=== PATIENT | male | born 1965 | race Caucasian/White ===

== ENCOUNTER 2024-01-02 07:38 | Outpatient (OUT) | payer OTHER, SELFPAY ==
--- NOTE | 2024-01-02 07:39 | VEIN_ITS ---
[address] [address] Patient Name: SHERRY BURKETT MRN: [id number] date: 1965 Sex: M Assigned Patient Location: Current Patient Location: Accession/Order Number: [id number] Exam Date: 01/02/2024 07:46 Report Date: 01/02/2024 09:02 At the request of: DINA LOZANO Procedure: VC Endovenous Ablation 1VeinLT EXAMINATION: VC Endovenous Ablation 1Vein [. Saphenous vein Great saphenous vein HISTORY: I83.813 Bilateral painful varicose veins COMPARISON: No relevant comparison available. TECHNIQUE: The risks and benefits of the procedure had been previously discussed, and were rediscussed at length. Informed written consent was obtained. Berkley Hart and Nixon Townsend assisted. Time out procedure was performed. The left lower extremity was prepared and draped in the usual sterile fashion to allow knee flexion in the sterile field. Duplex ultrasound probe was draped in a sterile cover, sterile transmission gel was used. Venous mapping was performed with the areas of dilation and large tributaries marked. The total length was 71 cm from the entry 5 cm above the medial malleolus to 3 cm below the saphenofemoral junction. The diameter of the greater saphenous vein ranged from 4-8 mm. A 30 gauge needle and 1% buffered lidocaine was used to anesthetize the entry site. A 4 mm incision was made with a scalpel and the saphenous vein was entered percutaneously under direct ultrasound guidance with a micropuncture set, a single stick was successful in gaining access. A micro-guide wire was inserted and the needle removed. A micro-set including a dilator was inserted over the microwire and the needle and dilator were removed. A 0.018 guide wire was inserted through the micro-set and threaded through the saphenous vein to the saphenofemoral junction. The dilator was removed and an introducer sheath was inserted over the wire until the end of the sheath entered the saphenofemoral junction. The dilator and wire were removed and the 600 micron fiber was introduced and placed and positioned so that it extended beyond the sheath and was 3 cm peripheral to the saphenofemoral femoral junction. Final position of the fiber was determined by ultrasound guidance and duplex imaging. Tumescent anesthetic was delivered by ultrasound guidance. 375 cc of fluid was delivered along the entire course of the saphenous vein. The solution consisted of 1000 cc of normal saline with 40 mL of 1% lidocaine and 20 mL of sodium bicarbonate. A final positioning check was made. The energy source was turned on by means of the foot pedal and the fiber and sheath were withdrawn. The total number of Joules delivered was 3648. The laser was active for 456 seconds under continuous pulse, average laser use of 8 J. Laser start time 8:42 AM 01/02/2024 . Laser stop time 8:47 AM 01/02/2024 . A duplex ultrasound revealed compressibility and flow at the saphenofemoral junction immediately after the procedure. Hemostasis at the access site was achieved. The skin incision of the saphenous vein was closed with a 4 x 4. A compression stocking was applied. Postop instructions were given. A follow up appointment was recommended and scheduled. The patient tolerated the procedure well and was discharged in good condition . VEIN/VC Endovenous Ablation 1VeinLT IMPRESSION: Technically successful endovenous laser ablation of the left great saphenous vein Electronically authenticated by: DINA LOZANO Date: 01/02/2024 09:02
[2024-01-02] MEDS: LIDOCAINE HCL 1% 100 MG/10 ML MDV INJ (08:18)
[2024-01-02] MEDS: 0.9 % SODIUM CHLORIDE 500 ML, LIDOCAINE HCL 20 ML, SODIUM BICARBONATE 10 MEQ INJ (08:19)
== END 2024-01-02 07:39 | disposition home or self-care (01) ==
LOC: VC 07:38
PROVIDERS: PCP Radiology Diagnostic Radiology; Visit Provider Radiology Diagnostic Radiology
DX: I83.813 Varicose veins of bilateral lower extremities with pain (principal)
CPT/HCPCS: 36478

== ENCOUNTER 2024-01-09 10:35 | Outpatient (OUT) | payer OTHER, SELFPAY ==
--- NOTE | 2024-01-09 10:38 | VEIN_ITS ---
Patient Name: SHERRY BURKETT MR#: [id number] : 1965 Exam Date: 01/09/2024 Ordering Doctor: DR DINA LOZANO M.D. RADIOLOGY REPORT PROCEDURE: [facility] - OFFICE VISIT FOLLOW UP COMPARISON: None. PROGRESS NOTES: The patient reports improvement in leg symptoms. There has been interval reduction in varicosities. The patient has followed our recommendations to walk 20-30 minutes once or twice per day since the procedure. Physical exam demonstrates decrease in varicosities of the leg. Persistent varicosities are identified along the legs bilaterally. Review of the ultrasound performed the same day demonstrates occlusive thrombus extending throughout the treated vein(s), see separate report, consistent with a successful ablation. No thrombus extending into or beyond the saphenofemoral junction. The patient expressed a desire to proceed with treatment of remaining incompetent varicosities. The patient was informed that treatment was a process and would require several procedures/sessions. VEIN/ Facility EST TD IMPRESSION: 1. Successful ablation of the left great saphenous vein(s). 2. Persistent bilateral varicose veins and lower extremity symptoms. 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 Patient will contact us in a few weeks when ready for next treatment. Nurse notes, history and physical were reviewed and confirmed, see attached forms. The nurse was present throughout the physical exam and consultation Dictated by: Abdulkadir Neri M.D. on 01/09/2024 at 14:49 Approved by: Abdulkadir Neri M.D. on 01/09/2024 at 14:51
--- NOTE | 2024-01-09 10:38 | VEIN_ITS ---
Patient Name: SHERRY BURKETT MR#: [id number] : 1965 Exam Date: 01/09/2024 Ordering Doctor: DR DINA LOZANO M.D. RADIOLOGY REPORT PROCEDURE: VC EXT VENOUS LT LIMITED COMPARISON: None. INDICATIONS: Phlebitis of superficial veins of lt lower extremity I80.02 TECHNIQUE: Lower extremity glover scale and Duplex Doppler evaluation of the deep venous system from the inguinal ligament through the calf veins. FINDINGS: REGION: Left lower extremity. THROMBI: Negative for DVT. Heat induced thrombus in left GSV 1.6 cm from SFJ and extends to anterior medial foot. COMPRESSIBILITY: Non-compressible segments corresponding to thrombus FLOW: Areas of no flow corresponding to thrombus OTHER: Patent perforators remain in medial lower leg. CONCLUSION: 1. Successful post ablation occlusion of left great saphenous vein. Dictated by: Abdulkadir Neri M.D. on 01/09/2024 at 14:48 Approved by: Abdulkadir Neri M.D. on 01/09/2024 at 14:49
--- OUTSIDE RECORDS SUMMARY | 2024-01-09 10:41 | XMS_ITS | CCD ---
Author Name Unknown Address [address] [place] [address] Organization [facility] Care Team Providers Care Registered Radiographer Name Role Phone Winifred Bernal Unavailable Unavailable Pancho Scott Unavailable Unavailable Pancho Scott Unavailable Unavailable Unavailable Unavailable Unavailable Pancho Scott DO Primary Care Provider [phone] Dina Chandra Unavailable Unavailable Unavailable DO Pancho Scott Primary Care Provider Sourav, [facility] Tiffany Bauer Emergency Provider JOSE BARFIELD Attending Unavailable TOMMY BARFIELDEEM Admitting Unavailable DR DINA LOZANO V Consulting Unavailable LICO JOSE Consulting Unavailable Pancho Scott DO Primary Care Provider [phone] PANCHO SCOTT Primary Care Unavailable PROVIDER, UNKNOWN Referring Unavailable MD WINIFRED BERNAL Referring Unav ailable Tyler, Dr. Pancho Stewart Primary Care Unavailable Raghu MsGerry Mccurdy Attending Unavailable MD WINIFRED BERNAL Referring Unav ailable Tyler, Dr. Pancho Stewart Primary Care Unavailable Kimmie, MrGerry Archer Attending MD WINIFRED Muhammad Referring Unav ailable Tyler, Dr. Pancho Stewart Primary Care Unavailable MD WINIFRED BERNAL Attending MD WINIFRED Payne Referring Unav ailable Tyler, Dr. Pancho Stewart Primary Care Unavailable MD WINIFRED BERNAL Attending MD WINIFRED Payne Referring Unav ailable Dr. Pancho Scott Primary Care Unavailable MD WINIFRED BERNAL Attending Unav ailable MD WINIFRED BERNAL Referring Unav ailable MD WINIFRED BERNAL Attending Unav ailable Dr. Pancho Scott Primary Care Unavailable Scott DO, [facility] Primary Care Provider [phone] SUHA WELCH Referring Unavailable PANCHO SCOTT Primary Care Unavailable O'SUHA KEVIN Attending Unavailable Prisca'SUHA KEVIN Referring Unavailable PANCHO SCOTT Primary Care Unavailable Prisca'HERBERTH, SUHA Chin Attending Unavailable SUHA WELCH Referring Unavailable PANCHO SCOTT Primary Care Unavailable Prisca'SUHA KEVIN Attending Unavailable YURI, SUHA Chin Attending Unavailable PANCHO SCOTT [facility] Care Unavailable SUHA WELCH Referring Unavailable SCOTT, [facility] Unavailable WOODY KNOX Attending Unavailable PORSHA PAIGE Attending Unavailab le TYLER [facility] Unavailable SCOTT [facility] Unavailable GISELE SMITH Attending Unavailabl lizette SCOTT [facility] Unavailable GISELE SMITH Attending Unavailabl lizette SCOTT [facility] Unavailable WOODY KNOX Attending Unavailable SCOTT, [facility] Unavailable WOODY KNOX Referring Unavailable DO Tyler [facility] Care Provider [phone] MD Dina Chandra Attending Provider [phone] Pancho Scott [facility] Unavailable Dina Chandra Attending Unavailable Dina Chandra Admitting Unavailable ANNELISE Peterson Admitting Unavailable Pancho Scott [facility] Care Unavailable ANNELISE Peterson Attending Unavailable ANNELISE Peterson Admitting Unavailable Pancho Scott Primary Care Unavailable ANNELISE Peterson Attending Unavailable Pancho Scott Primary Care Unavailable ANNELISE Peterson Admitting Unavailable ANNELISE Peterson Attending Unavailable Pancho Scott Primary Care Unavailable BETTY PARKER Attending Unavailable BETTY PARKER Admitting Unavailable Estrella Mena Referring Unavailable Staci Owen PA-C Attending Unavailable Staci Owen PA-C Admitting Unavailable Scott, Pancho W Primary Care Unavailable BETTY PARKER Attending Unavailable BETTY PARKER Admitting Unavailable Scott Pancho W Primary Care Unavailable GersonensteinEstrella Attending Unavailable Eisenstein, Estrella Admitting Unavailable Scott, Pancho W Primary Care Unavailable Lexie PA-C, Staci E Admitting Unavailable Scott Pancho W Primary Care Unavailable Lexie PA-C, Staci E Attending Unavailable Dolce, Jose R Attending Unavailable Dolce, Jose R Admitting Unavailable Scott Pancho W Primary Care Unavailable Lexie PA-C, Staci E Attending Unavailable Lexie PA-C, Staci E Admitting Unavailable Scott, Pancho W Primary Care Unavailable Scott, Pancho W Primary Care Unavailable BETTY PARKER Attending Unavailable BETTY PARKER Admitting Unavailable Jayy Clemente Attending Unavailable Soctt, Pancho W Primary Care Unavailable Jayy Clemente Admitting Unavailable ANNELISE Peterson Attending Unavailable ANNELISE Peterson Admitting Unavailable ScottPancho W Primary Care Unavailable Lexie PA-C, Staci E Attending Unavailable Lexie PA-C, Staci E Admitting Unavailable ScottPancho Primary Care Unavailable Scott, Pancho W Primary Care Unavailable ANNELISE Peterson Attending Unavailable ANNELISE Peterson Admitting Unavailable Dolce, Jose R Admitting Unavailable Scott, Pancho W Primary Care Unavailable Dolce, Jose R Attending Unavailable Juan Sotomayor Admitting Unavailable SotomayorJuan cuellar Attending Unavailable ScottPancho W Primary Care Unavailable Dolce, Jose R Attending Unavailable Dolce, Jose R Admitting Unavailable Scott, Pancho W Primary Care Unavailable Eisenstein, Estrella Attending Unavailable Eisenstein, Estrella Admitting Unavailable Scott, Pancho W Primary Care Unavailable SotomayorJuan cuellar Attending Unavailable SotomayorJuan cuellar Admitting Unavailable Scott, Pancho W Primary Care Unavailable Scott, Pancho W Primary Care Unavailable BETTY PARKER Admitting Unavailable BETTY PARKER Attending Unavailable Gersonenstein, Estrella Attending Unavailable Scott, Pancho W Primary Care Unavailable Eisenstein, Estrella Admitting Unavailable ANNELISE Peterson Admitting Unavailable Scott, Pancho W Primary Care Unavailable ANNELISE Peterson Attending Unavailable Dolce, Jose R Attending Unavailable Dolce, Jose R Admitting Unavailable Scott, Pancho W Primary Care Unavailable WINIFRED BERNAL Attending Unavailable PANCHO SCOTT Primary Care Unavailable WINIFRED BERNAL Attending Unavailable SCOTT, PANCHO Pat Primary Care Unavailable WINIFRED BERNAL Attending Unavailable SCOTT, PANCHO W Primary Care Unavailable WINIFRED BERNAL Attending Unavailable SCOTT, PANCHO W Primary Care Unavailable SCOTT, PANCHO W Primary Care Unavailable Allergies Allergy Classification Reported Allergen(s) Allergy Type Date of Onset Reaction(s) Facility Mold Extract (6 sources) Mold Extract Drug Allergy [facility]ct[facility] DO Work Phone: (20 sources) Mold Extract; Translations: [MOLD] Drug Allergy 2 Cough [facility] (9 sources) Metoclopramide; Translations: [METOCLOPRAMIDE HCL] Drug Allergy 7 Intolerance [facility] (9 sources) Seasonal allergy; Translations: [SEASONAL ALLERGIES] Allergy to substance Cough [facility] (11 sources) Metoclopramide; Translations: [METOCLOPRAMIDE ] Drug Allergy 7 Anxiety [facility] (2 sources) Allergic rhinitis due to pollen Allergy to substance 2 Difficulty Breathing [facility] (4 sources) Pollen; Translations: [POLLEN EXTRACTS] Allergy to substance 2 Shortness of breath [facility] Work Phone: (4 sources) Hay Fever And Allergy Relief; Translations: [HAY FEVER AND ALLERGY RELIEF] Drug Allergy 4 Unknown [facility] (4 sources) Other; Translations: [OTHER] Allergy to substance 4 Unknown [facility] Work Phone: (1 source) Metoclopramide; Translations: [Reglan] Drug Allergy [facility] (1 source) Hay; Translations: [Hay] Propensity to adverse reactions to drug (disorder) [facility] Repository Medications Current Medications Medication Drug Class(es) Dates Sig (Normalized) Sig (Original) acetaminophen 500 mg oral tablet (8 sources) acetaminophen (T ylenol Extra Strength) 500 mg tablet Take by mouth. [address] rength TABS Refills: [address] rength TABS Refills: 0 DO Active acetaminophen 325 mg / HYDROcodone bitartrate 5 mg oral tablet (20 sources) Opioid Agonist Start: 12-05-2023 HYDROcodone-ac etaminophen ([place]) 5-325 mg tablet Indications: Chronic migraine without aura, with intractable migraine, so stated, with status migrainosus Take 1 tablet by mouth every 8 hours if needed for severe pain (7 - 10). 90 tabs for 30 days 90 tablet 0 12/05/2023 Active Start: 11-05-2023 End: 12-05-2023 take 1 tablet by mouth every eight hours for pain HYDROcodone-acetaminophen ([place]) 5-325 mg tablet Indications: Chronic migraine without aura, with intractable migraine, so stated, with status migrainosus Take 1 tablet by mouth every 8 hours if needed for severe pain (7 - 10). 90 tabs for 30 days Do not start before November 05, 2023. 90 tablet 0 11/05/2023 12/05/2023 Discontinued (Reorder) Start: 11-05-2023 End: 12-05-2023 take 1 tablet by mouth every eight hours for pain HYDROcodone-acetaminophen ([place]) 7.5-32 5 mg tablet Indications: Chronic migraine without aura, with intractable migraine, so stated, with status migrainosus Take 1 tablet by mouth every 8 hours if needed for severe pain (7 - 10). 30 day supply Do not start before November 05, 2023. 120 tablet 0 11/05/2023 12/05/2023 Discontinued (Med List Cleanup) Start: 04-27-2018 Hydrocodone-Ac etaminophen Active 1 TAB PO As Directed April 26, 2018 11:00pm Start: 07-13-2017 take 1 tablet by tereso th every eight hours as needed HYDROcodone-acetaminophen ([place]) 5-325 mg tablet Take 1 tablet by mouth every 8 hours if needed. 0 10/10/2022 Active Vicodin Active [id number] actuat albuterol 0.09 mg/actuat metered dose inhaler (20 sources) beta2-Adrenergic Agonist Start: 09-18-2021 take 1 puff(s) by inhalation every six hours Albuterol Sulfate (Proair Hfa) 90 mcg/actuation Hfa Aerosol Inhaler Active 2 PUFF INHALATION Q6H September 17, 2021 11:00pm Start: 04-27-2018 Albuterol Sulf ate Active 1 PUFF INHALATION As Directed April 26, 2018 11:00pm Start: 09-04-2017 PROAIR HFA 90 mcg/actuation inhaler Start: 09-06-2016 take 1 puff(s) by in halation every four hours albuterol 90 mcg/actuation inhaler Inhale 1 puff every 4 hours if needed. 0 09/06/2016 Active Start: 09-06-2016 take 1 puff(s) by in halation every four hours as needed Albuterol Sulfate HFA 108 (90 Base) MCG/ACT Inhalation Aerosol Solution INHALE 1 PUFF EVERY 4 HOURS NEEDED. Quantity: 1 Refills: 1 Ordered: 12-May-2020 Winifred Bernal MD Start : 06-Sep-2016 Active Start: 09-06-2016 take 1 puff(s) by in halation every four hours as needed Albuterol Sulfate HFA 108 (90 Base) MCG/ACT Inhalation Aerosol Solution INHALE 1 PUFF EVERY 4 HOURS NEEDED. Quantity: 1 Refills: 1 Winifred Bernal MD Start : 06-Sep-2016 Active 8.5 GM Inhaler Start: 09-06-2016 take 1 puff(s) by in halation every four hours as needed ProAir HFA 108 (90 Base) MCG/ACT Inhalation Aerosol Solution INHALE 1 PUFF EVERY 4 HOURS NEEDED. Quantity: 1 Refills: 0 Winifred Bernal MD Start : 06-Sep-2016 Active 8.5 GM Inhaler ALBUTEROL INHALA TION Indications: Lumbar pain , Degenerative disc disease, lumbar , Lumbar radiculopathy Inhale as instructed. 0 Active Comment on above: Inhale as instructed . ascorbic acid 1000 mg oral tablet (20 sources) Vitamin C Start: take 2 g by mouth once daily Ascorbic Acid (Vitamin C) (Vitamin C) 1,000 mg Tablet Active 2 GM PO Daily September 17, 2021 11:00pm [id number] AFFEINE ORAL (2 sources) End: ASPIRIN-ACETAMINOPHEN- CAFFEINE ORAL Take by mouth. 0 08/24/2023 Discontinued (Therapy completed) cholecalciferol 0.05 mg oral capsule (2 sources) Vitamin D Start: 10-29-2 021 take 1 capsule by mouth once daily Cholecalciferol (Vitamin D3) (Vitamin D3) 50 mcg (2,000 unit) Capsule Active 100 MCG PO Daily September 17, 2021 11:00pm cyclobenzaprine hydrochloride 10 mg oral tablet (20 sources) Muscle Relaxant Start: 017 cyclobenzaprine (Flexeril) 10 mg tablet Take 1-2 tablets (10-20 mg) by mouth as needed at bedtime. 0 08/01/2017 Active Start: 08-01-2017 take [address] [facility] at bedtime as needed Cyclobenzaprine HCl - 10 MG Oral Tablet TAKE 1- 2 TABLET AT BEDTIME NEEDED. Quantity: 60 Refills: 6 Ordered: 09-May-2023 Kristian OVALLE, Winifred Start : 01-Aug-2017 Active Start: 08-01-2017 take 1 tablet by tereso three times daily cyclobenzaprine (FLEXERIL) 10 mg tablet Take 10 mg by mouth three times daily. 0 11/30/2017 Active Comment on above: Take 10 mg by mouth three times daily. eszopiclone 3 mg oral tablet (20 sources) Start: 08-08-20 17 take 1 tablet by mouth once daily at bedtime eszopiclone (Lunesta) 3 mg tablet Indications: Primary insomnia Take 1 tablet (3 mg) by mouth once daily at bedtime. 30 tablet 2 08/31/2023 Active 12 hr fexofenadine hydrochloride 60 mg / pseudoephedrine hydrochloride 120 mg extended release oral tablet (4 sources) alpha-Adrenergic Agonist, Histamine-1 Receptor Antagonist Start: 04-27-20 18 fexofenadine-pseudo ephedrine (Susan-D) 60-120 mg 12 hr tablet Fexofenadine-Pseudo ephedrine Active 1 TAB PO Daily April 26, 2018 11:00pm 0 04/27/2018 Active Start: 04-27-2018 take 1 tablet by tereso th once daily Fexofenadine-Pseudoephedrine Active 1 TA B PO Daily April 26, 2018 11:00pm Fluticasone Propion-Salmeterol (20 sources) Corticosteroid, beta2-Adrenergic Agonist Start: 09-18-2021 Fluticasone Propion-Salmeterol (Advair Diskus) 250-50 mcg/dose Blister With Device Active 1 INH INHALATION Twice daily September 17, 2021 11:00pm Start: 04-27-2018 take 1 puff(s) by in halation once daily Fluticasone Propion-Salmeterol Active 1 PUFF INHALATION Daily April 26, 2018 11:00pm Start: 12-30-2016 fluticasone pr opion-salmeteroL (Advair Diskus) 250-50 mcg/dose diskus inhaler Inhale. 0 12/30/2016 Active Start: 12-30-2016 Advair Diskus 250-50 MCG/DOSE AEPB Quantity: 60 Refills: 0 Ordered: 11-Jul-2017 DO Start : 30-Dec-2016 Active take 1 puff(s) by in halation twice daily fluticasone-salmeterol (ADVAIR DISKUS) 250-50 mcg/dose DsDv Indications: Lumbar pain , Degenerative disc disease, lumbar , Lumbar radiculopathy Inhale 1 Puff as instructed twice daily. 0 Active take 1 puff(s) by in halation twice daily fluticasone-salmeterol (ADVAIR DISKUS) 250-50 mcg/dose DsDv Indications: Lumbar pain , Degenerative disc disease, lumbar , Lumbar radiculopathy Inhale 1 Puff as instructed twice daily. 0 Active Advair Diskus 25 0/50 250/50 1 puff Inhalation as directed Active Comment on above: Inhale 1 Puff as ins tructed twice daily. gabapentin 300 mg oral capsule (20 sources) Anti-epileptic Agent Start: 03-29-2017 gabapentin (Neurontin) 300 mg capsule One cap morning and noon and 2 caps bedtime 0 03/29/2017 Active GABAPENTIN (NEUR ONTIN ORAL) Indications: Lumbar pain , Degenerative disc disease, lumbar , Lumbar radiculopathy Take by mouth. 0 Active Comment on above: Take by mouth. 1 ml galcanezumab-gnlm 120 mg/ml auto-injector (20 sources) Start: 07-20-2023 End: 07-19-2024 inject 120 mg by subcutaneous injection every month galcanezumab (Emgality) 120 mg/mL auto-injector INJECT 120 MG (1 PEN) UNDER THE SKIN ONCE A MONTH DIRECTED. 1 mL 3 07/20/2023 07/19/2024 Active Start: 09-14-2018 End: 10-20-2022 inject 120 mg by subcutaneous injection every month Emgality 120 MG/ML Subcutaneous Solution Auto-injector Inject 120 mg (1 pen) under the skin Once a Month as directed. Quantity: 1 Refills: 3 Ordered: 20-Jul-2023 Winifred Bernal MD Start : 14-Sep-2018 Active Telepharmacy Rx hydrocortisone 5 mg/ml topical cream (3 sources) Corticosteroid Start: 03-01-2023 hydrocortisone 0.5 % cream apply affected area once daily RUB IN GENTLY AND COMPLETELY 0 03/01/2023 Active indomethacin 50 mg oral capsule (5 sources) Nonsteroidal Anti-inflammatory Drug Start: 03-01-2022 End: 12-04-2024 take 1 capsule by mouth twice daily at mealtime indomethacin (Indocin) 50 mg capsule Indications: Chronic migraine without aura, with intractable migraine, so stated, with status migrainosus Take 1 capsule (50 mg) by mouth 2 times a day with meals. 60 capsule 11 12/05/2023 12/04/2024 Active Start: 03-01-2022 Indomethacin 5 0 MG Oral Capsule Quantity: 90 Refills: 0 Ordered: 24-Sep-2022 DO Start : 01-Mar-2022 Complete itraconazole 100 mg oral capsule (20 sources) Azole Antifungal Start: 07-21-2022 End: 12-05-2023 take 1 capsule by mouth once daily itraconazole (Sporanox) 100 mg capsule Take 1 capsule (100 mg) by mouth once daily. 0 07/21/2022 12/05/2023 Discontinued (Med List Cleanup) ketorolac tromethamine 10 mg oral tablet (20 sources) Nonsteroidal Anti-inflammatory Drug, Cyclooxygenase Inhibitor Start: 12-14-2023 take 1 tablet by mouth every six hours at mealtime ketorolac (Toradol) 10 mg tablet Indications: Chronic migraine without aura, with intractable migraine, so stated, with status migrainosus Take 1 tablet (10 mg) by mouth every 6 hours for 5 days. With food 20 tablet 0 12/14/2023 Active Start: 12-14-2023 End: 12-14-2023 ketorolac (Toradol) injectio n 60 mg Start: 12-14-2023 End: 12-14-2023 ketorolac (Toradol) injectio n 60 mg Start: 09-14-2023 ketorolac (Spr ix) nasal Indications: Chronic migraine without aura, with intractable migraine, so stated, with status migrainosus Administer 1 spray into each nostril every 6 hours. USE ONE SPRAY IN EACH NOSTRIL EVERY 6-8 HOURS MAX DOSE IS 8 SPRAYS IN A 24 HOUR PERIOD 5 each 6 09/14/2023 Active Start: 05-25-2023 End: 12-05-2023 ketorolac (Toradol) 10 mg ta blet Indications: Intractable chronic migraine without aura and with status migrainosus Take 1 tablet (10 mg) by mouth every 6 hours if needed for moderate pain (4 - 6) (every 6 hours with food for 5 days). 20 tablet 0 08/24/2023 12/05/2023 Discontinued (Med List Cleanup) Start: 05-25-2023 Ketorolac Trom ethamine 60 MG/2ML Intramuscular Solution INJECT 60 ML Intramuscular 30ml per 1 ml in bilateral gluteous muscles Quantity: 0 Refills: 0 Ordered: 25-May-2023 Winifred Bernal MD Start : 25-May-2023 Complete Start: 02-14-2023 End: 05-09-2023 take 1 tablet by mouth every six hours at mealtime Ketorolac Tromethamine 10 MG Oral Tablet TAKE 1 TABLET BY MOUTH EVERY 6 HOURS WITH FOOD Quantity: 20 Refills: 0 Ordered: 14-Feb-2023 Winifred Bernal MD Start : 14-Feb-2023 End : 09-May-2023 Complete Start: 10-20-2022 Ketorolac Trom ethamine 60 MG/2ML Intramuscular Solution INJECT 60 ML Intramuscular 30ml per 1 ml in bilateral gluteous muscles Quantity: 0 Refills: 0 Ordered: 20-Oct-2022 Winifred Bernal MD Start : 20-Oct-2022 Complete Start: 04-20-2022 Ketorolac Trom ethamine 60 MG/2ML Intramuscular Solution INJECT 60 ML Intramuscular 30ml per 1 ml in bilateral gluteous muscles Quantity: 0 Refills: 0 Ordered: 20-Apr-2022 Winifred Bernal MD Start : 20-Apr-2022 Complete Start: 01-20-2022 Ketorolac Trom ethamine 60 MG/2ML Intramuscular Solution INJECT 60 ML Intramuscular 30ml per 1 ml in bilateral gluteous muscles Quantity: 0 Refills: 0 Ordered: 20-Jan-2022 Winifred Bernal MD Start : 20-Jan-2022 Complete Start: 10-22-2021 Ketorolac Trom ethamine 60 MG/2ML Intramuscular Solution INJECT 60 ML Intramuscular 30ml per 1 ml in bilateral gluteous muscles Quantity: 0 Refills: 0 Ordered: 22-Oct-2021 Winifred Bernal MD Start : 22-Oct-2021 Complete Start: 07-23-2021 Ketorolac Trom ethamine 60 MG/2ML Intramuscular Solution INJECT 60 ML Intramuscular 30ml per 1 ml in bilateral gluteous muscles Quantity: 0 Refills: 0 Ordered: 23-Jul-2021 Winifred Bernal MD Start : 23-Jul-2021 Complete Start: 04-22-2021 Ketorolac Trom ethamine 60 MG/2ML Intramuscular Solution INJECT 60 ML Intramuscular 30ml per 1 ml in bilateral gluteous muscles Quantity: 0 Refills: 0 Ordered: 22-Apr-2021 Winifred Bernal MD Start : 22-Apr-2021 Complete Start: 05-28-2019 End: 10-20-2022 take 1 tablet by mouth every six hours at mealtime Ketorolac Tromethamine 10 MG Oral Tablet TAKE 1 TABLET BY MOUTH EVERY 6 HOURS WITH FOOD Quantity: 20 Refills: 0 Ordered: 20-Apr-2022 Winifred Bernal MD Start : 22-Apr-2021 End : 20-Oct-2022 Complete Start: 02-21-2018 ketorolac (Spr ix) nasal Administer into affected nostril(s). USE ONE SPRAY IN EACH NOSTRIL EVERY 6-8 HOURS. MAX DOSE IS 8 SPRAYS IN A 24 HOUR PERIOD 0 02/21/2018 Active lisinopril 40 mg oral tablet (20 sources) Angiotensin Converting Enzyme Inhibitor Start: 09-18-2021 take 40 mg by mouth once daily Lisinopril Active 40 MG PO Daily September 17, 2021 11:00pm Start: 01-19-2021 take [address] [facility] once daily lisinopril 20 mg tablet Take 2 tablets (40 mg) by mouth once daily. 0 01/19/2021 Active Start: 01-19-2021 take 1 tablet by tereso once daily Lisinopril 20 MG Oral Tablet TAKE 1 TABLET DAILY. Quantity: 90 Refills: 3 Ordered: 19-Jan-2021 Winifred Bernal MD Start : 19-Jan-2021 Active Start: 12-03-2020 End: 04-22-2021 Lisinopril 10 MG Oral Tablet Quantity: 30 Refills: 0 Ordered: 03-Dec-2020 DO Start : 03-Dec-2020 End : 22-Apr-2021 Complete Lisinopril Activ e lysine 500 mg oral tablet (20 sources) take 1 tablet by tereso th once daily lysine 500 mg tablet Take 1 tablet (500 mg) by mouth once daily. 0 Active melatonin 10 mg oral capsule (20 sources) take 1 capsule by mo uth once daily at bedtime melatonin 10 mg capsule Take 1 capsule (10 mg) by mouth once daily at bedtime. 0 Active take 1 tablet by tereso th at bedtime as needed Melatonin 10 MG 1 tablet at bedtime as needed Orally Active Melatonin Active mometasone furoate 0.05 mg/actuat metered dose nasal spray (20 sources) Corticosteroid take 1 spray(s) nasal route once daily mometasone (Nasonex) 50 mcg/actuation nasal spray Administer 1 spray into each nostril once daily. 0 Active take 1 spray(s) nasal route once daily Mometasone Furoate 50 MCG/ACT Nasal Suspension USE 1 SPRAY IN EACH NOSTRIL ONCE DAILY. Quantity: 1 Refills: 3 Ordered: 09-May-2023 Winifred Bernal MD Active montelukast 10 mg oral tablet (20 sources) Leukotriene Receptor Antagonist Start: 03-18-2017 take 1 tablet by mouth once daily at bedtime montelukast (Singulair) 10 mg tablet Take 1 tablet (10 mg) by mouth once daily at bedtime. 0 03/18/2017 Active MULTIVITAMIN ORAL (4 sources) MULTIVITAMIN ORA L Take by mouth. 0 Active multivitamin with minerals (multivitamin-iron- folic acid) tablet (2 sources) multivitamin wit h minerals (multivitamin-iron -folic acid) tablet Take by mouth. 0 Active Qw-Ogv-Pl-Ca-Fe-Lyc open-Lutein (2 sources) Start: 09-18-2021 take 1 tablet by mouth once daily Zs-Lew-Hp-Ca-Fe-Ly copen-Lutein Active 1 TAB PO Daily September 17, 2021 11:00pm naproxen sodium 500 mg / SUMAtriptan 85 mg oral tablet (20 sources) Nonsteroidal Anti-inflammatory Drug, Serotonin-1b and Serotonin-1d Receptor Agonist Start: 09-18-2021 take 1 tablet by mouth once Sumatriptan-Naprox en (Treximet) 85-500 mg Tablet Active 1 TAB PO Once September 17, 2021 11:00pm Start: 04-06-2017 take 1 tablet by tereso th every two hours as needed, then take 2 tablets by mouth every twenty-four hours as needed SUMAtriptan-naproxen (Treximet) 85-500 mg tablet Take by mouth. TAKE 1 TABLET AT ONSET OF HEADACHE. MAY REPEAT ONCE IN 2 HOURS NEEDED. MAXIMUM 2 TABLETS IN 24 HOURS. 0 04/06/2017 Active SUMAtriptan-Napr oxen Sodium 85-500 MG Oral for 16 Days Active niacinamide 500 mg oral tablet (2 sources) Start: 08-24-2023 take 1 tablet by mouth once daily at mealtime, then take 2 tablets by mouth twice daily niacinamide 500 mg tablet take 1 tablet by mouth daily with food INCREASE SLOWLY to 2 tablets by mouth twice a day 0 08/24/2023 Active Benicia 6-Ubv-Ptl-Fish Oil (Fish Oil) 1,600-500-800 mg/5 mL Liquid (2 sources) Start: 09-18-2021 Benicia 8-Afp-Gft-Fish Oil (Fish Oil) 1,600-500-800 mg/5 mL Liquid Active 5 ML PO Daily September 17, 2021 11:00pm omega 6-ees-qwd-fish oil 350 mg-235 mg- 90 mg-597 mg capsule,delayed release(DR/EC) (2 sources) Start: 09-18-2021 omega 7-dhw-vpp-fish oil 350 mg-235 mg- 90 mg-597 mg capsule,delayed release(DR/EC) Benicia 0-Lli-Huj-Fish Oil (Fish Oil) 1,600-500-800 mg/5 mL Liquid Active 5 ML PO Daily September 17, 2021 11:00pm 0 09/18/2021 Active 12 hr propafenone hydrochloride 425 mg extended release oral capsule (2 sources) Antiarrhythmic Start: 11-22-2023 propafenone SR (Rythmol SR) 425 mg 12 hr capsule tamsulosin hydrochloride 0.4 mg oral capsule (20 sources) alpha-Adrenergic Taylor Start: 04-25-2020 take 1 capsule by mouth once daily tamsulosin (Flomax) 0.4 mg 24 hr capsule Take 1 capsule (0.4 mg) by mouth once daily. 0 04/25/2020 Active verapamil hydrochloride 240 mg extended release oral tablet (20 sources) Calcium Channel Taylor Start: 09-18-2021 take 240 mg by mouth once daily Verapamil Active 240 MG PO Daily September 17, 2021 11:00pm Start: 08-08-2018 take 2 tablets by mo uth at bedtime Verapamil HCl ER 120 MG Oral Tablet Extended Release TAKE 2 TABLETS BY MOUTH AT BEDTIME Quantity: 180 Refills: 1 Winifred Bernal MD Start : 08-Aug-2018 Active Start: 04-27-2018 take 1 tablet by tereso once daily Verapamil Active 1 TAB PO Daily April 26, 2018 11:00pm take 3 capsules by m outh once daily at bedtime verapamil ER (Veralan PM) 120 mg 24 hr capsule Take 3 capsules (360 mg) by mouth once daily at bedtime. 0 Active take 2 capsules by m outh at bedtime Verapamil HCl ER 120 MG Oral Capsule Extended Release 24 Hour TAKE 2 CAPSULE Bedtime Quantity: 180 Refills: 3 Ordered: 28-Feb-2023 Winifred Bernal MD Active take 2 capsules by m outh twice daily Verapamil HCl ER 200 MG Oral Capsule Extended Release 24 Hour TAKE 2 CAPSULE Twice daily Refills: 0 Active zinc sulfate 220 mg oral capsule (3 sources) End: 12-05-2023 zinc sulfate (Zincate) 220 ( 50 Zn) MG capsule Take by mouth. 0 12/05/2023 Discontinued (Med List Cleanup) Completed/Discontinued Medications Medication Drug Class(es) Dates Sig (Normalized) Sig (Original) Excedrin Migraine TABS (4 sources) Platelet Aggregation Inhibitor, Nonsteroidal Anti-inflammatory Drug, Central Nervous System Stimulant, Methylxanthine Excedrin Migraine TABS Refills: 0 Active Excedrin Migrain e TABS Refills: 0 DO Active amoxicillin 500 mg / clavulanate 125 mg oral tablet (1 source) Penicillin-class Antibacterial Start: 01-21-2021 Amoxicillin-Pot Clavulanate 500-125 MG Oral Tablet Quantity: 21 Refills: 0 Ordered: 21-Jan-2021 DO Start : 21-Jan-2021 Complete azithromycin 250 mg oral tablet (1 source) Macrolide Antimicrobial Start: 10-05-2020 Azithromycin 250 MG Oral Tablet Quantity: 4 Refills: 0 Ordered: 06-Oct-2020 DO Start : 05-Oct-2020 Complete benzonatate 200 mg oral capsule (1 source) Non-narcotic Antitussive Start: 10-13-2020 Benzonatate 200 MG Oral Capsule Quantity: 30 Refills: 0 Ordered: 13-Oct-2020 DO Start : 13-Oct-2020 Complete onabotulinumtoxina 200 unt injection (2 sources) Acetylcholine Release Inhibitor Start: 12-21-2023 End: 12-21-2023 onabotulinumtoxinA (Botox) injection 200 Units Start: 12-21-2023 End: 12-21-2023 onabotulinumtoxinA (Botox) i njection 200 Units cefdinir 300 mg oral capsule (2 sources) Cephalosporin Antibacterial Start: 08-12-2021 Cefdinir 300 MG Oral Capsule Quantity: 20 Refills: 0 Ordered: 12-Aug-2021 DO Start : 12-Aug-2021 Complete cephalexin 500 mg oral capsule (5 sources) Cephalosporin Antibacterial Start: 09-26-2022 Cephalexin 500 MG Oral Capsule Quantity: 28 Refills: 0 Ordered: 27-Sep-2022 DO Start : 26-Sep-2022 Complete Start: 09-26-2022 take 1000 mg by mout h twice daily Cephalexin Active 1000 MG PO Twice daily 17 06September 25, 2022 11:00pm Start: 09-17-2020 Cephalexin 500 MG Oral Tablet Quantity: 30 Refills: 0 Ordered: 17-Sep-2020 DO Start : 17-Sep-2020 Complete dexamethasone 4 mg oral tablet (1 source) Corticosteroid Start: 10-13-2020 Dexamethasone 4 MG Oral Tablet Quantity: 10 Refills: 0 Ordered: 13-Oct-2020 DO Start : 13-Oct-2020 Complete dexamethasone 0.001 mg/mg / neomycin 0.0035 mg/mg / polymyxin b 10 unt/mg ophthalmic ointment (2 sources) Aminoglycoside Antibacterial, Polymyxin-class Antibacterial, Corticosteroid Start: 11-29-2020 End: 04-22-2021 Qljxigqs-Vszvpwrvr-O exameth [id number] Ophthalmic Ointment Quantity: 3 Refills: 0 Ordered: 29-Nov-2020 DO Start : 29-Nov-2020 End : 22-Apr-2021 Complete dihydroergotamine mesylate 0.5 mg/actuat metered dose nasal spray (20 sources) Ergotamine Derivative Dihydroergotamine Mesylate 4 MG/ML Nasal Solution 1 spray each nare q 8 hours for 3 days Quantity: 1 Refills: 6 Ordered: 07-Dec-2017 Winifred Bernal MD Active Emgality 120 MG/ML Subcutaneous Solution Auto-injector (4 sources) Start: 09-14-2018 inject 1 mL by subcutaneous injection every month Emgality 120 MG/ML Subcutaneous Solution Auto-injector USE 1 PEN subcutaneously PER MONTH DIRECTED Quantity: 1 Refills: 6 Winifred Bernal MD Start : 14-Sep-2018 Active Milliliter Excedrin Migraine TABS (20 sources) End: 05-09-2023 Excedrin Migraine TABS Quantity: 0 Refills: 0 Ordered: 09-May-2023 DO End : 09-May-2023 Complete Excedrin Migrain e TABS Quantity: 0 Refills: 0 Ordered: 07-Dec-2017 DO Active famotidine 40 mg oral tablet (1 source) Histamine-2 Receptor Antagonist Start: 10-13-2020 Famotidine 40 MG Oral Tablet Quantity: 14 Refills: 0 Ordered: 13-Oct-2020 DO Start : 13-Oct-2020 Complete hydroCHLOROthiazide 25 mg / lisinopril 20 mg oral tablet (12 sources) Thiazide Diuretic, Angiotensin Converting Enzyme Inhibitor Start: 05-09-2023 take 1 tablet by mouth once daily at bedtime Lisinopril-hydro CHLOROthiazide 20-25 MG Oral Tablet TAKE ONE TABLET BY MOUTH ONCE DAILY with 2 tabs of 20mg lisinopril at HS Quantity: 30 Refills: 6 Ordered: 09-May-2023 Winifred Bernal MD Start : 09-May-2023 Active End: 12-05-2023 take 1 tablet by mouth once daily lisinopriL-hydrochlorothiazide 20-12.5 m g tablet Indications: Primary hypertension Take 1 tablet by mouth once daily. 0 12/05/2023 Discontinued (Med List Cleanup) 10 ml lidocaine hydrochloride 10 mg/ml injection (20 sources) Antiarrhythmic, Amide Local Anesthetic Start: 04-20-2022 End: 04-20-2022 lidocaine (PF) 10 mg/mL (1 %) 8 mL injection (XYLOCAINE) Start: 03-10-2022 End: 03-10-2022 lidocaine (PF) 10 mg/mL (1 % ) 8 mL injection (XYLOCAINE) Start: 02-21-2018 lidocaine (Lid oderm) 5 % patch Place 3 patches on the skin once daily as needed (pain). 12 hours daily 0 02/21/2018 Active 24 hr mirabegron 25 mg extended release oral tablet (13 sources) beta3-Adrenergic Agonist Start: 10-20-2022 End: 05-09-2023 take 1 tablet by mouth once daily Myrbetriq 25 MG Oral Tablet Extended Release 24 Hour Take 1 tablet daily Quantity: 30 Refills: 11 Ordered: 20-Oct-2022 Winifred Bernal MD Start : 20-Oct-2022 End : 09-May-2023 Complete Multivitamins CAPS (20 sources) Multivitamins CA PS Quantity: 0 Refills: 0 Ordered: 22-Oct-2021 DO Active rizatriptan 10 mg oral tablet (7 sources) Serotonin-1b and Serotonin-1d Receptor Agonist take 1 tablet by mouth every two hours as needed rizatriptan (MAXALT) 10 mg tablet Indications: Lumbar pain , Degenerative disc disease, lumbar , Lumbar radiculopathy Take 10 mg by mouth as needed. May repeat in 2 hours if needed 0 Active Comment on above: Take 10 mg by mouth as needed. May repeat in 2 hours if needed 0.5 ml SUMAtriptan 12 mg/ml injection (20 sources) Serotonin-1b and Serotonin-1d Receptor Agonist Start: 07-21-2022 SUMAtriptan Succinate 6 MG/0.5ML Subcutaneous Solution INJECT 0.5 ML Subcutaneous Quantity: 0 Refills: 0 Ordered: 21-Jul-2022 Winifred Bernal MD Start : 21-Jul-2022 Complete Start: 01-20-2022 inject 1 dose by sub cutaneous injection every two hours, then inject 1 dose by subcutaneous injection every twenty-four hours SUMAtriptan (Imitrex) 6 mg/0.5 mL injection Inject under the skin. Inject one dose at onset of headache. May repeat in 2 hours. Max dose 2 in 24 hours. 0 01/20/2022 Active Start: 01-20-2022 inject 1 dose by sub cutaneous injection every two hours, then inject 1 dose by subcutaneous injection every twenty-four hours SUMAtriptan Succinate 6 MG/0.5ML Subcutaneous Solution Auto-injector Inject one dose at onset of headache. May repeat in 2 hours. Max dose 2 in 24 hours. Quantity: 3 Refills: 6 Ordered: 09-May-2023 Winifred Bernal MD Start : 20-Jan-2022 Active 6 injections Start: 01-20-2022 SUMAtriptan Hyman ccinate 6 MG/0.5ML Subcutaneous Solution INJECT 0.5 ML Subcutaneous Quantity: 0 Refills: 0 Ordered: 20-Jan-2022 Winifred Bernal MD Start : 20-Jan-2022 Complete SUMATRIPTAN SUCC/NAPROXEN SOD (TREXIMET ORAL) (7 sources) SUMATRIPTAN SUCC /NAPROXEN SOD (TREXIMET ORAL) Indications: Lumbar pain , Degenerative disc disease, lumbar , Lumbar radiculopathy Take by mouth. 0 Active Comment on above: Take by mouth. Sumatriptan-Naproxen (Treximet) 10-60 mg Tablet (2 sources) Start: 04-27-2018 End: 09-18-2021 Sumatriptan-Naproxen (Treximet) 10-60 mg Tablet Discontinued 1 TAB PO As Directed April 26, 2018 11:00pm September 18, 2021 5:21am testosterone cypionate 200 mg/ml injectable solution (13 sources) Androgen Start: 10-20-2022 End: 05-09-2023 Testosterone Cypionate 200 MG/ML Injection Solution Quantity: 0 Refills: 0 Ordered: 20-Oct-2022 Winifred Bernal MD Start : 20-Oct-2022 End : 09-May-2023 Complete 1 ml triamcinolone acetonide 40 mg/ml injection (6 sources) Corticosteroid Start: 04-20-2022 End: 04-20-2022 triamcinolone acetonide 80 mg injection (KeNALog 40) Start: 03-10-2022 End: 03-10-2022 triamcinolone acetonide 80 m g injection (KeNALog 40) Start: 09-18-2021 triamcinolone (Nasacort) 55 mcg nasal inhaler Triamcinolone Acetonide (Nasacort) 55 mcg Aerosol,[place] Active 4 SPRAY INTRANASAL Daily September 17, 2021 11:00pm 0 09/18/2021 Active Start: 09-18-2021 Triamcinolone Acetonide (Nasacort) 55 mcg Aerosol,[place] Active 4 SPRAY INTRANASAL Daily September 17, 2021 11:00pm Tylenol Extra Strength TABS (20 sources) Tylenol Extra St rength TABS Quantity: 0 Refills: 0 Ordered: 07-Dec-2017 DO Active valACYclovir 1000 mg oral tablet (8 sources) Herpesvirus Nucleoside Analog DNA Polymerase Inhibitor, Herpes Simplex Virus Nucleoside Analog DNA Polymerase Inhibitor, Herpes Zoster Virus Nucleoside Analog DNA Polymerase Inhibitor Start: 11-27-2020 End: 07-23-2021 valACYclovir HCl - 1 GM Oral Tablet Quantity: 21 Refills: 0 Ordered: 27-Nov-2020 DO Start : 27-Nov-2020 End : 23-Jul-2021 Complete Zinc (20 sources) Zinc CAPS Quanti ty: 0 Refills: 0 Ordered: 22-Oct-2021 DO Active Problems Active Problems Problem Classification Problem Date Documented Da te Episodic/Chronic Asthma (20 sources) Asthma; Translations: [Asthma, unspecified type, unspecified] Onset: 3 08-23-2023 Chronic Essential hypertension (7 sources) Essential hypertension; Translations: [Essential (primary) hypertension] Onset: 1 Resolved: 1 Chronic Headache; including migraine (20 sources) Refractory migraine without aura; Translations: [Chronic migraine without aura, with intractable migraine, so stated, with status migrainosus] Onset: 1 Resolved: 1 Chronic Headache; including migraine (20 sources) Daily headache; Translations: [Headache] Episodic Joint disorders and dislocations; trauma-related (1 source) Loose body in right knee joint; Translations: [Loose body in knee, right knee] Chronic Nonspecific chest pain (1 source) Other chest pain; Translations: [Other chest pain] Onset: 3 Episodic Open wounds of extremities (2 sources) Laceration of lower limb; Translations: [Laceration without foreign body, left lower leg, initial encounter] 09-26-2022 Episodic Osteoarthritis (12 sources) Arthritis of knee; Translations: [Unilateral primary osteoarthritis, unspecified knee] Onset: 3 02-01-2013 Chronic Other aftercare (20 sources) Patient encounter status; Translations: [Long-term (current) use of other medications] Episodic Other aftercare (1 source) H/O: high risk medication; Translations: [Other assisted (current) drug therapy] 12-05-2023 Episodic Other aftercare (4 sources) Other assisted (current) drug therapy; 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] Onset: 4 Episodic Other and unspecified benign neoplasm (2 sources) History of polyp of colon; Translations: [Personal history of colonic polyps] 09-18-2021 Episodic Other and unspecified benign neoplasm (1 source) Multiple benign melanocytic nevi ; Translations: [Melanocytic nevi, unspecified] Episodic Other and unspecified benign neoplasm (1 source) Senile angioma; Translations: [Hemangioma of skin and subcutaneous tissue] Episodic Other diseases of veins and lymphatics (1 source) Venous stasis; Translations: [Other specified disorders of veins] Episodic Other hereditary and degenerative nervous system conditions (20 sources) Isolated cervical dystonia; Translations: [Spasmodic torticollis] Onset: 3 08-24-2023 Chronic Other hereditary and degenerative nervous system conditions (2 sources) Spasmodic torticollis; Translations: [Spasmodic torticollis] Onset: 3 Chronic Other nervous system disorders (20 sources) H/O: migraine; Translations: [Personal history of other disorders of nervous system and sense organs] Episodic Other non-traumatic joint disorders (4 sources) Knee pain; Translations: [Bilateral knee pain] Episodic Other non-traumatic joint disorders (20 sources) Pain in right knee; Translations: [Bilateral knee pain] Episodic Other non-traumatic joint disorders (1 source) Hemarthrosis of right knee; Translations: [Hemarthrosis, right knee] Episodic Other nutritional; endocrine; and metabolic disorders (3 sources) Body mass index 30+ - obesity; Translations: [Body mass index (BMI) 34.0-34.9, adult] Chronic Other nutritional; endocrine; and metabolic disorders (1 source) Body mass index (BMI) 34.0-34.9, adult Onset: 1 Resolved: 1 Chronic Other screening for suspected conditions (not mental disorders or infectious disease) (1 source) Encounter for observation for other suspected diseases and conditions ruled out; Translations: [Encounter for observation for other suspected diseases and conditions ruled out] Onset: 3 Episodic Other skin disorders (1 source) Seborrheic keratosis; Translations: [Other seborrheic keratosis] Episodic Other skin disorders (1 source) Lentiginosis; Translations: [Other melanin hyperpigmentation] Episodic Other upper respiratory disease (20 sources) Chronic rhinitis; Translations: [Chronic rhinitis] Onset: 3 08-23-2023 Chronic Phlebitis; thrombophlebitis and thromboembolism (1 source) Phlebitis and thrombophlebitis of superficial vessels of unspecified lower extremity; Translations: [PHLEBITIS AND TP SUP VES UNS LOW EXT] Onset: 3 Episodic Residual codes; unclassified (20 sources) Obstructive sleep apnea syndrome; Translations: [Obstructive sleep apnea (adult)(pediatric)] Onset: 3 08-24-2023 Chronic Residual codes; unclassified (3 sources) Sleep apnea; Translations: [Sleep apnea, unspecified] Chronic Residual codes; unclassified (5 sources) Obstructive sleep apnea (adult) (pediatric); Translations: [Obstructive sleep apnea (adult) (pediatric)] Onset: 1 Resolved: 1 Chronic Residual codes; unclassified (2 sources) Other specified health status Episodic Residual codes; unclassified (2 sources) Family history of polyp of colon; Translations: [Family history of colonic polyps] 04-27-2018 Episodic Residual codes; unclassified (4 sources) Localized edema; Translations: [LOCALIZED EDEMA] Onset: 3 Episodic Substance-related disorders (4 sources) Hypnotic dependence; Translations: [Sedative, hypnotic or anxiolytic dependence, 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 Unclassified (1 source) Supraventricular tachycardia, unspecified; Translations: [Supraventricular tachycardia, unspecified] Onset: 3 Past or Other Problems Problem Classification Problem Date Documented Da te Episodic/Chronic Other non-traumatic joint disorders (7 sources) Effusion of joint; Translations: [Effusion, unspecified joint] Onset: 09-02-2014 09-02-2014 Episodic Residual codes; unclassified (20 sources) Insomnia; Translations: [Insomnia, unspecified] Onset: 08-23-2023 08-23-2023 Episodic Spondylosis; intervertebral disc disorders; other back problems (20 sources) Neck pain; Translations: [Cervicalgia] Onset: 08-23-2023 08-23-2023 Episodic Unclassified (4 sources) Onset: 08-24-2023 08-24-2023 NEGATED: Highlighted row has not occurred!Residual codes; unclassified (20 sources) Disease Episodic Results Test Name Value Interpretation Reference Range Facility Head/Face/Jaw Botulinum Inje ctionon 12-21-2023 Winifred Bernal MD 12/21/2023 4:30 PM Head/Face/Jaw Botulinum Injection Date/Time: 12/21/2023 4:29 PM Performed by: Winifred Bernal MD Authorized by: Winifred Bernal MD Consent: Consent obtained: Verbal Consent given by: Patient Procedure details: EMG used? No Electrical stimulation used? No Diluted by: Preservative free saline Toxin (Brand): OnaBoNT-A (Botox) Total units available: 200 Ad hoc region injected: Head see diagram with 200 units Total units injected: 200 Total units wasted: 0 Post-procedure details: Patient tolerance of procedure: Tolerated well, no immediate complications Comments: Please do not rub areas for 24 hours. No pressure above eyebrows for 24 hours. Watch out for helmets, headlamps, headbands, goggles, or massage for 24 hours. If there is discomfort, ice for the first 24 hour,s heat after that. Headaches may worsen, or you may experience neck stiffness. If this occurs use your usual headache medication or a mild anti inflammatory such as advil or aleve. Please call if you have difficulty swallowing. You received Toradol today for your severe headache. We are going to continue with 5 day of pills starting tomorrow to break your headache cycle. Take 1 pill with breakfast lunch dinner and bedtime for 5 days. Take with food. Try not to take your triptan or antiinflammatory during this time. If you have any nausea or diarrhea with the medicine stop and call on the next business day. [facility] Work Phone: [facility] Work Phone: CONFIRMATION OPIATE/OPIOID/B KELECHI PRESCRIPTION COMPLIANCEon 12-14-2023 1-Hydroxymidazolam Confirm (U) [Mass/Vol] <25 Normal <25 [facility] Comment on above: Order Comment: The p erformance characteristics of this test has been validated by the individual laboratory site where testing is performed. It has not been cleared or approved by the FDA. However the FDA has determined that such clearance or approval is not necessary. Our Laboratory is certified under the Clinical Laboratory Improvement Amendments of 1988 (CLIA) as qualified to perform high complexity clinical laboratory testing. Performed By: #### D SBOPC #### JOSÉ MIGUEL Fuentes ([id number]) [facility] ([facility]) [address] [place], [place] [id number] 7-Mhoqwrcaxo-4,5-Dim ethyl-3,3-Diphenylpy rrolidine (EDDP) Confirm (U) [Mass/Vol] <25 Normal <25 [facility] Comment on above: Order Comment: The p erformance characteristics of this test has been validated by the individual laboratory site where testing is performed. It has not been cleared or approved by the FDA. However the FDA has determined that such clearance or approval is not necessary. Our Laboratory is certified under the Clinical Laboratory Improvement Amendments of 1988 (CLIA) as qualified to perform high complexity clinical laboratory testing. Performed By: #### D SBOPC #### JOSÉ MIGUEL Fuentes ([id number]) [facility] ([facility]) [address] [place], [place] [id number] 6-Monoacetylmorphine (6-CESAR) Confirm (U) [Mass/Vol] <25 Normal <25 [facility] Comment on above: Order Comment: The p erformance characteristics of this test has been validated by the individual laboratory site where testing is performed. It has not been cleared or approved by the FDA. However the FDA has determined that such clearance or approval is not necessary. Our Laboratory is certified under the Clinical Laboratory Improvement Amendments of 1988 (CLIA) as qualified to perform high complexity clinical laboratory testing. Performed By: #### D SBOPC #### JOSÉ MIGUEL Fuentes ([id number]) [facility] ([facility]) [address] [place] [id number] 7-Aminoclonazepam Confirm (U) [Mass/Vol] <25 Normal <25 [facility] Comment on above: Order Comment: The p erformance characteristics of this test has been validated by the individual laboratory site where testing is performed. It has not been cleared or approved by the FDA. However the FDA has determined that such clearance or approval is not necessary. Our Laboratory is certified under the Clinical Laboratory Improvement Amendments of 1988 (CLIA) as qualified to perform high complexity clinical laboratory testing. Performed By: #### D SBOPC #### JOSÉ MIGUEL Fuentes ([id number]) [facility] ([facility]) [address] [place] [id number] Alpha hydroxyalprazolam Confirm (U) [Mass/Vol] <25 Normal <25 [facility] Comment on above: Order Comment: The p erformance characteristics of this test has been validated by the individual laboratory site where testing is performed. It has not been cleared or approved by the FDA. However the FDA has determined that such clearance or approval is not necessary. Our Laboratory is certified under the Clinical Laboratory Improvement Amendments of 1988 (CLIA) as qualified to perform high complexity clinical laboratory testing. Performed By: #### D SBOPC #### JOSÉ MIGUEL VERDUGO L ([id number]) [facility] ([facility]) [address] [place] [id number] ALPRAZolam Confirm (U) [Mass/Vol] <25 Normal <25 [facility] Comment on above: Order Comment: The p erformance characteristics of this test has been validated by the individual laboratory site where testing is performed. It has not been cleared or approved by the FDA. However the FDA has determined that such clearance or approval is not necessary. Our Laboratory is certified under the Clinical Laboratory Improvement Amendments of 1988 (CLIA) as qualified to perform high complexity clinical laboratory testing. Performed By: #### D SBOPC #### JOSÉ MIGUEL MITCHELLTZER L ([id number]) [facility] ([facility]) [address] [place] [id number] [email or web address] Confirm (U) [Mass/Vol] <25 Normal <25 [facility] Comment on above: Order Comment: The p erformance characteristics of this test has been validated by the individual laboratory site where testing is performed. It has not been cleared or approved by the FDA. However the FDA has determined that such clearance or approval is not necessary. Our Laboratory is certified under the Clinical Laboratory Improvement Amendments of 1988 (CLIA) as qualified to perform high complexity clinical laboratory testing. Performed By: #### D SBOPC #### JOSÉ MIGUEL VERDUGO L ([id number]) [facility] ([facility]) [id number] [place] [id number] clonazePAM Confirm (U) [Mass/Vol] <25 Normal <25 [facility] Comment on above: Order Comment: The p erformance characteristics of this test has been validated by the individual laboratory site where testing is performed. It has not been cleared or approved by the FDA. However the FDA has determined that such clearance or approval is not necessary. Our Laboratory is certified under the Clinical Laboratory Improvement Amendments of 1988 (CLIA) as qualified to perform high complexity clinical laboratory testing. Performed By: #### D NOVAOPC #### JOSÉ MIGUEL MITCHELLTZER L ([id number]) [facility] ([facility]) [address] [place] [id number] Codeine Confirm (U) [Mass/Vol] <50 Normal <50 [facility] Comment on above: Order Comment: The p erformance characteristics of this test has been validated by the individual laboratory site where testing is performed. It has not been cleared or approved by the FDA. However the FDA has determined that such clearance or approval is not necessary. Our Laboratory is certified under the Clinical Laboratory Improvement Amendments of 1988 (CLIA) as qualified to perform high complexity clinical laboratory testing. Performed By: #### D SBOPC #### JOSÉ MIGUEL HALLER L ([id number]) [facility] ([facility]) [address] [place] [id number] diazePAM Confirm (U) [Mass/Vol] <25 Normal <25 [facility] Comment on above: Order Comment: The p erformance characteristics of this test has been validated by the individual laboratory site where testing is performed. It has not been cleared or approved by the FDA. However the FDA has determined that such clearance or approval is not necessary. Our [facility] is certified under the Clinical Laboratory Improvement Amendments of 1988 (CLIA) as qualified to perform high complexity clinical laboratory testing. Performed By: #### D SBOPC #### JOSÉ MIGUEL LEEMOTZER L ([id number]) [facility] ([facility]) [address] [place] [address] fentaNYL Confirm (U) [Mass/Vol] <2.5 Normal <2.5 [facility] Comment on above: Order Comment: The p erformance characteristics of this test has been validated by the individual laboratory site where testing is performed. It has not been cleared or approved by the FDA. However the FDA has determined that such clearance or approval is not necessary. Our [facility] is certified under the Clinical Laboratory Improvement Amendments of 1988 (CLIA) as qualified to perform high complexity clinical laboratory testing. Performed By: #### D SBOPC #### JOSÉ MIGUEL VERDUGO L ([id number]) [facility] ([facility]) [id number] [place] [id number] HYDROcodone cutoff Confirm (U) [Mass/Vol] 519 ng/mL High <25 [facility] Comment on above: Order Comment: The p erformance characteristics of this test has been validated by the individual laboratory site where testing is performed. It has not been cleared or approved by the FDA. However the FDA has determined that such clearance or approval is not necessary. [facility] is certified under the Clinical Laboratory Improvement Amendments of 1988 (CLIA) as qualified to perform high complexity clinical laboratory testing. Result Comment: Cons istent with metabolism of codeine. May also reflect independent use of a drug containing hydrocodone. Low concentrations may reflect impurity of a drug containing oxycodone or hydromorphone. Performed By: #### D SBOPC #### JOSÉ MIGUEL LEEMOTZER L ([id number]) [facility] ([facility]) [address] [place] [address] HYDROmorphone Confirm (U) [Mass/Vol] 26 ng/mL High <25 [facility] Comment on above: Order Comment: The p erformance characteristics of this test has been validated by the individual laboratory site where testing is performed. It has not been cleared or approved by the FDA. However the FDA has determined that such clearance or approval is not necessary. Our [facility] is certified under the Clinical Laboratory Improvement Amendments of 1988 (CLIA) as qualified to perform high complexity clinical laboratory testing. Result Comment: Cons istent with metabolism of codeine, morphine, and hydrocodone. May also reflect independent use of a drug containing hydromorphone. Low concentrations may reflect impurity of another drug such as oxymorphone. Performed By: #### D NOVAOPC #### JOSÉ MIGUEL Fuentes ([id number]) [facility] ([facility]) [address] [place] [address] LORazepam Confirm (U) [Mass/Vol] <25 Normal <25 [facility] Comment on above: Order Comment: The p erformance characteristics of this test has been validated by the individual laboratory site where testing is performed. It has not been cleared or approved by the FDA. However the FDA has determined that such clearance or approval is not necessary. Our [facility] is certified under the Clinical Laboratory Improvement Amendments of 1988 (CLIA) as qualified to perform high complexity clinical laboratory testing. Performed By: #### D NOVAOPC #### JOSÉ MIGUEL Fuentes ([id number]) [facility] ([facility]) [address] [place] [address] Methadone Confirm (U) [Mass/Vol] <25 Normal <25 [facility] Comment on above: Order Comment: The p erformance characteristics of this test has been validated by the individual laboratory site where testing is performed. It has not been cleared or approved by the FDA. However the FDA has determined that such clearance or approval is not necessary. Our [facility] is certified under the Clinical Laboratory Improvement Amendments of 1988 (CLIA) as qualified to perform high complexity clinical laboratory testing. Performed By: #### D SBOPC #### JOSÉ MIGUEL Fuentes ([id number]) [facility] ([facility]) [address] [place] [address] Midazolam Confirm (U) [Mass/Vol] <25 Normal <25 [facility] Comment on above: Order Comment: The p erformance characteristics of this test has been validated by the individual laboratory site where testing is performed. It has not been cleared or approved by the FDA. However the FDA has determined that such clearance or approval is not necessary. Our [facility] is certified under the Clinical Laboratory Improvement Amendments of 1988 (CLIA) as qualified to perform high complexity clinical laboratory testing. Performed By: #### D SBOPC #### JOSÉ MIGUEL Fuentes ([id number]) [facility] ([facility]) [id number] [place] [address] Morphine Confirm (U) [Mass/Vol] <50 Normal <50 [facility] Comment on above: Order Comment: The p erformance characteristics of this test has been validated by the individual laboratory site where testing is performed. It has not been cleared or approved by the FDA. However the FDA has determined that such clearance or approval is not necessary. Our [facility] is certified under the Clinical Laboratory Improvement Amendments of 1988 (CLIA) as qualified to perform high complexity clinical laboratory testing. Performed By: #### D SBOPC #### JOSÉ MIGUEL Fuentes ([id number]) [facility] ([facility]) [address] [place] [phone] Nordiazepam Confirm (U) [Mass/Vol] <25 Normal <25 [facility] Comment on above: Order Comment: The p erformance characteristics of this test has been validated by the individual laboratory site where testing is performed. It has not been cleared or approved by the FDA. However the FDA has determined that such clearance or approval is not necessary. Our [facility] is certified under the Clinical Laboratory Improvement Amendments of 1988 (CLIA) as qualified to perform high complexity clinical laboratory testing. Performed By: #### D SBOPC #### JOSÉ MIGUEL Fuentes ([id number]) [facility] ([facility]) [address] [place] [phone] Norfentanyl Confirm (U) [Mass/Vol] <2.5 Normal <2.5 [facility] Comment on above: Order Comment: The p erformance characteristics of this test has been validated by the individual laboratory site where testing is performed. It has not been cleared or approved by the FDA. However the FDA has determined that such clearance or approval is not necessary. Our [facility] is certified under the Clinical Laboratory Improvement Amendments of 1988 (CLIA) as qualified to perform high complexity clinical laboratory testing. Performed By: #### D SBOPC #### JOSÉ MIGUEL VERDUGO L ([id number]) [facility] ([facility]) [id number] [place] [address] Norhydrocodone Confirm (U) [Mass/Vol] 613 ng/mL High <25 [facility] Comment on above: Order Comment: The p erformance characteristics of this test has been validated by the individual laboratory site where testing is performed. It has not been cleared or approved by the FDA. However the FDA has determined that such clearance or approval is not necessary. [facility] is certified under the Clinical Laboratory Improvement Amendments of 1988 (CLIA) as qualified to perform high complexity clinical laboratory testing. Result Comment: Norh ydrocodone is a metabolite of hydrocodone; consistent with use of a drug containing hydrocodone. Hydrocodone may also be a metabolite of codeine or an impurity of oxycodone. Performed By: #### D SBOPC #### JOSÉ MIGUEL VERDUGO L ([id number]) [facility] ([facility]) [address] [place] [phone] Noroxycodone Confirm (U) [Mass/Vol] <25 Normal <25 [facility] Comment on above: Order Comment: The p erformance characteristics of this test has been validated by the individual laboratory site where testing is performed. It has not been cleared or approved by the FDA. However the FDA has determined that such clearance or approval is not necessary. Our [facility] is certified under the Clinical Laboratory Improvement Amendments of 1988 (CLIA) as qualified to perform high complexity clinical laboratory testing. Performed By: #### D SBOPC #### JOSÉ MIGUEL LEEMOTZER L ([id number]) [facility] ([facility]) [address] [place] [address] Nortramadol (U) [Mass/Vol] <50 Normal <50 [facility] Comment on above: Order Comment: The p erformance characteristics of this test has been validated by the individual laboratory site where testing is performed. It has not been cleared or approved by the FDA. However the FDA has determined that such clearance or approval is not necessary. [facility] is certified under the Clinical Laboratory Improvement Amendments of 1988 (CLIA) as qualified to perform high complexity clinical laboratory testing. Performed By: #### D SBOPC #### JOSÉ MIGUEL SCHMOTZER L ([id number]) [facility] ([facility]) [address] [place] [address]673 Oxazepam Confirm (U) [Mass/Vol] <25 Normal <25 [facility] Comment on above: Order Comment: The p erformance characteristics of this test has been validated by the individual laboratory site where testing is performed. It has not been cleared or approved by the FDA. However the FDA has determined that such clearance or approval is not necessary. Our [facility] is certified under the Clinical Laboratory Improvement Amendments of 1988 (CLIA) as qualified to perform high complexity clinical laboratory testing. Performed By: #### D SBOPC #### JOSÉ MIGUEL Fuentes ([id number]) [facility] ([facility]) [address] [place] [phone] oxyCODONE Confirm (U) [Mass/Vol] <25 Normal <25 [facility] Comment on above: Order Comment: The p erformance characteristics of this test has been validated by the individual laboratory site where testing is performed. It has not been cleared or approved by the FDA. However the FDA has determined that such clearance or approval is not necessary. [facility] is certified under the Clinical Laboratory Improvement Amendments of 1988 (CLIA) as qualified to perform high complexity clinical laboratory testing. Performed By: #### D SBOPC #### JOSÉ MIGUEL VERDUGO L ([id number]) [facility] ([facility]) [address] [place] [phone] oxyMORphone Confirm (U) [Mass/Vol] <25 Normal <25 [facility] Comment on above: Order Comment: The p erformance characteristics of this test has been validated by the individual laboratory site where testing is performed. It has not been cleared or approved by the FDA. However the FDA has determined that such clearance or approval is not necessary. [facility] is certified under the Clinical Laboratory Improvement Amendments of 1988 (CLIA) as qualified to perform high complexity clinical laboratory testing. Performed By: #### D SBOPC #### JOSÉ MIGUEL VERDUGO L ([id number]) [facility] ([facility]) [address] [place] [phone] Temazepam Confirm (U) [Mass/Vol] <25 Normal <25 [facility] Comment on above: Order Comment: The p erformance characteristics of this test has been validated by the individual laboratory site where testing is performed. It has not been cleared or approved by the FDA. However the FDA has determined that such clearance or approval is not necessary. Our [facility] is certified under the Clinical Laboratory Improvement Amendments of 1988 (CLIA) as qualified to perform high complexity clinical laboratory testing. Performed By: #### D NOVAOPC #### JOSÉ MIGUEL Fuentes ([id number]) [facility] ([facility]) [address] [place] [address]255 traMADol Confirm (U) [Mass/Vol] <50 Normal <50 [facility] Comment on above: Order Comment: The p erformance characteristics of this test has been validated by the individual laboratory site where testing is performed. It has not been cleared or approved by the FDA. However the FDA has determined that such clearance or approval is not necessary. Our [facility] is certified under the Clinical Laboratory Improvement Amendments of 1988 (CLIA) as qualified to perform high complexity clinical laboratory testing. Performed By: #### D NOVAOPC #### JOSÉ MIGUEL Fuentes ([id number]) [facility] ([facility]) [address] [place] [phone] Zolpidem (U) [Mass/Vol] <25 Normal <25 [facility] Comment on above: Order Comment: The p erformance characteristics of this test has been validated by the individual laboratory site where testing is performed. It has not been cleared or approved by the FDA. However the FDA has determined that such clearance or approval is not necessary. Our [facility] is certified under the Clinical Laboratory Improvement Amendments of 1988 (CLIA) as qualified to perform high complexity clinical laboratory testing. Performed By: #### D NOVAOPC #### JOSÉ MIGUEL VERDUGO L ([id number]) [facility] ([facility]) [id number] [place] [address]92 Zolpidem Confirm (U) [Mass/Vol] <25 Normal <25 [facility] Comment on above: Order Comment: The p erformance characteristics of this test has been validated by the individual laboratory site where testing is performed. It has not been cleared or approved by the FDA. However the FDA has determined that such clearance or approval is not necessary. Our [facility] is certified under the Clinical Laboratory Improvement Amendments of 1988 (CLIA) as qualified to perform high complexity clinical laboratory testing. Performed By: #### D SBOPC #### JOSÉ MIGUEL Fuentes ([id number]) [facility] ([facility]) [address] [place], [place] [phone] SCREEN OPIATE/OPIOID/BENZO P RESCRIPTION COMPLIANCEon 12-14-2023 Amphetamines Screen Ql (U) Negative Normal Presumptive Negative [facility] Comment on above: Result Comment: CUTO FF LEVEL: 500 NG/ML Cross-reactivity has been reported with high concentrations of the following drugs: buproprion, chloroquine, chlorpromazine, ephedrine, mephentermine, fenfluramine, phentermine, phenylpropanolamine, pseudoephedrine, and propranolol. Performed By: #### D RBOP #### JOSÉ MIGUEL Fuentes ([id number]) [facility] ([facility]) [address] [place] [address] Barbiturates Screen Ql (U) Negative Normal Presumptive Negative [facility] Comment on above: Result Comment: CUTO FF LEVEL: 200 NG/ML Performed By: #### D RBOP #### JOSÉ MIGUEL VERDUGO L ([id number]) [facility] ([facility]) [address] [place], [place] [phone] Benzoylecgonine Screen Ql (U) Negative Normal Presumptive Negative [facility] Comment on above: Result Comment: CUTO FF LEVEL: 150 NG/ML Performed By: #### D RBOP #### JOSÉ MIGUEL Fuentes ([id number]) [facility] ([facility]) [address] [place], [place] [phone] Cannabinoids Screen Ql (U) Negative Normal Presumptive Negative [facility] Comment on above: Result Comment: CUTO FF LEVEL: 50 NG/ML Performed By: #### D RBOP #### JOSÉ MIGUEL VERDUGO L ([id number]) [facility] ([facility]) [address] [place], [place] [phone] Creatinine (U) [Mass/Vol] 54.2 mg/dL Normal 20.0-370.0 [facility] Comment on above: Result Comment: A ur ine creatinine result >= 20 mg/dL is considered valid without suspicion of dilution. Samples with results below this range will automatically reflex to specific gravity testing to verify specimen integrity. Performed By: #### D RBOP #### JOSÉ MIGUEL Fuentes ([id number]) [facility] ([facility]) [address] [place] [phone] Phencyclidine Ql (U) Negative Normal Presump tive Negative [facility] Comment on above: Result Comment: CUTO FF LEVEL: 25 NG/ML Cross-reactivity has been reported with dextromethorphan. Performed By: #### D RBOP #### JOSÉ MIGUEL Fuentes ([id number]) [facility] ([facility]) [address] [place] [address] Coding Summaryon 12-08-2023 Coding Summary HTMLBase 64 HutkmytjIXx6sHj+PGhlYW Q+JL4JTSSoM26yoTPywT7x Q6IHBPjGLerjRTEQJYvTIi ZsloEtIL5nkJHnYDCp IC8+AT5oTQFnQbwjyBZhc7 V4wYL6E34wcm0bIDtjeTQ5 FHMtVxQkirufz9jvkRk5QZ cuNmluOyBt IHRxlU37KAN4aL93Yn57hV OfsXJcd0rlcPz1FxKtWEOj OGX1xXbxCUfgl6RuKFHgW1 8dsCNev5O6 RSYkePuraJFwSkFhkLN7rG 4bOCejjpnrw3jszwryIne1 ob96fMLzd4H2uRO7R5Sgep X5SMUmpFGk CxgzaDKCvW3pegecy7pnxj ckCtWiLYEkFMn3YRq8KMIy nDglItXmEW79VXB9ZAIqtv MtZ8McMHDd wFjhLxN8y2D1Hp0TC4CKLx daW3MCPDVKOUjpcEK+PC90 ot67X2XoSrwpRgc3GTRhYX D8vHV6uZ8q XINfCOurc7F8fKN8J8Uuiz Djuz5qq4drGFOkLMhtY44q oQFmu5O6UTLnwTH4ZIJmyB ocDhHmmP27 Oyc+TCPpfQvqw2VxEnyky2 xaf7hjzJy1DwiwRJKrzuGz aYiyGYY2s0WnLw9pIKJsjG V0kEO4eJ4x JrEnYrZ9JAcoV974UmOehX CcZiatI88uK8YmgIT+PHRy Cvr9LNHjlBrcJA8gH8SrUW RpbmctbGVm kKjuTF5dNQPdyajqPADruM 6lIOXqP4q4CjHhYzZ3HDba O1ZaDIDczooyLm41hZ9aQy EoVeL5ZMvm M2AwofK8BZKfoDRpEQtjZR Q1C56lo7B4FLSwDONhGVX2 fRH1sO1yaPnpbxrsfEJguG sgdmVydGlj FKpgTWwxX088OLKmuVezBm NvZGluZyBEYXRlOiAgMDEv MTgvMjAyNDwvdGQ+PHRkIH O5qQibKSXg rFQmEUkbKp4edBanmWqiSU 4kZJVwtkwtJPNmiD4nCKOp iWRnhImsEM4hCFUqxpqyp2 79KyTcNUG8 NITmbNXuK2CxxE7rHaDwKG HqVGRhV0UboJLeDWpmR441 MHxoSvT4IMSsfsQgS6FnRN FsaWduOiB0 j5K2Tz7Zr6RoenxvX3OukI PqTmJdHgyqYFl8Y8HiVsqh dHI+RS54LTHmSM00LWz6WY W2pHfqJStg PVCmJ1NbeT0aLtIlWXInAO RkOyc+PHRhYmxlIHdpZHRo ZGxzIIQpRvFcgFvsLK4rKc 9yZGVyLWNv bBuilTBvMgEde9pjJQQwAN diEI0blGtxM4CmwTU5ZVKb b0t5Mi67R21dO1XrzTU+PG CexZF6rIA9 jC0hGkJyWhE8VMxmP214In JjsTBeKmoiq1bza8yomHe1 PoN8AEAarfAjoCigVAU1q5 WbDl89X17e IHdpZHRoPSIxNSUiIHZhbG wmkj9vpC6wBb0+PGNvbCB3 jQX0yX0lPlQzNxJ3VTgvN7 49InRvcCIv Ofxze4zwe8gggUp2WoOsNJ AqonKmcQuuPFD0q4NhIp59 Q3FkcZlhf2MqXck3rq94lF Fpf6K4eMC3 S4BaFYInhdncgHUpsHhkYL 1dUKAhnqebPZXlxE9rBNDi G1o5RhTaYrI9QIlcY6Ztgu V8BREutTUw WERusEJLbE3zvuhsv2anqd jqYsXjTSJxENr2IFh1HFCx eUrfQpNtLMC4ThB1UJK4zD ArvO7snUlw fbytwC5jFqf+UIU0dLRjqB NPTQ9dRatesPS+PHRkIHN0 eVtyOTayVRTytQ9uMMLzN4 w2MtFdWnF8 OKsdF0TqirS4DIPuoUFqNO QocBVZyT7oyiffc4rvspgp BlDtKSKuHHi3WEe2AFNnyW duOiBsZWZ0 DmL6JGF3fGWreK5qcRiwiu vfwC6vFpk+QmlydGggRGF0 JGj6W2MuDqk1ZJDdoYcnPP 0ncGFkZGlu Or1wwBjucGckBE3yVSJyyb lbg634JeSgv0lqPOFfwWCk LUmkJEV1U48zg3S1BOXiRI IwBSI1fUU7 tT2foQycbckupUMeoWlbwc QbfDxaUXavYOpmG388UMTh eCwsXqXxEFw7M6UlJqo3GS MmqBioLW2v aIVeXMsmAw3bwCnswCzqWM 2iOVDpgyjqa737KiKiu4hb IORydHMrGCnuUKE2G95bp9 F9IOBxOUJg ZPJ6wVJ6mQ6xoPeqdjmdxL VmdDsgdmVydGljYWwtYWxp U773PJToqRbaDoXvoPn6Z5 ApQeh4DFOt fVnnIJ6jgSLsAJmwAs2ayC sanFpcTR2cICFursaii528 ThPxr7djOCUrpUSeIIowCM B6V02in4U6 UUIsZLLtJYP4oER0bR0beP lnbjogbGVmdDsgdmVydGlj PUmcPGryD770OTDkeJkkAn BhdGllbnQg CUkfFGx8O7QzEqtthEF+PC 36PVBsYP54xFByrHYjf2oa yXu5WjFcGOOfMZQ7vTuiNY trz9FvWFPr M97lhGNhj9G4TZThqRcppC YgWgDgqUM5nM0fQNhickei h7kuuitlAvsas0qgew58uN 16R05wQOaa ZHRoPSIzMCUiIHZhbGlnbj 8gkE8aIo6+VXJqsKA3kFP7 lQ1cPZOdTzA5XAjxS867Qh RvcCIvPjxj n4cpj2fteIp6NsW0VIAcge BjqVfzIAX7m8MfPs31Q78p IHdpZHRoPSIyMCUiIHZhbG vuvh6foJ2q Ii8+AOQlmWD4kLZ7kR8zUt SuJgF2FGyqO014MdLhcHIj YyonH29wT0YfiHI+PHRyPj t8THVwjExd MA0eaTDoVKwiZw4gXDE2Nv GpFgMuKHifR4QtLXOrpgvg qpoqnHN3RPMeDGOzbK63Zv 9udDogMTBw pNUXbV6dykwvk2rhpyjgFv PcDLNyFKt6BEx5TRFgjNln ClTvIRK6KkG1OCZ4mEGsgE 1hbGlnbjog nN3yS8UsCOEfzdzfUt01wV 4wRnNsJgF9MQqjPvh+TEFG J6APDBRGRtlbFfpGEWFVQT CCME86PG34 iHWaq1Y6lDF4D3UhVDKgfm vrncapaWN2BKFlUERqfJ51 rZSlGVmqEy4rn2G0x184IQ BdSMCzsC44 Yx8xvFwoVKOxgLUSzL4ibp ogc2hrpnbxZwHjZWYqEEs5 SPp6UNAajVbbLgPmONH5Px E9TLC7gJHq oV6poHfwxyudzI2vWvp+MD YqRPhrYNa2ARokoOO+PHRk PWF9mAklZFhqEMDhpZ5rEM YlM5g6GxWt DjR7SYbiA9SaBZHdvjktKs 51qY2cTpInGrO5IHpdV8Gh jiT0OWYaxRWqEQnnDXY5Q7 5wd1I6DUGx BPDuWYH3hOP2uV1epChchc ogbGVmdDsgdmVydGljYWwt DSddU076XBHqpJnrOtX1VS spLYGgFS28 YG06cJUqc9T9vVE0S2OvJI ZimzohzrztxZI6RDEjFVPb bB76sPSvODrjGc5qc5C9s0 06IDAuMDUw gI83Rh1lrAcpLOPmhLWDkC 4diojcz9yegmtxVhSmQSDq UNn4WXe3MDPxsHuoWsOwIP J6OiA1ITP1 jQAsmF5rwBvyrmcooZ2bRi c+TUFMRTwvdGQ+PHRkIHN0 sCiiDUbrFKKopU7rVNDbP7 x1RaZrAuG4 GHxzM9KyBVXsvmnySg83gS 9fIzEwQgP1LYpxY6UeruY2 AVHcbWJiZPvqNQS4Y53ot8 B9DFEsZWBk CMS8dRH8pD9vlYihyqlypR VmdDsgdmVydGljYWwtYWxp Y917HMPzwScxTv7BJK35MN 04X4JkDxsx dGFibGU+PHRhYmxlIHdpZH LpSCdtVMWvKhYvzEjfLH5k Nw1wPNUaLWCbwQadbCLbJx Prd0kpWYPv DDfiGH8hmJjlU8ZqjAK2WR Hbr1n8Ro23Q72jP2LlyMC+ EUGhzHN9rKT8zW5sCbNsLo Q2SMsuE430 KyBanZSrPhhfe3weg2gjpB h4JjStFVVquqQqvLlzMTQ3 e5UkKr95J38nCZrrEKJpOA IyMCUiIHZh wExhsd6tfF0oZy5+PGNvbC I7jNX9aL1tOjLaOhZ0XSpy J390YxQmyOPjDuqtS75fU2 JvdXA+PHRy Xdk6PUVdcQozKA5msGYqVA djVr7lTHL7QuOoFnRsVLsq D3QhRZKjclonuekjkCR0IE CwZLYngF01 Er5urOzyUw8wZZYcWUJ2XI BjqWSzZ8OasU9cIqHqUFGj UQAvV5EjcKCiSWtpH344AQ wuWiO8GYXa sxSlO4OgZJQlbKglPqL9n2 R2Xx9ZdVuauUWlLV6iUnMr TYr0J0QsAbn0BXWjrTafPR 0ncGFkZGlu Zt4dtNtyfLjsFT8dMQFetm dpk366LkZxl6mrQFTaaLZl ZTvkQNW1K30zd8W0APOpLF CiATE4eZF0 lM6eyEtcnznytFXplXcyaj KkxBbiJUhnPTbjO313NXOv yVhjBzEYZrp5Z8LbLjo8JT JevVxdDF3q iUFtYTooRa0ndDtpgZkaVO 0wVCMcavkhw227CqGzm7fa COBtuRUqLVmlODJ6G83dw7 L3GIUsKSJi LKB6zFO8yI3dbMnzptmbhA VmdDsgdmVydGljYWwtYWxp O916GEUeiDrvLt1ZWtx3K5 EpMgn3AUQj qTcoUU7dbYSbJJsxYd9xdN wvrIuaOT5uGPSzzvjip033 BhMum4mvDBBbdVVbXMnkKP H6J63lz7Q3 TJJiMLGcWUT8cGB8uW2nqW lnbjogbGVmdDsgdmVydGlj MDpiKFycI020AOZezCipDi BheWVyOjwv dGQ+PK30ta06Y8KcJirnVu g5VKYgMAQ4mYY2uW3kMHUs FQdyp0X4wVA7V1ZgwyJswr 3cs3zzSCNc ZTo (more content not included)... Normal [facility] Miscellaneous Testing LCon 0 12-07-2023 [facility] [place]. Test Result LC COMMENT Invalid Interpretation Code [facility] Comment on above: Result Comment: Test Ordered: [id number] NMR LipoProfile+Lipids LDL-P 1445 [H ] nmol/L BN Reference Range: <1000 This test was developed and its performance characteristics determined by [facility]. It has not been cleared or approved by the Food and Drug Administration. Low < 1000 Moderate 1000 - 1299 Borderline-High 1300 - 1599 High 1600 - 2000 Very High > 2000 LDL-C (NIH Calc) 146 [H ] mg/dL BN Reference Range: 0-99 Optimal < 100 Above optimal 100 - 129 Borderline 130 - 159 High 160 - 189 Very high > 189 HDL-C 37 [L ] mg/dL BN Reference Range: >39 This test was developed and its performance characteristics determined by [facility]. It has not been cleared or approved by the Food and Drug Administration. Triglycerides 116 mg/dL BN Reference Range: 0-149 This test was developed and its performance characteristics determined by [facility]. It has not been cleared or approved by the Food and Drug Administration. Cholesterol, Total 204 [H ] mg/dL BN Reference Range: 100-199 This test was developed and its performance characteristics determined by [facility]. It has not been cleared or approved by the Food and Drug Administration. HDL-P (Total) 27.3 [L ] umol/L BN Reference Range: >=30.5 This test was developed and its performance characteristics determined by [facility]. It has not been cleared or approved by the Food and Drug Administration. Small LDL-P 504 nmol/L BN Reference Range: <=527 This test was developed and its performance characteristics determined by [facility]. It has not been cleared or approved by the Food and Drug Administration. LDL Size 21.4 nm BN Reference Range: >20.5 This test was developed and its performance characteristics determined by [facility]. It has not been cleared or approved by the Food and Drug Administration. INTERPRETATIVE INFORMATION PARTICLE CONCENTRATION AND SIZE <--Lower CVD Risk Higher CVD Risk--> LDL AND HDL PARTICLES Percentile in Reference Population HDL-P (total) High 75th 50th 25th Low >34.9 34.9 30.5 26.7 <26.7 Small LDL-P Low 25th 50th 75th High <117 [phone] >839 LDL Size <-Large (Pattern A)-> <-Small (Pattern B)-> 23.0 20.6 20.5 19.0 Small LDL-P and LDL Size are associated with CVD risk, but not after LDL-P is taken into account. LP-IR Score 69 [H ] BN Reference Range: <=45 This test was developed and its performance characteristics determined by [facility]. It has not been cleared or approved by the Food and Drug Administration. INSULIN RESISTANCE MARKER <--Insulin Sensitive Insulin Resistant--> Percentile in Reference Population Insulin Resistance Score LP-IR Score Low 25th 50th 75th High <27 27 45 63 >63 LP-IR Score is inaccurate if patient is non-fasting. The LP-IR score is a laboratory developed index that has been associated with insulin resistance and diabetes risk and should be used as one component of a physician's clinical assessment. Performed At: [facility] [address] [place], [place] [id number] Piotr Tolliver PhD Ph:[phone] Performed At: [facility] [address] [id number] Yuniel Hays MD Ph:[phone] Performed By: #### 1 [id number] #### [facility] (DEFAULT) [address] [place] [address] CMP Standardon 12-06-2023 eGFR AA >60 Invalid Interpretation Code [facility] Comment on above: Performed By: #### 1 [id number] ####[facility] (DEFAULT)[address] [place] [address] 50865 eGFR Non AA >60 Invalid Interpretation Code [facility] Comment on above: Performed By: #### 1 [id number] ####[facility] (DEFAULT)[address] [place] [address] 86021 Albumin [Mass/Vol] 4.0 g/dL Normal 3.5-5.0 [facility] Comment on above: Performed By: #### 1 [id number] ####[facility] (DEFAULT)[address] [place] [address] 86817 Albumin/Globulin [Mass ratio] 1.3 {ratio} Low 1.4-2.6 [facility] Comment on above: Performed By: #### 1 [id number] ####[facility] (DEFAULT)[address] [place] [address] 25790 Alk Phos 35 IU/L Normal 32-91 [facility] Comment on above: Performed By: #### 1 [id number] ####[facility] (DEFAULT)[address] [place] [address] 75688 ALT [Catalytic activity/Vol] 21.0 U/L Normal 17.0-63.0 [facility] Comment on above: Performed By: #### 1 [id number] ####[facility] (DEFAULT)[address] [place] [address] 08410 Anion gap [Moles/Vol] 7.7 mmol/L Normal 5.0-19.0 [facility] Comment on above: Performed By: #### 1 [id number] ####[facility] (DEFAULT)[address] [place] [address] 76804 AST [Catalytic activity/Vol] 17 U/L Normal 15-41 [facility] Comment on above: Performed By: #### 1 [id number] ####[facility] (DEFAULT)[address] [place] [address] 29005 Bili Total 0.6 mg/dL Normal 0.3-1.2 [facility] Comment on above: Performed By: #### 1 [id number] ####[facility] (DEFAULT)[address] [place] [address] 04376 Calcium [Mass/Vol] 8.8 mg/dL Low 8.9-10.3 [facility] Comment on above: Performed By: #### 1 [id number] ####[facility] (DEFAULT)[address] [place] [address] 38440 Chloride [Moles/Vol] 105 mmol/L Normal 101-111 [facility] Comment on above: Performed By: #### 1 [id number] ####[facility] (DEFAULT)[address] [place] [address] 43740 CO2 [Moles/Vol] 26 mmol/L Normal 21-32 [facility] Comment on above: Performed By: #### 1 [id number] ####[facility] (DEFAULT)[address] [place] [address] 89351 Creatinine [Mass/Vol] 0.94 mg/dL Normal 0.90-1.30 [facility] Comment on above: Performed By: #### 1 [id number] ####[facility] (DEFAULT)[address] [place] [address] 74760 Globulin (S) [Mass/Vol] 2.9 g/dL Normal 1.5-4.3 [facility] Comment on above: Performed By: #### 1 [id number] ####[facility] (DEFAULT)[address] [place] [address] 00234 Glucose [Mass/Vol] 96.0 mg/dL Normal 74.0-118.0 [facility] Comment on above: Performed By: #### 1 [id number] ####[facility] (DEFAULT)[address] [place] [address] 07920 Osmolality 275 mOsm/L Invalid Interpretation Code [facility] Comment on above: Performed By: #### 1 [id number] ####[facility] (DEFAULT)[address] [place] [address] 80495 Potassium [Moles/Vol] 3.7 mmol/L Normal 3.6-5.1 [facility] Comment on above: Performed By: #### 1 [id number] ####[facility] (DEFAULT)[address] [place] [address] 63816 Protein [Mass/Vol] 6.9 g/dL Normal 6.5-8.1 [facility] Comment on above: Performed By: #### 1 [id number] ####[facility] (DEFAULT)[address] [place] [address] 40172 Sodium [Moles/Vol] 135.0 mmol/L Low 136.0-144.0 [facility] Comment on above: Performed By: #### 1 [id number] ####[facility] (DEFAULT)[address] [place] [address] 09273 Urea nitrogen [Mass/Vol] 27 mg/dL High 8-26 [facility] Comment on above: Performed By: #### 1 [id number] ####[facility] (DEFAULT)[address] [place] [address] 58711 Urea nitrogen/Creatinine [Mass ratio] 28.7 mg/mg High 4.6-16.2 [facility] Comment on above: Performed By: #### 1 [id number] ####[facility] (DEFAULT)[address] [place] [address] 66555 Miscellaneous Testing LCon 0 12-06-2023 Test Code LC 063964 Invalid Interpretation Code [facility] Comment on above: Performed By: #### 1 [id number] #### [facility] (DEFAULT) [address] [place] [address]25 Test Name LC NMR LipoProfile W/ Lipids Invalid Interpretation Code [facility] Comment on above: Performed By: #### 1 [id number] #### [facility] (DEFAULT) [address] [place] [address] 12360 Provider Orderson 12-06-2023 Provider Orders [id number] Normal [facility] CNOVon 10-20-2023 CNOV Office Visit (ORTHAL ) SHERRY GUARDADO ([id number]) 1965 M Date Time Provider Department 10/20/23 3:00 PM GISELE SMITH ORTHAL During your visit today, we recorded the following information about you: Gisele Smith PA-C 10/20/2023 1:46 PM Signed DEPARTMENT OF ORTHOPAEDICS SUBJECTIVE Pt presents today for left knee OA, requesting CSI. Denies any complication from previous injections. OBJECTIVE Large Joint Arthro/Inj: L knee joint Informed Consent Consent Obtained: Verbal [place] Protocol A moment to CARE was completed. SIGN IN Personnel directly involved with the procedure wore the appropriate PPE. Special Equipment: N/A Patient/Surrogate Stated/Verified: Date of , Patient name, Relevant allergies and Intended procedure TIME OUT Intended patient and procedure match the source document(s). Consent documented and matches the intended procedure. Relevant labs, photos, and/or imaging studies have been reviewed. Correct side/site marked and visible. Medications required for procedure verified. No fire risk assessment and interventions applicable. No implant(s) inserted. 10/20/2023 1:46 PM The procedure site was prepped in the usual sterile fashion. Site: L knee joint Medications: 80 mg triamcinolone acetonide 40 mg/mL Anesthetics: 8 mL lidocaine (PF) 10 mg/mL (1 %) Outcome: Tolerated well, no immediate complications Post-injection instructions were reviewed with the patient and the patient voiced understanding of these instructions. SIGN OUT No instruments, equipment or retained foreign bodies applicable. ASSESSMENT Primary osteoarthritis of left knee (primary encounter diagnosis) PLAN Follow up as needed Gisele Smith PA-C Referring Provider: SELF [[id number]] Allergies As of Date: 10/20/2023 Noted Allergy Reaction Hay Fever (SEASONAL ALLERGIES) 3 - Cough MOLD 3 - Cough REGLAN (METOCLOPRAMIDE HCL) 03/07/2017 5 - Intolerance Comments: Panic attack symptoms Date Reviewed: 10/20/2023 Reviewed by: Gisele Smith PA-C - Fully Assessed Primary Visit Diagnosis:Primary osteoarthritis of left knee [M17.12] Order(s):Large Joint Arthro/Inj: L knee joint [[id number]] Order #: [id number] [] lidocaine (PF) 10 mg/mL (1 %) 8 mL injection (XYLOCAINE)Disp: Rfl: [] triamcinolone acetonide 80 mg injection (KeNALog 40)Disp: Rfl: Prescriptions as of 10/20/2023 - PROAIR HFA 90 mcg/actuation inhaler - cyclobenzaprine (FLEXERIL) 10 mg tablet Take 10 mg by mouth three times daily. - eszopiclone (LUNESTA) 3 mg tab - gabapentin (NEURONTIN) 300 mg capsule - SUMATRIPTAN SUCC/NAPROXEN SOD (TREXIMET ORAL) Take by mouth. - GABAPENTIN (NEURONTIN ORAL) Take by mouth. - fluticasone-salmeterol (ADVAIR DISKUS) 250-50 mcg/dose DsDv Inhale 1 Puff as instructed twice daily. - ALBUTEROL INHALATION Inhale as instructed. - rizatriptan (MAXALT) 10 mg tablet Take 10 mg by mouth as needed. 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] 09/02/2014 Prescriptions ordered this encounter Disp Refills Start End LIDOCAINE (PF) 10 MG/ML (1 %) INJECT* 10/20/2023 10/20/2023 Route: Inj-ORTHO TRIAMCINOLONE ACETONIDE 40 MG/ML DEX* 10/20/2023 10/20/2023 Route: Inj-ORTHO Encounter Status:Closed by GISELE SMITH on 10/20/23 Normal [facility] Head/Face/Jaw [place] Inje ctionon 08-24-2023 Mattie Torres RN 08/24/2023 12:56 PM Head/Face/Jaw [place] Injection Date/Time: 08/24/2023 9:11 AM Performed by: Winifred Bernal MD Authorized by: Winifred Bernal MD Procedure details: Total units injected: 0 Total units wasted: 0 [facility] Work Phone: [facility] Work Phone: Winifred Bernal MD 08/24/2023 12:56 PM Head/Face/Jaw [place]um Injection Date/Time: 08/24/2023 9:00 AM Performed by: Winifred Bernal MD Authorized by: Winifred Bernal MD Consent: Consent obtained: Verbal Consent given by: Patient Procedure details: EMG used? No Electrical stimulation used? No Diluted by: Preservative free saline Toxin (Brand): OnaBoNT-A (Botox) Total units available: 200 Ad hoc region injected: Head with 200 units Total units injected: 200 Total units wasted: 0 Post-procedure details: Patient tolerance of procedure: Tolerated well, no immediate complications Comments: Please do not rub areas for 24 hours. No pressure above eyebrows for 24 hours. Watch out for helmets, headlamps, headbands, goggles, or massage for 24 hours. If there is discomfort, ice for the first 24 hour,s heat after that. Headaches may worsen, or you may experience neck stiffness. If this occurs use your usual headache medication or a mild anti inflammatory such as advil or aleve. Please call if you have difficulty swallowing. You received Toradol today for your severe headache. We are going to continue with 5 day of pills starting tomorrow to break your headache cycle. Take 1 pill with breakfast lunch dinner and bedtime for 5 days. Take with food. Try not to take your triptan or antiinflammatory during this time. If you have any nausea or diarrhea with the medicine stop and call on the next business day. [facility] Work Phone: [facility] Work Phone: Coding Summaryon 08-03-2023 Coding Summary HTMLBase 64 ZrixruwbBQn3jHg+PGhlYW Q+SZ4YKFDyW01iuDIwnM0v K6DLPWqIHxmlDPTJSXtEQj QoneVnLG9uyLLpIPUb IC8+UH3uSAUgCmixbWWbi2 J1qWG5Z29gko8fTCydbNB9 VEDqSfKdalalk0iweXd2SH cuNmluOyBt JQYtnK85ANC5jE28Pf36qH DvcAIyr0ydgAv4ChMzYWLs VJM3pWgkEExyx9HsOVZxB6 8ohSEpi5Y9 IGEdoZlgcILjUdCbhMX9kD 0zCZcsnidxx1pkbrerCnl3 tf27sGQdt6N2nCF8S3Frvk A6WFEqnLWi GubnqZJOrL1gmtyaz4uttw yiUrBgIAYrFUa1MAu7DPLi nRhoBvGgYF22ZGX8SVQicr DuV2CyPIIu kQldGdH0r8I1Mp6WX9ROOt cdY3YLPJBEZLkitVE+PC90 as32J9OwMlttIdv9CMAhYM I7yIB9jC6n CGLrIYhdn4J4uMF1E8Naaq Uvgb6uv9ewZSOkXTlgV18k tRJya5O8OLXjgTP0NVUqqE clHwHsuK36 Oyc+OQSzbAbmp4ScKodhc7 rfv2rnaAb6PyxiSZVjrpRy bOjxRJD6p8RxCo6cJVCogG N3qZL2eF5g QkXtHyB0GOgtS103GrUxmP OjDheaB68sT5DcpEG+PHRy Lyc7TJQeaGehEW8xU4CiKM RpbmctbGVm pVvaVW6oXPIqbptxKIHcvI 5kNCQgD5v4DyIsGkJ9VZev B8KtCYNzdrvcTn03sS0oMg ZcTzT3MWot O1NdywI5BOZlgEVuXPepQN J8D37fy8E7AJHwLJLxGHS9 tLR1dL4hoHwobpaosJIpqN sgdmVydGlj HBakCZasK059HFFieRyfIe NvZGluZyBEYXRlOiAgMDkv MTMvMjAyMzwvdGQ+PHRkIH E6yZswPMPh hXDiWDtrUr4kuVnqfKpvJV 4iYVAzxjfnMNBmyR5tAZPy yHFzlBscPL5nQFWkwfnkx5 56ZnWjIOK1 MWPgkXAzT5VhcW4iHiOrEG QiLGXaP3KtnHNcYHupR088 YDavMuB1BDKdjsVpW3XyMS FsaWduOiB0 v8N2Vk9Bn8YduomwQ2NtfL GwIcIlHqkgIUn3F1ZxLgtu dHI+PX98BXOlEJ85LLl9SB F8pHjvUHdm MSHmN1NvsY9aDqAoUSPaAH RkOyc+PHRhYmxlIHdpZHRo VQusOOJrDbGijVaqHK3gDd 9yZGVyLWNv nIvnpMLdNoEsz8jhFOVsOG eoPW9xcMkpN6QjhJQ6LYMg d7j6Ak25M24bW4XocET+PG BfmHM5uFI6 sK2aPjXbXrN3EOjyB137Ij GzuZTaQlywv4oki6nxyDw7 PzZ9EOThnyYgjNsyRLT0p9 SmZo68T29k IHdpZHRoPSIxNSUiIHZhbG kjah3zsH7hMv5+PGNvbCB3 pDE1jC4cZcOoGfW8VOyzH7 49InRvcCIv Wsayk2ifz1bpgUa0HdPwFM ByvyZscGjjQJQ1i0AjOg01 T9LaeKoid1EtIvt4uk04iY Ttx1M6oXS8 V2NaQKCksfmmwYFnzIkiQC 5rOBUysuqrJPDrrO0xDYPk F4x2XjCuIrB3JExkN1Psaj I3GSZywERt HBHcrFAAkA1qehsaw6nqqf vnGyNkRGTkPJw2VOb5LKBk kJkhOfDbEDQ0VvF7GLZ7yZ QfnW5kyUnw ztqpvY6mDku+YTZ9wLKibO UJGM8gNpqcqYH+PHRkIHN0 yVknXWdyAFQvfQ3kWQFhB5 l4QjAsZdX0 VSjrW3OkcwK3SOFacHUtUU ZhaSMLxH2krsycx3obncis ZyBmSYRmWVl3NDk8GLVncL duOiBsZWZ0 UdM7XMS8tJFmuS8hhDxdbk ohkW5uFmv+QmlydGggRGF0 TUo2A9JpUbc7UNMowNtoHS 0ncGFkZGlu Ax8iiHjrrRksQE2nSBQsov qgi903HhQas6ryIJTirHYj BSxgRBK5A41mi1M5NDGwUY HjKFK7hAI7 cI9ycSliabbuzSZjuNserh SepDtmRIhyJCjnR332ZWWa pPaqIgHkIHk7I5InWio9DQ NwmNfjSU9n dCBrTBnrUj6yuJbgyXpeJN 5jMXXirjude215TwXrk9zr VZCovKHpETugBQZ2K24of5 L0FSRvRKBj VGB1lWM4wG3jlCtbqlbinD VmdDsgdmVydGljYWwtYWxp H366VMInpZrwGuPrkRg7A3 ChSwi2DSMj pEdaKT0daGFsCQlvTe5ibX fkfZiwDV6eXEMnvnrgs097 LsJok9inPFKjmFIvMHewKH Y7B15yt8O0 UOBiKRVlNPX6eNK9nL6tnE lnbjogbGVmdDsgdmVydGlj LMmtQMbiV602QJFlkBmkYp BhdGllbnQg PAwzQXg8K1NaKxakwUN+PC 23HTEeRH56lDSatMDvg7zv fWk8PaMgGMGlDKO7dTwsIV fev2ZdROCv K71qkKRff1F8BHCsvEoslB WeYeKsjAZ5qP8zVJnbupwt j2snammeEzume3saiv15xE 91Y87bAQvg ZHRoPSIzMCUiIHZhbGlnbj 2qaY2bDi5+GJPbsRH4uKI0 uD4rQAVwFgT2PLogU071Cl RvcCIvPjxj s9rlq5tltQw9WgK6ABOtrw CvvOflDEJ6i9WfPf95R85w IHdpZHRoPSIyMCUiIHZhbG hixk6rmD2h Ii8+PCCoeGA4wWC8tD1uBj QcRxE5SJztA043QmCiaGIx KnsoL71vZ1BntTY+PHRyPj k8ZJErzMrb JM9jkSIsGBxiKq3yVGJ2Rt IoYeLhXMrtP9FvWDUvudaw wpttjEB0JCYkERPfmJ34Ou 9udDogMTBw nOZYjW4vosvaj3leepllPt FqHPPvRYm1UHd7QUDsbFsu PpBpFCL1KvI6BLY7pZTitF 1hbGlnbjog bC0vQ8RrMZAmwmqsEw41rV 7jAxBxSzS8KJmxMut+TEFG I9BTQHMLBnndNaiOHZAVIT EGJF84EL12 bVQmu0H6dGQ0B4DrKSCfcv wviikiyDB4PPUmITHloE18 dECgSRqkFr5ri4T8y642VY LjKEUnzU87 Hk4yeFzgQVSngUXRoS9qzv hlt9cnxslbRrHpGFMrLGp3 EOu1LYFmoBgiCuMrYUF6Hj A8LFT9gFUb tU3uxUrcplhueH4hOut+MD WwCJtgDZp8AWhstWH+PHRk SXY8wSvtBSouBTZtwD8uRZ PiA2v6VrIq RtF1SOjaA2DfTNSjkxqyAc 30kJ7bGxVpVsP8VVxmA9Nl tdC6TZZlmKBmTFfiACX9Y6 3mh1G4HOVa ARQpTEY9kBC3rE5foPlwli ogbGVmdDsgdmVydGljYWwt WUmiS439TVKvmWvcKcE7FG fdTHOkUA81 NO05xSQyz0L1wJI0K9IzNE PwhzlnsgtzdUF9MSElLKLd tL70sSHrCCkuTr5bo6D0e0 06IDAuMDUw sT00Bh3kzTbqCWHkiRKCaW 3gomeow7uepueqNfIqZUNw CNq9MBn9XNBsaFtiLzLwYI Q3XrJ9SRF2 jOBelF0dpTllvwglwU0uUb c+TUFMRTwvdGQ+PHRkIHN0 eXxoGQacCICllC5oKTBoR4 n5EaZkQoU2 BWqnZ1OqLKBfzgdeAm23jW 2lFfLwScP4BZuhM7OnpaE6 GGUytKYwUBcxJRY7C88cr1 W6NZMgYJTf FDV2ySG3uK6goDbrzugqfP VmdDsgdmVydGljYWwtYWxp B494SUHgrWhrEn30rIQclO eafqXkaH4z EIYMTNG4M3ZgNajksJI+PC 88UGHnYA41tSAysDSvh9nx xGb1ZlKlHTJwGTS4iZhnLY tbv2WaYNJi W90mgJWtq2S5UTQjgYbcxH NtGhHygMM5vD6lSRtniumw i6htcvxeBggne1njxr32cQ 81A70pEKpa ZHRoPSIzMCUiIHZhbGlnbj 5pyN3sGz4+BEOqwXT5eWY4 vD6iQeGsHbA3JChrY331Pn RvcCIvPjxj d0zrb5oupYe9XzMqYWVzil ChoCavBXD6m8GvWa65D91w IHdpZHRoPSIyMCUiIHZhbG ispi0sjO5j Ii8+BL2wq5vxxa73fA85lM I+LSVkYTB1yEoaLHnoXJHq nV6zAMdpKjF4JNBeRgZrpF 47cGFkZGlu Eq5hiYhzdAhmOZ7iAEGfct bul424TwLtx1bxIEQrgJKu BVzrHVJ8N63zq0L9UIRxBZ PaAUQ6iPG6 hX0aeUcmlkacjZIsxCsdtw MjkTneHEddUHvzF991CZRh xEsoNiQphSInP3xjcgSCHR 1lOjwvdGQ+ ONUlLAR9oDemFJssZGDeaE 2kGLOhV3l3KxCzUlJ6WKfg D8UugxV4FYLisAIfCNPszU QPrR6bvaee x0zasazfRpQgCQXaRVb2RB k8IBQvpHkkHmBwPMY3WxB6 EFI6uPNktQ0eiXkwckrovT 9wOyc+RklO OjwvdGQ+HCBaUOA8hCsnJX toBJVvvT7dLIYcJ4c7SyKn OxB9MIebH0VuwrY4NCUbfA QgMTBwdCBU sB1zhgkfg9lzvohiZzJqTV FpIVp8DUo6QHWkaVjcBcAd RTU9IzU4LPZ0yCVtdB6leN bggoexfS3g Oyc+TVJOOjwvdGQ+PHRkIH T1wKzuXSdbTNOqeI1hYTDv Y1h3OsOeNwB1GRndZ3Iczp U4OZGnkTIm MLLvpOCIjX5mpfeds6xwva hrThQtRMTtRIw3PAr2TWSs cJgrXpYcBKB9EiP0JWF2qM KnhQ5efPmy ifzgaR3tHbj+MHZ2QWN9MV 68GT75P6KuApjzmDHloED+ PHRhYmxlIHdpZHRoPScxMD AlJyBzdHls ZT0 (more content not included)... [facility] Event Monitoron 08-02-2023 Event Monitor [id number] [facility] CV Event Monitoron CV Event Monitor DATE OF STUDY: 06/27/2023 CV EVENT MONITOR There are 14 manual and auto triggered events. The manual triggered events of fast heartbeat suggest atrial flutter with 2:1 AV block. The conversion to sinus rhythm is not recorded. There were 4 episodes of atrial flutter. The remaining events were sinus arrhythmia or mild sinus tachycardia. IMPRESSION: Holter monitor is remarkable for paroxysmal atrial flutter. Dustin Akbar MD JOB #: [id number] bk Final Dictated by: Dustin Akbar MD Dictated DT/TM: 08/01/23 9:25 Signed (Electronic Signature): Dustin Akbar MD 08/02/23 9:30 am Technologist: [employer] [facility] Coding Summaryon 06-22-2023 Coding Summary [facility] HrqxpahjSEk3mHr+PGhlYW Q+TI4AGDZwY32teFYhwI4b F1SXJLgDOdkvDCIFNGdTQk TnluGbTE0zkKCsRNUn IC8+KQ8aPSCeJauxnEWxn1 N2dML6W41rrs8hNXczwEN6 XTYkTrAzzqgmg1uxuAg7EE cuNmluOyBt FFNraF69HHM7sY46Ty73pU QtbBRmd4khpOc9PbKrXOZx UUW5jRxnZQzmb2AuGTLuA2 4qtDOpm4R1 PGLzzHiinGJjFsHdlSQ6jC 8aQIgfcozhh1pymbsdVzn4 ts46bMZhk5R0wLD3K4Xhkt E6JHWajFZi VgyrkJDZaZ7jwpuyw9adrw hgEwIhYHZkLTl5UWz3NONx pQsxVgZnJF39ZJK1RRCbge FiF3EpNVPc dUnfIdS5l9M9Zf4LT5TTGj boJ1IVYUSIEYfqqZU+PC90 ng03Z1LcZderEdu3JTNhXB M8vGY0oZ0b UDHnKXsrn9W3pSQ7R1Hcbg Miyz3ok5ptFEUfTLunQ94o fELdb4P9PVGeyNN0APMvtV vjQiOfrG70 Oyc+QYCesUvvh1JaOxmrd6 wyu9rjuXd5BrkeLMDzcdBi fDkkVKY3q7WwTy9uQGVnxR L2yFQ6sR0l AxCcPoE8QDddY406BoRzoL IcOuzmH25aA4OtgKT+PHRy Uue3UTBmjFquCT8hP4IvMO RpbmctbGVm rDloHJ4iLIKrsudxZDSbqX 0qHJCbX1b0UyXoXiH3OOgk Q7AtTURvykiiRk23nI0cUe AxTnQ9UYxx N8MkjpZ0PGYvxVIbNPfqKT N6H19se7Q9PVDnIGXaNUJ8 fBC9wO0qqIvogtacdKZwoE sgdmVydGlj HLcvTFrsY448KLQdlLxuBf NvZGluZyBEYXRlOiAgMDgv MDIvMjAyMzwvdGQ+PHRkIH J8oLucXYRt sSMbQIweAr9dvFuufDacUG 5wKVTxwkzhNSHjlS4xJLQx sRSaiHqvSL3bMSTskwbqy0 97UgRwKVR0 MDXesOLzT5CqbK0hSlGhKH YtRNHnQ5NnoYQrYSwxE352 KMckKvQ0SFPecgVyA4WbWX FsaWduOiB0 r2S0Cl7Kq4CgysuxL8TieX PcQkReTqgtNFf7J4XzSodd dHI+DC67NMWnRC64KLo5AH I7yRzzBGcf QABtZ0YhfV4fCyPmTDJgPH RkOyc+PHRhYmxlIHdpZHRo ROznXBIbVpTegOzgRH4zYa 9yZGVyLWNv yRsagHQkSkLol3fiLAIaRE vkNE2soJarZ4FdpSD4RMIw k4w8Na68R14yM1FgrRO+PG QdsZI5cCX1 nB5tUqDiPuU1CTbmZ673Tq YgxUBlYghmb3emz8wscLt9 DaS4MEJupfXlrDqdUIJ2k1 TlTb70U25j IHdpZHRoPSIxNSUiIHZhbG xcng4ayW2yRa1+PGNvbCB3 qUX9zN3zQcStVjI9SAchY4 49InRvcCIv Enktp9pqj1vuyYn5UqPjNI QpaaYqyOavLJB2o6IeBw60 V8YapExrs9BvEmx2jl33aQ Djp3M7zBY0 L8MgAOUstegahGTlhQciPC 7oEVFpqubdKKWibG7sSXQy E9s9XiJwLqT8LGnzI2Pbhv X1ZQHbiDKw NEDyzJOVxN5qsyilf5bemt rgPbRjPWMqQNc8CXy9WKPf kOnyJySqHKC7DrT7TEP3qI FxxA1fdJpi xlgbtM2jOxp+FZP4fVOyaZ QQLK2pOrlpeIZ+PHRkIHN0 zZkjOLgiZYPlrK7fLSYxI2 k5QpHhCsP4 GDqkP0MxsxI9HXBruTChIK GtwVFUzA3ibfdim0cmjwrh WqLcSBBeJVq7OAi8IDCcyA duOiBsZWZ0 KkT4ESE3lHSskO8pvMamxd wspS0hUbu+QmlydGggRGF0 CSf1N3NrQxn3FDCyqFiwTY 0ncGFkZGlu Wq7wxTgxpKgzUY2wVNHuvl liq213OkHnr8qcDGJitFLi WQsvIZI2P06ov1K9SUHtPG NzGGK0qJQ0 vI8luHggkvyjmUXwmHqobv SdbWjyLYkhXAehC505HZCw nKgeVhMzAGl9O8DeMhu7RU YuqLsmKI2y xZIhQGwlKt5ldPpziBudFB 5oZMVjiiaus253PbAcy0zx HTEbpXHyRFcrKBD1V09wm5 M2SIBpDBEe HFX3mHG4qK4hiMcyxrtzwL VmdDsgdmVydGljYWwtYWxp E049FHQyxMrnMgDeiPd7O2 LqYhh0XBKa yTkuNP3qlUDeDQbdKu1mcV dkvSjjUZ0vQZPcourwf478 ZwDrq5mkKVBjbNQrHUozQR T4N81za5Z3 HGSvPNGgIEO9eTX8yI9ntS lnbjogbGVmdDsgdmVydGlj ZPbnPJqdT235PRZfxJfnLi BhdGllbnQg FSnfDRd0B8FtKionxXM+PC 30KTXhAY60gSRtfXYwy9sq nFq9DmFdIRKlEFK2tHfiQP pvx6DgWMIf U89onLAkk2T5EDQryKxfkA ZoLgZbmDM9dO8iNHxgpuew q2sboobvRpfvv3dyie79yN 23V00xYKan ZHRoPSIzMCUiIHZhbGlnbj 9hhN3xLl2+XYIanYQ5bLO9 aT7sJSVbXpV9UKyrQ358He RvcCIvPjxj o0cfh4feiEz8EiC2TCUvvf GftEywHMM3l4VzJc42I38b IHdpZHRoPSIyMCUiIHZhbG byju8zaE2x Ii8+QOWvdZE0rTM3rL8yHy PeRcB7PMjzU418AkRdgDAe ZkzwD27wO0JiaZJ+PHRyPj d9JMIkxMrm IJ4wvOIyTUbgAb4vHVF2Rb HpTkZrLXirG9ChSOEybmnl ovnncDS1IWCvTIRiqY30Nd 9udDogMTBw qWDGqD2ahcdcd5soadwkPq UgVMStWXy0RXt0ODOzvFcc YkJdKPF3IyB1KOR0oHPcjE 1hbGlnbjog mZ9yQ2RaBVVypuufVf77vZ 3iXzEsFbU1MZutPyn+TEFG H3KZTXNOXmrfNymZDLVECU CIWW50DV84 tSAmz5G3sAI2K6EmZVCgdg methybgXO5TCPkNRGmpV59 sWBoPMkuOl3le5K0z414YY MtCITpvN16 Tx4bgDziOZHlgRRNxY9vhs dfd8xorvvhHmTuPHEgEHv9 YYv2WFNcvDdhLqYkPRO7Yb V8TNK1aDTc cO3afJtutgddhT4dKjv+MD NsJAdtPMo9GRckoGB+PHRk AXP9cUzxITfiKOXivQ2jBP SqH4b2LiDk VlN5VKpkZ8XaUFEbfazdNn 69cJ8nViKfRzW3MDzhJ4Vp ukT9NHKarDSiALnyRZZ8U2 2ow1R9JEFo WMBlVIS2uRY0kV4xfVktfz ogbGVmdDsgdmVydGljYWwt QImmB539CZCjjSclAiU3OO hsOOGnXV22 PK52tCFkr0S2vSH2J5TvQZ VsacolckiowFM0BXTeCXOh nK73lMWeYPiaBl9xl0E9d6 06IDAuMDUw nZ01Na6rsSrxEUErxHGVgM 2qlfobz1pfpjkjEbJiJXTu LHc5JEe8JITklPgaVcUxJE Q1UeB8TDH2 kHKbkT6qqIozogyduA5qPz c+TUFMRTwvdGQ+PHRkIHN0 cCrvAZfvNTRscJ2lSCYtF0 g7IkJqIlT5 KJdyI0CqYOJnaofjLy07qU 3nPiAdByI7TYrxA6WqbzA0 IMGjrFOlYUdkALI0D53gm4 R9RFVoSAOc QVK1vLZ9jQ3fgQhfdbtwzE VmdDsgdmVydGljYWwtYWxp Y856HMNxgTguAy4ZGV94MQ 30V4LoNiuo dGFibGU+PHRhYmxlIHdpZH HcVFgrDXIeAbBgrUmxTO2t Wo8iACGoBXBnaIjbwTKyUh Ibr9ufWMQd YNeaBZ3lrPhhB5LryOJ6HW Ine4l8Zh05L49uU4LhrBY+ CYDhrUB4dKD9jJ3lKiGdGi N1JYmvG871 FmQuuPOtPvmsw8ewl7jbeT l3OuZpNOQbhgNplOqzENU1 i8RnYl43G16dORidHUTkAC IyMCUiIHZh rJorrq6dtP5ePv8+PGNvbC S4zUH0oD8aCpGsKwG6BByc O556KvKxeDVlJvjiN75fY3 JvdXA+PHRy Wqg4NEOnjUwdRR7aeKVkUA vePe5cDZF4GiNhBxStNNec P9PoIMUxwhyknayhyTB6GI VcZMOzpX84 Hy6wzPdrRy9sDBXkHTV7TL FbzPAyK5ZloA7tRxSvXOFs BCQlK6UdjIAyNEceG330LS xeXgD5KEAc udArW6CbOYTacTftEgC4n6 A1Nh6PdPopbVRpWK8mHtAq KNh9V9AiVbn5KROnxFjfJE 0ncGFkZGlu Rk3roGuzjUgjYO2iSCOamm xct320ObPsj9oyIFIkdXQx YNxaGSL9X25ly7F1XQFjHD UrNNP6gWD2 nG5inZkriwtkqXWtuPedpq KtyPnnKIbsKGvdQ140SLZs qTkmYfHWGhu0C5QsMbr2YS MvpMuvIK8k aOJcXTaoKi5leUvloIsjTO 3mLVGqgkdos436XuGke3al KKEgnDSdWQbiTIO8D18sg6 I2VFJzOMSn ZJO5fYF5wQ3nsRiempzotA VmdDsgdmVydGljYWwtYWxp Z006IOJcvBpfXx7XSvc7V8 IfBjq0TDKq eBlyPP6byMCwTJaqSr8pxT pouBiwJS3eZPLkoxfgq263 NhDka9uqFTXxvADaBSpwBS B6U39jk3E4 CTNgKVOjJDH6lXU3rL3wgW lnbjogbGVmdDsgdmVydGlj EEovTEevH323RZTmqAbmIz BheWVyOjwv dGQ+XQ48ey61O6AsItspXw n3PGFbESF5hDF4uL7hSEUx TDbal4L5iQS7J3YwzmKklf 4ai7mjQSHt ZTo (more content not included)... Normal [facility] Miscellaneous Testing LCon 0 06-21-2023 [facility] [place]. Test Result LC COMMENT Invalid Interpretation Code [facility] Comment on above: Result Comment: Test Ordered: [id number] NMR LipoProfile LDL-P 2225 [H ] nmol/L BN Reference Range: <1000 This test was developed and its performance characteristics determined by [facility]. It has not been cleared or approved by the Food and Drug Administration. Low < 1000 Moderate 1000 - 1299 Borderline-High 1300 - 1599 High 1600 - 2000 Very High > 2000 HDL-P (Total) 25.6 [L ] umol/L BN Reference Range: >=30.5 This test was developed and its performance characteristics determined by [facility]. It has not been cleared or approved by the Food and Drug Administration. Small LDL-P 1281 [H ] nmol/L BN Reference Range: <=527 This test was developed and its performance characteristics determined by [facility]. It has not been cleared or approved by the Food and Drug Administration. LDL Size 20.5 [L ] nm BN Reference Range: >20.5 This test was developed and its performance characteristics determined by [facility]. It has not been cleared or approved by the Food and Drug Administration. INTERPRETATIVE INFORMATION PARTICLE CONCENTRATION AND SIZE <--Lower CVD Risk Higher CVD Risk--> LDL AND HDL PARTICLES Percentile in Reference Population HDL-P (total) High 75th 50th 25th Low >34.9 34.9 30.5 26.7 <26.7 Small LDL-P Low 25th 50th 75th High <117 117 527 839 >839 LDL Size <-Large (Pattern A)-> <-Small (Pattern B)-> 23.0 20.6 20.5 19.0 Small LDL-P and LDL Size are associated with CVD risk, but not after LDL-P is taken into account. LP-IR Score 77 [H ] BN Reference Range: <=45 This test was developed and its performance characteristics determined by [facility]. It has not been cleared or approved by the Food and Drug Administration. INSULIN RESISTANCE MARKER <--Insulin Sensitive Insulin Resistant--> Percentile in Reference Population Insulin Resistance Score LP-IR Score Low 25th 50th 75th High <27 27 45 63 >63 LP-IR Score is inaccurate if patient is non-fasting. The LP-IR score is a laboratory developed index that has been associated with insulin resistance and diabetes risk and should be used as one component of a physician's clinical assessment. Performed At: [facility] [address] [id number] Piotr Tolliver PhD Ph:[phone] Performed At: [facility] [address] [id number] Yuniel Hays MD Ph:[phone] Performed By: #### 1 [id number] ####[facility] (DEFAULT)[address] [place] [address]3347 .Auto Diff 06-18-2023 Auto Horry % 5 % Normal 12-02 [facility] Comment on above: Performed By: #### 7 883731, 9094319, 6732925, 43092844, 4286278, 5005685, 7597302, 9398946, 2799887, 5076400, 9414838, 1840165, 70852846, 5900099, 7440520191, 0337429367 #### [facility] (DEFAULT) [address] [place] [address]404 Baso Abs# 0.1 x10 Normal 0.0-0.2 [facility] Comment on above: Performed By: #### 7 359216, 0977207, 5023364, 18861348, 3716624, 9619366, 0846978, 3231081, 9511383, 9717433, 2523085, 4738446, 11660498, 4972294, 2231698045, 1309084833 #### [facility] (DEFAULT) [address] [place] [address] Basophils/100 WBC (Bld) 2.4 % High 0.2-2.0 [facility] Comment on above: Performed By: #### 7 122909, 2813533, 8844810, 72426921, 2520551, 0505169, 2992914, 3336872, 2685124, 9695340, 5240102, 0468161, 62490496, 9142279, 1341624746, 4833804269 #### [facility] (DEFAULT) [address] [place] [address] Eos Abs# 0.3 x10 Normal 0.0-0.4 [facility] Comment on above: Performed By: #### 7 191727, 1065939, 1030493, 45827751, 7139485, 7604596, 5970410, 4482773, 4830900, 5758307, 0603211, 2203451, 20657008, 4575757, 1480290900, 4650225232 #### [facility] (DEFAULT) [address] [place] [address] Eosinophils/100 WBC (Bld) 4.8 % High 0.9-4.0 [facility] Comment on above: Performed By: #### 7 215963, 7496450, 6284530, 71313477, 9228581, 9361314, 5868931, 6539296, 8182814, 8907596, 9328089, 7769917, 59519274, 5606998, 4305459400, 6020705786 #### [facility] (DEFAULT) [address] [place] [address] 56085 Lymph Abs# 1.9 x10 Normal 1.3-2.9 [facility] Comment on above: Performed By: #### 7 629755, 2820193, 1387526, 61007208, 6150448, 1716370, 2639518, 2079462, 8153351, 6393622, 1497572, 5118412, 56953575, 9184317, 7152162707, 5341186728 #### [facility] (DEFAULT) [address] [place] [address] 38829 Lymphocytes/100 WBC (Bld) 32 % Normal 14-48 [facility] Comment on above: Performed By: #### 7 388602, 1379272, 7973911, 08338786, 7658567, 5888859, 3798222, 1286534, 2405035, 6039628, 1965728, 8711754, 23392570, 2610434, 8073979386, 5587960573 #### [facility] (DEFAULT) [address] [place] [address] Horry Abs# 0.3 x10 Normal 0.0-0.8 [facility] Comment on above: Performed By: #### 7 110875, 0912772, 4144669, 73468819, 7927439, 5922551, 0929965, 9723553, 6389615, 3138546, 8828454, 6881418, 49360826, 5794837, 6454084000, 2612631683 #### [facility] (DEFAULT) [address] [place] [address]6045 Neut Abs# 3.3 x10 Normal 1.5-9.2 [facility] Comment on above: Performed By: #### 7 715184, 9846640, 9919140, 86380445, 7627295, 0770040, 3286262, 0468744, 4525618, 1880796, 4424459, 1500816, 06530555, 3073964, 9180844049, 4364048478 #### [facility] (DEFAULT) [address] [place] [address] 84946 Neutrophils/100 WBC (Bld) 55 % Normal 44-88 [facility] Comment on above: Performed By: #### 7 785613, 3133475, 8770676, 98607457, 5558716, 4288219, 9418014, 0886505, 6197439, 5724185, 0471239, 9142148, 85180709, 9173146, 7785977569, 7260629217 #### [facility] (DEFAULT) [address] [place] [address] 40991 CBC w/ Auto Diffon 3 Erythrocyte distribution width (RBC) [Ratio] 14.6 % Normal 11.5-15.0 [facility] Comment on above: Performed By: #### 7 096735, 2477242, 7775059, 59082287, 5655504, 5394382, 8844411, 8867034, 6945231, 3778982, 0496418, 9117511, 28218574, 9588264, 5648752317, 1255205025 #### [facility] (DEFAULT) [address] [place] [address] Hematocrit (Bld) [Volume fraction] 43.1 % Normal 34.8-51.9 [facility] Comment on above: Performed By: #### 7 008761, 9298417, 1821135, 12011524, 2179030, 0147654, 4727945, 9505928, 3915508, 0876572, 0179608, 1443738, 07189010, 7223977, 1157863329, 4892692349 #### [facility] (DEFAULT) [address] [place] [address] 18984 Hemoglobin (Bld) [Mass/Vol] 14.8 g/dL Normal 11.8-17.7 [facility] Comment on above: Performed By: #### 7 504248, 4502976, 6900728, 93124659, 1027100, 4819197, 6202899, 9461788, 7385705, 6941934, 7725160, 0048370, 44239658, 8382686, 5988362329, 7753278946 #### [facility] (DEFAULT) [address] [place] [address] Man Diff? Auto Invalid Interpretation Code [facility] Comment on above: Performed By: #### 7 423819, 5767244, 1966201, 94033371, 3952387, 0397722, 0512209, 1713668, 6037876, 3780131, 7930302, 9286630, 71898955, 7194408, 7457194208, 8488909856 #### [facility] (DEFAULT) [address] [place] [address] MCH (RBC) [Entitic mass] 28 pg Normal 24-34 [facility] Comment on above: Performed By: #### 7 463895, 2800509, 6430962, 96697544, 2313799, 7362903, 8565520, 5195552, 8560758, 0887206, 3187479, 7589622, 64456723, 9078733, 6213217605, 1195460688 #### [facility] (DEFAULT) [address] [place] [address] 00791 MCHC (RBC) [Mass/Vol] 34 g/dL Normal 26-37 [facility] Comment on above: Performed By: #### 7 404377, 0855628, 1506010, 36548175, 2027224, 1391581, 2267411, 0312926, 3775268, 4425370, 6981269, 0841700, 91611929, 5263670, 0506487311, 6896785970 #### [facility] (DEFAULT) [address] [place] [address] MCV (RBC) [Entitic vol] 80 fL Low 81-100 [facility] Comment on above: Performed By: #### 7 710813, 1187860, 1060567, 02417216, 8828255, 1457480, 6338105, 9601173, 7542109, 5225037, 1923178, 7987510, 57408657, 9989659, 1281112577, 8575852095 #### [facility] (DEFAULT) [address] [place] [address] Platelet 274 x10 Normal 138-427 [facility] Comment on above: Performed By: #### 7 942957, 8696773, 7818209, 59219987, 5537802, 8825841, 8896524, 9745371, 7874210, 1336092, 5788028, 2936974, 38396203, 0233237, 0368601615, 4713687824 #### [facility] (DEFAULT) [address] [place] [address] 37223 Platelet mean volume (Bld) [Entitic vol] 7.0 fL Normal 6.3-10.2 [facility] Comment on above: Performed By: #### 7 268240, 7695242, 8925336, 96912426, 9552847, 2835310, 8791643, 7384323, 1235133, 8341182, 1206490, 1396527, 34150112, 0694230, 5930433309, 0372325565 #### [facility] (DEFAULT) [address] [place] [address] RBC 5.39 x10 High 3.70-5.30 [facility] Comment on above: Performed By: #### 7 500427, 3515876, 3581276, 57826039, 2933439, 5458882, 5704806, 6724058, 5913030, 2689936, 3071597, 1568347, 58935116, 7179351, 6128664254, 1214565848 #### [facility] (DEFAULT) [address] [place] [address] WBC 5.9 x10 Normal 3.5-10.5 [facility] Comment on above: Performed By: #### 7 535167, 7544392, 7454724, 04466702, 9246288, 0414381, 5606461, 3401293, 2363938, 7483583, 3753832, 4927891, 18055217, 0317311, 6812973151, 0168591785 #### [facility] (DEFAULT) [address] [place] [address] 65817 CKon 06-18-2023 CK [Catalytic activity/Vol] 198 U/L Normal 49-397 [facility] Comment on above: Performed By: #### 7 260974, 4411591, 0341142, 95612562, 7427138, 5509501, 7011781, 0723405, 4641089, 2263328, 5366884, 1085436, 67544154, 3441767, 6135224004, 1494494736 ####[facility] (DEFAULT)[address] [place] [address] 15299 CMP Standardon 06-18-2023 eGFR Non AA >60 Invalid Interpretation Code [facility] Comment on above: Performed By: #### 7 170904, 1719115, 8080250, 33521103, 6992108, 5443582, 8672247, 0916926, 0283586, 0153658, 5759590, 0494492, 32839165, 5264993, 8921231526, 2061157260 ####[facility] (DEFAULT)[address] [place] [address] eGFR AA >60 Invalid Interpretation Code [facility] Comment on above: Performed By: #### 7 833876, 0589853, 5602645, 52667283, 7546446, 9881146, 0556030, 9088233, 5958278, 0475712, 6112625, 7925932, 05521042, 9468632, 4564231408, 0376338688 ####[facility] (DEFAULT)[address] [place] [address] Albumin [Mass/Vol] 4.3 g/dL Normal 3.5-5.0 [facility] Comment on above: Performed By: #### 7 655567, 7101032, 9813632, 52588099, 7487108, 0263863, 3782862, 1526950, 8590024, 2515469, 6344069, 4849804, 73462310, 4178019, 1402184180, 4445412657 ####[facility] (DEFAULT)[address] [place] [address] 23139 Albumin/Globulin [Mass ratio] 1.3 {ratio} Low 1.4-2.6 [facility] Comment on above: Performed By: #### 7 954058, 5682264, 4192928, 58273273, 2284261, 2471366, 8767498, 2191017, 2534242, 0315011, 3284101, 9986803, 44788458, 7386825, 8649544074, 6651210277 ####[facility] (DEFAULT)[address] [place] [address] 78292 Alk Phos 41 IU/L Normal 32-91 [facility] Comment on above: Performed By: #### 7 960078, 9653253, 0789534, 43914611, 6977086, 5710715, 3382174, 5350113, 6235812, 4826218, 8856748, 1423468, 15113066, 1526513, 1472279604, 0629285809 ####[facility] (DEFAULT)[address] [place] [address] 07443 ALT [Catalytic activity/Vol] 30.0 U/L Normal 17.0-63.0 [facility] Comment on above: Performed By: #### 7 851567, 0791174, 0106055, 20276700, 6033511, 1143005, 1113874, 9253037, 0660660, 6598619, 1773083, 3351949, 83878584, 0344340, 9659656831, 4883610217 ####[facility] (DEFAULT)[address] [place] [address] Anion gap [Moles/Vol] 9.9 mmol/L Normal 5.0-19.0 [facility] Comment on above: Performed By: #### 7 014047, 9917322, 6733427, 08677366, 7016321, 3723355, 9302589, 5236663, 3681249, 1865630, 4288074, 6028879, 47949345, 0973660, 6571212298, 7679686479 ####[facility] (DEFAULT)[address] [place] [address] 41947 AST [Catalytic activity/Vol] 26 U/L Normal 15-41 [facility] Comment on above: Performed By: #### 7 707241, 5283917, 3887184, 57845719, 3026943, 9975477, 3347874, 6698963, 8680136, 1347349, 7424992, 4083902, 56860517, 7711394, 2926572686, 0823609709 ####[facility] (DEFAULT)[address] [place], [place] [address] Bili Total 0.8 mg/dL Normal 0.3-1.2 [facility] Comment on above: Performed By: #### 7 308300, 1366242, 6067665, 49829769, 1664606, 8330797, 8100539, 2527895, 9749445, 0895555, 3385885, 4535834, 50462299, 2132564, 6848047130, 0349374252 ####[facility] (DEFAULT)[address] [place] [address] 94239 Calcium [Mass/Vol] 9.2 mg/dL Normal 8.9-10.3 [facility] Comment on above: Performed By: #### 7 524758, 2381021, 8124091, 06768895, 4546816, 9659822, 3085007, 3918295, 9029391, 2931772, 4112912, 3460015, 58764299, 3598684, 7558387660, 5892110230 ####[facility] (DEFAULT)[address] [place] [address] Chloride [Moles/Vol] 106 mmol/L Normal 101-111 [facility] Comment on above: Performed By: #### 7 586302, 2749125, 3869912, 25021570, 6284982, 5663835, 4945264, 2561260, 6624220, 8037681, 9550275, 9151836, 55252773, 4554841, 6833103794, 3897911640 ####[facility] (DEFAULT)[address] [place] [address] 81657 CO2 [Moles/Vol] 26 mmol/L Normal 21-32 [facility] Comment on above: Performed By: #### 7 030288, 2914897, 1378384, 39185749, 1623686, 3912180, 5798839, 5458474, 1449170, 0616210, 6391504, 5359046, 35374109, 2336293, 5254613256, 1848972223 ####[facility] (DEFAULT)[address] [place] [address] 41251 Creatinine [Mass/Vol] 0.95 mg/dL Normal 0.90-1.30 [facility] Comment on above: Performed By: #### 7 819455, 2664340, 9195784, 48568001, 1582976, 6175335, 3765338, 4918503, 9737135, 5569333, 6249611, 5601754, 77112837, 6594541, 2492940661, 6954210403 ####[facility] (DEFAULT)[address] [place] [address] 95699 Globulin (S) [Mass/Vol] 3.2 g/dL Normal 1.5-4.3 [facility] Comment on above: Performed By: #### 7 967786, 0861920, 6175985, 40151863, 1563343, 9582640, 6311494, 7170113, 9658979, 1490023, 4471825, 3148615, 79824091, 4426079, 7723186994, 6967284059 ####[facility] (DEFAULT)[address] [place] [address] Glucose [Mass/Vol] 100.0 mg/dL Normal 74.0-118.0 [facility] Comment on above: Performed By: #### 7 658082, 2114438, 9112245, 37135573, 9648248, 8427247, 1933525, 0898591, 8153338, 4703024, 9184672, 3869659, 22957913, 9776920, 2213449956, 4330610204 ####[facility] (DEFAULT)[address] [place] [address] 41687 Osmolality 279 mOsm/L Invalid Interpretation Code [facility] Comment on above: Performed By: #### 7 684379, 1530374, 6942992, 41835600, 6510625, 3599185, 8615560, 2865550, 5976851, 1041854, 9147454, 9731746, 64492793, 3531958, 1319980530, 3831364008 ####[facility] (DEFAULT)[address] [place] [address] Potassium [Moles/Vol] 3.9 mmol/L Normal 3.6-5.1 [facility] Comment on above: Performed By: #### 7 254556, 3029869, 2173575, 44949333, 9141784, 1199140, 8612385, 5865114, 9355446, 9262053, 5630056, 3839262, 82952908, 6464330, 7415329332, 9687060259 ####[facility] (DEFAULT)[address] [place] [address] 36668 Protein [Mass/Vol] 7.5 g/dL Normal 6.5-8.1 [facility] Comment on above: Performed By: #### 7 584462, 5680240, 7914966, 86139926, 8276202, 3550735, 3021554, 5024816, 5814046, 3057994, 8973464, 9326772, 35471985, 4263589, 1090281730, 0830772978 ####[facility] (DEFAULT)[address] [place] [address] 93588 Sodium [Moles/Vol] 138.0 mmol/L Normal 136.0-144.0 [facility] Comment on above: Performed By: #### 7 810088, 6631771, 3575025, 69685795, 8889682, 0878488, 0897548, 6292185, 2001229, 5191727, 1785786, 5397009, 03948239, 7081176, 7806097946, 2418534999 ####[facility] (DEFAULT)[address] [place] [address] 52204 Urea nitrogen [Mass/Vol] 22 mg/dL Normal 8-26 [facility] Comment on above: Performed By: #### 7 407235, 5021744, 8288019, 18699021, 4253247, 8369554, 4369863, 4960024, 8331591, 0467679, 4797374, 4462346, 79248311, 4110359, 8522735687, 2396140129 ####[facility] (DEFAULT)[address] [place] [address] 98700 Urea nitrogen/Creatinine [Mass ratio] 23.1 mg/mg High 4.6-16.2 [facility] Comment on above: Performed By: #### 7 399584, 7987987, 7557741, 71632631, 3688544, 6349210, 0037482, 6606882, 6238369, 3822776, 0573027, 9525155, 16220252, 9946268, 2801311289, 2847984880 ####[facility] (DEFAULT)[address] [place] [address] 49727 Breakpoint Chem Normal [facility] Comment on above: Performed By: #### 7 327656, 4661345, 1199275, 23823426, 1089877, 9655848, 8209837, 7667824, 4794326, 0840940, 8193185, 7277988, 09037970, 4888497, 6093814328, 4237210469 ####[facility] (DEFAULT)[address] [place] [address] 13448 Free T4on 06-18-2023 Free T4 [Mass/Vol] 0.86 ng/dL Normal 0.61-1.12 [facility] Comment on above: Performed By: #### 7 598494, 3920172, 6156556, 55064214, 6174108, 8083812, 2027191, 6474719, 1052008, 1854562, 5602328, 5268029, 59262040, 5396091, 6005245806, 5341435743 ####[facility] (DEFAULT)[address] [place] [address] 78767 GGTon 06-18-2023 Gamma glutamyl transferase [Catalytic activity/Vol] 22.0 U/L Normal 7.0-50.0 [facility] Comment on above: Performed By: #### 7 057798, 7651112, 1396464, 66918996, 5619338, 8456802, 2549159, 3978552, 1026263, 1099024, 9548453, 7210202, 20359380, 1585697, 0195431956, 5856062611 ####[facility] (DEFAULT)[address] [place] [address] 97781 Iron Profileon 06-18-2023 Iron [Mass/Vol] 105.0 ug/dL Normal 45.0-182.0 [facility] Comment on above: Performed By: #### 7 538634, 4833365, 6098393, 25390850, 3436396, 2437511, 7684092, 4082012, 2962140, 4393579, 3642433, 0892546, 51876667, 0932213, 8428755607, 5248321331 ####[facility] (DEFAULT)[address] [place] [address] Iron Sat 33 % Normal 20-55 [facility] Comment on above: Performed By: #### 7 562714, 7244808, 0408304, 08576820, 8259295, 9755722, 6728919, 4226235, 2767994, 9207098, 1294356, 0533176, 43815023, 9420282, 1479701479, 2541209617 ####[facility] (DEFAULT)[address] [place] [address] TIBC 316 mcg/dL Normal 250-400 [facility] Comment on above: Performed By: #### 7 352531, 7038365, 6167474, 51361263, 5961606, 1491655, 1951580, 7306319, 4305981, 1608964, 8868002, 6801644, 81530893, 2310089, 7870885459, 3048205035 ####[facility] (DEFAULT)[address] [place] [address] Transferrin [Mass/Vol] 225.6 mg/dL Normal 180.0-329.0 [facility] Comment on above: Performed By: #### 7 705923, 0496176, 1818313, 36967854, 3791399, 1353794, 3609936, 7622900, 1642587, 0451716, 2229033, 3741853, 34035707, 9661895, 1935790463, 3891361861 ####[facility] (DEFAULT)[address] [place] [address] LDHon 06-18-2023 LDH 156.0 IU/L Normal 98.0-192.0 [facility] Comment on above: Performed By: #### 7 922378, 1554435, 8307569, 12176843, 9524581, 5561214, 5110487, 4146020, 7729359, 7286081, 1923097, 9163329, 44522458, 9395221, 6037907928, 9019036433 ####[facility] (DEFAULT)[address] [place] [address] Lipid Panel Standardon 06-18 Cholesterol [Mass/Vol] 221.0 mg/dL High 66.0-200.0 [facility] Comment on above: Performed By: #### 7 253544, 8701079, 3306003, 03491333, 6422283, 0171347, 4821089, 3093322, 0715288, 9233149, 4573297, 9645097, 62901334, 4511621, 2490707363, 5724637533 ####[facility] (DEFAULT)[address] [place] [address] Cholesterol in HDL [Mass/Vol] 35 mg/dL Low 40-71 [facility] Comment on above: Performed By: #### 7 479403, 9426030, 3766378, 93756285, 1794534, 2532985, 9447366, 8887188, 5011291, 3046782, 1950758, 6578044, 03593044, 8524111, 1008909859, 0508088256 ####[facility] (DEFAULT)[address] [place] [address] Cholesterol in LDL [Mass/Vol] 156 mg/dL High 1-100 [facility] Comment on above: Performed By: #### 7 319232, 4304315, 5403315, 91540030, 3682388, 2346470, 9725784, 6940691, 1086964, 7323418, 1921114, 9749434, 50555163, 9225011, 4761846135, 8517305366 ####[facility] (DEFAULT)[address] [place] [address] Cholesterol.total/Ch olesterol in HDL [Mass ratio] 6.2 {ratio} High 0.0-4.5 [facility] Comment on above: Performed By: #### 7 720124, 2350747, 8385950, 04010076, 4160431, 8068146, 6256777, 1318568, 4235807, 1921897, 3355425, 7392645, 05065753, 4533719, 6592833888, 8663060419 ####[facility] (DEFAULT)[address] [place] [address] Triglyceride [Mass/Vol] 148.0 mg/dL Normal 0.0-150.0 [facility] Comment on above: Performed By: #### 7 398223, 1963588, 5137264, 90948385, 2814088, 8248633, 9120375, 2152549, 6845396, 4802769, 7472184, 2894123, 55403528, 6013302, 1386408273, 2401599783 ####[facility] (DEFAULT)[address] [place] [address] VLDL. 30 mg/dL Normal 5-40 [facility] Comment on above: Performed By: #### 7 702078, 6904983, 8252450, 48491883, 2362680, 2047937, 4273784, 0992180, 9814595, 2237155, 0914802, 1448297, 11632318, 4906574, 7626205759, 0588132886 ####[facility] (DEFAULT)[address] [place] [address] Miscellaneous Testing LCon 0 06-18-2023 Test Code LC 020138 Invalid Interpretation Code [facility] Comment on above: Performed By: #### 1 [id number] ####[facility] (DEFAULT)[address] [place] [address] Test Name LC NMR WITHOUT LIPIDS Invalid Interpretation Code [facility] Comment on above: Performed By: #### 1 [id number] ####[facility] (DEFAULT)[address] [place] [address] PSA Screenon 06-18-2023 PSA Screen 1.19 ng/mL Normal 0.00-4.00 [facility] Comment on above: Result Comment: [employer] Clinical System (Chemiluminescence) Values obtained with different assay methods or kits cannot be used interchangeably. Results cannot be interpreted as absolute evidence of the presence or absence of malignant disease. Performed By: #### 7 500061, 1351933, 1653204, 99562457, 3199650, 3148670, 6110103, 6362004, 3515048, 9925534, 4938181, 5683396, 41088576, 6658263, [id number], [id number] ####[facility] (DEFAULT)[address] [place] [address] PTon 06-18-2023 INR Coag (PPP) [Relative time] 1.02 {INR} Normal 0.91-1.11 [facility] Comment on above: Performed By: #### 7 258683, 1530468, 1598935, 46055455, 7509818, 3486794, 2423828, 8916634, 9982898, 0737213, 0342073, 7763893, 16795549, 4612417, [id number], [id number] #### [facility] (DEFAULT) [address] [place] [address] PT 10.9 second(s) Normal 9.7-11.8 [facility] Comment on above: Performed By: #### 7 697053, 5957295, 4547977, 92363782, 7956328, 0710913, 9700425, 9452001, 7361058, 8136624, 7726316, 1077851, 31151311, 6183690, [id number], [id number] #### [facility] (DEFAULT) [address] [place] [address] Phoson 06-18-2023 Phosphate [Mass/Vol] 3.4 mg/dL Normal 2.5-4.6 [facility] Comment on above: Performed By: #### 7 489352, 5154589, 5844591, 36125716, 2858980, 3089393, 0440699, 6049157, 8840597, 4219041, 3238442, 8413056, 42974650, 5074546, [id number], [id number] ####[facility] (DEFAULT)[address] [place] [address] Provider Orderson 06-18-2023 Provider Orders [id number] Normal [facility] Sed Rateon 06-18-2023 Sed Rate 5 mm/hr Normal 0-15 [facility] Comment on above: Performed By: #### 7 564848, 7558803, 5342610, 90198175, 0830064, 3482940, 6556290, 7020585, 7173556, 1010195, 8343697, 0408819, 16308482, 8039109, [id number], [id number] ####[facility] (DEFAULT)[address] [place] [address] TSHon 06-18-2023 TSH Qn 0.74 m[IU]/L Normal 0.45-5.33 [facility] Comment on above: Performed By: #### 7 004306, 0988445, 9533801, 71558920, 8608379, 7461728, [id number], [id number], [id number], [id number], [id number], [id number], [id number], [id number], [id number], [id number] ####[facility] (DEFAULT)[address] [place] [address] UA w Culture if Ind Standard on 06-18-2023 Breakpoint UA [facility] Comment on above: Performed By: #### 1 [id number] ####[facility] (DEFAULT)[address] [place] [address] Color (U) Yellow Normal [facility] Comment on above: Performed By: #### 1 [id number] ####[facility] (DEFAULT)[address] [place] [address] Culture? Not Indicated Invalid Interpretation Code [facility] Comment on above: Result Comment: Resu lt created by rule GL_MAGR_ADD_UA_[id number] Performed By: #### 1 [id number] ####[facility] (DEFAULT)[address] [place] [address] Glucose (U) [Mass/Vol] Negative Normal [facility] Comment on above: Performed By: #### 1 [id number] ####[facility] (DEFAULT)[address] [place] [address]1681 Ketones Ql (U) Negative Normal [facility] Comment on above: Performed By: #### 1 [id number] ####[facility] (DEFAULT)[address] [place] [address] Micro? Not Indicated Invalid Interpretation Code [facility] Comment on above: Result Comment: Resu lt created by rule GL_MAGR_ADD_UA_MICRO Performed By: #### 1 [id number] ####[facility] (DEFAULT)[address] [place] [address] UA Bilirubin Negative Normal [facility] Comment on above: Performed By: #### 1 [id number] ####[facility] (DEFAULT)[address] [place] [address]65 UA Blood Negative Normal NEGATIVE [facility] Comment on above: Performed By: #### 1 [id number] ####[facility] (DEFAULT)[address] [place] [address] UA Clarity CLEAR Normal CLEAR [facility] Comment on above: Performed By: #### 1 [id number] ####[facility] (DEFAULT)[address] [place] [address] UA Leuk Est Negative Normal NEGATIVE [facility] Comment on above: Performed By: #### 1 [id number] ####[facility] (DEFAULT)[address] [place] [address] UA Nitrite Negative Normal NEGATIVE [facility] Comment on above: Performed By: #### 1 [id number] ####[facility] (DEFAULT)[address] [place] [address] UA pH 6.0 Normal 5-8 [facility] Comment on above: Performed By: #### 1 [id number] ####[facility] (DEFAULT)[address] [place] [address] 29052 UA Protein Negative Normal NEGATIVE [facility] Comment on above: Performed By: #### 1 [id number] ####[facility] (DEFAULT)[address] [place] [address] UA Spec Grav 1.010 Normal 1.001-1.035 [facility] Comment on above: Performed By: #### 1 [id number] ####[facility] (DEFAULT)[address] [place] [address] UA Urobilinogen 0.2 mg/dL Normal 0.2-1.0 [facility] Comment on above: Performed By: #### 1 [id number] ####[facility] (DEFAULT)[address] [place] [address] Urine Source Clean Catch [facility] Comment on above: Performed By: #### 1 [id number] ####[facility] (DEFAULT)[address] [place] [address] Uric Acidon 06-18-2023 Urate [Mass/Vol] 9.7 mg/dL High 4.8-8.7 [facility] Comment on above: Performed By: #### 7 [id number], [id number], 8645201, 89422290, 0091100, 8827486, 5540542, 0616439, 3001900, 5078665, 4583950, 3335031, 58813612, 7075502, [id number], [id number] ####[facility] (DEFAULT)[address] [place] [address] Vit D25 OHon 06-18-2023 Vitamin D 25 OH 55 ng/mL Invalid Interpretation Code [facility] Comment on above: Performed By: #### 7 [id number], [id number], [id number], [id number], 5589334, 4620560, 2790929, 7655194, 4206453, 4344714, 1101040, 9464483, 11922324, 4875286, [id number], [id number] ####[facility] (DEFAULT)[address] [place], [place] [address] Provider Orderson 06-15-2023 Provider Orders [id number]#1.00 OTGTIFF [facility] CNOVon 05-26-2023 CNOV Office Visit (ORAVON ) SHERRY GUARDADO ([id number]) 1965 M Date Time Provider Department 05/26/23 3:45 PM WOODY KNOX During your visit today, we recorded the following information about you: Woody Knox PA-C 05/26/2023 4:50 PM Signed This document has been created with the use of voice recognition technology. It may contain inaccuracies: misspellings, inaccurate syntax or word sense that escaped review. CHIEF COMPLAINT: Sherry Guardado is a 58 year old male who presents today for follow up of right knee. 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 He states after the arthrocentesis his pain has significantly improved. Lab results from synovial fluid analysis and culture indicate no infection and large amount of red blood cells. 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 No other musculoskeletal complaints ROS: REVIEW OF SYMPTOMS: Constitutional: patient denies any recent fever or significant change in weight Gastrointestinal: patient denies any current abdominal discomfort Musculoskeletal: as noted in the HPI Neurologic: patient denies any peripheral numbness or radiation of pain SOCIAL HISTORY: Tobacco Use: Not on file ALLERGIES: ALLERGIES Allergen Reactions Hay Fever [Seasona* Cough Mold Cough Reglan [Metoclopram* Intolerance Panic attack symptoms PAST MEDICAL HISTORY: No past medical history on file. SOCIAL HISTORY: Tobacco Use: Not on file EXAMINATION: GENERAL: Appears healthy, well-nourished, no deformities. ORIENTATION: Alert and oriented to person place and time HABITUS: Normal GAIT: Normal, the patient did not have trouble getting onto the exam table. right knee exam no effusion Neutral Alignment Palpable large supra-lateral patellar loose calcific body Active 0 extension, flexion 120. central patellar tracking/ no patellofemoral crepitation No Pain with patellar compression, no Pain with palpating medial compartment, no Pain with palpating lateral compartment. stable to varus and valgus stresses. Calf soft and nontender. NV intact L3-S1 with 2+ DP pulse. 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 IMPRESSION: Encounter Diagnosis ICD-10-CM 1. Primary osteoarthritis of right knee M17.11 2. Loose, body, joint, knee, right M23.41 3. Hemarthrosis, right knee M25.061 Procedures Plan: Follow-up of right knee hemarthrosis and large osteochondral loose body. The symptoms have significantly improved and there is no laboratory finding suggesting infection. Pseudogout crystals were realized under microscope. The patient does have a large mobile joint body in suprapatellar pouch which does seem to cause him some mechanical symptoms historically. Discussed a potential option for arthroscopic or open removal of loose body. He will meet with me again in the future if he wants to consider that as an option. Woody Knox PA-C Allergies As of Date: 05/26/2023 Noted Allergy Reaction Hay Fever (SEASONAL ALLERGIES) 3 - Cough MOLD 3 - Cough REGLAN (METOCLOPRAMIDE HCL) 03/07/2017 5 - Intolerance Comments: Panic attack symptoms Date Reviewed: 05/26/2023 Reviewed by: Woody Knox PA-C - Fully Assessed Reason for Visit: Established Patient [175] Primary Visit Diagnosis:Primary osteoarthritis of right knee [M17.11] Other Visit Diagnoses:Loose, body, joint, knee, right [M23.41] Hemarthrosis, right knee [M25.061] Prescriptions as of 05/26/2023 - PROAIR HFA 90 mcg/actuation inhaler - cyclobenzaprine (FLEXERIL) 10 mg tablet Take 10 mg by mouth three times daily. - eszopiclone (LUNESTA) 3 mg tab - gabapentin (NEURONTIN) 300 mg capsule - SUMATRIPTAN SUCC/NAPROXEN SOD (TREXIMET ORAL) Take by mouth. - GABAPENTIN (NEURONTIN ORAL) Take by mouth. - fluticasone-salmeterol (ADVAIR DISKUS) 250-50 mcg/dose DsDv Inhale 1 Puff as instructed twice daily. - ALBUTEROL INHALATION Inhale as instructed. - rizatriptan (MAXALT) 10 mg tablet Take 10 mg by mouth as needed. May repeat in 2 hours if needed Problem List As Of Date 05/26/2023 Noted Resolved Arthritis of knee [M17.10] 02/01/2013 Hydrarthrosis [M25.40] 09/02/2014 Encounter Status:Closed by WOODY KNOX on 05/26/23 Normal [facility] Respirationon 05-25-2023 Heart Rate Regular [facility] DO Work Phone: Respiration Normal [facility] DO Work Phone: Respiration Adult [facility] DO Work Phone: MRI KNEE WO/W IVCON RIGHTon 05-18-2023 [facility] MRI KNEE WO/W IVCON RTon MRI KNEE WO/W IVCON RT * * *Final Report* * * DATE OF EXAM: May 18 2023 8:55AM [facility] 0215 - MRI KNEE WO/W IVCON RT / PROCEDURE REASON: Z03.89-Encounter for observation for other suspected diseases and conditions rul * * * * Physician Interpretation * * * * HISTORY: Encounter for observation for other suspected diseases and conditions ruled out TECHNOLOGIST PROVIDED HISTORY (if applicable): mass Atraumatic hemarthrosis TECHNIQUE: MRI KNEE WO/W IVCON RT Contrast: 20 mL Dotarem IV RESULT: LIGAMENTS: ACL: Intact PCL: Intact MCL: Intact LCL Complex: Intact JOINT FLUID AND SYNOVIUM: Large joint effusion. Mild synovitis with enhancement. 2.5 cm long Rose [place] heavily mineralized joint body in the suprapatellar recess consistent with the radiographs. TENDONS: The distal quadriceps and patellar tendons are intact. The popliteus tendon is intact. MENISCI: Medial Meniscus: Radial tear in the posterior horn in the root with 4 mm of distraction and medial meniscal extrusion. Background degenerative changes. Lateral Meniscus: Nonspecific changes in the anterior horn, body and posterior horn consistent with severe degeneration. With this degree of degeneration, tear is suspected on arthroscopy. CARTILAGE: Medial Femoral Condyle: Moderate sized area(s) of predominantly high grade (>50% thickness) cartilage loss/fissuring with smaller area(s) of full thickness cartilage loss/fissuring Medial Tibial Plateau: Single full-thickness fissure Lateral Femoral Condyle: Large area(s) of predominantly high grade (>50% thickness) cartilage loss/fissuring with smaller area(s) of full thickness cartilage loss/fissuring Lateral Tibial Plateau: Small area(s) of low grade (<50% thickness) partial thickness cartilage loss/fissuring Patella: Large area(s) of full thickness cartilage loss/fissuring with small subchondral cysts in the lateral facet Trochlea: Large area(s) of full thickness cartilage loss/fissuring with small subchondral cyst laterally BONES AND MARROW: No evidence of fracture or bone marrow replacing process. Tricompartmental osteophytes. MUSCLES: Muscle bulk and signal intensity are normal. OTHER: No other significant abnormality identified. No other areas of abnormal enhancement. IMPRESSION: SEVERE TRICOMPARTMENTAL OSTEOARTHRITIS WITH LARGE JOINT EFFUSION, LARGE SUPRAPATELLAR JOINT BODY AND SYNOVITIS. RADIAL TEAR OF THE POSTERIOR HORN OF THE MEDIAL MENISCUS. 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: ARIANE Transcribe Date/Time: May 18 2023 9:32P Dictated by : ADOLFO MONTEMAYOR MD This examination was interpreted and the report reviewed and electronically signed by: ADOLFO MONTEMAYOR MD on May 18 2023 9:41PM EST [id number] Normal [facility] Office Visit (Neuro-General) on 05-09-2023 Follow-up visit Patient Discussion/Summary continue current plan Diagnoses/Problems Assessed Chronic migraine without aura, with intractable migraine, so stated, with status migrainosus (346.73) (G43.711) Cervical dystonia (333.83) (G24.3) Orders Asthma, unspecified asthma severity, unspecified whether complicated, unspecified whether persistent Renew: Montelukast Sodium 10 MG Oral Tablet; take 1 tablet by mouth at bedtime Bilateral knee pain Renew: Lidocaine 5 % External Patch; APPLY 3 PATCH Daily PRN Pain 12 hours daily Cervicalgia of qvlsftwf-ihbuplo-usebz region Renew: Cyclobenzaprine HCl - 10 MG Oral Tablet; TAKE 1- 2 TABLET AT BEDTIME NEEDED Renew: Gabapentin 300 MG Oral Capsule; One cap morning and noon and 2 caps bedtime Chronic migraine without aura, with intractable migraine, so stated, with status migrainosus Renew: Sprix 15.75 MG/SPRAY Nasal Solution; USE ONE SPRAY IN EACH NOSTRIL EVERY 6-8 HOURS. MAX DOSE IS 8 SPRAYS IN A 24 HOUR PERIOD Formulary Override Reason: Drug has been unsuccessful in the past Renew: SUMAtriptan Succinate 6 MG/0.5ML Subcutaneous Solution Auto-injector; Inject one dose at onset of headache. May repeat in 2 hours. Max dose 2 in 24 hours Renew: SUMAtriptan-Naproxen Sodium 85-500 MG Oral Tablet (Treximet); TAKE 1 TABLET AT ONSET OF HEADACHE. MAY REPEAT ONCE IN 2 HOURS NEEDED. 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 Follow up migraine management and 90 day med renewals. History of Present Illness Resumed Botox end of January. Feels it has been helpful to decreased migraine severity and frequency. Had a 2month gap on Botox due to insurance denial. Continues Emgality monthly and helpful to further reduce frequency and severity of migraine. Takes this on the 2nd week of the month . Experiencing 3-4 migraines per month. Down from 8 without Botox on board treats with Treximet.Works in 30 min. Has sumatriptan injection but has not needed, has DHE nasal but has not needed. Daily headache back of head and neck , occasionally frontal. Not 24/7 but off and on through the day. Light and sound sensitivity occur later in the day. Daily headache pain range 0-6/10. Frequently wakes with headache. Does take Flexeril every HS Better on weekends when doesn't have to wake early. Can sleep later in the summer as well. 2 headache free days most months. . Vicodin daily to control from escalating into migraine. Has been using Sprix midday to keep headache from escalating to migraine Treating migraines with Treximet. Works in 30 min. 1-2 debilitating and more severe per month. Has to modify activities. Patient had 15 headache days a month or more, 8 meeting migraine criteria. They had tried and failed 3 preventative and 3 abortives. Presently their headaches are well controlled because of Botox Therapy. It has reduced the headaches by 50%. Individual has history of recurrent clonic or tonic involuntary contractions of one or more of the following muscles: sternocleidomastoid, splenius, trapezius, and/or posterior cervical muscles. Condition persisted for greater than 6 months. Botox is providing 50% reduction in symptoms of pain Migraine seems to occur in back of head and can radiate to top of head, throbbing nausea more severe. Sometimes behind eyes. If gets in lower neck and shoulder and seems to longer. Migraine Associated light sensitivity, neck pain and tension Triggers may be cashews and nuts, possible milk/lactose, lack of sleep. Lunesta helpful for sleep Using CPAP for sleep, just started in December. Can wear it all night long now. Does wake with less headaches in the morning. If forgets to put it on for the night is more likely to wake with headache. OARRS Report Last Screening Date: 05/09/2023 I have personally reviewed the OARRS report for SHERRY GUARDADO. I have considered the risks of abuse, dependence, addiction and diversion. I believe that it is clinically appropriate for this patient to be prescribed this medication based on documented diagnosis. OARRS report is initialed/dated and scanned into the electronic medical record. I have the following concerns: none. Last urine drug screening date/ordered today: 05/09/2023 Controlled Substance Agreement: I have printed this form and reviewed each line item with the patient and the patient has verbalized understanding. Date of the last Controlled Substance Agreement: 05/09/2023 OPIOID Opioid Risk Screening: Opioid Risk Tool Last opioid risk screening date/ordered today: 07/21/2022 Patient's total score is 0, within range of Low Risk (0-3). Pain Scale Screening: Pain Assessment and Documentation Tool (PADT) Date of Assessment: 05/09/2023 (more content not included)... Normal [facility] Respirationon 05-09-2023 Adult depression screening assessment No [facility] DO Work Phone: Fall risk assessment a) No falls within the last year [facility] DO Work Phone: Heart Rate Regular [facility] DO Work Phone: Tobacco use status CPHS b) No [facility] DO Work Phone: Respiration Normal [facility] DO Work Phone: Respiration Adult [facility] DO Work Phone: Bacteria Fld Culton 04-19-20 23 Bacteria identified Cx Nom (Body fld) CULTURE, BODY FLD: No growth GRAM STAIN: No organisms seen Rare Polymorphonuclear leukocytes Gram stain from primary specimen Normal [facility] Comment on above: Performed By: #### S FCRID, [id number] #### [facility] CLIA [id number] OF [facility] CLIA [id number] [address] [place] [address] #### [id number] #### [facility] CLIA [id number] [address] [place] [address] CNOVon 04-19-2023 CNOV Office Visit (LOORRM ) SHERRY GUARDADO ([id number]) 1965 M Date Time Provider Department 04/19/23 3:00 PM WOODY KNOX During your visit today, we recorded the following information about you: Woody Knox PA-C 04/19/2023 3:45 PM Signed This document has been created with the use of voice recognition technology. It may contain inaccuracies: misspellings, inaccurate syntax or word sense that escaped review. CHIEF COMPLAINT: Sherry Guardado is a 58 year old male who presents today for new evaluation of right knee. HISTORY OF PRESENT ILLNESS: PAIN EVALUATION 04/19/2023 1451 Pain Level: 5 Pain Location: Knee-Right Description: Stiffness Duration Amount of Time: 5 Duration Units: Days Frequency: Continuous Intervention/Comfort measure: Medication;Reposition; Relaxation;Cold;Positi oning HISTORY: Sherry Guardado is here for follow up of complaints of right knee pain for about one week. He states there was no particular injury where he twisted it or fell onto it. Reports swelling and sensation of loose body. He does has a history of an intra-articular loose body noted on previous left knee dedicated radiographs. No cancer history. No unintentional weight loss. He has been seeing Marvin Smith for a long time regarding his left knee. Reports previous negative reaction to cortisone injections- tachycardia/palpitatio ns. No cardiac history otherwise. Hx/o gout. No other musculoskeletal complaints ROS: REVIEW OF SYSTEMS: Constitutional: patient denies any recent fever or significant change in weight Cardiovascular: patient denies any chest pain at rest Respiratory: patient denies any shortness of breath or cough Gastrointestinal: patient denies any current abdominal discomfort Integumentary: patient denies any recent skin changes Musculoskeletal: as noted in the HPI Neurologic: as noted in the HPI Endocrine: patient denies a current diagnosis of diabetes Hematologic/Lymphatic: patient denies any easily bleeding, any recent infection and denies any recent observable lymph node enlargement Psychologic: negative for any recent depression or anxiety issues SOCIAL HISTORY: Tobacco Use: Not on file FAMILY HISTORY: No family history on file. ALLERGIES: ALLERGIES Allergen Reactions Hay Fever [Seasona* Cough Mold Cough Reglan [Metoclopram* Intolerance Panic attack symptoms PAST MEDICAL HISTORY: No past medical history on file. SOCIAL HISTORY: Tobacco Use: Not on file EXAMINATION: GENERAL: Appears healthy, well-nourished, no deformities. ORIENTATION: Alert and oriented to person place and time HABITUS: Normal GAIT: Normal, the patient did not have trouble getting onto the exam table. right knee exam large effusion, no bakers cyst neutral Alignment Active 10-15 extension, flexion 95. Good patellar tracking/ severe patella femoral crepitation no Pain with palpating medial compartment, no Pain with palpating lateral compartment. stable to varus and valgus stresses. Katherin is negative stable Anterior/posterior drawer. negative McMurrays No pain with palpation of pes anserine bursa palpable Dorsalis pedis pulse Calf soft and nontender. Hip exam is negative Intact sensation to light touch distally. RADIOGRAPHS: XR Obtained today and personally reviewed by myself demonstrating mobile intra-articular loose body in suprapatellar pouch. Severe patellofemoral degenerative changes IMPRESSION: Encounter Diagnosis ICD-10-CM 1. Hemarthrosis, right knee M25.061 BODY FLUID CULTURE AND GRAM STAIN SYNOVIAL FLUID, ROUTINE Large Joint Arthro/Inj: R knee joint 2. Primary osteoarthritis of right knee M17.11 XR KNEE GENERAL 4V AP BOTH/PA BOTH/LAT/MERC RIGHT 3. Encounter for observation for other suspected diseases and conditions ruled out Z03.89 MRI KNEE WO/W IVCON RIGHT Large Joint Arthro/Inj: R knee joint Informed Consent Consent Obtained: Written [place] Protocol A moment to CARE was completed. SIGN IN Personnel directly involved with the procedure wore the appropriate PPE. Special Equipment: Yes Patient/Surrogate Stated/Verified: Patient name, Date of , Relevant allergies and Intended procedure TIME OUT Intended patient and procedure match the source document(s). Consent documented and matches the intended procedure. Relevant labs, photos, and/or imaging studies have been reviewed. Correct side/site marked and visible. Medications required for procedure verified. No fire risk assessment and interventions applicable. No implant(s) inserted. 04/19/2023 3:41 PM The procedure site was prepped in the usual sterile fashion. Site: R knee joint Aspirate: 14 mL bloody; sent for lab analysis Outcome: Tolerated well, no immediate complications Post-injection instructions were reviewed with the patient and the p (more content not included)... Normal [facility] SYNOVIAL FL,CRYSTAL ID/STAFF REVon 04-19-2023 CRYSTAL PRELIM, SF PRELIMINARY REPORT Positive for crystals with polarizing properties of calcium pyrophosphate. SEE FINAL SF PATH REVIEW Normal [facility] Comment on above: Order Comment: Speci men Type: BODY FLUID SPECIMEN Ordering Facility: [facility] Address: [address] [id number] Performed By: #### S FCRID, [id number] #### [facility] CLIA [id number] [address] [place] [address] [place] [facility] CLIA [id number] [address] [facility] [id number] [place] #### [id number] #### [facility] CLIA [id number] [address] [id number] [place] CRYSTAL REVIEW Reviewed by Arden Patel MD, PhD Normal [facility] Comment on above: Order Comment: Speci men Type: BODY FLUID SPECIMEN Ordering Facility: [facility] Address: [address] [address] Performed By: #### S FCRID, [id number] #### [facility] [place] [facility] CLIA [id number] [address] [place] [address] [place] [facility] CLIA [id number] [address] [place] [address] [place] [place]ON #### [id number] #### [facility] CLIA [id number] [address] [id number] [place] Crystals LM Nom (Syn fld) Positive for crystals with polarizing properties of calcium pyrophosphate. Abnormal None seen [facility] Comment on above: Order Comment: Speci men Type: BODY FLUID SPECIMEN Ordering Facility: [facility] Address: [address] Performed By: #### S FCRID, [id number] #### [facility] [place] [facility] CLIA [id number] [address] [place] [address] [place] [facility] CLIA [id number] [address] [place] [address] [place] #### [id number] #### [facility] CLIA [id number] [address] [id number] [place] SYNOVIAL FLUID MANUAL DIFFon 04-19-2023 DIF TTL, SYNOVIAL FLUID 100 cells counted Normal [facility] Comment on above: Order Comment: Speci men Type: BODY FLUID SPECIMEN Ordering Facility: [facility] Address: [address] [place] [address] Performed By: #### S FCRID, [id number] #### [facility] [place] [facility] CLIA [id number] [address] [place] [address] [place] [facility] CLIA [id number] [address] [facility] [place] [facility] [address] [address] [place] #### [id number] #### [facility] CLIA [id number] [address] [facility] [place] [facility] [address] [address] [place] LYMPH%, SF 35 Normal [facility] Comment on above: Order Comment: Speci men Type: BODY FLUID SPECIMEN Ordering Facility: [facility] Address: [address] [place] [address] Performed By: #### S FCRID, [id number] #### [facility] [place] [facility] CLIA [id number] [address] [facility] [place] [address] [place] [facility] CLIA [id number] [address] [facility] [address] [address] [place] #### [id number] #### [facility] CLIA [id number] [address] [facility] [address] [address] [place] MACRO%, SF 6 Normal [facility] Comment on above: Order Comment: Speci men Type: BODY FLUID SPECIMEN Ordering Facility: [facility] Address: [address] [place] [address] Performed By: #### S FCRID, [id number] #### [facility] [place] CLIA [id number] [address] [place] [address] [place] [facility] CLIA [id number] [address] [facility] [address] [address] [place] #### [id number] #### [facility] CLIA [id number] [address] [facility] [address] [address] [place] MONO%, SF 52 Normal [facility] Comment on above: Order Comment: Speci men Type: BODY FLUID SPECIMEN Ordering Facility: [facility] Address: [address] [place] [address] Performed By: #### S FCRID, [id number] #### [facility] [place] CLIA [id number] [address] [place] [address] [place] [facility] CLIA [id number] [address] [place] [address] [place] #### [id number] #### [facility] CLIA [id number] [address] [place] [address] [place] NEUT% 6 Normal 0-<25 [facility] Comment on above: Order Comment: Speci men Type: BODY FLUID SPECIMEN Ordering Facility: [facility] Address: [address] [place] [address] Performed By: #### S KESHAV, [id number] #### [facility] CLIA [id number] [address] [place] [address] [place] [facility] CLIA [id number] [address] [place] [address] [place] #### [id number] #### [facility] CLIA [id number] [address] [place] [address] [place] SYNOVIAL C1% 1 Normal [facility] Comment on above: Order Comment: Speci men Type: BODY FLUID SPECIMEN Ordering Facility: [facility] Address: [address] [place] [address] Performed By: #### S FCRID, [id number] #### [facility] [place] CLIA [id number] [address] [place] [address] [place] [facility] CLIA [id number] [address] [place] [address] [place] #### [id number] #### [facility] CLIA [id number] [address] [place] [address] [place] SYNOVIAL FLUID, ROUTINEon Clarity (Unsp spec) Clear Normal Clear [facility] Comment on above: Order Comment: Speci men Type: BODY FLUID SPECIMEN Ordering Facility: [facility] Address: [address] [place] [address] Performed By: #### S ERINNID, [id number] #### [facility] CLIA [id number] [address] [place] [address] [place] [facility] CLIA [id number] [address] [place] [address] [place] #### [id number] #### [facility] CLIA [id number] [address] [place] [address] [place] Color (Syn fld) Hemolyzed Abnormal Yellow [facility] Comment on above: Order Comment: Speci men Type: BODY FLUID SPECIMEN Ordering Facility: [facility] Address: [address] Performed By: #### S FCRID, [id number] #### [facility] CLIA [id number] [address] [place] [address] [place] [facility] CLIA [id number] [address] [place] [address] [place] #### [id number] #### [facility] CLIA [id number] [address] [place] [address] [place] RBC Manual cnt (Syn fld) [#/Vol] [id number] /uL High <2000 [facility] Comment on above: Order Comment: Speci men Type: BODY FLUID SPECIMEN Ordering Facility: [facility] Address: [address] [place] [address] Performed By: #### S FCRID, [id number] #### [facility] CLIA [id number] [address] [facility] [place] [address] [place] [facility] CLIA [id number] [address] [id number] [place] #### [id number] #### [facility] CLIA [id number] [address] [place] [address] [place] Specimen source Nom (Unsp spec) KNEE RIGHT SYNOVIAL FLUID Normal [facility] Comment on above: Order Comment: Speci men Type: BODY FLUID SPECIMEN Ordering Facility: [facility] Address: [address] [place] [address] Performed By: #### S KESHAV, [id number] #### [facility] CLIA [id number] [address] [place] [address] [place] [facility] CLIA [id number] [address] [place] [address] [place] #### [id number] #### [facility] CLIA [id number] [address] [place] [address] [place] WBC Manual cnt (Syn fld) [#/Vol] 2454 /uL High 0-200 [facility] Comment on above: Order Comment: Speci men Type: BODY FLUID SPECIMEN Ordering Facility: [facility] Address: [address] [place] [address] Performed By: #### S FCRID, [id number] #### [facility] CLIA [id number] [address] [place] [address] [place] [facility] CLIA [id number] [address] [place] [address] [place] #### [id number] #### [facility] CLIA [id number] [address] [place] [address] [place] XR KNEE 4V AP/PA BOTH+LAT/ME R RTon 04-19-2023 XR KNEE 4V AP/PA BOTH+LAT/GAURAV RT * * *Final Report* * * DATE OF EXAM: Apr 19 2023 2:46PM LZX 5203 - XR KNEE 4V AP/PA BOTH+LAT/GAURAV RT / PROCEDURE REASON: Primary osteoarthritis of right knee * * * * Physician Interpretation * * * * HISTORY: Primary osteoarthritis of right knee TECHNOLOGIST PROVIDED HISTORY (if applicable): Right knee pain TECHNIQUE: XR KNEE 4V AP/PA BOTH+LAT/GAURAV RT RESULT: 4 views of the RIGHT knee show interval increase in RIGHT knee effusion now large, when compared with 03/10/2022. Mineralized joint body remains in the suprapatellar recess, approximately 2.5 cm long axis. Severe patellofemoral degenerative changes laterally with narrowing osteophytes and subluxation similar to the prior. Tibiofemoral chondrocalcinosis with marginal osteophytes and relatively preserved joint spaces unchanged. Severe tricompartmental osteoarthritis of the LEFT knee is similar to the prior, worse in the lateral patellofemoral and tibiofemoral compartments. Findings are more advanced than on the RIGHT. IMPRESSION: ADVANCED OSTEOARTHRITIS. NONSPECIFIC LARGE RIGHT KNEE EFFUSION. 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: [facility] Transcribe Date/Time: Apr 19 2023 5:09P Dictated by : ADOLFO MONTEMAYOR MD This examination was interpreted and the report reviewed and electronically signed by: ADOLFO MONTEMAYOR MD on Apr 19 2023 5:11PM EST [id number] Normal [facility] CNOVon 04-06-2023 CNOV Office Visit (DERMAV ) SHERRY GUARDADO ([id number]) 1965 M Date Time Provider Department 04/06/23 12:20 PM PORSHA PAIGE DERMSUSANA During your visit today, we recorded the following information about you: Porsha Paige MD 04/20/2023 1:45 AM Signed New patient CHIEF COMPLAINT: Full Body Skin Check (Limited. ) HISTORY OF PRESENT ILLNESS: Sherry Guardado is a 58 year old male who presents for limited skin exam. Main lesion of concern Location: left lower leg Lesion is non-itchy, not painful. Present for: 6 months Modifying factors: injury with car door, had stitches and wound care x 6 months. Past treatments: wound care at wound clinic. Pertinent Past Medical History: History of skin cancer: No -Personal History of Atypical Moles: Yes - at 19 year old. -Personal History of Extensive Sun Exposure/Blistering Sunburns:No -History of tanning bed usage: No Patient notes a very red patch of his left lower leg. He denies itchiness or pain but notes it gets redder without spreading. Patient denies tenderness as well. Family History Family history of melanoma: +MM in mother Past Medical History No past medical history on file. No past surgical history on file. Medications Current Outpatient Medications Medication Sig PROAIR HFA 90 mcg/actuation inhaler cyclobenzaprine (FLEXERIL) 10 mg tablet Take 10 mg by mouth three times daily. eszopiclone (LUNESTA) 3 mg tab gabapentin (NEURONTIN) 300 mg capsule SUMATRIPTAN SUCC/NAPROXEN SOD (TREXIMET ORAL) Take by mouth. GABAPENTIN (NEURONTIN ORAL) Take by mouth. fluticasone-salmeterol (ADVAIR DISKUS) 250-50 mcg/dose DsDv Inhale 1 Puff as instructed twice daily. ALBUTEROL INHALATION Inhale as instructed. rizatriptan (MAXALT) 10 mg tablet Take 10 mg by mouth as needed. May repeat in 2 hours if needed No current facility-administered medications for this visit. Allergies ALLERGIES Allergen Reactions Hay Fever [Seasona* Cough Mold Cough Reglan [Metoclopram* Intolerance Panic attack symptoms REVIEW OF SYSTEMS: Constitutional: No fever, chills, night sweats, unintentional weight loss Skin per HPI. Denies any other new/concerning skin growth. PHYSICAL EXAMINATION: Well appearing, pleasant, in NAD Alert and oriented x3 Mood and affect: normal Skin exam performed including face, ears, neck, chest, abdomen, bilateral upper extremities, and bilateral lower extremities. Underwear was kept on during exam per patient's preference. Pertinent findings include: - erythematous patch of the left lower leg - sun exposed areas with evenly pigmented light brown macules and patches with smooth borders - scattered brown macules and papules with regular borders and uniform color - brown waxy stuck-on papules throughout - bright red to violaceous dome-shaped vascular papules throughout - 5 mm light brown papule symmetric with uniform pigmentation, regular borders with terminal hair of the left ear - 1 cm brown plaque symmetric with uniform pigmentation, regular borders of the left cheek - 6 mm macule symmetric with uniform pigmentation, regular borders of the occipital scalp - brown, waxy papule of the left lower abdomen - open comedone of the lower lower chest - 6 mm right brown macule symmetric with uniform pigmentation, regular borders of the right upper chest - 1 cm brown macule symmetric with uniform pigmentation, regular borders of the left posterior shoulder - skin-colored, pedunculated papules of the right axillary fold ASSESSMENT/PLAN: Venous Stasis Venous stasis of the left lower leg. Recommended compression socks. Multiple benign nevi Provided reassurance regarding the benign nature of lesion(s). ABCD's of melanoma discussed. Recommended follow up as needed for any changing or new moles. The nature of sun-induced skin cancers was discussed. Sun avoidance, protective clothing, sunglasses and the use of broad spectrum 30-SPF sunscreens was advised. Lentigines Provided reassurance regarding the benign nature of lesion(s). Landers angiomas Provided reassurance regarding the benign nature of lesion(s). Seborrheic keratosis Provided reassurance regarding the benign nature of lesion(s). Acrochordon Provided reassurance regarding the benign nature of lesion(s) Return to Dermatology clinic in 1 year or sooner, if something concerning arises. Porsha Paige MD The documentation for this note was completed by Chi Todd LPN/ Sergey Tamayo acting as scribe for Porsha Paige MD. The HPI, PMH, and ROS that were documented by my preschool teacher's assistant, who was scribing during the encounter, were confirmed by me and I agree with the content of these sections. I have made any required additions or deletions to the HPI/PFSH/ROS as needed. The physical exam and any procedures were performed by (more content not included)... Normal [facility] Coding Summaryon 03-24-2023 Coding Summary HTMLBase 64 TfkufzbfICl4rHe+PGhlYW Q+YO7LIZVtU38jzTYayR6S A6dNQK4MWKBWZMFDVG4WHG 0ttSN6EAiyV8YpqfLd IviuwQYjTS10OGy5RNW1kW whYXngzG0zgHKcJ0x1QjOh RO84eN89KPcdDFTqUxZ5Nw ZpbjsgbWFy U7czJkZtcWPsAjd+PHRhYm xlIHdpZHRoPScxMDAlJyBz hWjlMH3zJb4dRZOfZACnhU xhcHNlOiBj i0mwUPUhNOapMA6unWlbI0 NioTU7GXNlz9m4Qs35cFH+ IBArYGG9wFpcHJpgz766Md Bnv5snWLG0 aCVgWRplHDV5S88oy7H6ME PeSXMrUVC8gBJ7vP8afBtv kaozK3OlpRPeDbK5MOA3wT SnlE6aqHlr pbcnoT6wEqo+R07HOB5BJX FBUM9MPeg4C4ZiDcxaeHN+ ID71SNKdPX74mEDajGYbi0 jziIf5HvNo WPAmZDB3mDpnYGcgy3GmPM TqW69tkTOxl1T5BJGmgDdx iOKhGiZkuIB1jA9dYNfyix bbz5fyrfee Iigvl3kggf77zV73T68nEV viSZVeHIK3NMMvLUXndMeb jq5zsL7wAj1+BUttd3vuv3 qhqDu1VkGo XSMzazZheIyvDUP1n1IhJx 77L9HdnMovi5AhWjz9od45 yKMrq6X5oPZ2BTsmOWMimY 5bRIdrFtE7 LVFhJyGnnA97uBTpVFlxYi 0jkOgldOyfQV2fFRKtbhwm RYAisI9gQVBleNOmiFpbRA 4wNTBpbjtm c191UeEqTTJ4TLDvfAUfV4 BjoY5fAfIkBNSmWVVvW9Ay zGBsHHpmK814DFnuHxQ2LW OpytBiT5Ob KDHhyUavYeN1v9B1Ch9Zv1 JeudcqPDZ5IEupBEH8AeT3 DrQrRsN2G5RbAug2CVZnuW twMN5qT4Xt GQRiefqgdzmgcVO6QKVfCT WsuZ66wQWxJQmnRm7rq7X9 v340CZLhJHLclI62Wj8odB ogMTBwdCBU yO0lolpzk1wxrowwHhIcNG PeEUk0RZf7FOGgeHvgPjSr KUG4MjP9LYC2kEYthV9ofE pdyiytmB2l Oyc+V26xxD3yYEA9ATI6iy zrHNJbcvUrBM26IW66V9Gu PjwvdGFibGU+PGRpdiBzdH anAM3cXwTw u0zlp9RcTAebN1RpKCJvSL lxMxc3KICdUXO6dVW8fA7f TNTzKXduj2R3aHH7I0Nfym Xofc5jg2ik MYXzGTqmP93bwDXml5T7WD DdcRL8VNHvjBlgAcZsxG50 Oyc+MLCyzXare0YgWkquh1 xsx7qqmJz8 MbDwCBCtgxIqrUtcOLN8e7 AeWv90T73uBSuaWEPiSUIz VXUlGNJaoUrgkn0kjU0uSr 8+PGNvbCB3 nUZ6sR2xIWPxBlX8MWuuJ6 11ElOpkXOxJfkay7evd6aq rKh5LwHqECOkmxLbwNoaPP V2v3OoGb63 O81iHOtlOXTmLHGzIAOcOW RdhXrgns4wzB0zMr5+PC9j u4bpuj69nF00hCG+PHRkIH A7sUgwNLot NOBwjV1oCGfeIjG0RDZvQx RqmB42gNPzNBcdCc3xbHar uEecQM9uZCYudgvpb947Za Ccw4npWZKh sFUlWWleQKZ3F34wb4H5WX VcKQPeEXM4pTY1sG6fcRun bjogbGVmdDsgdmVydGljYW lkWPfjG805 IHRvcDsnPlBhdGllbnQgTm JcHTt1X3NlPhz9IFGbbSaa NC1mnPDyBHuoQm7cqIzzmR xuOM9xMLFk saemy030CtTtr9grKINawN BpVZjrAPH2V18lu8O8TDEr MLTwMCM5gOI1bO9jgLfmsf ogbGVmdDsg abFmoSbjSCczXWdhU909VU RvcDsnPkJpcnRoIERhdGU6 AZ07IC64rTEvd4V2jJX8Q7 BhZGRpbmct lctieGN5DOUzKVJepI86Lo 4nxGswHi7gGBOjKFL1XAMr iEUbD1QkvH8cQqFwXFWyQM GyC1KktXNf CHmbM336RPltKpM5CDLwez BeS8OxXMGjlVahCpL6i2E5 Qc4LD4B6QH29NI18qZYak6 P9rYE0K5Vf DQZolwmrtkdpdUY6OUCbAM TyiF47Xq8zlNhwJr4gJHPi FLU7JYMywBApM3SkmD3sMl AjMDAwMDAw R7YyuHKiQGcdQ810FGdpKu R5NLAjauFpG8HjEEYgbBdc DsC6s9B5Ct1LQQo8YP18TA 21rRTxg0E6 wVD2U3ZfZVUxbaaghcfguU M3UYLyKBGqiR87Ig8ffSde Up4bOGAdWRQ4DKXhgBZyT8 KnyG1nDoYp UXReOGWvJ0ZrsHOlCUycW3 34KXyrZaS6OEIxkkMeG4Cg HRQazXiyEvM8c8I3Ad5JAN KvME18TDB4 aSW5DO39XE59L6XpQbektS FibGU+PHRhYmxlIHdpZHRo HCsrAXRoTnMrdOpxKM3dXr 9yZGVyLWNv jBjzmIQsWsVxs6tkOVZxBJ yxSM9hxLfdB8KheTR8IIWw i4e4Zh88Y23yN8XgySY+PG KvkJD8cGQ7 eA5sXkZaCaO2ZVbnP870Br DavMVzYvoyr3gpi2ghpFu6 PqI2XHYgcuQsuThpUXM8i5 LhWf70O05t IHdpZHRoPSIxNSUiIHZhbG briv4hvL7vXe3+PGNvbCB3 zMK1sO9hLwDnEtI4IDmkL6 49InRvcCIv Shcwe1uzg3clzSk6OyEfOH HzlcRwoFqpAIJ2x2IiNp62 R6CkhNgsu0FgFqa6th27dU Ijm0P2rLU1 T3NqDISkwrwukDPkzUxbXJ 1jGQEiizwoCLLixU7pCQUz C0c0JiWcGaN9FLbeK8Rfgc J0CLPmmVNj ODkeVMR9D15nr4E1VEJpUD RyWIL0aOJ3uP1ldUtqbsuk bGVmdDsgdmVydGljYWwtYW mxB630HXMv xOytBCQtsZ5wOZWsqQCztD lxDW7wTITffmekWlnSOb1O KrZCRQ8wSHVDG1qJCsPsZF wvdGQ+PHRk YDO6fUfpFOmsSRSzpL0bJK DnK0n1McBxVcU2HXzfL3En OZVwslaiBm14iE7wMoFeLk I9ZFfoP6Ee grH5RSJsrBPaHSpuHPK3R3 2ni7R5HUHsLQHsGWI2oMD1 pU1enOgnkgmilOGybMpmkb VydGljYWwt TGilB767PCSetMttKbQbUg P2OgI5NbS3U0YuJje9WUWu eDmzVA2esCPfFSbzYm6vkP grsHelKK6u RBCrobtsHNWybG8lVUAyaL BshDhbKH4uJUMuxsqby949 FyJnBGL5ASMpgYPqZ7EhuK 9yOiAjMDAw VQFwG5XjiHDsNZabK890LI nxDbO1FZIedkUkY9WnKITc xNelYuK5z2B1Qg61URUJBE FyczwvdGQ+ RIPxHNB6zUuaEGbcDLRrkZ 8yLCVsT2r6QcUeGfY6ZVvp Z7SeMLNytlghJb27jC8zCf SuHyM5FTdr G8XgfgQ9HKPxfRXrZEbnYO E6A67dh8G3FOJoANQuRWH3 oYF1iM4bfUagrzcuiCBadD sgdmVydGlj SRabHNpyA270KUNksCuoGx 7NNEE1I6BwCce8DDLzbFgr MF2bfXMpNAcjGd4xmTryeT yhUZ5jNTBn ohlgUEBktK2fHNBkiZYbwV suHI1iEDEvmtexa017MlWe CTC8XPZfvYEkQ2JmnE3rCl AjMDAwMDAw Q3BqvZXsRNgkU333GNwoZc D9OEAfpxAjC5HuJUMreApr CpY4d4D9If8OJIzuqHH+PC 60qf86L5Sf KdcnNty1TYGqXFK7eZK1zA 6aATBhKAnla4I9eZL9A0Hi dtQnrc2lx2nlRCYdHGaaB7 7cjSRml0P7 PNSyqFM0FOMzxZtvWpSfhR 93Oyc+ZHEgcFwgp0BlXusq t6wyl0ldnMk1NuWgSGHjem FsaWduPSJ0 n3WyDj42K72bYEohCQLwYW TcYORsDWNfxYkuca3ejJ3p Ii8+WSMswNI2mSY3zZ7aLh DhCzG5UFjt J438PcUpbEKwRoeep7jxy6 hxqGe1TfOnVBXyweEtdJkt UKA5h7LjRc33T4HvoNana2 DnByo9yl05 oNJuf6S3iVS8H0EoVEUkbj bhqETixGcsSK4fDNSyyknk QKZwmZ8zDHLzS9g4WvYnTc U9GQfiY4Le tuJ9QFRlkKUoKKHoyZOHbG 8bmgtul3ncyxgcWzMuJTJo ASj5PCm6XQZkqQgcVtUvGA Q7XxT3DHI6 xWXlwU6ceOatiugpsJ1hNh c+QTl4u5jffZPtRL7xrGF9 BR66GM08tODoi8S3oNF7W4 BhZGRpbmct owmhwZC1NWBuJIJuhR60Wk 8ubXqsDt6bLIObRKI8WFYy gLAhL4FgjG0zDoDmKXGiBB GgN1PrvYAd VXdcN413SQwvDzJ9QQYpww TiG1PwFTKcbNshWcX5m4Y3 Tz9VFX27TX11VB91gSDnn1 X1eJA1N2Mo YGPikyqkkhoxtFF4ZGPuAD PfwA08Ti0nhJbuKf1bTTRv XAF0MKHaoYIaU0QjkH1tMy AjMDAwMDAw L6YtdNUhFXxbZ117KTpbRo W8LCFyiwWbT7JgCPIcaHkw NtD2z7U2Tr3EXu29LP36TH 86yVKvo4R4 yPS7X4XgSHSdanboxodkwC G0VLCeDJDnmS86Sm5uqWlf Qk0kYUCyKQW9PAGgkEYiY8 BhiI4pSqMl EQVnHIRhE9RkjCSfMWcmH6 26DClbXcU6ULQvcrNvY1Er ZXLmkQuyNaI8f0L2Nk6RRY brcob1P1Iq PjwvdHI+XT61PNJcPU52mE ZxxVLid4rqmXv1FgZyVOVy AJT8cBfbZMgmi3RcQNOiT2 4epILrc3K5 IGN (more content not included)... [facility] Coding Summaryon 03-17-2023 Coding Summary HTMLBase 64 IxxmbirmLMt6uEk+PGhlYW Q+XX0OANNwD14ekMTdmW3L N5aWGQ2RDEPFDYNPSE0KZJ 3rdCR9JDzvL5CytoPk MqujcTFoKG87OYi1VGG2cP mpUIuuhQ4mlPCsT4h3WzWt BA20hY10KTigMCShUiA3Vi ZpbjsgbWFy S4ywXzTvbQHnUwc+PHRhYm xlIHdpZHRoPScxMDAlJyBz iCqrOT5fIi2sJXPlVLGwiE xhcHNlOiBj x6gyRUJlEElqTT7jrFkhZ8 GvyWN8PKWwq9i6Jj72zPF+ HBUgIAQ5pMpzXOcfj681Tm Hdx0nsSAX8 zNAjLNguDIT2N91be3B0JP MsSSGdZOG6yBL3sY2cbBzw shxpU7SxyADdDoX2ZWJ1rZ YqsJ4tnMjn tucvmZ0jKfd+D20JKC7YGQ WDUP0EDyu7M9XwCeahlDK+ AV13ZKSrRZ59mSHojCNmb8 xyyDw8LnWy OCSxIXF5lHziIYvpq1OkPY RvB72jlIKyi5U2CEOprYah gVEaTuXciBA2mP4bAEwegj cuz2hyvlvb Qfrtm6zzwz50hG82S85aSM qkIECkFWP8DWKsISNewJwx uw8aaZ4jFx6+SFffd2cvr7 ncmTo4DhPp NMIvbsGgkTwuDTM0m3JmMa 31X7QkoOivt3AzLff4jn19 jDMii6N7rHK3XEnfHNOsrS 0qVBzkTjX7 IDDaJuVtjN91cGXxOThaDg 6wuAeojOenOX0yCDFybrnm IEFrsM1qXGZcgFYoaJtjYZ 4wNTBpbjtm f195FxBnUHI7KHJaqXWxE4 QetO9tWwVoCXQwLPRfL7Ys rZAeTUrwO388OKxyJkU1XP UzzcYmO3Qk BQYeiSvaPgR0l7H2St3Hq5 ZyyuidALQ9SSvbMTP3ZzX9 OfIeUgG0Y6QiBzi5PHJvoE rhRS7uG9Jf DLXuecqnmafwmMF1GRLvXC XvcI45bPDpZEriAb5xy9H8 h648WPDlKZDtfF75Nw1xwI ogMTBwdCBU iY4upgpmq4tgmsdqWbHsXP EbOPs0ZBh1JLFlgFzaOxWv HEV7HkO2OMF1cQBcoN2fnR uhzriqfN7v Oyc+P25qjY3aCZK2YWX6lf jpAAUelaChLK09LL27C6Ln PjwvdGFibGU+PGRpdiBzdH nzCL3fBdYt q1mwd7RkEKsxO1ZcENVuPK ypCyf8KPDpLLL4qSV3pB2w UQPtASgiu2S9oTW7X8Cpvu Qhso0im7ht WXHtKQtoX93idOMfa4E2BQ TwjWE9JOMunFqzScTrhB10 Oyc+IBCnyZdhn1UlEynld3 iia1zsuOh1 HwQnIBYcddKbcHkpZKL6b7 KmCd27C08sRNaqQUFtHCDy LIGkEMBmsTekju6mpN4vDa 8+PGNvbCB3 eQM3eW9nBNJqRbK0BGevZ9 05DiHbjZHlNsbis6oha3ja dLq2LaJjEYChdbPmqHwbIF Z3p0AkKy52 B96iVPvmDIXsKDIlCHMsID AdnQnxyg4vtG6dCw4+PC9j g5wtqk66iW15kAM+PHRkIH I4oCqvAQoy JMCjeL8uWHncFzV1WYNtEd EdfH37uSEuIZowMo4qaXlb rUlaWV0xNXBaukhee245Rr Teh1qtBWYc cNJkGEqaECC7X37jb3O9JE IqDHXqYEL9eBI4rR2dwOlz bjogbGVmdDsgdmVydGljYW hwWOtgM521 IHRvcDsnPlBhdGllbnQgTm DnGGv9G3CdJdm6EELbwVke VF0eqRFxOVsjUr5ycExdsQ kaNU2eQMNl ncach477QgTha9beTTQgwK XgMNimFQZ9X40zi4E0HNPc GHEeASG4vMR8tA2ywElful ogbGVmdDsg prGqaGkdWJsdYAayF605RH RvcDsnPkJpcnRoIERhdGU6 UU32WA09gDTzm7H3uQK5C0 BhZGRpbmct yyqtpMK1CWEyFXVhtZ46Pu 8jaQhnWb3cGPZeAYJ5DGYd tIHfT3QuiD5qExEjNKIfFV GbR3YdvTDq OFelX793TZmfRbF8ECXgmz QgF7MdJAMwyCevKsX2z8A0 Zh2RQ8T7UL48WW91uZTmt3 L0iKS0X0Rz JNUpohjsimgjiBG6ASSeSY JbaV12Gs1zgDmyNk0wXZZl ATA1FULauCVkW4QzzD3mVd AjMDAwMDAw I6HoyBZfMOczD930ZAphAm V4ICEipjAfK0DeLBSthJqj QuP9m7L7Cl0DCMp5RH99SM 53dQBeu9Z7 jAR6K4DvXWUouvdgbjixkO Z2FOLnDIAluL37Kv8gkIxv Yf4rOPYjMGU5BLWctVRaL4 EguF9kTkPx EGQjNUWyA2XbkBClIZojW0 93XOdgWoQ8RFGztsOfK1Vo PXAmfJqgUvR5a6H6Rk1KCL JaUJ90CHG6 wMF2KN93VZ89M5SuWlcqpD FibGU+PHRhYmxlIHdpZHRo TQkoJNHeXuRnvRajRD9dQy 9yZGVyLWNv hEnqpDPpXmVwj1sqUXOxOZ lfQE1quWhtG6GoqCO2EXYv q3o4Mh77R66hV7WcePZ+PG QqnBV7dSA6 nR0mSzQpAlJ3AZimQ850Sd YvwAQfUtgkw3iso8rmvBd8 EtF8FFMbloYzsFzuLCM4t8 TzTk66A36u IHdpZHRoPSIxNSUiIHZhbG ueeg8zmA2vYt3+PGNvbCB3 qVE2sR6cJqJuLbJ5OMumO6 49InRvcCIv Uxtxz4hhp3fdgGt2QhZgNG ZcqxZmpVduQIQ0k7JrGa68 G9ZvzNkhx6QuMlm7hj57pB Aqb4U0mPM0 I4UsCIQteaoafOQvbMrhJB 7oRHXgzpigWSRlrD6pIXEt H1y2DaEcVtD8KQurY0Hrlq V0BNIaoNNy GHbmKPR4Q37sp5P6ZAMbYG IgYYD6xGN5eX9ywYdzytkr bGVmdDsgdmVydGljYWwtYW anQ171SQGs tXxdGUIwwU6lKDPfeTEktH sjZQ5pKDOpaeleGglWTb2O NcHANH2lKJXEM0uMBeIyRF wvdGQ+PHRk WKH1pJvoTWdeQOLnkF8iIK SkV5v5OuEgXlN8MCtgR0Te WGZyzocwTe08wK9sYnKrGm O0VMkiV5Qt viO2WTQwsDTqVUiuJKI5D3 1le5G4RALqMXKpFUM4zJM0 oZ3ntRsvpqtxySEkxHorhr VydGljYWwt QNyzY776CLSluNtuEhVpMw G4YdS1ZrZ1V3SoXug3QXSv vLmpAC2adBMwTRtcKj6yaS flqHxzLQ3t LQCassfjZPYzqC1xNBBhmG YfyIsoQR1sKCGzkzahv990 LqOiSVS7JYRjmTQvF1IghT 9yOiAjMDAw MBXgT1OmlRSiALulP156QS tdAjX0SDRmlcEhC4JxZVUm cGcbOgU4f2I6Ve20WDGSFQ FyczwvdGQ+ GAJqOET5iSxvJDfzTRKupJ 3pLDJcJ5h7HwDaXzU8RQnr G2ClGBFkwobpRf66gX9kZh LeQfI7YPvf O3TrdqM8SNIjeVRrDZkvXA D8D69vj1Y4KRXxEZKhQUQ6 vYT8uR3kdIzueizwzSCepD sgdmVydGlj VNsqCGirE405MSGuhNlgSg 2AICG4A5BxNdy3AKYumTao UX2lcFEzKWfhMm0xbOdrcD shDC7nPHTq klhsSWIivM9pHDQqeQWluE bbFX9rDWGrnsihe094DkPi THU5OCFkuRPhC5FvrA8rIw AjMDAwMDAw J3YcqPSfJFzkX896RDgoWw O7FEZjxwIlI8UxIRWrkXrt EqE1b8K9Yi4FFCfeeSQ+PC 49dn00R1Bp FhbmRpy4ECIpLAM2sKX9hF 5wKYTaTLlul7U6pUO3A5Re nbYrkj3pe7yoRKKkADisC7 2tnIQwb5A3 IBFigMG5NLAlwYpiDkYhhZ 93Oyc+DUOyqPmnq4BsCbrq q4mgw0pugYw7LzAsRHBljh FsaWduPSJ0 g8GrCu88M75tZVocNGKsMD IeFPTpLOPogHkocn0ekL0r Ii8+SXYaxIG7gZE9zA9rPq JxKiF3GTre G265OeIrjTExYyuve2fwa0 cnlVe7NmDpIXJbjlMmmCvo BSM6a8WfKg78F2JvlLupn2 JkQnj6xg26 iYZaz0H7pLG0O7YiDTHshs vjxKLfjYjhLS3nNQCdfvjf GXWzgD5lUSMfY8i7BjGsId M8PXvyL1Rk qzJ0YNUlzOPwHXCgtDZKmK 1gqmfza2dhevlaYmFyMQGu ZIs1GYu2GTHwuQkxUmWfFW O7RaU0TLI6 vOCirQ7meJeraxqrmZ0fSl c+YEl4t9fbgAToNG4szMK8 XL24LX57gFYtn9W6aVL0O6 BhZGRpbmct bfdinLZ6QXLdVUHbxV12Cs 1xiWjgSc6rOORaFWA9DQYa rUGaK6OojO6yWfJiYZThHP KbD7VkcLWk VLbdD628QQnmNiV5ZVCgbj VcC3NiQKGbkBdzDrN0c2H9 Ed2YZF77YM58XQ65fSRrn7 M0xBM5J8Te BBNnxycthwsdcRL9HPBvUO PhnC35He9mlAszAr7nPAZu TUV3UYBktMNyY1IibC1cFh AjMDAwMDAw T9MswBRpGWazV226NGymXt B6UVLlyhThX8NmPKTshMhx BuS5n9Q1Dl6BWn63VD26AD 10nLGqq3I6 iLV5Z7WnFNZclydnzbanzO B0FQDeNYDgtK06Kn9neFly Hi6iWPOyRXH1UMXbtFXwA5 YmzF8oXaGn QBHbVVEaN6HqjNLdSBblQ7 41ZWwjKhA8VKHetlNvK4Dp OFQjdFtaAtS8e8W0Bz0NEV xjazp6W5Na PjwvdHI+EW44VYTvND85vF WfbNUda6uiqGs0MxMuGTTh CBC9zYvmKQikz4XcQOGrB5 5yiSCjz3A4 IGN (more content not included)... [facility] Coding Summaryon 03-10-2023 Coding Summary HTMLBase 64 YexvhnrvFZy3dVs+PGhlYW Q+TX4ONNLfD18unTZikH9W Z6eBRB8CFBJGCLDCRH4YNI 6quLU5SKafT2MfgtGi HqayoPUePK93NHg9QJP1vG aoWGhtrI9hqALlR7a5NoXl BE58uZ50FTyzRGMeXgM2Cu ZpbjsgbWFy G7qxYeVzkBAjJrf+PHRhYm xlIHdpZHRoPScxMDAlJyBz yQfhFC8eMy8dOHFnAMCwcN xhcHNlOiBj y4vpNHZgTWktRZ2acPsdG2 MpzND3YAEsb8y7Ea04zHY+ HNAfKVX6cHvbTLwdt324Jp Ivz8cbZLM8 fZKxQHpwBWQ3G79qn5Z3PW NsKEIiBWT8pIR7zQ3dhAia agweI8WpjEBkJwM9EFG7fG CohV5yjMwp ruvfrI3hIln+G94EGW6DBX SQTU8EBph5T6DlYwncyDW+ PN46DFUdFK21zMLmiEMzc7 rufEu9UkIl JZElWYI9zBfoHUxlc6XxLY EcZ91myKArv7R9PDQzgCad wZVpYmVvsVT2zD8lFOapnt gxq4yosyqc Iiwye5daxn66uW74O49tIJ frGIBeHLZ7WVKgDOLxsHgc et8uiS3dPm0+PLyuz7bwk1 kxmWc7SvKq AMGmopVqvKzlEFK7v4PhKc 66M5IqkLsws0YwGkk4ni68 zDNur9F3bRN6IMouUDZloU 8nNJxnBoI7 UXHxHxLzfI92aCYnODxgJd 3kwLtzaBaaOV9vXOGcfbeu QMSmjS2zUGSriBSfjXcwMI 4wNTBpbjtm m056VgNnAGB9JENkjKNaL9 PeaC3lNrHpGOGwRPUuB1Ad nTJxRBqeT305ZTjnLqS5DT JbuvPaK8Pj THRlvFobVqS1a1X6Uw6Qu0 HbqzpaBFX1EWynRYK9TqZd DjZkWcT9G4YpWjr6DFVdgP gyCC4sE5Gy TQRwmmglkxlubAR0DHUnJR XytX87uSPaUIcdFa5rb1R0 l555HOUfAHLwdF54Vf6beS ogMTBwdCBU xX1slziry7mkopskHtBdXQ WgUKp3NLs5BMAyqAbaKaLz ZSW8UjA1RCZ7vPDhmI3kwI kynjgwaE4m Oyc+L72liS9yWXR8NPH6re mbJVVtvxJmNS71VG77P7Ox PjwvdGFibGU+PGRpdiBzdH tbEK8ySkWm t2mpu3QqQItrO4VpODHbYT hqSut1TCRyZWR9fMP6mH6p WAQkQWyhp9H3dAL7N5Otdg Lmas0xe0as ETYjRTlaP88lhABrd0A5VA QooYU2XDTdhIxoWiHkfI13 Oyc+UVYtgPoak1JtMnvln0 rox3nplJl5 QfQnYURktjMalLeiKJK4u2 NqIy05Q06pNIzeWMQjYRWv NXDrAVIjiMiciw6lwY8vTw 8+PGNvbCB3 kLV8jW2lWZSmBhX1MFsyI5 42OeApmMQgUxipw1hyt9vs kDp5AcFeUYOxscSgvWkwDC Y2f9CqOq45 H45rLXqdTDKpZBInJZMbQM CqcQmbln1brB1yLk6+PC9j v2kuoj84uI37bUR+PHRkIH P7aDklIFss JLLvbA2gYPsnWfF8YXOfVv EbtS20fMNwWXqrUw4idVyp pTfnKD0pWMCmurbmt216Kn Xuc0uiYWFu cXOfDRzqSPL4A67ma7N1BB SnYKNwESI5cVW9sY1upWdn bjogbGVmdDsgdmVydGljYW bjAPeaW269 IHRvcDsnPlBhdGllbnQgTm TwMBz8X8MvXgy2AJUyzQmw DK6vdHTpOYrtGt0szLziiQ raEC7yJHVe scxfz631AeQab0wbDIFleC XvAIzpAWD6G02ki6O0PAXg ECBcFWC7kQJ7xN7sfDrext ogbGVmdDsg edIxzIaiKDekGGfuX884JA RvcDsnPkJpcnRoIERhdGU6 TI66XV67bHCva2G1pGY9B7 BhZGRpbmct gqmgvZB0YLIgPDSesV44Um 3okHyuDf3iFMQdBND7ZHBy zNKnB5MnvR7pIzBsODFcFT TqM3MqkKUo CIzdW354BAmpQqO2SMKcfd OqM9VxQDUitWpbCjB3k7T1 Xm4TR0A3RE00SB71uAXlm6 M8nHW1V1Yu IFFedppquvfwiJO1WGKyRU PkoZ09Rt0aaRuzRu4bMHBa PUG2FIMwaBUnF3VglP3kTu AjMDAwMDAw F1MwfQPqALrdQ630XPmtKu X9DGJizsCgT8GuUEQfnZqf WcZ7b2C7Up1BEYh4UX89BD 14dDEpz5F0 xTI4H5IqQBKlupezbhctvC P4GCQcANWosI15Az8hzMni Sk6sSINxLUU7FBJxlWOgM5 BnuJ4dOkUz INLsDVShE3HiaRXrHGraZ3 33PHwiPuV0FTOkwjQwQ0Xz JOBlkYouQyS2c7X8Zk7TVW AgYQ27QDL4 cFQ2AU52LR52U9AiLshxoS FibGU+PHRhYmxlIHdpZHRo XXqvNRCnPxHxuXwiZP4lJn 9yZGVyLWNv aIcgbSTuAmZmd8yeHXHsBB izQE2keZrpC8LzgNM2OGMg j4u2Ew75H75dG9BotTT+PG OdkYS2iHH4 tM7kSkSoOxF4JIylK433Qo KjrXHeTwizl0sbf7ehqCo1 McN4CCKupjBwyRfjLMY6s4 RbLl56L04y IHdpZHRoPSIxNSUiIHZhbG zkud0ocR9sGh5+PGNvbCB3 qHH7wP3uGjXvOuX9OHioX8 49InRvcCIv Qttxh3iuh9qsyGw0CiZdFB PuexCpkGshWFF1h1RsEe42 M1ZqbDbzh6JwJnm4pk93uZ Vpg6E6qQH8 O7AoRTFryyukaHAzpEqcIY 4jIXRoxnolZDPizL1gMGOd W7a2JtVoBmN2DKeoN1Ycas I9UZRclSBm PTfjZLK7O53ne7Y3QCQmFP UpUZX3lUA5iQ7ohNiqptgg bGVmdDsgdmVydGljYWwtYW mfC113COLw zSpxJTZitK7dYUWklCQpaB ghNZ0tDRUkxnurYrlEPz7O XdWXLZ3qEHOFV7vKPaShAD wvdGQ+PHRk VCS7yCywLUplPPAfkH1aGE WfT8j4NoFhHkK2HBiiF1En XTVdmagoKk44pR2sDqAwMb P8MQqyM4Ac tzC2OFZzeZLwXUirKWZ8Q8 6rm6N1SSTbJGGjLRU9cHA4 dN9srQnfsclmsUDxrXtoxz VydGljYWwt VQovH141YJEbbWboGmJhFq B2KsL5WwI2A6SlNgn4MNQk yUvkHP3mxVHbRDkjXc4dyQ lvmPagEE7z NPJuuxflJPJuwU3lTSOdkE GyqKbmVC6eHEBmhtdkt628 PfDtDGL7SYVmeEQjF1MutP 9yOiAjMDAw ACCjH6XyyWUqZLrlV632RI ixXiR1VRBcddOxK5KmORPh eLpbRfW0t3K0Mq06JEMKTH FyczwvdGQ+ TWBbEGV5sMtyEQhaBKUqnD 3dKDQcN1s0AiQyRbI5PZlb K2KpZIIrvqfpWa01wW0zPc DxRzO4KCak J8UtlqG7WZAurSUmVRpcGR O7N66ip9F5EOKrFKSfTES5 wYB8dC0ldTkwepuzwIOhqZ sgdmVydGlj ZJavBMzsF901PUYrhEppBh 8UEJT0C7JkCou3ZJKgcMot YA9wbTUlLIueCp8qbYucyN mgEG9wLXHe cpimCEFxbE3yZJGvrIHapE vkGE2vVIVkxagut707YrUf GDB7KBDqzXGlO3MrmE0eUo AjMDAwMDAw J0CicOFhWFafM804IMrtBi P3QDMoboGlC8FqCODncRzn GvL9l4U7Dj5BWAympRQ+PC 30yu75H5Ny OszxFmt3MHHjWAO2gFD3vG 5gNRDgGAlye4C1cUN0L2Sz fuVnfl8ax9xqHHWlREjuL7 6vgKWki3Z9 RWGhkBC4JXXpkBmiUeLanY 93Oyc+RJYmuXnkd7PmEmnx v9wwo5yqfCl2AnNjFHDhag FsaWduPSJ0 g1QjVi52N14aVGqpNYMtRJ KxPJIoIGYfnDdgfa8clG3t Ii8+LVLzmIY2hYA1qI8qLr JlCfD9ZInj Y022GpUonTUdYrttv6ojm0 upyTo1PxPxMODovgNlwCnd HEX1m2AzHp12A9WgoDqln4 YcLix9el96 nYQmn6G4wRC5M0FrZDEsol zlyXMkiIebZJ7kDGSbjpbm IZInmP6jHRLfD4j5OvPwSj Q7XOrnI3Ul fyZ8PPGvwKBjTEXbaEBOnW 8wdzntu8rykrarNbJtBOEk IGs9BTx0FXHxmXnkLxQlEC V7TxS1KIP4 eGPneQ6axLpemoxjvD3zMs c+MUn0e0vcbWRqLM8suCK0 MZ71PG01vPPlz6T0vZE9M0 BhZGRpbmct nghkcHA9SITfZBXbeZ93Ry 2bgSsvVg6nEYRrSUA4NUDc pHIlE6OjmR4hNkLgLQKjJG BsH7AcbBXo JEmjT675PRejDmC6SRWgnj NfE8EiICPwvKtrWjG2x3R8 Hk1LYE28AT83PS20cGQfa1 U1aSW4G6Tx OPJuiykbwypksBO9WXOxZR UpeB54Sf0blIlyFy6rTDZh QHG8MXNomWPxG3UsbP3bMe AjMDAwMDAw H9AgmCShBJkzN615BEjgPn M3FHFdhzNfS5NfIVPtbIaz YwN5m5P3Jy7LEq07YC89QW 72jUBwg7J3 tBH5S0JnIVSzzimmuypnaX N1DGOoLXCesC07Ov6jaMyx Ol6dRVDrIHZ8EFOcdRFoS7 CfiM6gMcVu EMBfDDOaA9KmfOAaVIobG9 71HBtmXjN5UXZqnzIeN0St JOUetEnrTjG3q6J4Gs3PCI qhqnv4Q6Bo PjwvdHI+XG60CFReSC78nY AmkGXlf2gbiZm5BcZjJKMb GTO6lCmpTOefr2LgKLHkS1 1agLNfg9B5 IGN (more content not included)... [facility] Coding Summary HTMLBase 64 FhfekdznRBl3mSx+PGhlYW Q+ND8LEJFaJ43lnKQfgF6B C6sBCR7JWFJSPJWKJQ3PHE 1uqVV7SAkwC6DkwpBj QtblfWZxYU82QTy9ACV5dN rgTGwxoM6maBKxY4c4HiNh IR64nP07BPbdBVKxMzT1Ju ZpbjsgbWFy Z0jgZhBogWZcMmq+PHRhYm xlIHdpZHRoPScxMDAlJyBz vVpeHE1bTo5fECBvYYSciZ xhcHNlOiBj d8avABZxZYtaDY0xrUukM6 PumGX2ODTzg5x8Tf56mTW+ IWGlDKL4eHjwPIwdv701Xk Mzp1kdTWH5 wVIxFWzcJIA2L79oc6K0ZK FuJMTvGCN0bWK8oL9pwTsg mfvnI2AicFMeWtB7QOY5zT XwyL8geAdi reclxR7hOpk+L41YPV4WDK QIBV7NLlm2U6IpCbuvkND+ BE35ZBAcVE95pCLozVHah7 tmiXs7XhSa YFJsVLH7iSagADwyu5YqAD ZsO18tvKQsi3F0DTWkaFle uXEpUhMkrEO4wH8iMCmrrv ewy2mmbfye Zyssq9bgqr09wI81A50bVW dsRBOpFYA4OKYqHCZdsIgu dd6ofU2fEo0+NQbwq7ymr5 lfvKr4WnNb AGOihaIhfBhpIJC5x5LlKj 93B1ZdmLuuz2YwGvw9mi27 lRAaz7D4tWO8MEtzSXAmhE 5tHPejIjE5 MGUvTfTgnA02hTCyDRhzXk 5rxFfzxJbtYR9uNCKypche ARYagM3yBZWulSWswUleTB 4wNTBpbjtm h057CoJjXAM6CVVipVWhX2 SraZ8kLsVhAHZnZQWgE4Pe aGRaENjtN872VZowCdU0DQ FgmrJfR6Gj DARheLcfIzR1z2Y1Cr8Vs8 IscrwfYKV6OVyyWDH3AjWz KtQgQkR8N8IoKgg5VORpsF mnJV2uC5Og LESstkblzjzoqIR5TXNuCF OskC90lQKmYNjtPc8cm8B7 o810FWVbFGLazU95Ib5fwY ogMTBwdCBU gF2uofimq6vmagutUkJrHM NoPYx5TIs4XWAtfOffLnFe LWM5MbF1BIX2sFPppU5mzF kggyctpV7z Oyc+F76ezF9oRVO1LLV6sd mrVBDevpPcJZ70WC94A5Rq PjwvdGFibGU+PGRpdiBzdH sfAY8lDhCn y4khe0GlSIanG0QnGHTfNJ zzTrz5UQEpKJH1rSB8zL5y NBHhPCkdp7J0wAY9T8Uinb Dpba6ws1rp LSUrDKarT56zeJObh1T8KH YqcLC0IKCpdPivRqOoiW88 Oyc+VNYpxLjee1UyVqhsm7 ulp3pfhWm2 ErRiIRIlztTokAopKOL7q4 BqKo57I88wZGzhADIePGKm UDOtVEFfsHvrix7noZ0hNo 8+PGNvbCB3 qPU8lW8iARMqBnS2QKywC0 80HaFlhNDoDaoxe2ofa1zm iAt8FvXoDACjcfSimMbzYN L0o4JrBs55 B44lZCblYQShLNInTMVxUA ZpfTmshl6vfP4pEy9+PC9j c8cbpr10wP73jAK+PHRkIH H1dSzvXPjn RLXxzL3xZFavScH3RQKlAy GpvH53oKZaYAltFk9okEvu tAtqJL1mJAMrpaoys637Yc Lke4bmZQAc uNNjDHzgGGS8T76ri3S3XQ SvUOGdXYI3wFU0uT1loDmv bjogbGVmdDsgdmVydGljYW mmSSmgO701 IHRvcDsnPlBhdGllbnQgTm ItJHo3I4XlVuh8CIOslUyj QJ4rdSHkEJtjWl5biCzdkL ibPL5jAZUn mneqn492ZwVug4imILEolB RaHTotSDZ5E31nt2B8BMZq REDkPVE2uEL7aJ1uzZvaej ogbGVmdDsg coPldPeyBYhdMAvlI807RR RvcDsnPkJpcnRoIERhdGU6 DQ05MT13xHYqc5L3vVD6D8 BhZGRpbmct qxccmSD5SKViXHQrbX93Sp 8aqPbsEb6aTXJrDKJ2YRDd xOVmQ7TtsL2kDiXaPGXpHP TfC6XxlJAr WQxyJ603CKgpHpK0EKYznv JoT8RuUVNwzVkdEgI7i0I1 Cs6ZE6P1KZ10KD84jXXbf7 T4lQW1R6Ch FTSmndollvwejAE0INBoDZ HebW10Lu4gqRjkUo7tYPUn PDK8VCRocOWuM1EudY6mCb AjMDAwMDAw I7AqsKJeUTtuX287QFmzTr B6YZOeurDkP1PdVMWbgDyl ToH7b0S6Mw8AIEj7UH19FL 59aMTza0J8 vZB4I3LkENNypftqakpgeG C1IMAzSUQknH88Uu2qoLyl Zp1nLIOpYST4YCZysDSgW9 IdzM2rOrLq RPYoACDgW6CmdHOdKOccE2 15OLgvQxY0BCLumuPpF2Zy OVTemAbrXkV1m1I9Ll6LBW OpLW81PNB1 sZX3WG18NL97J7NqKtcqpW FibGU+PHRhYmxlIHdpZHRo RYciAHLyGeIdzEmbRQ4fKn 9yZGVyLWNv nKemnDXrQxWmi3crQVCyIC jgZN5nvBjoF5MicGZ3YLDn r5g1Fe32D94rK3BtsPE+PG PumBV0bOJ2 lU4aYwFcUoY1FCqnP833Wx GppIDzPokge1xdo7wjtDn1 LyU8TZJhfjRmpQgwTVT9o4 ShXp41W61b IHdpZHRoPSIxNSUiIHZhbG fedr8ksM0xHf5+PGNvbCB3 mHG9tQ0hWdVdClN2OEseB2 49InRvcCIv Kcdxq8oby5cyxHf4BkBfNV MalbYthYqxQFS6d9XcZj50 H2OqfMcmq7GdIls5dq29eK Yqn5O6gHY3 Z2WhUDAzccpagYPaaFkmDI 6nULWfmgngFLDjsA9sIJZr O1i0JsHwYnF8TDgiC2Impv X1JROwfOPr ADptAWY8Y86kd0S3GNIrFD RsJAM3rWB6bS4byBwpiuvi bGVmdDsgdmVydGljYWwtYW koI002FOLx sQrfFIPpdY9oMBPfwYNcuP txTF8rUKCvydcsKibDVz3N HzUTVE6dRBFZF2mJPuFbYN wvdGQ+PHRk SUQ0jAvgZNqrTEFbgS4wHJ KtY3o9FbHtLsQ2WVowM7Xz TGEpjuixYf35nP1ySpZhFu M8UNiwE6Ul ecO4AJSkgMBuZVxwROW4N5 9xj3X3SXHzYQQaHQW8vUJ2 gV3vjQaoqacevTCkzKvyok VydGljYWwt XGfsG310UKJzoLwjEaFxEt H8PkH1SoA0N5HePch0AOKk dMykQN3wtKXlLEugDy9ssS cpcCqsOV9m YSAsfiqhOYLseS4wRWQfyG HuoGkdKV5nZEVoqqvce866 NaXwOJK7PPYzfOZmN3ByfY 9yOiAjMDAw XDPoB2LfaQWeULqgN987IH dpRaD4PIBkatEaJ8YsQSSz lZmyUqU3c5N6Re29VEFOWP FyczwvdGQ+ YWRzHBT6kXjwJCdaLKNmoS 1zPLUbT7x7WeAsTvK4EOxq E7ItYJRrmdzoGj27lD4lIh QmYwB4NBoe O4QqfjK4PGPepYJoJOuxXZ P1T71fk5S9NZRaJXGvBQV1 zYB5qQ4fpAargvhplHWgiB sgdmVydGlj WDaoLRfhN879OOWgkKmcNz 6LMFW4B7VhTdj3UZNgvSuo AJ7qlFChPZnsYe5cdYhexV bgKF1sTFAa vebvCRNiiN8hSEPgtLWjbQ klZZ1wIMAcucebj820DdHn PFO4QHVwkDQkK0LqkJ4oOr AjMDAwMDAw I3TnzRWxOHfiG307QAsmJm O0DHZugsArS6BiRWMybKzr KhG2d4M0Yj8JAQjwlRH+PC 60zj54I4Wp MubdOuo1UZJlFOT5sLV5rX 8dWAXpHFzvf5V5vPK1G9Nu geKvcd1vz4cdFWVsXHfqZ3 0cnEGrx6D8 KLRokLX3JNAozDwyIaUztN 93Oyc+RWNdmNrww7JvVtyx x7ugi8ezbWo1KkZkBOCqlo FsaWduPSJ0 i2WnFy16I20uMGivLNEwQN WuNKPvLEKweSyfkk2bgF3p Ii8+FJUdpID6cWE0aP4jEv ApGfA9VDnl F880OmFoaVCfOderz8yik8 xtbIk5XePhFBFyzuGbnAvu LSR7f8KpNh96F6FhyMxvr3 GwMwr1nm46 cEEoo2L7mMT3T2PdWHQnaj gyxHIwpAjnGW1kGWVzfupe VCUneB1jECEdV8g0MpYdVx D0TTmyI0Nt usP4ZWBuiAYxOVZtdRCKjK 2xmiecr2ryuidtNvCdTRUd AHd7IGm9GCLjiVyrMkBrUE L6UqJ1FIC9 bLDqdZ1dmJvrgxltcX9wYp c+PLv8z2cjeECaGB9neYS7 AF53DC84pFEdq6K9jWB6N4 BhZGRpbmct zptbvWE6XJKlLHAapJ70Be 7zyLypAb5bWQYrTGZ4NPNe eGLsX5RijP3jDsEiHAItWN IxU8BmsBKj JOltL194QIdzVmU1IDBbjr UkC8ZtTRAbaCfqPkI6d9B1 Vu0BAO56CY05VQ87iXNcl7 E2hUL2I2Ai LUAmkegrmxprbXT3MFKhUA GkqK51Xb3nxWcfFu7bHOHa MPY1FVOfcGJhQ5WbfV1eBm AjMDAwMDAw P5EiuCHmIWflH326IZzmHy C8SBNreoSgX2WuSDOxvGcp TqV9t3H2Kg7PGl23GR31YU 39kKNcg4F2 yWZ3Z2QxMRJomfeblymvbA F7PFZnSQKflB20Kf8rhEcl Ib9eEBFpAJW2SEZkhLUsM0 BqaT1mKzCc WUHbEMZkF3ZujKCtHVtoX4 60AKjxSsU3CILqqyTiJ5Ol TQWzbKmeZqN2r3S1Ee1CHA rntkt2A5Zg PjwvdHI+UM12HVVyYI80dH SrcJIqa3xwjJo2AiPpUKMi FPK8kNwwPQeiu9VcZEZmT8 5shJRuo1Y4 IGN (more content not included)... [facility] Coding Summaryon 03-03-2023 Coding Summary HTMLBase 64 EygomqgoQQp0gQh+PGhlYW Q+ID8DMRQvX21ebOIhiS3W S3rZDV9QDXZKZPWDNZ3CYQ 1sjWL2CJckU1OatfZu HkydbZOrVW31XId3AKY3pA yhPKlqnE2knKDtG3h0GsDh SS77tR20FYxfDXXeRpR2Ip ZpbjsgbWFy I9ncGiKjuEIjTya+PHRhYm xlIHdpZHRoPScxMDAlJyBz eSasUW4bSw6bWWWuIBOwsN xhcHNlOiBj f1bhQKFcMDssMS9yaEkhA4 CpbRK0WGCtg9t9Et76dIE+ OSItKUT8nGygOVjzu267Nc Xkb1zrWAC8 aPFwIKytLXK4Y30dk9E1XT MnGUMyXJP3qBA0eI7tlCwk noetH9AtnJVxHhZ3ZOW8fT JxuD3elBnb tygaxA6uLyx+G46JXH4OFF EIER8FNkx7J2ZyOlistTR+ BX26HTNpFL67tPKgeSSaj7 udpLu1BvAn AVGmPJQ7hUnkOKtso6CkSA YaU15cdORhp7C4CBHhlWrp hBAcHxQyoVX4fX9oJIrscj wiv4tmnczu Ydplc7iphz62fE02I88gIX qlSNLjLRZ1SFUuYYQnsSms gt9epY5ySn4+GRwuq9iom3 azoLe1TwVy AMXkchSvyGptWZP3f6PtAj 03E0LbmIueh5TiPdx0kt35 eVZke7P2xOF7UHycJCCtjU 2mOKgmQpG8 MXAmTqObeW58dCXvLOylJr 3xySmetYraGR5eTYTiddve ODOzgX3qIBCmiVVwaUvxBB 4wNTBpbjtm v529YhQlOFI4VVVzhLZvY0 LgwC8mExAkGUCxIUMgY4Ez pCHaUSjgE473XMpzWeB8LI BksiIjD8Hz WUCrxYbrXsA3k7X7Jb1Ch8 QaxccuTNL1AEbpHBT1WhQg VcHlPbM5F2XnInb9JSNexH iaXV2rF0Km WCNnxcpvzagfuJZ9QRPvIX ZqfM86yNReCNjyOx5zd5B3 a338TVKmWBAloN56Gs9nvS ogMTBwdCBU kQ5gsaafd2eaesalYvNvBS DmUCg2DKz4PXWgqLhtXdCb ZQP8KnJ4JZO5aHKwpZ2tlM mwppxzxV2x Oyc+N91rsY7eXUG1ZUN3sd anSDXxnhHzZP50XJ06T2Fj PjwvdGFibGU+PGRpdiBzdH cbEZ8fQwVa s0tvb3FoFKilS8JdOVEtQR kvIbc0IUAgCLE1bPT2zT1m KRXdXVvrs9V7wLZ0S4Fahk Oewh6dd8vd ZXXgVSvcA56ytFXzh4S5EU DojYC0JCRptSksJvPntK33 Oyc+XQUkzEvhd7JuOhvey2 wjm3jgbJv7 KmGdGECkcsAimPksRIF3u5 MiCj85I06fXKjoSYVrEQRf FBMtFQHctXagfz5wwG8iXr 8+PGNvbCB3 fDE8lE4fTMTtHnW7ELkwX7 24NkTagWBeOiptn0kqo0jl pFa6ZdRtBCYjtrPzpNzpSX B5b1YtVm79 U68iTEtcADQoKGXxBHBwES ZobUnfsh1xfS5bEt0+PC9j t3moqt33aM04zJR+PHRkIH C8xIhbYCul HINwbY6bFAnbGdG8EOVtNn HeuR12wREmUJbbHu2yqSba dWlkII1qTVZloktao488Pv Mar3ssYODe pTVpXNftIXO0S02xa0F7QI TpDXHjDDH5mVQ4qC7uyAsd bjogbGVmdDsgdmVydGljYW zuYYdhR940 IHRvcDsnPlBhdGllbnQgTm KzEXf3M7JlCgu7EIAfoQto EC6lmVTgPPewIl8oyBvbjW yuVK1eAGUa ialsv700IsUgq5eqQVUjkZ SwHVncUNS7D99jc7D0TBSg BHDtXVI9uSD8lJ0awTykjq ogbGVmdDsg dlZyoDkkUKhwTRzxL789RA RvcDsnPkJpcnRoIERhdGU6 FX00ED03jDZnw8F9kCV2E8 BhZGRpbmct hjwpxDD3AHMiHLGlbG98Gm 2yiFpoNs8mPTPdETC6ZEIv aCVtK4CjeY1zLkDlFTLiYE JmO7RpyCGo OYmvU949FZpdQnO2LYYula YlB8JlPBChhPttSeM2i8M3 Tx4BG6Q0CL64JZ67sWXem5 D0lXW2D6Fo VEYipfffhjfkjAK4MOGdBO AyxU55Ro1spQgsQl0rQOLq DVP6CFLqmPVjA3IvuN3rSn AjMDAwMDAw B9YnuSLvUMttF496IEwzRy N3HSIzqdXoP2RcRAKshMhb OvA0l1G7Ms4PVEp9KV49LM 98aDOnz9A7 hCT6V4SbFPUbmsdrdxhsuV T3LDYmDNBloC90Sy1lzDvd Fd4jMVEqEFQ0MMZxqOQmM2 QtaA6bUaSb SAYaHIUnO5AsxPEzVQwyW7 10HFkhFpB0ZLNdilEuC8Qb UNCqvZkcRfC0c7X1Bd9MXA MfMT48DQC3 rAL4YO16CO27K1AqSrbogI FibGU+PHRhYmxlIHdpZHRo MMheRKRyVlCrvLpuSW1qZe 9yZGVyLWNv cHluhUCaHmRox2yoKHDdMN skZD1ruXndF3IksMW9DBFe g7x1Vv35P04iP6DgoJN+PG PtaWZ1zXY7 iJ0tGvGxWjI3UYfhH858Yf RdlTQlCcmlm7nxt1tksZl8 DfQ1IRDvzuXbxGazXKI8a1 UlWx73Q04u IHdpZHRoPSIxNSUiIHZhbG bsad2oiV1xZh1+PGNvbCB3 gFT2gO8cZhZiGzC4PKmnS3 49InRvcCIv Pildc3wwj6nnrWw4BuXiPJ JikoFibRyzBXH7x0LwMs66 F6CpxJbee1XvHdt1nu67aL Kor9N2nKR6 K3DsLMDlgrliqUXikCctVD 2pWWSqidvjOLMdvB7uKYDp M2n8BzScYfK9EGbcU0Cjnf D9XDSlnAAv LZqrLZN9I17la5F2PCWlJY UaVHM0yZO3fF0prQwutowp bGVmdDsgdmVydGljYWwtYW nwR523YWWu pIjfKBSoiJ2fURMzfBKauD zdAS5qFXSnwqegSetTTu3W McSDZT3oFWPDX3oHUaNeIO wvdGQ+PHRk AJY2cUfcNVosBVCjsA4lLY FeN3f6GfLjViE9ABciM8Dd UOKfdxhzOc06mS0bKeEbNj M8JOhqI2Ef ggD3SPQynXUhVTueBCF3J2 9uq4J9AONpNTEuSJV9pSR1 gE3pzIzksmpcxGKavErzpa VydGljYWwt UDzvI264VFTeaDcuKxUhHd W5QlR6FjB9Z1WyOob4BBRy aVoiTD4tdDSbWVwnYk4tfK pfuYkoIT4e BHBgoolsURCiyB2jRAQkaA LjqVjfKH1mUPIjfaran060 LgJeSPE3YDBsbXGiP8CcgJ 9yOiAjMDAw FLPuQ1NudWTqMVstM420AM mlNrT2MQTfvzBmU8PuIWHq fPviAcH4p8Y6Cd81UVAGKT FyczwvdGQ+ ZHImVWA2fQfhGSmpJXMcuC 7pZKYeX4u7UlTeHfI1YJew Y1CkCOEewhreZo04mH5wBm JiYtE1NKle I6WaduB3NOQkuRLlFWgpYR R6H22zs6E3KTLeNHLnOTQ5 hDP9bE1cqPpkcbahvEQloX sgdmVydGlj AFpzGXvoF819CEKzhQzrMa 2FNJN6D6RyRai9PTDhkJpz GQ3zhQFyKWitRe3buCeevS grRK4iGALx qjunKFFfrV0aWVKbgPVndY ljED1iPMYfpevdf812MeZj GNV6FDIedXYjB2AziN3sXg AjMDAwMDAw E8UsvLUsQEcsY167CPnqPs I3EMGqiuRzK4LtWLRfcEhw ZcV3x2A7Rv8SGKtscCY+PC 34tz43J5Vv VxdqBdz6XVHaRQC1aUZ8jG 8zAJNkANclc2F1vYQ0M7Mi ymFsea9jy4nhZIOoCBntT9 9pcBBns3Q0 PARzqPV8HIMjjLcxHjXdbW 93Oyc+FZZdwGfbs8StCecq b8zjm6lbiTa7LhFeOFVljb FsaWduPSJ0 v4SyEw21N04cWFrpKKQyBI UdTBNxSLUdcOwnel3mbD1c Ii8+CXFrdPE2sEX6rL3oLi UzUzU5TVxq F488YvUbhMMfEotuj5uxx5 reyOw0CgGgPENtvdSxyPpi FDA1o5ZbFc90D9JhfJvah8 BmLgd2km68 gGBmk0E5nET4Y5MfTDHoyo xsmYNbcEkjKF4yCPKghoyt EMQgzY6oMKGcW8m9HlLmSt M6PUddD1Ax elH7PLLdqBMeBVBpyLURxO 9mnkymc3ukmppnGpTqJWUg IZx2TXz8WVDbdOyyIhSfQJ K7PvO3DYG9 vEPbdO0bnHdwryzuxI0iXo c+GCe2x7lyrQOvZO6rdNA7 AY72HU31zGQfd6B1zPK6I4 BhZGRpbmct stlivQD3MTEuXIQuwC54Gq 2gcIwbXo3wILLzKTR7VLRp zRDjZ3LbfZ6oHvWcTGObZM XgB1WjdGXj DKgjB983GUbsBhF5JVZyna HvS8KeNTRjsGapAbZ3t4B0 Vk3FLO92XJ43UG86lWDne2 S3eAB3U1Cs LGWuihblignlkOG5WMCoTO RzyY72Tn5rbUpkDa8lPURs TDY7DAIbdPGdN4AyiS1nHp AjMDAwMDAw F8HvoSRiSTkcS759YWlqTi M3TMOmcvHiS0EtRYYzaUtu ZlW6t2L0Av3WWf45HB27LL 79nAHok1D0 cOP8L9VmTNZkvspvyyvthU F4QJCwZRMdxN45My9rnSqi Th5cKZCbRQL6ZTWdnZAtA9 SclS6jQcMk KOLnYQFwO5PlxZUiBPcvY2 13OUjiPdV5KFCqrdGtI3Tx ROWkcLusIyL5m8B1Ye2RQU todam7J6Jb PjwvdHI+KG62CLZnCT45bA XaiADrb9tpeBs5RrNaWPLp BUX8oKekNDipl6AsASPcJ1 5pyTTpl0H2 IGN (more content not included)... [facility] Coding Summary HTMLBase 64 YcwxjmmiEZg3qAd+PGhlYW Q+MY3PITRpL54meJIvtR3A Q4aOEI3IOYIDYDMWNE4GVV 4vwCR4IWfwX0QmjlZu CijkhKUfYN96BLa7NYC3uH vbKLkpoC5fiDVdD4q9JeOi FG01xB77HCpsAWXpUqH1Hn ZpbjsgbWFy B9yhEcZugGUjWss+PHRhYm xlIHdpZHRoPScxMDAlJyBz uMisUT9dDh2pKOYiLTRafV xhcHNlOiBj a5exWMQnPYzmXU2mgTzaS6 ZegJA0QAUya2y9Xe70sDS+ CAFtTHY0hRpnSBqvt272Ni Fek1gjVWU2 kHRaMHwcFXG4L65gk0U3KZ UyFTPcSSI7fJQ3sY0spSzf oevsF4QaiPOsYsQ8VPR8aN YoeH7jvZiq encvuI4qFuj+D43VRG6VDH NUPC9XCok2L8BiYynpqKL+ MQ55LHUbWN79bEZqkRDjw8 ifkCz3JaBp YDKqEGG2wVrmJLcgo2AgLV QpJ82uiWQee1C4QUYhpYxq dYAyJvFvgGL8xG4hELyssm gfv8wbyltw Vkuox0aygh50fS97O29eFI dvFKVcMIF5FNEsWOHufFan le9gcK7pJy0+SGsxt0dbk8 ezeGj5IrBq BOLvufOyiMzjWFH5y2GtMy 87T1JrtGsdb7OtPbl8mz07 hQWoh7W0ySE8YKthPKUruI 8eHLjwReU8 HEWyFsVnwX01wCCpZSkkMu 5vqWdzqSbrDI1lCZVsbzgg QHFveI2cJKYgzYFuwYsfKD 4wNTBpbjtm x341QbWfERT8OOFzyEXdP4 TxfL9rThClIAFqRSEvA2Ad fPFlBSqzN024PGrlGfW2BO UikrVmT1Uu ZGUkuJjiTiG3i0I8Rv2Eb9 OxsjkhXRU1XCczAAR1HlOz JgFwGdV9N1PfHbi3DDVlmD iiJB3eH9Mn WAXrgeydjaldpMZ2VHZpOB MiaS16uEBjRSgrLx1jf6U3 v775FBPrVLFeyA59Xp0jvE ogMTBwdCBU rU1cblfkt9bxzkrhTaEsLB ZoDKa3IGk3OBKfjRjxDkMu JPO3VcB9PXI5cEQacJ7mlV ovwjkmmA3o Oyc+U81nfO8pJFO8PCX0xw dgGAIftkXbKK24UI78X3Yc PjwvdGFibGU+PGRpdiBzdH yhGG3kHjMo e9mrp1NmEBkkE9VtSJReAF zaJwp7WWOvJIL0bIG3jJ2j FBXhCUdov0B9lAB3M7Hfbf Ghft5mf3ib RSEiEUcgC67vfXTsj8D7MK KglII1PEUlmWqxUiXmjN72 Oyc+RFQtlYmfi3AdVrfur4 mrb4hbhYh8 EaPxHEWulsOrlXngOGX2q8 IzSk73O80kRPagSFWhGRLd ERDlCZNnuIlbje2alW5oNk 8+PGNvbCB3 oCA3fS5aGCIvGlM6ZHgwV1 25NbRdgBYpIatei5jvm4gi iMv0FiNaHRViduSkhKeiPU D8v2SwXj46 H84vZFmwNATaAYDpMYFeXH LbcAnobh4cxA2aCg0+PC9j h8uqaa11zJ46rBU+PHRkIH D4lBckSNll LDJxjG7xCHdcRqX9ABRqJb VxmL17hZAiQXcbSb6hrAgr bJzhEZ7fFJZnjtcof060Ja Qof8ixEHRk iMHiMAraVQQ5O84yx9E9MG KdQNPlNJE0sJD2kV1diNyl bjogbGVmdDsgdmVydGljYW hbJFfaG004 IHRvcDsnPlBhdGllbnQgTm FzGOo5S1CpHen1KIBxjWiy TR1pdMOgGRznZl6kuVchsS mcVA8fTADq kouzw809VzLyj5txGXBavG NjFWobPOY2J03ey9K3BJAn JRBiMBJ8zFX6eP3ifWpurz ogbGVmdDsg piCklZmdQOopXJllE609UI RvcDsnPkJpcnRoIERhdGU6 IH27IZ61eYXtg2U4nSQ5E7 BhZGRpbmct nejruSA2UQHfXKKvyI67Yq 5mzLxcHt6dDONtTIW5DOBd gAMgF3IvtB8aZnMoRLUjDA XcX2RkaXUw FScxU123JRayKkD6OEJpxt IwV1OoEKSbwEmtEjJ4t7W6 Ri8UU5T9EM48UR77hDAyy3 A7gTY0G6Fx YIJlgmayoeotgOG2UGEnLN YhmV04Ga3ndMyuQu6vOVZq JIC6JDJwvZMkP4MpvE3hXt AjMDAwMDAw Z8BarVMwMUnbL329FGfeGy C9QLLtfvNcG1WbCFUxcGjr SoK7x6X8Vh0ZKGq2EQ88DE 38dMVxh6F4 mCC8W3NsUFRlalkrkfbelB Y4RVHgKHXrnC32Ui7paQyf Vb7qNHNlJAE9EYKvaZZkL1 UbbV8nRvSj ETEwDADwN6OntFUvRLwwN7 98BMwvFeP1UXIcdaPjK6Ai IWFofMlpFiZ2y0V8Sq8LVG YaFV33HJV9 fSL0JD80YN49S1EhZcpvcV FibGU+PHRhYmxlIHdpZHRo TGhwHTBrDcZumAolHH8uSt 9yZGVyLWNv qBidlXXvOsVog9ncNIAaQV ssWL7dsBqqT0YxtGB5BUZc o4q1Gp71H89kS8CusJN+PG BvcBE9sCS8 cX7uLjYjNyI2NPqwK153Po ImhOOwIbzyw1ybp7gbjQn6 RyS5QOPnrfOjeJzxITU8x1 QyTr33T45o IHdpZHRoPSIxNSUiIHZhbG upiu5quJ2zPz3+PGNvbCB3 oJU4eV9dIuTrXuH8DOvkE7 49InRvcCIv Pzfil0fgr8klbIn0ZyRyWR UnnvUlhZjjKUN2u8DaOd65 M7EjuQgbs6BjQzi2ro55jL Ulw2D6yFX4 R2XbVWTfpbdmdHOlsKrjOM 7sKZQjwmyaAASyoP1kTCLu Q2j5NvBrKhI7JTosM8Rcwh I7WPLjyMUl WPyeHUN7F25zs9K5LOYwRP HxDLA6gXQ4aN7reZkxuvxx bGVmdDsgdmVydGljYWwtYW riB501SHKz nRxkFXIpnN5eIYOtcLFkfU blAK5fRSUgegvvEziWQk2T HqJFLD4wSFDJK4rQXbMaXW wvdGQ+PHRk QGM3tDlfXWnqWUOgeP4vQS XyB7v6GhEtSfJ7NJueV0As HOTtwdggPt03gG3oYhNaWa F4NQkxO1Sf zvK5GJJveGScXPomOMA2G0 7dw1I1XLCuVTAxUKV8hIC5 wK5utJqwtitneRPapJtcwl VydGljYWwt IGhgL178INVkbUumBnQeCn F4CrS0MlV9B3PsXoe4YYJb zDfbGT9zhEXdVMngEb5fwB ysjRqeOF5p LMYargppWHOscL2iJLHcdU UhkBjdRS9sKRQmxnupj948 BkRsTJU7FWQyyNZdX6DouM 9yOiAjMDAw FXAyN5RddPCaQXieV094JD qgZoH2WYPdfeWtH6BjVTAm tCygVkZ2y8H3Ll73PFWYGY FyczwvdGQ+ OPErLIM0mYgtXKzlIFOxqT 7uTOHxO0k3LgChKuT5GQrt I8RmSRPjehvuQo88kP8wXd PmKrE8ZBvg P0BjnzE3ZUIrvSQdOVrjMA W1H77hg0U9YHBrIXIcUFJ6 oFI9tU1coYnmwppxrKNgaO sgdmVydGlj VOnxSGzyR602RKGqtZazRu 1XTII0S2CqPxn5AXSkmWel JZ2opDNfAFtyIg8rgTyriG nrEA5xTXDe sprbUIHoiJ7mXEBpnWJvyU vbLY9bSUBnbqpus502BzTs FQA4KDEibFWoF8FxsX9eIk AjMDAwMDAw B0NkbNXrMDlbE672XZkeRf A1HIBnclLaJ8XcUBFfhTro YaV6b4T6Pz6LGDxgyLQ+PC 80bs34W4Oq AiymZpw9UAHsMDU5cTJ4fO 3hIERiQGmlp4N0dKK8M4Pv cqVfbe4lx3ufYGMwRCqtT7 6ylQEfo6R3 DQKeuEO7LKTefRzpLgJqrW 93Oyc+XEOavRhvr3GkRkon w9gpe0djzGt5LhYoGCZfxc FsaWduPSJ0 n9ZcDi18Q49iQCleMXIqQR LiZDZpYLEasPisog2duX0j Ii8+SVZuaWE6uYK0qG2kTs ErAsN6VZvp K349IeNtnGOaQhnnn2ogd7 lxgJh9WlIuGIOtdhHsdJgg QRT8v2MpVx26Y3IksWozo5 KwJpi2le54 zZFtk8Q6wUE3O5IzESEbqj hquBMntBvaUW5aNWMittwt RMQwgP9bKNFqF4b2PzUiMq S3JFgfA8Ed ivH4ILVgxZJdPEDzoKLMcW 4torpdi1yiqxsrLrWtLJQl XGp8OEx6MAKluMkiTtLdMR O6CzF6JUR6 eQOfkD7whHtjyputyX9zEc c+MYi0b3ynzZOdAS5ypHW3 UY73GJ97hJRcr3P7jXN0Q8 BhZGRpbmct bqhthVX5RDLbMGFoyL12Mn 6ruZehSb2jOQXxMWU4RGNy yXMiZ6TjjH1sEbAfQLIsBR PaV2OcgVRv EDmzE732MGyqJmW2CCSwfc KkN9OyXUKyvUdsNjQ1q9O4 Hd6NFO59OP87NU93sRIsv7 F2aHT1T5Zw YFZojqvdeyirgYN8UJHeSF TzxK34Rz2vzIfyIo5qWSKv TTQ7QSEyaNRgE6OqzF3sGq AjMDAwMDAw M2JtvBOpCKapU568UYrtJu T7KFYpieMvD0QzFCOajKcy ZzF5q2S3Oy0RLf16FS57RJ 02mDWza9N5 wBN3E9JvVJEgkoscpmyqgB D1XPVsLNAxyL42Tq3bwZtu Ya4wXOQcLJS5IOHoaBEaW8 QzlQ0dIcLz QWWoUVZfE8LihJEpFFzmF6 02BZfyXxE6ONEguzMkG7Yn AONxxPxrIpX5h8L4Yu8ROL axomh1C1Wo PjwvdHI+AY77PJGiWQ61qO AvfFJre8wbpTb6PrQwFMUx ENF2xXuvRLpzu0ViBTXrB8 9nnBAgd1W7 IGN (more content not included)... [facility] Coding Summaryon 03-02-2023 Coding Summary HTMLBase 64 McjuvmbtUUj1lRp+PGhlYW Q+JW2MJPOpM36ffFAksG2R R8eWWY6FRBUENFFBOY7AVL 7zfQE6DYjsU6TvjdGh DqzxyDYmPQ46NCr9VNT2hF kcMZsvoI4uzLGpJ9o8JxZn CU28eQ21RUdlJXTqRaB7Lt ZpbjsgbWFy C5jdOtLezXMmEyx+PHRhYm xlIHdpZHRoPScxMDAlJyBz gWxwXL6rUa3kUQToLDZctZ xhcHNlOiBj y5hxCOVePNepEJ8bePabK5 MeoUN9GTAtl4r7Cj86sHD+ DPKwSFN4xHrrFLtkt071Ci Ked7szIRV6 iCZqBNrpHFW4V44sr8E0GF CsOSOhLNT3yYZ6cI1tzXaf wnfhI5ItrPPfApZ7GEN3dH YcsS4bdAmb zshpcV4nOgk+E56ZWF3DYW HBPD0NFrf7F5GzSozfvKF+ PA36REZzHD49eRKrtLDws1 dyjNv6WwDt VUQlESY9fXlyDYfbg3NaCN EcA27hlTLff7Y5RNLxyRue kMBrPkDfbDU5uS8iVOriqj jxg1blymor Zuxyf2vyjg12zX45V56pNB maNVCsXVG1LYVxNKWonFqp cs5mnR5pXn1+REuxm3vrn3 lctIy4XtPy UKUogdDdyViqLWB4m4XdTh 19Q7PqzIygx7NcZcj9ym99 aCPru5P0ySA6DEsiFRGlrK 2fACgkIsS4 WDXuJgItuT09mHYdYVzkLq 7lzKssoBjmMB4gXNPixtgu GVFapM6cMBUscOZmqTgdMS 4wNTBpbjtm b569LtEeAGX5MCOfuRTxD0 WhlW5rYnApVLSyYDQmF7Nf hMCrGMeyH416IFhqPxG6ZL LwyyZiF4Eu HTRdzTscVrM9e0I4Fx2Lb6 WgyecwSQM2HElgDDW7XsHu QyCvXgG4K0PhZlb3UJRmsR yrOK1pM7Np WUHqdvrpyezbvBF1SALzUO SjlM81bEZkDJslZe6wr0X7 j962RYNgZNGtsG13Lr0sqZ ogMTBwdCBU nX3ynyiau0eddbljYiCmRJ YsAGi3SXf6ZCRjaOvrCgEi CQZ3SlB5GHT6cPTqcB6nvU onzmniwK3j Oyc+A34tvW8bTZI9FSR2qp vlXTBpknQsGZ21NH35Y2Yp PjwvdGFibGU+PGRpdiBzdH guCC8lMlBn o8lbh1OwRSiaW3SdEYToXR ubUga4ACKhUGV2wFL3uD1p PPBjEBjqq1W1qGD4Z5Fxjm Cndz7jb5gs ZYJeTXmuH24tfQBdu0W8ZH IehVO6CHFouDacVmTkwM73 Oyc+NDWilWbxn5JiCgdlj5 sgk9jrxPm8 HdKrAPZcssRvbGncORJ4g4 ClSd22E58kOGdsXOGhPKIl QZFgUHCjwYmnvp3hoY6tNy 8+PGNvbCB3 yXE0wU9nRTPgOqK2GXgzB0 59CkNirUGdAvzgc3hiy6yz qYc3VrMtAZQgekLutAmpCV C9h7TzQv47 X68yCVpiWXXkDPPiOZYaRG CtlZstnt3psS1xRx9+PC9j a7grgi78qO82lTS+PHRkIH N7uNvhQKus VUZvjL2xFDzvNtN2WQDqMv IstX36tOAkJUteXg6irWlh mTapNZ5hPNAhtgsgl245Dw Htc8pgUDMw zZUnXZxlXBZ2H06yn6P4PR JiLXNrKKF9qMI4cM7dvYve bjogbGVmdDsgdmVydGljYW taMFycV637 IHRvcDsnPlBhdGllbnQgTm AaYGr7I8UyJda4BNPwiIrh WK3ubOGgXCqbOl6aeBefsB yjJG5eHLEw fkhuh810PxBav9dpWYAvuX KnZHkzUZQ8F29zq9W4KIAj DRIxJPK1aAD4kQ7fkZgxxv ogbGVmdDsg unLaoLohGAgdYYwtW298AD RvcDsnPkJpcnRoIERhdGU6 XY21KL81hPXwi0Y3bLC9M4 BhZGRpbmct nyovrVA9RTUxIXWihM66Bv 1giZpmDi3gWTOgREA2BPMr gBMmV3GxlK4bRnMrEWUqJO FiR7MaiWVy RMweQ261KJzvDvK1JCZpmt DzN7DxSOSkjYjpSbP1b5L2 Pf2ZX4N1GI84KB97xYAjt7 S4xVY2F4Lp EIGxxpgnsexraGO8YDNlEO OztE67Ef5enQkdGm7eGYCs WJQ1TLRnnXBvI3LxpI5hVj AjMDAwMDAw C2XneEJkABayM307QMusBo J3MTRengIcV4PcTVMlbIqm CrR1k3R0Dg4HAKc7QE63AZ 00mPXrd1K4 iFU1M6EkETGutxicbqxgrD S6BIApLPTrmJ68Kv6krHvl De6uHKTrLSL3PUEsoAOlD9 OccA9oWdMr WULkLNNzM5SylGAvKGyaC5 62CPohPuV6QHPyhxRgH9Pf HXSwmPcyXyV2k4H4Ls2HAL EsHK05BHD9 nEL6IL41BX98G4FzUuivmM FibGU+PHRhYmxlIHdpZHRo EWdqRSXoElSuqLluSY6zFk 9yZGVyLWNv pYsqqNAwEcGam5giTBSbKU eeTH5etRurE9BdyBM2TVPa g1a3Nn97K69vW0QzyGR+PG QziHP1hCQ8 yK8oJgMsYoA3ULlxQ537Mw MsnNUqZycbz3adw6jgbAw4 CwW3ITNabdDojVjlQNZ6p6 PsWf70W47z IHdpZHRoPSIxNSUiIHZhbG mymv4dmN4kQz5+PGNvbCB3 kBS4eJ3hNnGoAbA5OEbtR1 49InRvcCIv Tfynh4wtz3bmbUh2GmQdWK IlotCfoCrwIAK5e4OdQs44 W5KzdEqok9XzWam7az93gV Ola3X8hWQ0 T5GfWVYrduzqtAEsdDdsNH 4wBTSyxwtfJBHhbD6pUKSy F5b1UmZvPzU0LFfyE8Uszq A7XMLovOHl LQwmDGU9B96hz0R5ZNYtHZ SxYPT3eFG3kQ3aeRrzsamq bGVmdDsgdmVydGljYWwtYW vvB573BJZz vBasHAJhnE9cWALypERcdQ uzKT3iSFFqwwxgKfvUKn4H YwZVYT1lAJBFU0hKMaPeGC wvdGQ+PHRk KBZ1zSjmNMbrQDDftR9xFY ToY8c2ZxBnJqY2ZOpqJ5Uh IJForyusCb17rV9pLnIgZf A1MOdjP2Qa szD2JYKziFBvVIkbTRY4H1 5xh5X1BVUgXFHgOKH4oDV5 eP7kfMvugdfjpBCqzIehum VydGljYWwt LMghQ918CLXooWdyWsIuHl A1LhE4JyE1M7MoZxm4NWEn cHczOF9mbWJyOHcpXa3qrY ktjCotNZ3a KSNtgzemJYVwcW2cCYTaaM DheTzgPO0kPOKnwuxri370 QzYqZQE4RNBboWKfS9VgbD 9yOiAjMDAw VLMiY9IqtAJrAItzJ420QP brZeY5CGMegsDwH0RqFSIu mIgtGrE7f6Z8Ip23GLGSLB FyczwvdGQ+ YAOiPCM3gCbsVQdlKOIbkL 4xQMHpS9g4WxFeTfM5SJau I9RhPBMyualsNy16uW9oIx JiDsX4SCjc R3LlpjH5FYIkjEBpUHqyRA I6X89ff2T0VPMdYUYgJMB3 uYZ1tL4hbJyckkydjRBkbB sgdmVydGlj ZLjfYBlkM432UYBlsIlmJj 4BLJU8M4GdUgi2EBPqfJuk HP7syWPvLVzyDf4qeKiseB okYR0sYQRs jwgoOQBvaT1fWBImkHLdoF gsTZ6rJKPadnrky763TsVb VTM4RMByhLFsH1PzgW7hQb AjMDAwMDAw Z2LdzSCeJAhcA839DVrsMl D1ZELfyrNhM0NnSDLmzQye XoZ8b3B0Vc7DXGyzfES+PC 02bk97W1Vs SbiiYuo7OOLiJUU3tYG1oR 8oMWYsWUweq6P5zWL0B3Rd joUcvk7zc0pmYFLuLVmfM6 0pcRGqk7S6 JGPjsUA1GWWouQveGtRrmC 93Oyc+IPCxlTriu9PuWzvt s2dfy7urbFt9XsOqQOApqj FsaWduPSJ0 l1EhCp12O62rKVxsCUMcJK LuFECmXJIfhGbhqi1vbC8w Ii8+UDEbeCV4sGM0aF4iUm OpXuE1LJje T764GrBgbFYsIxutz9acz9 ngkCp2UkPpUPLdcwZieJnb PPY6l8LuHa09P9RvjZeuy3 IeQvp9zv10 rSLcx2Y3jOU9X7ZbOOUira vcdZQsgXebBD7fEJZdzewz VKUvqE3iOQJxY3x7NnPtOh T0JTvxG3Fc xzB8DPCiqHYmSYQbpORJkU 0nbeuln3jybhbpZyUlOPSp UAv2VGd4AHJshAweXjRiEG W3QeH1NPX5 bMJzuV5kgYnuyrcwoT6fCr c+WGs6p2redWZvGY7tgBS4 BI57FS55cASqd3J1dXG2M9 BhZGRpbmct fvuxwKW5YOSmNXBucH87Vx 4kyKseBz9iLCKuRHU8GJQs fHMcM1KbsN7vOfZgZPPiWJ ZcG9NmrHWu SFmyT519TNasZaB7FWZspo YfS6LqMGYwdShtWvO8q2O3 Al3UQR10WK78JL65pUKol3 F9cBF8H8Cl XTHzdnghiftgeXR2KRWiLC XwpZ26Zr7gcGdkOn9pFXTl HFM5VHNviZIyX8QgpC1eMs AjMDAwMDAw Y9AlrEPcKJwyS375VYfsXs W3QSQjksAfE3KxGOMtpIhn SdN6u3M4Zm1FJb74RC81WL 09hZVpg4W2 vJZ9H1QuPWHnmvlndaqlhT Z3AFZeYEUdmR20Gi2exSng No5zNYCnFUI8AFRdkHSvL7 OwwI5xUvUd HBOtVSJjN6VvdWWeLRndQ7 05JCgbOeV5ICJggwHvO0Ro YGLyiZrpIzI8e8E9Om0TRB gmswk8H2Jj PjwvdHI+ML88PKAeAZ12gE QjtWLhu6uhfYh9YsFiLKLg GVM3jVnnOChef1LhCCYvX1 0uyIYar9A4 IGN (more content not included)... [facility] Wound Cultureon 02-19-2023 Wound Culture left lower leg, , 02-17-23 6319 Scant growth of Escherichia coli and Moderate growth of Staphylococcus aureus 2+ Gram Positive Cocci ORGANISM EC SA --- SUSCEPTIBILITY -- ORGANISM ID: 1 ANTIBIOTIC INTERPRETATION ANA MARÍA STATUS ORGANISM ECEC Amik S <=16 Verified Amox/Cla S <=8/4 Verified Amp S <=8 Verified Amp/Sul S <=8/4 Verified Azt S <=4 Verified Cefaz S <=2 Verified Cefep S <=8 Verified Cefo S <=2 Verified Ceftaz S <=1 Verified Ceftri S <=1 Verified Cefur S <=4 Verified Ceph <=8 Verified Cipro S <=1 Verified Ertap S <=0.5 Verified Gent S <=2 Verified Imi S <=1 Verified Levo S <=2 Verified Nitro <=32 Verified Pip/Melquiades S <=16 Verified Tetra S <=4 Verified Tobra S <=4 Verified Tri/Sulf S <=2/38 Verified --- SUSCEPTIBILITY -- ORGANISM ID: 2 ANTIBIOTIC INTERPRETATION ANA MARÍA STATUS ORGANISM SASA Amox/Cla S <=4/2 Verified Amp Nick 8 Verified Amp/Sul S <=8/4 Verified Ceftri S <=8 Verified Cipro S <=1 Verified Clinda S <=0.5 Verified Dapto S <=0.5 Verified Eryth I 4 Verified Gent S <=4 Verified ICd Neg <=4/0.5 Verified Levo S <=1 Verified Linez S 2 Verified Nitro <=32 Verified Ox S <=0.25 Verified Pen Nick >8 Verified Rif S <=1 Verified Tetra S <=4 Verified Tri/Sulf S <=0.5/9.5 Verified Vanc S 2 Verified Normal [facility] Comment on above: Performed By: #### [id number] ####[facility] (DEFAULT)[address] [place] [address] OPIATE/OPIOID/BENZO EXTENDED PRESCRIPTION COMPLIANCEon 02-17-2023 6-ACETYLMORPHINE <25 Normal Cutoff <25 [facility] Comment on above: Performed By: #### D SBOP #### [facility] [address] [place] [address] 7-AMINOCLONAZEPAM <25 Normal Cutoff <25 [facility] Comment on above: Performed By: #### D SBOP #### [facility] [address] [place] [address] ALPHA-HYDROXYALPRAZO MCCORMICK <25 Normal Cutoff <25 [facility] Comment on above: Performed By: #### D SBOP #### [facility] [address] [place] [address] ALPHA-HYDROXYMIDAZOL AM <25 Normal Cutoff <25 [facility] Comment on above: Performed By: #### D SBOP #### [facility] [address] [place] [address] ALPRAZOLAM <25 Normal Cutoff <25 [facility] Comment on above: Performed By: #### D SBOP #### [facility] [address] [place] [address] CHLORDIAZEPOXIDE <25 Normal Cutoff <25 [facility] Comment on above: Performed By: #### D SBOP #### [facility] [address] [place] [address] CLONAZEPAM <25 Normal Cutoff <25 [facility] Comment on above: Performed By: #### D SBOP #### [facility] [address] [place] [address] CODEINE <50 Normal Cutoff <50 [facility] Comment on above: Performed By: #### D SBOP #### [facility] [address] [place] [id number] DIAZEPAM <25 Normal Cutoff <25 [facility] Comment on above: Performed By: #### D SBOP #### [facility] [address] [place] [address] EDDP,U <25 Normal Cutoff <25 [facility] Comment on above: Result Comment: The performance characteristics of the Methadone Confirmation, Urine has been validated by the individual laboratory site where testing is performed. It has not been cleared or approved by the FDA. However the FDA has determined that such clearance or approval is not necessary. Our Laboratory is certified under the Clinical Laboratory Improvement Amendments of 1988 (CLIA) as qualified to perform high complexity clinical laboratory testing. Performed By: #### D SBOP #### [facility] [address] [place] [id number] FENTANYL CONFIRM,U <2.5 Normal Cutoff<2.5 [facility] Comment on above: Performed By: #### D SBOP #### [facility] [address] [place] [id number] HYDROCODONE 459 ng/mL Abnormal Cutoff <25 [facility] Comment on above: Result Comment: Cons istent with metabolism of codeine. May also reflect independent use of a drug containing hydrocodone. Low concentrations may reflect impurity of a drug containing oxycodone or hydromorphone. Performed By: #### D SBOP #### [facility] [address] [place] [id number] HYDROMORPHONE 107 ng/mL Abnormal Cutoff <25 [facility] Comment on above: Result Comment: Cons istent with metabolism of codeine, morphine, and hydrocodone. May also reflect independent use of a drug containing hydromorphone. Low concentrations may reflect impurity of another drug such as oxymorphone. Performed By: #### D SBOP #### [place] [address] [place] [address] LORAZEPAM <25 Normal Cutoff <25 [facility] Comment on above: Performed By: #### D SBOP #### [facility] [address] [place] [address] METHADONE,U <25 Normal Cutoff <25 [facility] Comment on above: Performed By: #### D SBOP #### [facility] [address] [place] [address] MIDAZOLAM <25 Normal Cutoff <25 [facility] Comment on above: Performed By: #### D SBOP #### [facility] [address] [place] [address] MORPHINE <50 Normal Cutoff <50 [facility] Comment on above: Performed By: #### D SBOP #### [facility] [address] [place] [address] NORDIAZEPAM <25 Normal Cutoff <25 [facility] Comment on above: Performed By: #### D SBOP #### [facility] [address] [place] [address] NORFENTANYL CONFIRM,U <2.5 Normal Cutoff<2.5 [facility] Comment on above: Result Comment: The performance characteristics of the Fentanyl Confirmation, Urine has been validated by the individual laboratory site where testing is performed. It has not been cleared or approved by the FDA. However the FDA has determined that such clearance or approval is not necessary. Our Laboratory is certified under the Clinical Laboratory Improvement Amendments of 1988 (CLIA) as qualified to perform high complexity clinical laboratory testing. Performed By: #### D SBOP #### [facility] [address] [place] [address] NORHYDROCODONE 472 ng/mL Abnormal Cutoff <25 [facility] Comment on above: Result Comment: Norh ydrocodone is a metabolite of hydrocodone; consistent with use of a drug containing hydrocodone. Hydrocodone may also be a metabolite of codeine or an impurity of oxycodone. Performed By: #### D SBOP #### [facility] [address] [place] [address] NOROXYCODONE <25 Normal Cutoff <25 [facility] Comment on above: Performed By: #### D SBOP #### [facility] [address] [place] [address] O-DESMETHYLTRAMADOL, U <50 Normal Cutoff <50 [facility] Comment on above: Result Comment: The performance characteristics of the Tramadol Confirmation, Urine has been validated by the individual laboratory site where testing is performed. It has not been cleared or approved by the FDA. However the FDA has determined that such clearance or approval is not necessary. Our Laboratory is certified under the Clinical Laboratory Improvement Amendments of 1988 (CLIA) as qualified to perform high complexity clinical laboratory testing. Performed By: #### D SBOP #### [facility] [address] [place] [address] OXAZEPAM <25 Normal Cutoff <25 [facility] Comment on above: Performed By: #### D SBOP #### [facility] [address] [place] [address] OXYCODONE <25 Normal Cutoff <25 [facility] Comment on above: Performed By: #### D SBOP #### [facility] [address] [place] [address] OXYMORPHONE <25 Normal Cutoff <25 [facility] Comment on above: Result Comment: The performance characteristics of the Opiate Confirmation, Urine has been validated by the individual laboratory site where testing is performed. It has not been cleared or approved by the FDA. However the FDA has determined that such clearance or approval is not necessary. Our Laboratory is certified under the Clinical Laboratory Improvement Amendments of 1988 (CLIA) as qualified to perform high complexity clinical laboratory testing. Performed By: #### D SBOP #### [facility] [address] [place] [address] TEMAZEPAM <25 Normal Cutoff <25 [facility] Comment on above: Result Comment: The performance characteristics of the Benzodiazepine Confirmation, Urine has been validated by the individual laboratory site where testing is performed. It has not been cleared or approved by the FDA. However the FDA has determined that such clearance or approval is not necessary. Our Laboratory is certified under the Clinical Laboratory Improvement Amendments of 1988 (CLIA) as qualified to perform high complexity clinical laboratory testing. Performed By: #### D SBOP #### [facility] [address] [place] [address] TRAMADOL CONFIRM,U <50 Normal Cutoff <50 [facility] Comment on above: Performed By: #### D SBOP #### [facility] [address] [place] [address] ZOLPIDEM METABOLITE[ZCA] ,U <25 Normal Cutoff <25 [facility] Comment on above: Result Comment: The performance characteristics of the Zolpidem Confirmation, Urine has been validated by the individual laboratory site where testing is performed. It has not been cleared or approved by the FDA. However the FDA has determined that such clearance or approval is not necessary. Our Laboratory is certified under the Clinical Laboratory Improvement Amendments of 1988 (CLIA) as qualified to perform high complexity clinical laboratory testing. Performed By: #### D SBOP #### [facility] [address] [place] [address] ZOLPIDEM,URINE <25 Normal Cutoff <25 [facility] Comment on above: Performed By: #### D SBOP #### [facility] [address] [place] [address] Coding Summaryon 02-16-2023 Coding Summary HTMLBase 64 KpfgfyoyRAa2xNf+PGhlYW Q+EF6FFSWhO32knMLphL6G R6tGPJ9PLABRJKHBJB2LQI 8xlKG6JDnkY0OeklQl FbcxcPOaVL50OIe1EQD3uX ojIQbgnV8bkRCbL8s5OgMe ES48gU22ZEzsSUJlFqC4Jj ZpbjsgbWFy Y2eiWrPjgJZdCrd+PHRhYm xlIHdpZHRoPScxMDAlJyBz sBwmAS1gJc0yIYRvECDhtY xhcHNlOiBj g7xoUQWxKOhzMD2fgVguL2 JgkIQ5BSYqa7w2Cw75sKX+ RXHaGUF2iXbcSRwml900Kq Qwz4qjGFE9 tLQtUHrgYGK6Y73ou3Y3XB ZuHRWsGVA3tUG5aW0eyZhg bsgnR5PgpXFvPuG2ZTY1bZ JvvO7meXbf hbhyxU8fCfq+E61EER2NPA VFQZ5HVcz7B0RvXulwmNT+ UL25MAWgMS94bUDxnVQnc5 fncTm2YxKu GLWbKPV0gTxfYQozl1HsHE EpF81wqQLzz9P2SYVbyTio xWStIkQsmBK1iZ9wKZcoqn ejp6fxftpi Biscp9ncpd17nQ64V92lCE aiOLOtSPP8REAuOILsvDng hf3jjM3aLx7+UIndd5dda3 oksLg0RuRj YPSbvuSnqQngKHG9s3NnRn 69M9DcyHzai7DiGwi6di44 rJItg5F6sFX2WNbzAULihY 7wQVveFiG0 ORKnMwTysL92tPEiWMkyWs 5scDhcaLtaPD4zMWDhmwxt RVVrsS7pJKTnuSDkyHyxRH 4wNTBpbjtm w383XwEcTRT0PDHcgMXgA2 FwkW3fEgJhPEQkFSIoB0Zv sHJgQBlfQ816USbiOiZ3VT HeoxYmH4Xe MKBshAegAvU2v5X3Zu9Qk4 JmrofkUPS7NCnrOPHaYfZ7 WgBhHxN0H1QjIng1MXGsnA twLH9bR9Cq EENglywuummwfNR0UVSxKE UmcF44oJFlQEjpAm9ob2M2 t378OZTfIWEhwM29Yx0vfS ogMTBwdCBU sZ3oifhtj0jjtbzmAaYdFX WkDEj8DTp9NCTqnZjoGjIy SUD4IkL3HDG3oKArzZ2uoC ralzihoU4q Oyc+N55daX6tNMC6YZP8ky ijJITitxQfVR25PN69E8Ty PjwvdGFibGU+PGRpdiBzdH qlTD9sCzSt c7vdn7GcPOgyH4SmZMIaJG zsMmh6IQMlKVH7iUR2dI7h FAOyCFwhq8H0xAN3V8Xshq Exkw6fw9ry HDOvETvnX00ztZCrh3W6QZ WjxEL1VDZdwVlrPaOtyZ34 Oyc+MTTukZblr1NeDopda6 dqf9gzfFs1 DoBvFFStqmVsxNsjIUX1f4 SvCb24A99hYPfmENFrLIBw XZGhBOGxaTjhfa3tmF4pVx 8+PGNvbCB3 kOF2lX0wKOTcOlH6AYqsC5 36WiZpnCXdJuljg0uls2im lJx9SbElYYHphjSuqVmyRH Y5u2FsWy02 A11gKYjxLEFjQUDaTBJpDC JqiIsxcw3nxF0lXh3+PC9j j6vkzo18nK69cBA+PHRkIH R1bIeqYLpo NJIwwK6kNLuyImB0UKUlUc UixE82hHAzWNxdUu7bmBje xTjiZV5eIBCyntxap043Hr Oad4qfEEOs aFNoDVkvDNM2O91hk8M1WZ ScLFQhNLA8gQS9oU6hmViv bjogbGVmdDsgdmVydGljYW cuKOakO310 IHRvcDsnPlBhdGllbnQgTm CsYHr5M7LnRlu5ESEviXjj UZ9jwMPgMRzqAh4upElkiC giEF2uXXTj kwnqk644VfSqi9txUFHcsC KrUOmnLGC4E41sz6F6WSLc ZMSzSJN6zKA2sY2oeDodhq ogbGVmdDsg xwKklGjuYVozQKcuV126BF RvcDsnPkJpcnRoIERhdGU6 NS46XG64qHCjf1U4fYV1P8 BhZGRpbmct lpsmkYL9XAYaXSPlnQ95Hm 1fhVvfNx9jVOCjVRH0YPOv eKAuH7QhyM2kFaXcMJJdXH XtI2HpxKDb LSkgJ927LVvkHeM5VUPwqu SwU6YkGDRgdCibHoJ9d3T3 Rg7EY7Y7JC69IM08uIVwu6 Q0oHF6S4So SHQbxtrykzhyiMW4SRCyNY BvzY13Af7ohXklFo7oRQLy LGA7OTTtwWZjH1ZylG9fWv AjMDAwMDAw J4ElvDHjMFrhF475OSunVt Q6JDMvelXuN5WsFNJcqKyt ToY4x3Y0Po2JBXk7ES73CW 03lNMvd1P1 fOC9H2JkNCVwnkmiiwoqjZ Y9SSHkVNJlwD45Aw0fpJux Uo5iRNWxACB9ASJjpUBqX4 JjkT6iMaXz ZOImKRBwE9XznBQeJUuqB5 39MFiqEbQ8BODbpeRcG8Ul QZZtvSeaSfR7u5V1Ze2BAU UhMS54OGB4 kQY0SO56SK01Q5DwOgycpC FibGU+PHRhYmxlIHdpZHRo OTqxLPXjBrKlgIkrMT6eGf 9yZGVyLWNv zXkwsKRpCqEzf7auXGFvMR ogGE8lcRpeS6ErgRK9LUVr n3g2Ge52S68dF3VpnMD+PG OkrLG9mBG9 kE3uAsKmXjC6ORjyV690Lh HouQQjEqvet2tzx2oiuRj9 SmA6GGPedmMxwMibPCV9z4 JeUe59L23h IHdpZHRoPSIxNSUiIHZhbG dqpc5dnW6lAg0+PGNvbCB3 iXJ1eH0iVpCyOtS5ITjsV2 49InRvcCIv Gwvhz0lzx3jwbCl6DyOxKR SyqqDiqPlgEYQ2k7ZzLi65 H1BpxOcex5ExKqp9ab94pB Bta9P7zYD1 Y5WwIQQbkqiuvOKkgQdfAG 8aQCQmdlqwSDWsoP5aRJKk C9d1XaGdJzK2BTlmV8Ejml D1IHEuvNZo AQfpQTP3V84qc6B2FJAxAO DpPJU0oKM6dR8omBtmeuyp bGVmdDsgdmVydGljYWwtYW gbB447XODq wMawAXIqwU3hCAUdzGQarY jfAV5jZYNgfphsJfvSEs6R DeEQNA3kSEFES8dYAuUlKK wvdGQ+PHRk YCI9pGuiZMfiHTOmhX9jXO TfY4v2OuIpAnI3YHwvF8Qh FLKbqxirCd40qI2oMfDiMd E3ELckE1Gc fzB0HDEfbRLzCYirTGV6O0 3xw9G0AZJgUJHyPEL2mKG4 aJ1vgPiyaatnvTLybYdqto VydGljYWwt LMbeJ019UGRhkXhfHePmVa X4KgB1ZqX6U6NzCgo1UHNs mQajUZ8zmASaIKszOw7rhK oadHvwGJ2d BQAodcthZAXaeZ0oWWRufG UcqGdfQR2fHMZorqkxv865 WrPrXCA7ZOTzmNWiF0AiwR 9yOiAjMDAw AMDwE3KqjFTbYGvxL166LN alWjQ6NHNuljQlS9AbQAAj cRulKeE8g9M4Nf61NFUOYV FyczwvdGQ+ YRBqVIC0dCrvSZejSYQfrC 4rEYIpE4p0TrNoNvK0EPhz E8DlRLYlyoaoGe24jW9xFl MrAjE8CVgm N0OpugU1BPHbrGUzRKyvGD A1X23zl1O3DKHgEDVuYVH1 pEU5iZ2udEziikdutSEmvD sgdmVydGlj LNemPBmuW723KSVjzUxvNw 6HQWY8E8CxKub5AWCsxOsv SZ6keIBuEQanVf6viFgjuR vyTD3dERPs edlpTRLutI5nMWRiqVWqfP osXV9dHPIvuuqzf250TfJu RJA0YZBunWQbU0HedR5zCh AjMDAwMDAw J5GyyUQiAWzxY127PPlfRb Y7HMGcclBiZ9LbNIArqHwa JgS3h8U5Qp3BENcnqTN+PC 69yn50Y3Me VuacLec1MDRkZEQ5eXJ9nM 9gUIMzELlmt6I9qDE3K2Uj rhRpfp1bn0luATPuEBsgV6 5ujICda0X9 OKYmgWV1UHFbwQniEtBdnP 93Oyc+MVZcxIttz2BcAkir w3fyo6oviJw5ZwLbGYHoiq FsaWduPSJ0 l3FmOx80U87iKTjqBXZtER NgFEPfETIomKfsey8lzU6t Ii8+GFNypYF1zZI2fL3iGj WkReZ7TXih D521HyQliLIgKanec7cbp5 ovcSp4TjXgEPLiorSzhLgd QIL7m1SxRg33W1LbtSjva0 YaTcv5rz70 zZUgk6P7mVF5D6WhAFZlrf awvLUbsSfjQK1oXDPjweju RHClwD8eXPHwP7r4DrItSn C3MOmjY7Fw clF1WZKrhOUzAETboCGWzV 8gnwdbp6vusgqlYvWfHZYc ZNr9CGo1IALzhJxgIbRcLC B0WgV4VVW5 eFCmuA2fyDliqujnyW1gSw c+MLf7y0nbjZTnTG9wrOY6 IO58UB80rIMft5G7hUI7Z2 BhZGRpbmct uceymOG8ZRIwTCMqiB67Yc 4yeYjkRn7lIGPhFTF6XHSi zZTmK2ZjdY0fMlPeYZGcMI HqF3SgrWXy UHwaM719LJgqMiS3ZLEcae ErN2XdCRPajObjNeI9v6A1 Bs1BLX02UH18AA52tJRkq7 T8uEI5K6Pg SUMmyltulaszpXJ1QSSoSX RgfJ77Cp9ewKnlHv7eYFQe PKX1EWWqgPPgY2HvnP0hWc AjMDAwMDAw X8HtqEWbEInbS302KIrsNp E6YTWlmgBdO9UmIHXoaHwt JvX8z3P5Sk0ISs32KU70FH 01nQJsd9P5 yXP4Q5AeRNOepuefygpssS F3DUPbSHManH25Ln6jxQdj Rz7cJGLgNBJ9OHMolAByK3 NbpI7xXxAi YEOtUFCuY7DokVCeBKogJ5 96WLtfWsG7IHAxzmDgX8Hi WGFqkTrmYqU6j3N8Hp3OPW isbcm5D8Bd PjwvdHI+XW36RIKcWF67zL GmcBFzr8ksuVk0CfCkDLSy JIU6eRjaCJncm6TxCQVjJ9 4svWTto5O8 IGN (more content not included)... Normal [facility] OPIATE/OPIOID/BENZO EXTENDED PRESCRIPTION COMPLIANCEon 02-15-2023 AMPHETAMINE SCREEN,U Negative Normal NEGATIVE [facility] Comment on above: Result Comment: CUTO FF LEVEL: 500 NG/ML Cross-reactivity has been reported with high concentrations of the following drugs: buproprion, chloroquine, chlorpromazine, ephedrine, mephentermine, fenfluramine, phentermine, phenylpropanolamine, pseudoephedrine, and propranolol. Performed By: #### D SBOP #### [facility] [id number] [place] [address] BARBITURATES SCREEN,U Negative Normal NEGATIVE [facility] Comment on above: Result Comment: CUTO FF LEVEL: 200 NG/ML Performed By: #### D SBOP #### [facility] [address] [place] [address] CANNABINOIDS SCREEN,U Negative Normal NEGATIVE [facility] Comment on above: Result Comment: CUTO FF LEVEL: 50 NG/ML Performed By: #### D SBOP #### [facility] [address] [place] [address] COCAINE METABOLITE SCREEN,U Negative Normal NEGATIVE [facility] Comment on above: Result Comment: CUTO FF LEVEL: 150 NG/ML Performed By: #### D SBOP #### [facility] [address] [place] [address] Creatinine [Mass/Vol] 48.5 mg/dL Normal [facility] Comment on above: Result Comment: A ur ine creatinine result >= 20 mg/dL is considered valid without suspicion of dilution. Samples with results below this range will automatically reflex to specific gravity testing to verify specimen integrity. Performed By: #### D SBOP #### [facility] [address] [place] [address] DRUG SCREEN COMMENT. SEE BELOW Normal [facility] Comment on above: Result Comment: Drug screen results are presumptive and should not be used to assess compliance with prescribed medication. Definitive confirmatory drug testing has been added to this sample for any positive screen result and will be reported separately. . Toxicology screening results are reported qualitatively. The concentration must be greater than or equal to the cutoff to be reported as positive. The concentration at which the screening test can detect an individual drug or metabolite varies. The absence of expected drug(s) and/or drug metabolite(s) may indicate non-compliance, inappropriate timing of specimen collection relative to drug administration, poor drug absorption, diluted/adulterated urine, or limitations of testing. For medical purposes only; not valid for forensic use. . Interpretive questions should be directed to the laboratory medical directors. Performed By: #### D SBOP #### [facility] [address] [place] [address] PCP SCREEN,U Negative Normal NEGATIVE [facility] Comment on above: Result Comment: CUTO FF LEVEL: 25 NG/ML Cross-reactivity has been reported with dextromethorphan. Performed By: #### D SBOP #### [facility] [address] [place] [address] Heart Rateon 02-14-2023 Heart Rate Regular [facility] DO Work Phone: Heart Rate Normal [facility] DO Work Phone: Heart Rate Adult [facility] [facility] DO Work Phone: Laboratory - Chemistry and C hemistry - challengeon 02-14-2023 Creatinine (Body fld) [Mass/Vol] 48.5 mg/dL [facility] [facility] DO Work Phone: Comment on above: A urine creatinine r esult >= 20 mg/dL is considered valid without suspicion of dilution. Samples with results below this range will automatically reflex to specific gravity testing to verify specimen integrity. Laboratory - Drug toxicology on 02-14-2023 1-Hydroxymidazolam Confirm (U) [Mass/Vol] <25 Cutoff <25 [facility] DO Work Phone: 8-Gimadfewku-8,5-Dim ethyl-3,3-Diphenylpy rrolidine (EDDP) Confirm (U) [Mass/Vol] <25 Cutoff <25 [facility] [facility] DO Work Phone: Comment on above: The performance donovan acteristics of the Methadone Confirmation, Urine has been validated by the individual laboratory site where testing is performed. It has not been cleared or approved by the FDA. However the FDA has determined that such clearance or approval is not necessary. Our Laboratory is certified under the Clinical Laboratory Improvement Amendments of 1988 (CLIA) as qualified to perform high complexity clinical laboratory testing. 6-Monoacetylmorphine (6-CESAR) Confirm (U) [Mass/Vol] <25 Cutoff <25 [facility] DO Work Phone: 7-Aminoclonazepam Confirm (U) [Mass/Vol] <25 Cutoff <25 [facility] [facility] DO Work Phone: Alpha hydroxyalprazolam Confirm (U) [Mass/Vol] <25 Cutoff <25 [facility] DO Work Phone: ALPRAZolam Confirm (U) [Mass/Vol] <25 Cutoff <25 [facility] [facility] DO Work Phone: Amphetamines Screen Ql (U) Negative NEGATIVE [facility] [facility] DO Work Phone: Comment on above: CUTOFF LEVEL: 500 NG /ML Cross-reactivity has been reported with high concentrations of the following drugs: buproprion, chloroquine, chlorpromazine, ephedrine, mephentermine, fenfluramine, phentermine, phenylpropanolamine, pseudoephedrine, and propranolol. Barbiturates Screen Ql (U) Negative NEGATIVE [facility] [facility] DO Work Phone: Comment on above: CUTOFF LEVEL: 200 NG /ML Benzoylecgonine Screen Ql (U) Negative NEGATIVE [facility] [facility] DO Work Phone: Comment on above: CUTOFF LEVEL: 150 NG /ML Cannabinoids Screen Ql (U) Negative NEGATIVE [facility] [facility] DO Work Phone: Comment on above: CUTOFF LEVEL: 50 NG/ ML chlordiazePOXIDE Confirm (U) [Mass/Vol] <25 Cutoff <25 [facility] DO Work Phone: clonazePAM Confirm (U) [Mass/Vol] <25 Cutoff <25 [facility] DO Work Phone: Codeine Confirm (U) [Mass/Vol] <50 Cutoff <50 [facility] [facility] DO Work Phone: diazePAM Confirm (U) [Mass/Vol] <25 Cutoff <25 [facility] DO Work Phone: fentaNYL Confirm (U) [Mass/Vol] <2.5 Cutoff<2.5 [facility] DO Work Phone: HYDROcodone Confirm (U) [Mass/Vol] 459 ng/mL Abnormal Cutoff <25 [facility] DO Work Phone: Comment on above: Consistent with meta bolism of codeine. May also reflect independent use of a drug containing hydrocodone. Low concentrations may reflect impurity of a drug containing oxycodone or hydromorphone. HYDROmorphone Confirm (U) [Mass/Vol] 107 ng/mL Abnormal Cutoff <25 [facility] DO Work Phone: Comment on above: Consistent with meta bolism of codeine, morphine, and hydrocodone. May also reflect independent use of a drug containing hydromorphone. Low concentrations may reflect impurity of another drug such as oxymorphone. LORazepam Confirm (U) [Mass/Vol] <25 Cutoff <25 [facility] DO Work Phone: Methadone Confirm (U) [Mass/Vol] <25 Cutoff <25 [facility] DO Work Phone: Midazolam Confirm (U) [Mass/Vol] <25 Cutoff <25 [facility] DO Work Phone: Morphine Confirm (U) [Mass/Vol] <50 Cutoff <50 [facility] DO Work Phone: Nordiazepam Confirm (U) [Mass/Vol] <25 Cutoff <25 [facility] DO Work Phone: Norfentanyl Confirm (U) [Mass/Vol] <2.5 Cutoff<2.5 [facility] DO Work Phone: Comment on above: The performance donovan acteristics of the Fentanyl Confirmation, Urine has been validated by the individual laboratory site where testing is performed. It has not been cleared or approved by the FDA. However the FDA has determined that such clearance or approval is not necessary. Our Laboratory is certified under the Clinical Laboratory Improvement Amendments of 1988 (CLIA) as qualified to perform high complexity clinical laboratory testing. Norhydrocodone Confirm (U) [Mass/Vol] 472 ng/mL Abnormal Cutoff <25 [facility] DO Work Phone: Comment on above: Norhydrocodone is a metabolite of hydrocodone; consistent with use of a drug containing hydrocodone. Hydrocodone may also be a metabolite of codeine or an impurity of oxycodone. Noroxycodone Confirm (U) [Mass/Vol] <25 Cutoff <25 [facility] DO Work Phone: Nortramadol (U) [Mass/Vol] <50 Cutoff <50 [facility] DO Work Phone: Comment on above: The performance donovan acteristics of the Tramadol Confirmation, Urine has been validated by the individual laboratory site where testing is performed. It has not been cleared or approved by the FDA. However the FDA has determined that such clearance or approval is not necessary. Our Laboratory is certified under the Clinical Laboratory Improvement Amendments of 1988 (CLIA) as qualified to perform high complexity clinical laboratory testing. Oxazepam Confirm (U) [Mass/Vol] <25 Cutoff <25 [facility] DO Work Phone: oxyCODONE Confirm (U) [Mass/Vol] <25 Cutoff <25 [facility] DO Work Phone: oxyMORphone Confirm (U) [Mass/Vol] <25 Cutoff <25 [facility] DO Work Phone: Comment on above: The performance donovan acteristics of the Opiate Confirmation, Urine has been validated by the individual laboratory site where testing is performed. It has not been cleared or approved by the FDA. However the FDA has determined that such clearance or approval is not necessary. Our Laboratory is certified under the Clinical Laboratory Improvement Amendments of 1988 (CLIA) as qualified to perform high complexity clinical laboratory testing. Phencyclidine Ql (U) Negative NEGATIVE [facility] DO Work Phone: Comment on above: CUTOFF LEVEL: 25 NG/ ML Cross-reactivity has been reported with dextromethorphan. Temazepam Confirm (U) [Mass/Vol] <25 Cutoff <25 [facility] DO Work Phone: Comment on above: The performance donovan acteristics of the Benzodiazepine Confirmation, Urine has been validated by the individual laboratory site where testing is performed. It has not been cleared or approved by the FDA. However the FDA has determined that such clearance or approval is not necessary. Our Laboratory is certified under the Clinical Laboratory Improvement Amendments of 1988 (CLIA) as qualified to perform high complexity clinical laboratory testing. traMADol Confirm (U) [Mass/Vol] <50 Cutoff <50 [facility] DO Work Phone: Zolpidem (U) [Mass/Vol] <25 Cutoff <25 [facility] DO Work Phone: No Panel Informationon 02-14 <25 Cutoff <25 [facility] DO Work Phone: Comment on above: The performance donovan acteristics of the Zolpidem Confirmation, Urine has been validated by the individual laboratory site where testing is performed. It has not been cleared or approved by the FDA. However the FDA has determined that such clearance or approval is not necessary. Our Laboratory is certified under the Clinical Laboratory Improvement Amendments of 1988 (CLIA) as qualified to perform high complexity clinical laboratory testing. SEE BELOW [facility] DO Work Phone: Comment on above: Drug screen results are presumptive and should not be used to assess compliance with prescribed medication. Definitive confirmatory drug testing has been added to this sample for any positive screen result and will be reported separately. .Toxicology screening results are reported qualitatively. The concentration must be greater than or equal to the cutoff to be reported as positive. The concentration at which the screening test can detect an individual drug or metabolite varies. The absence of expected drug(s) and/or drug metabolite(s) may indicate non-compliance, inappropriate timing of specimen collection relative to drug administration, poor drug absorption, diluted/adulterated urine, or limitations of testing. For medical purposes only; not valid for forensic use. .Interpretive questions should be directed to the laboratory medical directors. Procedure (Neurology)on 01-20 Procedure (Neurology) Diagnoses/Problems Assessed Chronic migraine without aura, with intractable migraine, so stated, with status migrainosus (346.73) (G43.711) Orders Chronic migraine without aura, with intractable migraine, so stated, with status migrainosus Start: Ketorolac Tromethamine 10 MG Oral Tablet; TAKE 1 TABLET BY MOUTH EVERY 6 HOURS WITH FOOD Administered: Ketorolac Tromethamine 60 MG/2ML Intramuscular Solution Reason For Visit SHERRY GUARDADO is being seen for Botulinum Toxin (Botox) Injection. Chief Complaint Every 90 day Botox injections onobotulinumtoxinA toxin A ([facility]- [id number]) History of Present IllnessToradol IM after Botox to prevent injection triggered Migraines Vitals Vital Signs Recorded: 14Feb2023 10:55AM Bmdblwspsfc13.3 F, Temporal Heart Rate80, R Radial Pulse QualityRegular, R Radial Cdqddagmuux43 Respiration QualityNormal Bhkpdegx793, LLE, Sitting Fjivpmhro34, LLE, Sitting Blood Pressure Cuff SizeAdult Procedure Botox Injection - Neck Pain, Headaches Procedure: Botox injection. Indication: chronic migraine headaches and torticollis. Risk, benefits and alternatives were discussed with the patient. Verbal consent was obtained prior to the procedure. Prior to the start of the procedure a time out was taken and the identity of the patient was confirmed via name and date of with the patient. The correct site and the procedure to be performed were confirmed and the site marked as appropriate. The correct side was confirmed if applicable. The positioning of the patient was verified. The availability of the correct equipment was verified. The patient was premedicated with sumatriptan 6 mg sq. Alcohol and Betadine was used to prep the area. Anesthesia: no anesthesia was needed. Procedure Note: The patient was placed in the upright and supine position. 200 units of Botulinum Toxin were injected bilaterally into the. Post-Procedure: the patient tolerated the procedure well. Complications: None. The patient was instructed to. Please do not rub areas for 24 hours. No pressure above eyebrows for 24 hours. Watch out for helmets, headlamps, headbands, goggles, or massage for 24 hours. If there is discomfort, ice for the first 24 hour,s heat after that. Headaches may worsen, or you may experience neck stiffness. If this occurs use your usual headache medication or a mild anti inflammatory such as advil or aleve. Please call if you have difficulty swallowing. You received Toradol today for your severe headache. We are going to continue with 5 day of pills starting tomorrow to break your headache cycle. Take 1 pill with breakfast lunch dinner and bedtime for 5 days. Take with food. Try not to take your triptan or antiinflammatory during this time. If you have any nausea or diarrhea with the medicine stop and call on the next business day. Follow-up in the office in 12 weeks for repeat injection(s). Signatures Electronically signed by : Winifred Bernal MD; Feb 14 2023 1:50PM EST (Author) [facility] Office Visit (Neuro-General) on 02-02-2023 Follow-up visit Patient Discussion/Summary Discussed role of medicine, controlled substance policy, abuse potential, importance of taking medications, potential risks, benefits, and precautions to be taken. Reviewed sleep hygiene and dietary modifications. Follow-up with Dr. Bernal. Diagnoses/Problems Assessed Chronic migraine without aura, with intractable migraine, so stated, with status migrainosus (346.73) (G43.711) Cervicalgia of sfgophyu-wkohprh-mmdif region (723.1) (M54.2) Insomnia (780.52) (G47.00) Orders prison use of drug OPIATE/OPIOID/BENZO [EXTENDED] PRESCRIPTION COMPLIANCE; Status:Active; Requested for:02Feb2023; Chief Complaint Migraine Neurologic Evaluation. An interactive audio and video telecommunication system which permits real time communications between the patient (at the originating site) and provider (at the distant site) was utilized to provide this telehealth service. Verbal consent was requested and obtained from SHERRY GUARDADO on this date, 02/02/2023 02:30 PM , for a telehealth visit. Follow up migraine management and 90 day med renewals- opioids and sleep meds. History of Present Illness UDS ordered. Can obtain at Lab when comes to office for Botox 02-14-2023. Does not until March 2023 Controlled substance agreement due March 2023. Will have him fill out at Botox 02-14-2023 visit Patient being assessed today for follow-up of migraine, cervicalgia, insomnia. Patient reports he has been doing well on his current regimen and does not report any changes since his last visit. He reports that he utilizes abortive medication once or twice per week and it is effective. Would like to continue the Emgality, Lunesta, hydrocodone as he has been taking them. OARRS report reviewed. Drug tox ordered. OARRS report reviewed. Discussed role of medicine, controlled substance policy, abuse potential, importance of taking medications, potential risks, benefits, and precautions to be taken. Reviewed sleep hygiene and dietary modifications. Follow-up with Dr. Bernal. This note was created with voice recognition software and was not corrected for typographical or grammatical errors OARRS Report Last Screening Date: 02/02/2023 I have personally reviewed the OARRS report for SHERRY GUARDADO. I have considered the risks of abuse, dependence, addiction and diversion. I believe that it is clinically appropriate for this patient to be prescribed this medication based on documented diagnosis. OARRS report is initialed/dated and scanned into the electronic medical record. I have the following concerns: none. Last urine drug screening date/ordered today: 02/02/2023 Controlled Substance Agreement: I have printed this form and reviewed each line item with the patient and the patient has verbalized understanding. Date of the last Controlled Substance Agreement: 02/02/2023 emailed OPIOID Opioid Risk Screening: Opioid Risk Tool Last opioid risk screening date/ordered today: 07/21/2022 Patient's total score is 0, within range of Low Risk (0-3). Pain Scale Screening: Pain Assessment and Documentation Tool (PADT) Date of Assessment: 02/02/2023 Analgesia: Patient reports his pain level on average during the past week is 3 on a 0 - 10 scale. Patient reports that his pain level at its worst during the past week was 7 on a 0 -10 scale. 100% % of pain has been relieved during the past week per patient Patient states that the amount of pain relief he is now obtaining from his current pain reliever(s) is enough to make a real difference in his life. Query to clinician: Is the patient's pain relief clinically significant? Yes Activities of Daily Living: Physical functioning: Same Family relationships: Same Social relationships: Same Mood: Same Sleep patterns: Same Overall functioning: Same Adverse Events: No, SHERRY GUARDADO is experiencing following side effects from current pain reliever. Patients overall severity of side effect: None Is your overall impression that this patient is benefiting (e.g., benefits, such as pain relief, outweigh side effects) from opioid therapy? Yes Specific Analgesic Plan: Continue present regimen. Comments:. Vicodin to manage daily headaches and migraine along with Treximet when pain escalate to migraine. Adjunct Emgality. rEstart Botox, [place] Emgality for [place]. SLEEP AIDS Activities of Daily Living: Yes, it is my opinion that this patient is benefitting from sleep aid therapy . Physical functioning: Same Family relationships: Same Social relationships: Same Mood: Same Overall functioning: Same Sleep patterns: Same Referrals or Alternatives: None, Pain Management: Tried ablation/nerve block- ineffective 2012, Physical Therapy: 2013 last, Acupuncture: 2011, Massage: . Current or Past Use of Non-Controlled Medication: NSAID, Muscle Relaxant, Melatonin, Antihistamines, Gabapentin. Review of Systems HPI Active Problems Problems Asthma, (more content not included)... Normal [facility] Coding Summaryon 02-01-2023 Coding Summary HTMLBase 64 FxlqknpqLFi5eOj+PGhlYW Q+PI6ATMZyO76scMXnnT6D V0aGUF6LTURLNMCIVY1DMF 9oqQF7TAfkP7PyyrCy KzflyBKwOU13JZg5RBI2fV dhFTfieE4gsAApX8r5UkGi HQ41gB72LVorWQRbUaF9Qh ZpbjsgbWFy T0mzUeQdpAJgCsb+PHRhYm xlIHdpZHRoPScxMDAlJyBz fRoyAJ3gDf0vEZQoIPCbrN xhcHNlOiBj v3nbLMNyLBvgGZ7ffCkpM0 CuiKY2NOZir9i0Df83eQC+ XUGpFWU0uWrlZJmgd513Zl Zzn9euGOG6 iNYyZSrwXOJ0J35uy0T2AZ PpXTAwABD1zSO9xU7awQaw yjcaU5KcbPTlTjA4JRH8xJ VvuW8tvYau ineuiM8pIiu+R60PGO8MCA AFVL0SObk2F9YcDoocvOT+ JV90MAUrPW16ePDyoWFbj0 qbcPq7OuQj KTImZIY8bGjjGPwgo8CvRY RyN63ejHBys9Z6ZGQvyPmt qINeWjKevWB2nX2jIEudjg cpi0jsixvs Oitku9velf58kW10U82gEA rdXPExYLQ1FFQnHLYpjTlr ei3idL2iMy3+MQfqo3hvb7 lvxWb9NuQr BUVcmzWtuRsuEBQ2d9AwHg 23X8TefWplv3DiJdc9cm59 fXMzp8D0bNB0WTvuAVSdfK 7oVIwmDfU7 QZIqKsQaaL88uINzQWvxDb 4igJhgpJzcZB8vTLDpbdti KVIwaN1xCGWwpMEytJfqBW 4wNTBpbjtm w194PlXePES0MRGvjLTlH5 MtxA8mPkFtENVoFUDkE6Zu mZPbEYmoO152WKcfOzJ6RF QixfGxZ8Hf FSRlvXgqTuV8x7R8Ks5Mi1 NzilysOHE5QJkeIPQfSuJ6 YoIvYfL2K1XnHko1CZXqmQ frMM5kF7Go JXQglfcwcdqssTG8SGDtBV OacH38dCLdYBfpLz7ob6A1 m553IWLhSHElgW73To3ukU ogMTBwdCBU tH3xdmxlw6zzpwdnIhGcPB VlIAp5RXd3GMRtpPouIdLx HUE6EaW9DDK2aYAnqX8pjF cfdiaxmM3c Oyc+V65ghH5yIYQ9RZW0jz gcOSMkjiBmNT81XY94G9Nc PjwvdGFibGU+PGRpdiBzdH epXC4pVcXi r9rmh4OqANnoN8UhLGSzJD eaHbo1VSAjDTM0mVC0hE4q LYJbGFoun8C8jDP7T1Vpjo Eeka8bz4zz MRZrDAsgN30xzUMyo9Y3MR BqsUX3FCGauNkbQzEgjO81 Oyc+BFTbaGhul8OkVcyql0 mar6tofZk1 SlSeCYFgsaCwtGddKNB7z6 QtQd06C82aWGuoBBHrSIVb WKAvCDQuvDkfhj1nyE5tFc 8+PGNvbCB3 rJW3wO9pJLTmSnF1NCvgR2 30BrDosUFjAhxgi0lxr1gl sDs8PcToIHFgguNseFlnGW Y1m5YjAp95 K27jYZkkSKOaGSGuOFYsKI NzkApklc8qbG9oBs1+PC9j a1misb83xY72xQS+PHRkIH C4gTshEKil NHLuqE2oZNooQrU0ZAVsXk JpdK03rBDkSNgxAq1rnBuw nKfpWM3gYTAyfwjbi150Gx Vto0eeBNQq uVEgLZkoQOM8A14ut8R6UI VgCEOlRHT1lJE8zG8ftFhw bjogbGVmdDsgdmVydGljYW ooTWdqT516 IHRvcDsnPlBhdGllbnQgTm JqDNi8I9PqXqg2PHZmiLrz JW5hrCNaWGbzMr7spQtutJ htPR0hNSMu eqkwm723GfRmm5xeDYExpJ UnPGtzQGK3M73mn3D0MORy AJIqUTT9bGV7hA7yxEqwlj ogbGVmdDsg rqFsdGizKHvuUFazM820KQ RvcDsnPkJpcnRoIERhdGU6 YO99VZ25dVEfc8N7tIN9N7 BhZGRpbmct ocpbfTW9OKFlWPNnlI88Xc 5ugHjzVd8hTMMoEXZ0QTSq cPTzF8ImrW1uLbHlSQIpQG IzF3OnxRVi AGxtD337GKqmFkQ2WWMqmb AvJ9PrSTJrkRniAvM7g6G0 Es9BO1F8PC04MU66mHYlr5 Y0eMT3L5Qf KFIntioguutirIU8TTDaOL YtjE74Pu6laRjpZx3eGMWm NZN2KXGaiXEvX5MbtK1iKi AjMDAwMDAw R3RkjYLaTCqlU956YScvDu U0JKDrihZyW1IqUJPngDee EkK6l0W0Zc8YOZq5BU40PI 68gSRbv8Q0 aDS5Y9QpWPQpumrrxdsnkV F4ELQiUPYbnV75Rl5jeGug Bc1hEOAtBIA3DKPacXXwQ9 DopK2uQzRx ZINaHGUsX6YzeOBuAQtvK3 37FWizBfJ6GFBqfwBnS6Ko NQSthBoyHzC6a8R9Dy5PEN UeRL65CLD3 kYO3QH66BI08W8FrIsgjhC FibGU+PHRhYmxlIHdpZHRo NYrcZKKpDtLihXlcJJ7oXh 9yZGVyLWNv yHohlQYgWkUmu9flKZWcBK eiES6jxRwtH0LkeJT5OCDv x1t2Jj28K52wG7WonSV+PG VidYX2sKS0 jL0oBfDiZnB5RDppX769Jj HdxPUjCipba3ljw8zmjPj6 EnO8RWMigrWijUkwMHM3t7 QrTk18I06k IHdpZHRoPSIxNSUiIHZhbG kugk4upY4bGy3+PGNvbCB3 vHE3kC7wQpDsEeK8PKhwK3 49InRvcCIv Noxsb8itq9zaoNw2JqWlAA UdhrVdnLyuBUF3m8DdUf64 T7DmuEfvv6VqSbk0yr81vH Dkf0Q0vKO2 P9RbKXWymdfybSPqhMiyOO 0tSAGwtupoKIQzrH3kCPLc Q3e0AlJfGuX3TWugG2Xhkf C9ECWtzHXh LVkxSKV8D38rj6X6GUSkJH RmZIL6oIH6bH3qrFezujqh bGVmdDsgdmVydGljYWwtYW sjB095TSIc nHhoHVXkeA1cMXLfsYVnpF eyJE0zAEYqeeosSmaHBx0V YjGKSQ8oWPISJ9yDYbAfGI wvdGQ+PHRk NEF3zPmtUOpdWBDtgZ0eWL HyN6s7VeXnUsB4AHvxU3Tf CLWftqniMo73pY6iJeBbZy B7ZTgyK6Sb znZ3RUAycYCzCYrcKNW5Q9 5hn4Q5EOAlQQHoGPT8cQJ5 eM4vxApdggkmvEKgcIeeow VydGljYWwt ZHmsA054RYNjwObsFnMbXx G3IvP0FqG0V7KkMbp7YPRr hRenRB9tcPKkYOqdRy4xgD bcgZucJJ5l YERtbypjZHKalW4mGTMajP DyiAioTG4iNWMkjucib150 DcXoOMA9VJAsgNJeG5WcbY 9yOiAjMDAw VGIvK3UzoAEuTAcjU356OV qcKyX4HBBkkeGqE6YiUYCt uZcbLdO7r8Q0Lm37YdOLLR FyczwvdGQ+ XBFtBTP9hDvyUUmdDDOmjE 5sBXAxM9v8JfKiPjK3TOqi N6VwMXVoiiumZc94iZ0oBo PgIwZ3FRhw O5UdcpF1FURofXAhJIdxCA N5J89gb7G2HGFwZDHqXKK4 xFF8dD9rsFbjlqaexJPthH sgdmVydGlj IRwsPNudM735NSPalEosCq 3GCMD8H8OfRhp4EJQypFww UH7qaYEeKLckIn9ccFtpsB uaTE6nTDHf fpcmWDDwwA6uDZSwwFWimN jiKI0dTSBxswblk453OwEo THO4ZHOqgEJmG1ZplB8uOu AjMDAwMDAw A8AslMDwMYkhW391KNmqNv K8ELZbvzBxJ5NxCRRbwFxc FjB9s0Q7Lg2GYMmlmYV+PC 82kl83N6Wc AbujBve9IFQsHWJ5iTD1pF 3bEAOmCQpdp0B5yKS2W8Tz vfOymq5nq3lfPZIgVTxaP6 1rdUZkf6K0 BHTtnJR9LNBtbScjNdBkxP 93Oyc+JLRacKcxg5ZuPvak b8nxw2lnmSa5YkIiWQMwyn FsaWduPSJ0 d4CaIy24T61fOSseQAQrFV TpEEYnBFNjtEflrn4hyZ6v Ii8+DCLedJP9tLB1gN7kFt CjJxY0TUnv D008JwVohGWhOaamj5zmq3 whgTm2PvJxVLWvubCzuFzw AAL4y0ZjNt57V7QlkAfdg7 MbKrm4ip16 rPEjs3Q5eXG4G4ZnPEHmaq wszMToiJiyCD6nSNAtsvpx EQIwkE4nLUKhO3b9YeOmNm R7WEgsX9Jl rsU2EWWekGEnYCNjlLTKjU 8iarglc5ffagcmKmTqXVPf XBe9UKt1MBDprEduCfKhTN W2NcM0NOK3 mQPdaY6dgJiwaylkqX5pEn c+MJl6t0gloJXqCC7wnXH7 FX13HU27oORul0Y6vNQ6P9 BhZGRpbmct umgfzEM3TKUrMUZcdO29Cz 4vuAulHf8rIFZoIUT3BTXt aBNdN0UvdJ0rXkHuKDAlNA JeG0KbtBWe YQbtZ296NPvpPeX1DFMrvx NoW0EbDHGvdQacMyA3c4N4 Yp3LQS23IF94BG92lKDla5 U9xNC2O9Wz BOBtexoewsxdtEI3FRZuMA QqnX12Yb0vnUyxFd4uPAFm HDK8ZFBecVWfA9MzcF8jLd AjMDAwMDAw M0NbdBWcPGuxZ334OHyyPn F4FJCvfoEiG2HeKEIejDos CdL5o5W1Gx0OKs30TF37RK 89hTYcw9M8 zKZ8A1OwIQXbfgsqtqbxyU I6NUUaKZTjlV17Cy2jcBgp Lb6gTFGbMXU9PBKruIJjU7 ZqkV8zAjVx POMiKZNuG9KskKWkZMgcE2 99GRcdSeC7ZKKuesFyU2Mk KDEqfTubFcG8s4M5Nr0JTY zuxni1U1Wi PjwvdHI+DU60PUWbMK95rA NrbZZnb3lojMm7XaRrNABb VMP5hKbdIFitd0WoVVOkR0 5ejQCui8O2 IGN (more content not included)... Normal [facility] VC COMP CONSULTATIONon 01-31 VC COMP CONSULTATION Patient: SHERRY GUARDADO Exam Date: 01/31/2023 : 1965 Gender:M Ordering : JOSE BARFIELD Admission #: [id number] Family : Order #: [id number] CLICK HERE TO VIEW EXAM RADIOLOGY REPORT PROCEDURE: VC VEIN CENTER CONSULTATION VEIN CENTER - OFFICE VISIT INITIAL COMPARISON: None. PROGRESS NOTES: 57-year-old male who presents with a 5 month history a nonhealing wound on the left medial lower leg. The wound started as a laceration from a car door resulting in 22 stitches however this did not heal the patient has been at the wound center for several months at [facility]. The patient had a similar episode of a nonhealing wound the left leg approximately 7 years ago. The patient complains of bilateral lower extremity pain swelling edema and varicose veins. The right is worse. The patient describes the pain as aching and dull and rates pain as a 7 on a scale of 1-10. 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 Patient's symptoms are partially improved by rest, leg elevation and compression stockings. The patient is agents coat and does exercises almost daily. The patient denies any signs and symptoms to suggest arterial ischemia. The patient describes a family history significant for type 2 diabetes and bladder cancer in his mother. The patient does not drink alcohol. The patient has never smoked. No illicit drug use. The patient is currently lisinopril and hydrochlorothiazide for hypertension which the patient reports is well controlled. No history of deep venous thrombus or pulmonary embolus. See separate history and physical for medication list. No prior treatment for varicose or spider veins. Nursing notes were reviewed. After history and physical exam I discussed at length the pathophysiology of venous hypertension and possible treatments, therapies and strategies available. We discussed at length the importance of elevating the lower extremities above the level of the heart, increased physical activity and compression stocking use. We discussed alternatives including conservative treatment bilateral knee or thigh-high compression stockings, surgical interventions including ligation and stripping and phlebectomy. We discussed intravenous laser ablation, micro foam chemical ablation injection sclerotherapy. The risks, benefits and alternatives were discussed with the patient and the patient's . Ultrasound venous reflux study performed the same day was discussed at length with the patient. The report demonstrates moderate right and severe left great saphenous vein venous insufficiency 2 with associated dilatation period moderate right anterior accessory saphenous vein insufficiency. Two incompetent protozoologist veins in the left leg subjacent to the patient's nonhealing wound. Bilateral incompetent varicose veins PHYSICAL EXAM: The right leg demonstrates moderate varicose reticular and spider veins. Extensive hemosiderin staining. No active ulceration. No subcutaneous edema. The left leg demonstrates moderate varicose, reticular and spider veins. Extensive seen misunderstanding. 3 cm nonhealing ulcer left medial mid calf. Mild subcutaneous edema of the calf. Both thighs, legs and feet were symmetrically warm to the touch. Good posterior tibial and dorsalis pedis pulses were present bilaterally. IMPRESSION: 1. Bilateral great saphenous, right anterior accessory saphenous and left calf perforating veins venous insufficiency with dilatation 2. Bilateral lower extremity varicose veins 3. 3 cm nonhealing left medial calf wound 4. No definite flow significant arterial disease 5. CEAP: C6, Ep, Asp, Pr PLAN: 1. Endovenous laser ablation the left great saphenous vein followed by left perforating veins followed by right great saphenous vein 2. Micro foam chemical ablation bilateral incompetent varicose veins 3. Long-term use of bilateral thigh-high 20-30 mm compression stocking 4. Continued elevation of legs and daily physical activity for symptomatic relief Nurse notes, history and physical were reviewed and confirmed, see attached forms. The nurse was present throughout the physical exam and consultation Dictated by: Dina Lozano MD on 01/31/2023 at 09:52 Approved by: Dina Lozano MD on 01/31/2023 at 10:10 Normal [facility] VC VENOUS REFLUX TRUMAN LMTon 0 01-31-2023 VC VENOUS REFLUX TRUMAN LMT Patient: SHERRY GUARDADO Exam Date: 01/31/2023 : 1965 Gender:M Ordering : JOSE BARFIELD Admission #: [id number] Family : Order #: [id number] CLICK HERE TO VIEW EXAM RADIOLOGY REPORT PROCEDURE: VEIN CENTER ULTRASOUND VENOUS REFLUX BILATERAL LIMTED COMPARISON: None. INDICATIONS: Localized edema R60.0 TECHNIQUE: Duplex imaging of the lower extremity to assess the deep and superficial venous system for the presence of deep or superficial venous incompetence and to document the location and severity of disease. The study includes evaluation of the great saphenous vein (GSV), anterior accessory saphenous vein (AASV) and small saphenous vein (SSV). Patient scanned in reverse Trendelenburg and standing. FINDINGS: RIGHT LOWER EXTREMITY: Saphenofemoral Junction Reflux: Yes 11.5mm 4.5 sec GSV: Diam (mm) Reflux/ Time (sec) Proximal Thigh 8.6 Yes 0.6 Mid Thigh 4.8 Yes 0.4 Distal Thigh 4.6 Yes 1.7 Prox Calf 2.6 Yes 0.9 Mid Calf 3.2 Yes 0.2 Saphenopopliteal Junction Reflux: 3.4mm No SSV: Proximal Calf 2.4 No Mid Calf 2.4 Yes 0.2 AASV: Proximal Thigh 6.1 Yes 1.8 Mid Thigh 2.2 Yes 0.5 Distal Thigh Thrombi: No acute or chronic thrombus. Compressibility: Normal. Flow: Deep venous reflux. Preforator: Dist/med lower leg 4.0 mm with 1.0s reflux. Mid/med lower leg 5.6 mm with 0.7s reflux. Prox/med lower leg 4.2mm with 2.8s reflux. Tech Note: GSV connects with SSV. Incompetent varicose vein mid medial lower leg measures 4.8 mm with 1.7s reflux. Mid medial thigh varicose vein measures 3.1 mm with 2.5s reflux. LEFT LOWER EXTREMITY: Saphenofemoral Junction Reflux: Yes 10.3 mm 1.4 sec GSV: Diam (mm) Reflux/Time (sec) Proximal Thigh 8.7 Yes 0.6 Mid Thigh 3.4 Yes 0.6 Distal Thigh 4.1 Yes 3.4 Prox Calf 4.0 Yes 1.4 Mid Calf 3.4 No Saphenopopliteal Junction Relux: 3.9 mm Yes 0.2 SSV: Proximal Calf 5.8 Yes 0.5 Mid Calf 3.1 Yes 0.2 AASV: Proximal Thigh 3.8 No Mid Thigh 3.3 Yes 0.4 Distal Thigh Thrombi: No acute or chronic thrombus. Compressibility: Normal. Flow: Deep venous reflux. Thread Laster: Distal medial lower leg 3.0 mm with 3.3s reflux. Mid/medial lower leg near wound 3.9 mm with 3.3s reflux. Tech Note: Duplicate SSV from prox to distal calf. Incompetent varicose vein proximal/medial lower leg measures 4.0 mm with 0.3s reflux. Medial knee varicose vein measures 3.0 mm with 0.2s reflux. CONCLUSION: 1. Moderate right and severe left great saphenous vein venous insufficiency with associated dilatation 2. Moderate right anterior accessory saphenous vein venous insufficiency with associated dilatation 3. Two incompetent protozoologist veins in the left leg subjacent to the patient's wound 4. Bilateral incompetent branch saphenous tributaries and varicose veins Dictated by: Dina Lozano MD on 01/31/2023 at 09:17 Approved by: Dina Lozano MD on 01/31/2023 at 09:20 Normal [facility] Coding Summaryon 01-28-2023 Coding Summary HTMLBase 64 EomlaupvMMj2yJq+PGhlYW Q+FX5GMOQsD25buRPunD6D D6sKEL2AJNTNWEACEW7IIK 8zhPH5ZDpaQ8WnypMu IwrmsEVpYN87FIe4NBZ5wR caAIhyrO4vmRCwW6d8OeTu CA37rN52GHbmIQOsJsM2Gu ZpbjsgbWFy H6xzZiZvzKCkGjm+PHRhYm xlIHdpZHRoPScxMDAlJyBz rXjeSH6vRe5nAKLhWGNykX xhcHNlOiBj k4cdBUXaRQlzSA7vvLwuY1 LosSL2ZQHpv5m0Vu07qNS+ NESfYGN0eViaXMdnw213Io Afj8yeCOU0 sGUwAXkmNVV9N80ju8M3UU FaAHXmBTF4vPH9aE8egJhv gtvdS2HldKUvUwH8MTC1oR XqwX9woQpl dalxmX5yRqd+R01COE3LNP HZEV9NAtu6Y6EcCibcwSZ+ JO11VADmZO38pBKeaOWca6 ejmXd1SdSl QQFkMJA6pJzeZXcsf3BcHG PdL23hrISxi1C7HJIftXec zDJlGdTlxSI0hC2kKRxscd agr6twkhoq Yvska7ocgm09kT39J61yCV sbLCWvHAE7QTRlMZNsxFgj bj5wsC4qRf1+FUwmt1tiq8 qsmSm2AhHq QZJgwkFhkZquMFU7e2ZvRs 37U4NapKmho2DlWem4wd41 eRDja6U0jCR1NWhwHZPeqR 6fRHzpBsE5 VQTcHeUbgE95vOKxUOvqDq 5pnZgwlIcrRO9oPLDtbwsf SICthN8uCIIlfGMzlVbkWP 4wNTBpbjtm f225UvEdBXP7HUWslAExV0 RlmU3xEuElFNNjRRLaW2Is oDItIXqnP305RVgmEdR7QB HnbdAnA7Kv ZYMniNmxHjZ2h8D7Pd0Qg5 OjpurhZYP6PChmRBWzOhIb RnFfKqJ9Y8HiGzm2QVDjdC jpMO9uX7Kv CCGiaroojhkatYW8UCFeMM IgrX61fGVgWCzjPs3ab1T2 f691JJGqLUNgkO07Ny4veQ ogMTBwdCBU rI0pucrmb6hookdqVfMaTD DaLGt7FRu7TPXyzWgcBfZv GBV4ZoN5YHT5zGEniK2suC gcokejrV5a Oyc+B84cjO2pJSJ5BDB6hm xhGBYthdCpJF25LP89N5Jm PjwvdGFibGU+PGRpdiBzdH tsCR1gYgFu u8vhm3BlGIvaB1ZmPRPaZU geGbt4QRZrGUJ7zKJ2aM5v YAVgKLnwv1L8rNZ7A2Kray Yctl0oc0za BSTwXRklE84biBXdh7P6RX ZppOG0WAFbxSmeQnBtsN46 Oyc+XMPpbRscx7ZlOwrzt4 gmv9peuVn5 RvLhOJRjlwBlvDjdXIY6t1 EiNx45N36oJIepLYCsSPDl MEQhMDDcmEwqyg7jdC0bBc 8+PGNvbCB3 cII0fV1mRYSnRrK9GJluM7 23WyTafNOnSclph4rtd1zr wWv7TzLhSNGdweMlhQorDB X8w5RzYh78 T12aYWtkOGCfYIHtKXQuTW NswPxtvo1erO7hCg3+PC9j c1cfdw02aK36yTA+PHRkIH F0lPrpXPjn JAZifS5vCZhpWoQ0XGSrPk BxkT80kQHoSCjsYs7azRnc tQylBF9dYNDubhlwy088Nn Jzt2jiZDAn aQHfQFvyBFX9I84iw3J6AJ MqGBPbZGK9tZK9zI0ekDzc bjogbGVmdDsgdmVydGljYW hwLYwnQ343 IHRvcDsnPlBhdGllbnQgTm MtZGa3B7GvSqd3GVPinXhp KP1iuEXkLVdiTm4xhRkhcY aoSB1tDKKz vdcho991YiErk2ttNMZqaZ FoDYksUSW1W08pl9I0GXYu VLPdJQH2wKO9jZ3cnJwaws ogbGVmdDsg qtTirPgeDHrpBAdcD313WN RvcDsnPkJpcnRoIERhdGU6 KL22XM27oCWmq6S3pFO8B9 BhZGRpbmct uvihkKY5VMKxHODkvK49Yq 1isOvqUo3cEVMnWIW1SOEc zVKsK0XvfW1oMtOuAVVgZD HaD9LzuKUf DMqmO155KGjdZoW3GGAtsv LxL6WzKNZeoKevAdW0i5X3 Ic3ES9R6KO02HG13iYTvk0 O9mVO7P5Db JIRvtesecqxjvGZ4YBXlFB UhyL29Oz5ymEzzDq7tUJVh NQH4OICewYMkI6WjdZ2zRr AjMDAwMDAw C6IkxRKlLQjgN103QRzsZq Q8LPCusgDaW0OpBROhpWkg EkC8l1U5Eo4BUPw2EP41YK 89sLLsc7X0 lGV2U4TiMLRideubnwutbP C1IPBhFQJcnK75Ar1giBlo Pe1uQFJaIBL1WOKlsYAjK9 GbaH2dMpYl IAMhMHNaZ9CftTRpFHbfK5 29QJasSyX0JOHwmwVjQ3Pn BBWzvFvyBvU9t7D0Zi3AES XxSA03BZR3 yGH3VK35OS75F7HwUdyehV FibGU+PHRhYmxlIHdpZHRo WTzrQOVxNuYosWknMJ3rOn 9yZGVyLWNv bLokdSGmUiZyg6lhJGGaCT vpLV5izRdcR5ZifEN9FFSg n7e6Np91A14eK4BgxJL+PG RakFX2zJA4 fV2tMrMlCgS0YBxrL692Tl RbtWPbUzhxl3dfb6oniJs3 WjW7JVKrzsWwcFvrXEO1e9 LqGh23Z07e IHdpZHRoPSIxNSUiIHZhbG oewa8anK8pFb4+PGNvbCB3 nDY5uJ5aFaVwLaL8EMxrO4 49InRvcCIv Qdoim9ikm2xohHj2GfRaSR SsqlGcfMztIMK5q0TmSm65 J5XwmZcbo9TmAoy1bg82dP Ban1K3vFM3 J8PwJRJndixczTMhoVdyUO 6gEWZcskiwTHEllP1wPKZk U1f5ClSrTcQ0ZBooW3Jsbg A9CFSflCIp NDghDDG0V56sd4O2SBNqSU BxMDK3aNO1kM4sjJelzmjc bGVmdDsgdmVydGljYWwtYW gnN280TTSl xZpdCQHcjE9uMMYbaUXrmN hoOH2eYPHlhbqpXwbIXb0K DlKMAK6oOESXL9bUQvSwVO wvdGQ+PHRk IAZ4yPpcQSncFJVbtG9jTP AhC6n3AyByEfD1MChyN7Os OUYlbyadHb90cQ5cYeRqKc G9NVtsJ3Lf zhP3IINzqHUpHByuGIB7K2 9cd9L8BOGhPFZeEEX3xJJ6 oO2fnGssagyjwUDucXkgot VydGljYWwt JKgzX214SEPfcIemTeHiRm K2PfU7HzM2X0EkYvt5VMOr zZbqPP1tjCAbSXlwIc1wgV lnkNdyIT2m ZZMkdrvzDPHvdB6fAZFawF ZzbWmyWQ5eTTNydeqva344 DfTgEFS9SKYcwIXjU1YruO 9yOiAjMDAw UAAaV2UlpWRqYXqvG087DY aqBwZ0JBLemoTuK4GbKHCx qQnzQpY3h2L5Lf59FmLCLK FyczwvdGQ+ KVFnCQU4wJlzIPjiFNXolE 1fPKWgY2i2PyQoLzU7WYuq M1PaODMyvtcaPz90vC9aGk NeJhC1DKtw X4AnvoG4OTMlcFVrLWymFX Y0C98so9O5OMFfWWBnLFE2 cJZ8dW4jxPxwcszdoVGwlZ sgdmVydGlj UHylWNefR031QPXdlKmgRg 9GRKQ2W1DrEmp4VNQnnKok XI2dzHYpNThdAr0nxUykrE usVE0gMAGz xjqaSGZaiS8zDEXteTXrmN orAB0qMMLucolyq054XqPd KGO6SZIbeLPxP9MryX3hKj AjMDAwMDAw Q0ZsgCZeCPeaX378UYiyZt K0HZRwcgRxF6BlOWXymJkr RqI8m2F4Pe5CSNfygSR+PC 22fu95F8Mx ZokrMvb5WBZuDBJ6mJW1vM 0zLNUvVNthn8G1xMB2W2Bo gnAsjg8kq4xkMFDiFHsbP7 0lsWIfj2E1 QPQxxKS7WUHltNxxKzYchO 93Oyc+YZJigXwxz9GlMubk w3oye4xwcXw7RmLoDSQexf FsaWduPSJ0 w4PdGz26H90wVYovQIEbIM FeEAEnKGViwOxcip4wfE5i Ii8+GZFsnHJ7gRC6wX9aOp UxXmE6CIrd W511MuLcuCStGiiqa8amf6 ybiSy3CgTuNBHcqfKkyPbl OQT7n8HoIc72H8LkjNiqo1 UeHhf0ag71 pAAqp4A2hFX0R1UuQGRqxu xxoDOwwPwcXM7sSWWokwly STYpgY3zPOCwS1t3PpPqEr A1YCvhD4Db veB5WZYmwFDrEHXbhJFYsM 5lohiif5wvxbhoPoQwMXUh RQu9FXx9ZQJhbHeeWkHlVH V0UcJ3SNW6 xEDclT8uuYqamagpkH7yAb c+KCx8o5nbuTRgRI6lgJF0 UG89BU57uMXiu9P0dWG1O5 BhZGRpbmct eizpeZV4KCRsYHGljD50Cp 8wrJokWd2gQDJzAGS3JULk wNCcW3QttN7iOiLkVSBlYC ItG7HoiQTb PTcxX212ASrqYuY2NLIqzv YpH0RcZHFjxAxcDlT0g4X4 Os8ERH04IP50WI05fMJuq5 R4eER4B4Fp KBWscmfvsnldiAG9DGObVF IjjH36Xo2vlHtvTp3cLSTr XGE3JGZxwRJgH4JtyH8fUe AjMDAwMDAw X1PysMFlPDrtZ010LZakEg K1WUAtexFqY6OaMXWmjMiv ItW3b9E0Qf2UYx37IS57UN 53oXBmn1P0 eSY3M3WuUDYxywukjdiuvH V9LCJnMWXyfC37Lm8unBpf Kq5sPLBqBPP7IOVpaYMqL1 QmdB8bWvJc GVNkRTTdR4UnhCBqHPriX3 23YKaeTdX2BQVqdyLhK7Wn QYYlgQrkVjE7z5Q5Mj0JDB tsrmn6U9Kc PjwvdHI+PB98URKyMG90sB BqfFSwy7pgfOo6CyTxBQRa JEX4wSirOThry0UtGSYsL8 5uwSIgi3N1 IGN (more content not included)... [facility] Coding Summaryon 01-18-2023 Coding Summary HTMLBase 64 YddzdahwPJw3sUs+PGhlYW Q+QX6MYECmB66ijDAygD0O A4qLRB6FTGLRPYBJDT0JAB 3rjQA0ZGxbP9VptaMg QjzipSZhXX41TMg0OBV8jG wlEQtjdZ4qqIZjC0v9BmZl HM93lB87IBxmQPNgWbM2Rf ZpbjsgbWFy P3esTpVtoCYeVtl+PHRhYm xlIHdpZHRoPScxMDAlJyBz vYjxGF3vYq3yESEwYDGquM xhcHNlOiBj o1ewYRJnIYpwBG0apSsoY1 AtvVP1ADXgi7c9Cf67tXA+ NSCgPKM0tLcqGWtlu430Dx Wbc6thGLO4 gZCfWWvuNLF9R25gv1D4EX UuXLFfAFQ1yST5xM3soJqp qenuT1FhwLDkIvQ3RUK0mB WkzI6vcEte hsqrgZ6fYwl+V94COJ5LXF BLBV7HQnw3M0VcQxqjdNV+ ZS83PKBzRQ53gCQbdUWht0 ivuIp6QtCs PVXwYEI2bTojIUrse4QmKM RkR70voEFep6A2EPFjzQcd pWAlWjHvsCA4kV8tFBlwod nfr6tjkzto Evmde8miiq81eQ01X48sBH cvOPBwIJP4FKAkRSLvaQkc cr5ooD7eHd6+PInss0tex4 hvmAd7PuEc FXOpncBfcCsaEXK7f7GjMf 51Y7RlpKxxk0JqYgc5ib88 aXZfr0Y1eZU1YUtzMIMswR 0iBNtmDrW8 KONiLsWghR87tZDjEYmmGj 0luWkddOobJH4wLMTgbiae SXSheZ6oCPKjqHWpnEejZY 4wNTBpbjtm n123WyMfNCR8RSJkvPIjK7 FflX3jAhHcPVFlZIVxV8Zs hOSaRLkzB113LSrqSaU9VZ OrnzDtL5Ux LQPuuJarAoP6t2F3Ls7Gh8 FyyaiuTOF1RVvsNTPwKrJ7 ZcWxRaE6G9SjZxq3ELOaqM tmUW8rL0Go PADgwedryzccfNG0TYCaQC ZwbJ95oHOxTZzvEn9df8U2 f176IAWvNGMakC68Rv5geA ogMTBwdCBU dQ5drxcxi9xacuiyMrElIH FsYBz8IBe9JCLdbLgnQsOp FCN0QiA6IHA4sIUalX7reA rxbkyaaU2b Oyc+B55yxS1qGMU6RES1gs ftEROcsoOxAD99LQ59V9Pb PjwvdGFibGU+PGRpdiBzdH zcVB0jZbEh z1tiu8OxUVxqH4ByQZToKM xzGvh7KBDtZYE7uNQ2pA6u LAVtWYkxp6M2mCU9Y3Zzep Xhgi7fy4jy YECdTCsyP99wdXMux8F0DZ PvqCV2IUFbfRcfKkLmhW06 Oyc+IYLjwTetr6QiPetiv7 qxz4zvoPo2 WoWzNWOrnmKdlXheHWB6h2 IwUr37A05xOReaGKSaYROs PFCiHTKdoQvvlp2vwN5tDn 8+PGNvbCB3 vLF0jN1fPJFjHsZ2WIfiY2 33GvYycNBhVtlnd9dpu1jw sCx9DtFcVUTwdyJejLizQH O4k6CkEp08 C84vQFkwVLKlVSFsUCBlNW EseFmiyg8wvS4hIo4+PC9j f1aeui26fL84kFN+PHRkIH V8xHgrDBie XKQseQ2wFLctClE3ABJlJc ZljY06jFHwMDroWr0ydIth bYtpOR7lLLEfcbmjq370Ez Jsb8rwGSKj gGCkQXlnYQH7Z85ek0E3BW OkYDRvFMF6cMJ9sG3slCgt bjogbGVmdDsgdmVydGljYW jmGRqoP467 IHRvcDsnPlBhdGllbnQgTm SuHTh4X2QyXel1WHIbaIgf UI4ebRQfCTzvQp0yuHwmvD xfZW0mJHYj azizg551TsIvx4bmQPZjwD ArUSukMFB3M51xp5N7UWAx DLZhAVI2eQQ7hK0lxJsoml ogbGVmdDsg qdSaiDbrVZzbAMesV615HV RvcDsnPkJpcnRoIERhdGU6 GS83EB77cJQyk1I7oMF1U7 BhZGRpbmct dskgiWF3GXCjYUYwrW06Dl 5ahKkkTn5dSOLtGVZ1XHPw kRRdI5EodN2yEkVySFNiBV GvL4YxzKYh OVuhK929AHfgLdC5HZNdqd LdY8QwQWStnPyuMzP7o8Z5 Ho7LT6G3OY03DA93pVWqb7 K4bEE9R5Sz UTJkimvxhedjcED6IEVmNO RjfU76Cr6kfCtiDn0cRIPy ZNH1OEVzmREgY4FygL4uJb AjMDAwMDAw M1JmoNSwDBdoR635CPjuWy H1OQMqxcXwE6GvJBOcsTqe OfC2n4J7Go8GHDo5EN22GG 42bFExo1O5 iVR6I5FqWLMwfwruirfrdZ P6OTNcDDOdzD81Ks4klWwl Md2jWKJnLCQ2WDKfjIGjJ8 PhrR2fBmMx MNHjFCYnM1QvqBFrCKifR5 76ZGkoXlF0KFMsicLmT8Cl WBWndBvnJvM8y5I7Fm2OQT HbDS47MCA8 sWI7HM08JM26X4BiHxzreJ FibGU+PHRhYmxlIHdpZHRo ZOgvOTUyGoXlaAweSS0rId 9yZGVyLWNv lUqjiTCwIjUwt2rjPUOhPN poFE9vdGntS1ZatRM1XRNv j4m4Hu29I09bW5SujPV+PG IqyVT4xNR8 fM5uJuAfXoQ4EKtxF851Yq GgzGJkPpszp3imp1uiwCg4 GwS4BWDrayDfaIyxFCB1q2 NnVc36U73m IHdpZHRoPSIxNSUiIHZhbG itom8rsD9oIk8+PGNvbCB3 cVS6xV2jAuUfKpF5FTxdI3 49InRvcCIv Xotex8qxe3tkcFo8CeYfXQ NageZruNdyRJB1i0AvUf90 Y5IvuBkuv1YgJiu4tr53qV Upj1B2dSW1 F0ObCPQdkcaxtKEbzKwtAO 7aIUIfjiamXFCulA1kWEQn K9y2KkLnZfT5YXgtK3Esto T3CYZwoSBy DBfgHXF1J56jy5C0WEOgQE LrGOI0bHD3vA0mpOusapwe bGVmdDsgdmVydGljYWwtYW wqO149JJNb pSvtPJLszR3nBUPzuTElfN vfEU0pHHVuqpbeCftNRh2E IaOMOF9bVOAAS4rXEyDxTS wvdGQ+PHRk DJH4eUriZHhsLEFirF0mND SjT4i0AcRvIiT4OGwbS3Uq JHSldgjvPx07nD6fOjQyOt B4EDqbF5Ds xnP4HTLmwJApUAypJSD8P1 0hu7Z4ZLTiPENyRSX3oVI4 uZ8sdJhgylvwnLTxbWcaeq VydGljYWwt NCrlF984OJQmtVvcPwQlNh Q1EvD3TaX2O3QeMua9OFVm tUpyAU9syFQzBOaeOf0dqT yhfDxqMQ3c VQZvwsrvRFNssC2lEGPlcG PhaKzbWM9pOGJkaobfy802 HjNtCWT4LLAiyJZoX6PjhT 9yOiAjMDAw TBLvP9HxlOZtPMjuW267BP fiMnG7SDUvplPqR2ChMMOa kUdjSnH0f6B7Su23RyUAZD FyczwvdGQ+ KTFoPZC4uEjoYFoaEMZtiG 1vRIFiS8f5KsRqIrZ3FAqd C8FjKMHwllnqKo53jT1uPx IaPwA1HMyg X1DueeW1KFGrhJZxHVwiLP U6A77lj0A5JYGvHMNnYIL7 rHZ4pY0upVwdarhuqGScfD sgdmVydGlj YObwMGipW108HFFqmQquWa 6RWAX2G0MuKfa4KMIiaBqe MF9pfWItPUqrEf7wbYvwmO qoBE1uMKAl uzbzEAVdxV7hAINjkRFgrZ rzOH6bAQJiabckv053EjHp ADY4LCCazWAhV5HrxQ3iNb AjMDAwMDAw D3NrnVVuULhjJ878HYusWy G8KCDrgzPrP6MkMODwkMse HyF2v9P5Db1OIEqlbVE+PC 02xq78K2Nl JathVaj2VPEdCKE8vLN6tR 5xYVXeVHnoo7E8qAI2T6Oj bpJfzl7pd3lmUHRtPDptA5 0oeRUni5W4 QYFhrKG9FOIvaGajDsHeeX 93Oyc+HQKesXygc9WcQzss o8okg3droOu1EmYgXAKdbz FsaWduPSJ0 h7QmAv61G02iAXvqREXxAT JlOUFrLOLftSxemv5xtK5a Ii8+ZMVlvXL0dDM6mG0vYc PdHrQ9CIyj K542YdAiuCIiRtsca4ylr8 jorCf2XxEmWEDpzoFerOdw VUV3v4AaXm81K6DxqYtqr1 AfRbv7do55 fFDvz5R2wBH0O2JtNDEnmx kswKKjyWsqVO4wPZOobfsj YEDarB6hSTToJ0i3VsBhDr N1WWerO7Ue ljM1IQVfbLZrAQMdwQJSuZ 9epwloe9cqeeqcIjHpKBYx QZu1HGy2MOAyaGamQkFyBS A5GrX4WAR3 vRSiuX0hgBaqlrjcdD7qLf c+PCy3i3xuhBNtYH1jgOK4 KO13DK25cRZvq3V8wXA4K9 BhZGRpbmct fmbvmVN6KIXbUQKqqH09Fv 3gdMzlRk9aORDsOUT3IVJv qTNiS7VdmU5tRsJkWREnAJ DaH8IkxSHw NPbwA439SOztNmG1LUTzza KpY0NaRGNkjRuiPdJ2l5Z9 Ja0LXJ91ES69IZ95cVCap8 U1wFX5C3Qw QHHklkxyosibaWH4SFGpRY YopB95Do8vaCmsTp4fINYq GPB5ESFehXXgE4WofT9gFs AjMDAwMDAw L8RyzQUoZWejQ725GVarDs S3EUOhqsNzE0StDQFaxSoh VlL3i4Q0Bk8FBv41VX12BU 95mZSdj5W4 lTF1D9DsXKElkxqcppzbiZ O4YUYqURVkgG98Ln0jpLje Tg7jGORzRCI3QQYluCXgO1 NimF5uRqPm YODtVCWtC1OeyQCdADdeZ7 50YDqxLbJ3KAHrywKnI9Fz VMUqgBdbDqV7l4V3Un0QAS mfqwp3Y9Qq PjwvdHI+SN63SOIuNL81oE BrjZHfh2nkdTy8XwQmHFZm IDT2oBmnGQpwn9HpMOSwI9 6lsEHzf1F3 IGN (more content not included)... [facility] Coding Summaryon 01-13-2023 Coding Summary HTMLBase 64 KegkwtpfGGy5yNo+PGhlYW Q+HQ8SKXGwG49gmUGtaU1H M2kCYH6OBXAGUONNFH4DSF 1dpYA5CIbyC9DpwnZj PfffeSVuAI21BRm6UXF4zF phGYxbaA6nyTWuY6x1MkFo BK80vV38KJkxETYyUfS9Ye ZpbjsgbWFy L5rhKvWqbDRpVyy+PHRhYm xlIHdpZHRoPScxMDAlJyBz xIxqMU7pJr2aQSYgPROfeD xhcHNlOiBj a0zqHFWrAUqsSN1vsFvhM0 ZxnJM0AUUbl7a4Xi44tPR+ OUIpZQE7hUsyORyju770Am Vrw3fgMXP8 kZDtGUztKPV9P98cj0Q4LC YrDGDdUUG9zWE3nT7ckZhb exvoP0KcgNVpBiI1LBM1lK XwgK1hgLwf pagmnG7gNav+N48NNB5ABD GRQP1KRso8P5XtXcporOX+ KA76DVFnMN71rPCusQHnm7 fohPb6JtYu OBQpLMD3lWmoOYltv8YpCD BsP96loJSfn1L3TVTdgDxr eCStGjIuqIF9qU5pBPaepn hjr9yayurr Rhtoe5mzhw49fV10B82fGU keEABoCKA6GKTjMBGtdRgm ht5kpA5yFq4+TGlli3kaq0 wmdFx8UjNv QQWverNeuIjzBJO2f9MkKw 43I1XnzCnzz8MoStd2hj29 gWKbt5S7tRD1AYtoYKOdbA 1rEJxmXaP8 RAUdBnUuiU20fEKvJSzkGm 3tjJzziEszYW5cUYHxhzvm WYLkcF3lHTSjxHOtwAlhCF 4wNTBpbjtm r703JkQwOOF8KILgbHPgQ5 LkbM0tQcSsHAAcROXyU0Te hHLhBZmyA836ABfzPzG4ZF CrixTsD5Px RPUucYzzBnG9a6E2Zm6Yy8 OvkvecOMW0ZClsRYClGvTx LiMfDpS3J8MpFmf4GVEgtF drAS1lY1Mv FBBfyjevmfvyvLL0OYInCB PdjM21uIMpSJhqKe5wx6E2 z548MVJvGBQdlX20Dj2wqJ ogMTBwdCBU tG9irmzgi4iteqguTrJdNW UgYLx7UZf1SLGdoQlnQjEj TMQ1PhQ5GJV7kWDvzS0sxU emlybjdF6p Oyc+S22ybA6eVNE5SKM0td jzZNHoqhAvFZ59XT29R5Ax PjwvdGFibGU+PGRpdiBzdH daKK9jEfMl l5nma8PxHJckH9DzAKMsYS zpQeg9PTToMKW3aOC9wF9q NMYnHEpxz2S3vMN4Q3Kfpr Vgqj8ej4to BLObUXyeY17hlXAts4A5AY PhiSD8XDYppKwgMuHuaK26 Oyc+XIFxxCjpx1BaFuvap2 lci3kllUf9 OcFaPMMrkmRwpRpwUVQ5r5 ClYf39L31cRXqiYDAhSHKx QKZkBVVaeBcpcl5zaS0zIw 8+PGNvbCB3 rFM2rZ4kWRMdTbV4OGtsX2 08DdBqeLRqXhccl6pny4vp lQo8AuBkDARrswPrvNfsCZ M2e3XmSz65 C43iMLdkNVVkPRNiEBBdYA AbuJmoqn5xuH4kVb2+PC9j c0tqut37vS21xVB+PHRkIH D7dPlrOGeg WRSlwC0sZHujGrZ4WCViHz NzyF81jNCxJChoYv9coPys qYxaZN3fCOJemwbfx771Au Vng1xiKHIg lLApBHneRUB7S22tv2Y0OR SfPDXaWZJ9uUK6qS0cnEaj bjogbGVmdDsgdmVydGljYW ttVPedL267 IHRvcDsnPlBhdGllbnQgTm CpZQp7S1GhSin4POSawAed KU7zlKVuXIwgEj8zjYzmeF zzSC5lRATp qnubf663IbNnc9kbCEWlfR SmSNxxJTJ0K54hj7E7LWGw GWRsZPJ8bJG7nY6eiTyntq ogbGVmdDsg ydRchMiyHHkfCEwpA752CL RvcDsnPkJpcnRoIERhdGU6 VO10HT52dJFqo3L5hSY6K4 BhZGRpbmct cqqnnJT9TVQwRPKflS26Bc 6rqPguYq8uHYWsRNG6AUDc mOUlJ3FhdL3jHhSoTCDdAS JyU6VafRXc HYcnO768OLjvVtQ5NNZyve YeW0JqNJCdlTnzXeP1a6Y5 Ub8WK2X9AQ78KY30zMNpr6 R9nNK2W3Yj PJBmoffbyiziaIH5TDMtPY YeaL74Dm0ypWobPt2fYIIt ZHY2OGAwiCJpC6GuaQ4pRa AjMDAwMDAw Z3OxzJWxEEuoT750MYtvOk B5JAMzyiRpZ3WcXUEtdDaj GfG6c7Z0Wz3MDUk0DR31PB 61cAYrs5T7 eCX0K6YhURHujesoiaaoiI Y5EYVbLTJdlY87Ve8wmNct Gp9cSYBdFGZ9XVEweIRgZ2 FfgA9rSiPh OBEwPGExW5FjmMWeLCwcW8 81HIyqWuL1JZKyhfHnF7St UWHhaYkqCxX1s3O9Xr5OFM QwNE42ZEC4 jFT0KG88AV37K4KlIqzapL FibGU+PHRhYmxlIHdpZHRo JExwPFEmMrOnyHilMI3tNe 9yZGVyLWNv rLqxxVWwAsVar0wjYOGmAE rmXM1txTbyH3WwkNB9GKTg e8p5Vw34H96aD2TvtXY+PG KgaOY4fNI6 xB4xOpGxEeY6JKwdC504Wz WdiTFzOfekh6sbm7krbCe3 SrI0VJUagbHkwCowNIW6i7 PvPp67X33e IHdpZHRoPSIxNSUiIHZhbG ozsk7bkU0kPt3+PGNvbCB3 yFF4bK2aLpOnGfD2UTndY9 49InRvcCIv Yuwkb2axj5jpbYt5VhWnAP HjehWxaPrpUXH8a7CbPb75 N8GhdJoon3GvEhn2st56kQ Qac0Q0zVM6 S0EdEDMtbtclxJTjnBviTU 9yVMLvmkhgBELbwW2iYUFr B5w8TqFuDlW7AQagA7Orfa R9MIBcsIUh SPliXIC0Q96ty9S8WUWiUY ZwVON0uAF9bL8eoMbveixy bGVmdDsgdmVydGljYWwtYW zdB341TBRw pWksBVTvfS4eSJNcbIIcrH khVA2rHVIrfcjbBfxZKi5J ToPSZY3kCOINQ4gGHhExPY wvdGQ+PHRk OHM7kAstKGifOLGbaI6tKI QsL6k2DlTvWwA9REufV7Qd JJDxqqobTg50gG5xKrDjTs N0YBccJ9Br mhY6YGXgrGKeFZhaZAW6J8 2wo9U2GVHaWWLjSFA4rGV3 kQ7tnYcfsncyaLZlxZubur VydGljYWwt ULmgF238FRXohYtvIsIhQn U6CaU5VbH4R3DlJcp8EAEz cEgvLS5zhMKcTKcdQw6xpA jqqUcmPM6u AMBrvbrtFYNczQ7iVDPxvR WmiTybAI0vGBVgjqdvp481 KyFjGJC1FUAgnRKgS9KrpQ 9yOiAjMDAw WQXdX9AdkUHbNWreB126RJ oeLnA4EEJzelHeL0XqIQQn cDzgUeQ6r3I4Zn42OeHMQB FyczwvdGQ+ EXMdKCO6mPfmKUcyCCGedX 9aIPGjC4d7AfQtWcV6ACxr Y0NrNBIymorfMk16eG2zIg NdAeW0YRsj O8MbjhO9QCSbcFUyNUkzMW E1V94xz6H3POCwTZPiNXN3 fVW8zT8viQupvxcnjFGfyM sgdmVydGlj ZDpaLRnwX884FAPvpTyqLm 2JJSU4P5LtKmo5XFQnrCpe OC0llJDpFFroAr0noGbadL zlUN8pFHWt eahsVLFszV9uGVYjvQEdwT pdZI9yUMTpagpds639DuJa YKE9ORQndZTqR4SziV1oYs AjMDAwMDAw Z7QviZJsIOhiC017SNezZd D5JPLhveLeT9LlEMDiuQlj BdM8f1G0Py4AALirsFO+PC 97ph47F1Zh IhntDnt7KAVoMYP7nHU5tE 0tALPcTQtcd0X5zOC1Q7Gi pvItru9re7cnTSJxMBtyY7 1rdAKpa3D8 BFAarHM4KUHsrVqzYfNeeK 93Oyc+JQJhoLnhc1BuDuzc b7zvw9kwwPq0WkFqXSXogw FsaWduPSJ0 j5EpGi50C35cAAwdQCPsFA CpVJMaJYVzcExqyc0ypK8s Ii8+CLHkyNH1aJR1sW1jTz LrOsK0LTae A165MdSknPYbYrebu4cey1 blhUg9PtFaPQNigwZphSzu SXG7w7BcFz48X1FzkJsne0 QsPbm3vc82 hVQfq2S8qJL9H0CySKTpzw ukrFNygPjrDX2hDWEkpokr KNWmcY6iLFPuG7s7UdIhFb V3UBybB5Da zeO3IGQsaIIqKVRzuQQGcE 5xvkchs1qypgigLhNuOFDc YMu3MVe8TQUgsAwbZgJpAA M9AnJ0ATQ6 mLIrxW4mjRfhiyuycF8hQq c+WRv1a7lekJFmGU9dxSC7 NI23UI17bXIcf9A6aRZ8V9 BhZGRpbmct awgcoOG7OMAeBYMwgP44Is 1kdOqhJc1pLNDtRYT5VFEh uHVeR7NnkU3wDuNiEHCiCG DaV2MrfDWk RRptE350UVvzXnW4CBLrie OmO1GcWQPgtAhiFnJ1j8Q3 Mn6RRO52ZB44EH09xHRok6 E0lJY8W3Qp DTWfawlujugqzYF3QFFeQH YpuI92Iv1miItaRj7yXRSa TOS6NWQbfAIfL7NzvV4fGj AjMDAwMDAw X4YhlHOnXChaH238GTbcCj B8UDRzhnXfV0IzCMQfyYht LlK3f7I7Wy2IMb32GD12BY 30vMMzf3Z6 xYA8F6McUCOnugyulluixC E6AIAfMKDkvX16Zd5whGrn Wk2kOUQxZCX1XHQqzJBzX7 MwjQ6uPkUm WJMlTUTvO5CmjXUxQKvyC1 05JBmjLxT9DVGghoFdP4Pp FTJojYqqKjZ5n2Z9Bm6TOZ mgmvd5E3Jv PjwvdHI+YL21ZJAtTC92yE GklBXwt8bueHo7CiBzSJHa GSJ5mPgzOZruy8OvWMIvK2 6xyOEkg8R8 IGN (more content not included)... [facility] Coding Summary HTMLBase 64 HufqyzmcNRc7dRh+PGhlYW Q+LY4MCSNiX78jbZKmaY5Z H3uJPT1PYTRTLAKHBJ1VZT 0ycTN0SYnoK1LfcwMa NtrzyTTrKN05UJc6EBN5cV wsPUivqU1rdZBtX9y6AfDa WV95xT30OFfbVUFvQtA2Nf ZpbjsgbWFy K6mnCdJchFTjSro+PHRhYm xlIHdpZHRoPScxMDAlJyBz hVlgBS7tEi7dXEAzLQGuoA xhcHNlOiBj p2wdKKVkNMfvBH9crJyhV7 FciXS5ZRHkr3h5Hq28hAJ+ PIEsXGF4pMymDXrjh817Cm Hja8agBSB9 oTDbQRxjKCR4I03tc8A1LZ KqQIBnJTZ7wAT8lZ8skVry jqsrU3RzxCEmZwV0BBQ6fS GviU3dtPsb bbcdxJ7xGrz+U64NZB8ZJE GNMS8JZtm3C1EiZsehxIB+ ST27IDQbBA82qQYlfLUae9 eddLe7QgIm VTPhXSF1uQisMRkvl3HbXC RyW81liERuf4Y1NGDxaJvw iYPdLvLxbQM5sW0yWHwkvq mbu2eiqakp Nhpsy5sgai66kG03D02jVE ubQRUgFZP4FIJdGIWtmJag aq3znC8xXl7+DZaba7zbt3 degYn3JaHv XBKumoDqoAlbJHX0j7VrTu 98V3JloUdui7TcXuh9ry33 mYGth5L2xZB6DJrcVGGkrH 1tTHmwXdB4 YSInYuBlqJ57lTRxIYfnMu 3qwAqgoGyhFV2vHXTwujww NBSwuD6cUYVetQYbdKdjUB 4wNTBpbjtm s716LyFgKQI5BEWpoUTxC0 ElbS3sQaFjETUeJIQhO3Ud eYPvVLqeX643AQbnDbF4ZU HotuYfD2Aq EUGgqLdpAmG5z6N3Vk7Gq8 FjntyxOYN9RNjzEBQfAwSj EuOoBwT2R2GiNeb3QBLtmY pwNV8pL3Nr YGDycsnqohxdbMY5LVPaUQ HraH26nMUhXOmpYc9qf7C5 r247GEViYTOogB28Uq2huK ogMTBwdCBU bB6dlsrvy7hcqwfcMpWxWU LkUPs6YXx2LRSmeGxzDhZg SIW8CgX7KZE8nLUtqB1ywK rhfgrccG3i Oyc+K76bjC5sDFC1QFM3gl viZFYzebYrOY42JA48X8Kr PjwvdGFibGU+PGRpdiBzdH jyPD9sHzSi u5xcd5IbSDzqA6XkMOTtCE bsXka6KXOrGOL6gSW9lK2f OJRbCPwxl8P6eFG7A1Wohy Qtnb5ts0dl JDBwMChdQ99iuDSkb8C6HH UyqRE4VPUgwWarOpFagU55 Oyc+URXnwEbrb1RfWxpse6 ozh0towAm2 TzTrOORboxBcjFltFBN1t3 HkXv92V73qOIzyCKFzCZEf PVEaYZUpkYdsez8uxA1bQp 8+PGNvbCB3 bBM2wB7pKODcMxM3OClkM6 35EdGwrSHzNclfe2rwp9ja zBf8TnOkVOKwipBjzBvzFH K8s5LqLf82 F04qPFojIEBqFPTnQIArCN XjsFalyq2fmB5uKs4+PC9j b2mdpf86aR74cUJ+PHRkIH L7aJpeDHtx LTXljP8tTSfiBiN9QIDyCl BlnV02jNDrCLfoYh6tlMbh qKzfAA3iXDQrwpscx536De Udf1igIOBi jVMqRCtzPYO0R12tp5C4TF ZwETNcONZ5zGV9mA9qoFca bjogbGVmdDsgdmVydGljYW rkVVmqT794 IHRvcDsnPlBhdGllbnQgTm PiXNh1P4BvNwb4OPVtuBuq AT1rxQEnURevYd9drRnkkZ guLK5jYCBr cwnvv563IrYvm7hdYLDazQ VjNWnaDYV7B71ry0Z8UUNm ZEFiDDL8fMP6eL9ofIskav ogbGVmdDsg xwJndZdaPTmcUPtyF534DA RvcDsnPkJpcnRoIERhdGU6 KC74AM20kKYgd4T1nFJ2P3 BhZGRpbmct epfvgWE0NJGaQBAvfB36Mq 4rkYqiFf8rRNQwGPS6EMYj jRTlI8UfiW1pYxAxUZZnAD ZhR9OglYUe MAozE323TEzoAgA8WIBdbz UmL9XbSWCdwZweXvB5r2U8 Pn2KZ2R3WJ95DJ84jEMmf0 B5pSM7T1It EJJiogsmvdlnzAC7VEOxPI LnyQ95Tn7kbUmhAf0mWFYi PCR0HEZglBDdN9WbsC1eZj AjMDAwMDAw P5IpsJQtQPgpN214FAgvHr K0OAKkrsGiB5JfRCHixZeh XnT1n6P1Xy3EINw6ZC67GT 92sDOag3U4 qSE6T0LvYHDgtpsudnsjiE C9QBDdDAPzjX95Hm6yvKaf Wm4aRDCyITQ7IDFciLTsV4 RdzL4iJzNd LLUxWVBcH6LsvTHaAXtpT9 46DUloSlY0VXQobjNbM9By HNVuaVwjXcD0z9J1Rr8LLB RlZM54DOQ8 jAD6TL65QW30P4VlOrzcwQ FibGU+PHRhYmxlIHdpZHRo ATgzZLObWzOpxCziDK5wFs 9yZGVyLWNv hPnlsTTzYeUcq3teOWIqUU bqWT6paOwsP2AzvLW1NNYt j4p7Jn00F39lU0LtxQH+PG YplKU2cNT8 kH2dHsPeOpT0KHkzB626Zr HxiKMmHonmk5dbh1gxqMe4 GlZ0QSDopvNocVrgUEK5l6 SyXg24B10p IHdpZHRoPSIxNSUiIHZhbG scxy6uhM8wAw0+PGNvbCB3 oAE2vU7lLiPiNhH0XIvvX8 49InRvcCIv Abhtl5lgg7fvqXh2OwRxIO FfmhWziLlyXBZ7p3AwQr01 L8PgdIhyl5YtOeq6ds95vY Gpp1Z9xAI8 A9SzAOOrjeoagQOpjDvgZD 9hWENvvbyoAOKyaC9jJBXg V9c8VyUoRdV7RVspE6Trcf O0FNRsoRTm VUwkICF7K01oz0A0EOWnAD VpUXE6vJK8jJ3qhUggnatg bGVmdDsgdmVydGljYWwtYW diP407BIXq yNkzXHBcwI9aXCBqdZZhyC ruHA0oULCxqxjfVluVBg0G DpLXAY4nZVWZK3dDAoRrJE wvdGQ+PHRk OOL8nCpwCEnfHMFmsR6nJQ EpC5k4JqOdCpL3PTwzN1Kx NREwfuezKb53kR0wStBaAc V9QAajM0Ur afV7UAMnuSWfSPspSXM4N1 8se6P1ATWzYVSvNJH2eVI9 tY7mtCuytwsiqKAwmDvdym VydGljYWwt ORmxY464ZOIdvZchTxNoXr H3VvZ9PiZ8F7XbEph2YIWv mVclAE8exNLiJBhpXf3gjE rwjKdjDI9p DCWaqboaSICltQ1cUHCnpT RptVacPS4hAOExkkpze643 MhXxILK5BRRioKIxX2VywZ 9yOiAjMDAw JWSfH5OrqYUuSGqqJ485FO bvBaX1OMCxhxMrG6XgXKGm eFeeLsV2c2R3Kd01WwJRPQ FyczwvdGQ+ SZRiLCR3tRrxKKusZVXkpL 5aEAAsW9t3ZgXbPpC4IWhp N0GdFGKjloglPk57iW4lSn IaDbE8STht Y7IzfmR1HZGbwGSdZGrfCU C5L45ai5N8JLDcHLTpRTK5 lEM3uC4mwUuavucvhFSfxX sgdmVydGlj ZIziXWibL906OYDzsItgAg 5AXKY5T9BvSks4UVQxqLxn MI7udXCyAGbzQa9erFwfwH kgER0cCJRa dxyyGCQuzU4fRQVgkYKtmY yaJF8lAWCcjtdfg956EpQy UGM5RVCvqLBuY3UipG4rKh AjMDAwMDAw I7YdiJTmNTgdI738KEdgUq K8BTWbxdYaD5XaMZXhvArb UiL9j5A7Gk7NJEbadVR+PC 87jq37B3Ui EsfnNaf6FWUsPRD9fKS2tR 9sJZBhRMwro9T7zQX6D9Vg eoAaou9lu4rzXMMjBWgcL2 8xeUOly9R1 NIDdoNU3QTXdsJsyJeTumG 93Oyc+NCAbyEoal8LhXkyu g2xdg2nzaOf6MgGeUVUizt FsaWduPSJ0 c3HwUp97L89kZZrbXXQkLK UoSXAdGKLhzDzygw6bvH2q Ii8+TWFunFJ1rJO8cO4vOl UjUxI2OPjc R674TcBulKArIbdda6rod3 bqqBi0EyOiZRXfskNvbJhm KCF8v8ZfSu25U6JreGywa2 HbFrs5ic17 uAHwk3U3aRB1R1SbIKHmpo gxzWDdgQaoYE6wLLZvqiba QNNljW3cJQJvF3z3RsLuUi B0TDshL6Bd mkY6UMWicHPwDKOalBSZxU 9vsfupx5phwjmdYwZhQORb GUf7ALv6NEJbdAldKaDcND L8RfO1PHL5 gGWepZ5keOrnzdegeN9aDw c+VAb7c2xiiKRfQF2eaMZ9 DN60AL77zBPkp4O7vLG0S8 BhZGRpbmct dgfddPL7XSRwBCRsqA45Ad 9xgYzlMk0wMXKtGUZ3MDCm kRLvK9GnyW1qTaVlQKDgTA FnF2RhhXCf OPsnH801IVkdNyS3MMYgdl JuP4MtWUTtnOccVoT4i3Y4 Gx1YIM35AO59OS10cONrq4 L2kWS4L2Yp LJRqqklayuxxmQL9HSFiTX FbeY70Mg9nuJhoWr0uGADd UWU7TTKxcCEsA6GxlN5rSh AjMDAwMDAw O9YypJJsYMwsK141TOrvTd J8ZPRawySmP6OyHHJbzBkc LyV6a9A0Nv2QEt76TJ55YB 18zWTja4N9 dFC9Q0KkHBQdqpqadooaeO D8WQJdTFAhiX52Ol6nfOas Au4sTHOtERL9LBPbwQHdE6 HtoH9aXdSu TWRaWHHuP0JbgGQwGGxxN8 19ZFdhEjZ4THIjirGbT4Xx OWDutIyoQyI6b7L8Ab9TSY ypqgf2Z7Tk PjwvdHI+VR62LSQwJI39xW VcjPOyr6iwaCc2CzYgQSFj FIM5uJwqIRpvv1AjZRYiK8 6dyNRgy3Q5 IGN (more content not included)... [facility] Coding Summary HTMLBase 64 XxezjbxfZFw0yRr+PGhlYW Q+UP9WQNTzE26oaBDhgO3K E6vUDK3BLKUVNZUNML0GXK 3ooEU6PZoeC8JhkxBu KehrxCQpYM02NJb0IKN1oF ujCRojyM8odCHwM1f8HsJq SY38uA27YUbhRMWoUmZ9Yw ZpbjsgbWFy L6jjPoBsvLYzGfu+PHRhYm xlIHdpZHRoPScxMDAlJyBz nBzeYG9xLg1rEZYnSLOvvB xhcHNlOiBj h5aeIXUgGGlpKZ4vhRodB5 TiqUK2LODai5c9Zj96qJZ+ WHRjUYP0lBmpPDtdi969Xa Tmt2xmBSU8 lJHmUEruUEF8Q86db8J3RW KnGHHcCXX5cPZ7wW2gvWan lqhfH9WwkRUnVoH3OWT8yU SztZ5qyZdt oenmgE1dThy+A38VQP9UKE AVDV3EFym3S9AfAalxjFM+ WH20XGFpHR24jSWmyCNcm2 ugrZt7DrZs ISLfJOP8mFbqDRmvx3DqEI ZuS16jiUDsx5C5ICHfdDbz zUSbYwIsfAP2zF8sXLtnwk nhu3ayaxnn Nxvxz7zoop57mQ88G44vRO nrLGAuMYB5VEWsKVFxgFvr aq8mpU8zYh9+NKqke9vyq1 ndfZl1RjNz GKGtesQjnEngCEE7q5MoLn 86F9EeiUihy9GdKct0pc76 oQAwp9C8nGN3ARfhFHXnuS 5nDNkjQyB0 EJOjRpVdeZ68tUNqXZyyVh 7jnMzviQhiMP3jNXFqbfzf FGTdeA3tKTUybWHdfAedBR 4wNTBpbjtm f776FqLrBJY7WNPpwRCeL8 WggD6dAlHhYEAySQJxA9Zv hSFcVJbaS029HWcdEvI0NE UhfpLoK3Nn FDDzkSutGyK7m1V2Do1Mr9 DdzwhfQDI8AMipNBTfWeXj ShYdYxS0Q2OaQke2PQVmyR byDG5yS5Tk RZZenvuhrcilzNJ2YFEtJE FdiU34uWChAEpuTi7si5Y7 r066EFOjCTNtcM79Ph0dlY ogMTBwdCBU wK6ebnfqw5omitsoXeNsHI KhBYq4IYr3GIAeeElwUkUl KIB9IbS2MQU1lYRxnF4arD etekwgmG0v Oyc+C31onG6rNYN7WAO6bg bzWOFeowWlBK91CB24I0Kb PjwvdGFibGU+PGRpdiBzdH njXA4eRsFz l1jyd7OsCMjfS9EvFNAhYZ ygVnd5IZRpOAY4xOM4tA9u DALxDGlav3V2gFX6Y8Xsrd Fttl1lb3rv GSBxQFpxI12olYDgq5N8WY RjvYG4COUurDvmOqVbyU03 Oyc+PRUrrPpwi6LcMhgkv1 lkh1ityAa5 MsRlOEGrbzInfZjiUOX9c7 CeTh82M58aNJglFRZxLAGg MIZoICAmcBgoft4plS8tLn 8+PGNvbCB3 xYJ2aT4vGSGvCwQ8LGrlK5 50CzXuyRKpIwwzl8cdf0sn jHn1IiWsIMYdjfHkhRuvYB E6c5EgXb99 S52bSKxnDYSvADNaXKJaWL OdiRtboi7vmA3yTz4+PC9j a7thpn81wT68qTZ+PHRkIH L9lJegLQil HUWjxU3uSDxbAaF6JXCuHo NvvQ31zPOqGFjqKt7cqIcb yLtgWT6qWFXvmnqhq361Vt Qss9fgHCPz iMQbITisMFW0B43rl0X9TW HoFLCmXML7nBU1tZ9ifCay bjogbGVmdDsgdmVydGljYW gaSXzcI223 IHRvcDsnPlBhdGllbnQgTm QiRSp8Z4LsRed3FNWieKhp UC7iyVHwFTpiMk4mhMbhrS oaCA4mXBNw bwflh128HiJxi8wtQUVuxV ChZLmlXIF3P56mv1T5AFFa MMVvIDX9aLH3tV7bcJgilr ogbGVmdDsg vzIioBqxIBwsGFxqR189KR RvcDsnPkJpcnRoIERhdGU6 HL61QL07yVDzy9J4iVO0D3 BhZGRpbmct rksrhKX6PTOcPFJxaK48Wt 6sjZxkHa6cJZHtMBF2AANt fGDaL7NccG3xTnGfKAGfOT PbC4UioINl ZSvsF209SBguBmS7IXWcmc GpZ2QvRHNkqFljItS6g8Q9 Ni5DM3H3UN24JM08bAOga0 W8cRU3P3Th APSzhptpwaterGZ7UKLrTW EbcY30Yp6ytLdeMg1zRMDp PCN8XYXbzRKsG4DwkF6qNr AjMDAwMDAw E5JeeYPyLQkaC897LQmgSw T0YBIalhZiH5RgDFMreDau TkU1k9O2To2ZVPl1SQ04QK 36eYEry9A2 uAO8J3TaAHTxwtekwkorjV B8PWVbAYZnyG23Zu7otWro Vo9tMJSnRED6VDOooHFtB8 RcfR1lSxGa WIMaLPNdC8PskKFxZYpmR1 77EFvsPsT2VEMhawRuQ8Ag TVVvkYziAxP6s5E8Oa1WAJ ZwDF16FJC2 qTB0HO59IC13X9UnMgtgxQ FibGU+PHRhYmxlIHdpZHRo AAorIDEjGlMinYmiMF4dQe 9yZGVyLWNv jTrlbHTfPwVqj5zaXVYrEX vrTH4frSdhW0JxcEW9YNQt e3g6Ra67O53rF6FyvAH+PG QisDT6lQL4 hX1bSaDjHrB8YFxzY522Jz KxwSOyMbcpg1dxo4yvlZz2 CsW3KBKkclHkzHwxNTX6t4 DvPi16N81d IHdpZHRoPSIxNSUiIHZhbG cyvd7ihB0hEl2+PGNvbCB3 hDA4rW8nTkJgOpE9TNqxH2 49InRvcCIv Dveij3ncg7tfuZl8KhDqVN GgnmUxfIiwFCA8f1RsWq61 Y5MzbCccb7HdIin0hp41nH Hjy7D4kZL7 C8OjYCInvozxoPLonBdyES 6iFESgfxrgLWKztP7wDFWv R3x7VfTzZuJ3CTxjS3Obkg R2THKhrLSq OVggBDA5U45gb3K4QKIbEJ WhBJF1sFV4iI7cbNrytrsa bGVmdDsgdmVydGljYWwtYW rfK222GSRa kSgwITIgjY7tDOHqzLBffB gjSW3fFXErwxceGijZWm6M YbTCJY4rBGTFX8tSQhLtDC wvdGQ+PHRk DHO5aZbtOWhvVMJpbQ1fNX UfP8f2BvCbVtA5TMxsN4Kd VEDlyxhrXp65qC1fFoOvQb V1LXhfP1Tz ihA1RPJpdPBcDBboBUU0A1 2wz2V7IIYgNGVkGWT9jXD3 rA1oyOencfbueABlcWrbgu VydGljYWwt BZjtR555VHQkxEdpOpGkQr N4LfU4BbQ6Y7HdWsm7AEPn eMdnFS1gcGQaKJcfYm8ilD tlpYfyDF9i VNVhivojDNEzmX6gGVLtjR UznQpxVB2hWBUexjcvu349 LeFlCJC2EGHbbLRpQ9LlkH 9yOiAjMDAw TWWdZ2NnnFQgHTchC953HI olMdA0EKDtawIhA9HgPYZc xGcjPkJ4f5Y1Ca67VkJWGP FyczwvdGQ+ IKBkMNY8eVlhXHctMFEcaE 2bYVQoV6v4ChHcPgV9PMwq V6JzTOGhcmkgVw47uX0xEn UmNbA8EYsf X9QywiZ4ZDQpxESvDDylYJ W9L85uc8E5KTIzZVBgKEK4 nAH6yA4qaHicpduikXLcsG sgdmVydGlj BMjdRJqkI372OOQzlTmeXz 5IQEW5K4CkObp6XLFymMhg DS2oiXJlXMjmRu3gxUmkdP hrYQ5lGKAl wstwBPFguI6nWDTpcMXocV rbPP2eFFLlmmgxv005IqSk DBN4AKBypKLnF7FucD0bGg AjMDAwMDAw Q9ZkhPOpCAdsK908DBkzMp G1QGBaejLbT3DgQJZtuLwp XiC2h4G9Aa7PNIkysEY+PC 43yk87E5Jw TsolOde0VCMlDNM1tED8oR 9jUWCdTMlea2L8oCH6S9Xv xxRssz9qk0yyPLDeXZqmA7 4tsZIos2N1 ZEFahPR5GLXmpSlrBuNotQ 93Oyc+SHKwuLprx2UcDqav j4qwp7erlGd6TtDnJVDpim FsaWduPSJ0 t4PlDf79F65fXNviZEBvWO ZiVBSkUBLgeEolrg1utL1n Ii8+YLOqnDA2gAC0jO5iPn HvGwI1ARfp T193EhWtrKGiZbipt1zbv3 jyyJf6KtJtTNRwmqVkhElt IKB0d4RyOg36L5OkzPsyd9 TkObt9wh35 bIUuw7X7pCQ8J2TvEWBudx rwiZZwhElrLH0lWVFlopjq WNPfbA3oRTCoY5s9GtGqHz Y0RMrfC8Or hhF0NCIziYFeSWVqiTLCkT 3xfnwsj3vzdjmmExAuRXNx XUy2BHt0XGBvrDogTePzTG P7BiM8UPX9 jICtwA6phGnoibtmyD3rYq c+CLr3s0genAJtJU0gtVY3 DJ76MN89fXJbm7M6gFH0K8 BhZGRpbmct uapkrNZ7RBYoPTNtsF79Vg 6zzEgsAr7wRSImUQN3FYYj tGXaA7ObkF1yDgEgIWKsHO LkG0OreRSg YEqkW142TKabYqZ2JKVvvb JiD6TiIBLbhNnjMqR1z1D6 Jc4UAE11LG52MM13cIBhn7 G0xPN8U6Ts VTPlmmrzmmaclML0AIGcBV MckD49Fo1ouWouSr2pCDUq JFX1CTBtyRYnF6YkzR5oCy AjMDAwMDAw D7FyzHNqPSqwX856AOhnOp Q1KMLfqwLnG1GfDRQmrZjd VqT9p2I9Iy1RXs38ZV56BZ 74pNAvf5K9 hKR6D2WjNYXpvndasfyamP L5WHUzRWRvmD12Pf9lyCma Ng7fCBEdTUH7KXNdpDWyP7 GsqQ4rPcSa BFKiVQZqC1BdtFJwKNgsA1 69TSjfKrA0DCXiedJkB7Gx OMGhtJpuNnZ4a4S8Gu9MJQ vxwgr3I7Ps PjwvdHI+TJ12PSXyHH13gE LtxBYnd1katJi7HvPvKUNr TVL6zDieQRxao3CzKBRyL6 9oxRVkk1O1 IGN (more content not included)... [facility] Coding Summary HTMLBase 64 TazlsoywPTd6lFz+PGhlYW Q+XV2XJDShO71kwQJctD3E D0pGOB3JFSXHTAWKWR9QDT 8tuGE7XVhaG1GkchWt ZjryeZIiYU33QZq7WMF9tJ pcVJznnK0hbGYhH7d5TqZd CX64aX91TYlgRURmGbR1Nv ZpbjsgbWFy V3izMnSrxRPnQph+PHRhYm xlIHdpZHRoPScxMDAlJyBz xYicIO1eTa8kEHJcXVPozN xhcHNlOiBj t6ywYJGhMTseGA7nuMihM7 DwpGS5AMNoq6r0Dz21tWP+ RDGfQNV9mWtoQSquf027Vr Zhy4mcMLJ1 yTMtGSkoELM6T57vh3K8KD KtPCIfRFT7bRI6kF2ihJlj wwpqX8TmzRViVwD7MPM6mS KspE9nmNgq ioqqwU5jFdw+U58EPS0VBR EIWZ1ITvx0D8TdUhjztUZ+ GE97EJPuPJ88dWOnbQKos8 gukZc5JqTh EXOkSKO8jAilNPrjs4UqKD QuS62siFOno2X3RTWjpJfm eNJdSgCexLH7kL6bDGctip sjg3omfhxt Yxqzu1utdg37aW99G79xYZ ovZGXwCNQ8FBPeJVSeiNkz nm0zbP8iUf6+HUrhj9ljo9 hcbSy9NyXj ALLvgsDknYsdHZR1w7IfVa 20F5BqoUkig6NqPxs3vy93 pHFig6L2hPL6CPmqTLDutS 2nVPakXiS7 QXAlGzBlsG49iRXaYAzbCa 2mpPffjNilWH0fNFWquroc TNJjgA6xOCZjeFZisUvjHB 4wNTBpbjtm x903KnUtFJG6QPMlhSRvG5 VnlQ9wAhLtSVKjJAXhX4Cx yMOkRAlsZ685GCviJaT2AE RhpiUoL9Tb HEBnaAkoCiT6j8T1Hf7Qm3 YqzmeaBAY2JLnyTIQuMeKi EpUjOyZ5G7WbKos2LQQmtO xnJH1dN9Fr ZCRvotqypxowyIC6TKQpGY MjwP81rLGfVWnlKr7dv8Z1 p833RADoLKQbxV24Wr5xiT ogMTBwdCBU cM7krdeop8xrdsotBuXwSD XdDMt8XUv1MXNrmFzyOsOe YIH5ImU5VUI7oLGvmV3geC xlkwvldW9d Oyc+R86mnS8cFRW1DSN8yh hxUMXvvnXoYP79GM78W6Cm PjwvdGFibGU+PGRpdiBzdH onKF1rXkYo k0jci7HnOAvbC4CaEPNbCG bmMay4LYFaTBF1mKV4sL6f TMGzOIpsh1S4oXN7G4Pnwy Doni6to7qk SZGcUAxkR50gjMXoz3J6GR DewFM4WACniKgqAzYpnV87 Oyc+SPFolGznc9RmGwece1 eoc1alsSk4 HfRdVXRmefJoiPjqTLK8r8 XkYp28H42sZVnwUFEzWXZl PZTvSNVjsFgxdc7uiW2eSh 8+PGNvbCB3 rDC7tU8vPOVzIxM9JTvlQ4 18OgOqoRYvSopsg1vls8bo dVr1JtTwIPWteaLdeQzsJK N0u7BrJo88 G32aIPhbHAVsWDMsULYbVJ PqyVgwup8aoA9mFy7+PC9j m0txpk15aC12cWO+PHRkIH K4oVclWAis XMWwlB9lAUhyKcQ5PYOfEa UclH07mSKySIazXg1ehLxo uSwbHF1cJXYzkhakn973Am Ibi6raXGWe gXIpCEgrIWV6S23gx9K7VI YbUYWkAXQ4mHW7dB4vpKxv bjogbGVmdDsgdmVydGljYW ipXGjpZ237 IHRvcDsnPlBhdGllbnQgTm QiLXu7D2ArZhv4VMPysDfh MN6emOMbIHrkJf5szJleeO ccHM8uCAJt jrfoz132AcIuc6wjHKBzyX MzQVzfZKH2H58mg9N7GYFe PIFyDCF3wPE4lS8nuTcabk ogbGVmdDsg grVciJxhDDvvTPjeH961WT RvcDsnPkJpcnRoIERhdGU6 VR81XT53eXAmj1B9gFH6T3 BhZGRpbmct mpycgIE9JFQnSBZwuV71Sg 4jrMdbTt2dWWPdTBO4PJVz jRQbL2JqeB2fSaWkKJZpJS LrU8VykCSi LJrfX675WXpfAhQ5YBMxmm CtJ3ZvKTLoaBlvNuL0n4U2 Ei7XY2B4UZ49DB21jJFfl6 N1hQV2S0Rq BGLjmqkofcqocEW0GHTuXU QnjT19Kb5zeGypNd5rBVLi YTY5TVIsjGNpR3ElsA3mAc AjMDAwMDAw K3TqwORpUWtvB652TUogJe T6NFJosxNvN5HbQQJzzEhu SrC1z6Z2Sv3ERDt4EO66DB 38wUDye5U2 mJC8N3QfTQUiddgceeihsT C7VUVgXWKljF84Pk4izKrv Oz1fGINvCCA4LSVfiZJrB1 AcqJ5aIcUa MJAsNOEaM2RzxASbCQjrR8 87WAlpGzG0PBPwxjZwB5Xb POIemVevYzS7p3N1Ar6VKT FgHW98ORD3 sZG1KW29DY95F2KxLfijdJ FibGU+PHRhYmxlIHdpZHRo FDmbGGCoTbFgiAwcPN9wMr 9yZGVyLWNv nPbtqKOnDtMdz9ukLNRaBJ tsGD7pqGawM5DvdGC1YVHv n3s2Um04E37yW3YzhKW+PG LdyKN0lSQ6 eT5mXrJgTsN6GDtqK192Di ZbpPEpMohge4umh7jmdGb3 XmW7VSPeetGovTkdFHM8d7 BkPi39H62m IHdpZHRoPSIxNSUiIHZhbG gaxe6hpS6nAo8+PGNvbCB3 fCM8bY5fBlXoUnF7BCdjE9 49InRvcCIv Zpwlq5dbk2iknBd7FzDuNO JywdPeiScaYNI1p0NmGa03 S2ZhrWaen3JhTkh4kd78gM Sfz3W8xTM0 Y0PbPRJnphfnpSOphFhaWG 8gVJDbdmwaCUDtbB1yBSDd P8e3EiOoHfW7GHskY8Hxio B5KEGtmGZm QTtpJNH5U66ae0Z3AVGiZS EgNJR5aCK5iE7ryUcsuntl bGVmdDsgdmVydGljYWwtYW yeO535GWGq nPakCIYplJ9uIZSifIWcyX uaWD7oMOBzxxgsNtvQOn9H CiUNNU5ySFOBF0bIOoFiAZ wvdGQ+PHRk NPZ2kTlcPSyuDLIpvT4kNB QuA2l5ZwFvSqZ3AWymF2Ze OUInzwwgLd02yI1xFePoRz F7HPmkD9Df lcL4GACczHXpJSkhBLC5W9 4yu0D3SSQwSBHyEBD6qVQ4 cS9kpPbegnykxQYdfNccua VydGljYWwt EPzcM407HDXudGdxHgCnKq I1XoM6VcJ7B5MsFnj5ASBk pJldLY1dkELfWEicHo0nlJ ithOoyTW1r NFAkdroaQBOmvV2hBJTbkD KjdJuhUQ6mKODyckhft263 TpVqNDM5FEVxxLZvL1FiaV 9yOiAjMDAw LNSlM3FmzORsGHvyW234XX toQbI9MOEthvCnT8WcADJa lOpyFhY8l2I9To24UfMEBH FyczwvdGQ+ SOPdHCA7bXdbTObxAJTrsS 0rOYHkQ8g0HlZxNqY5XHyv M4GvEBMniydrIo68dS3yAp MyIcP3FIch O5MmasL8OJJxfHQxJUyrYN T8O00ym8X9YZZgNIPmAHW5 tZF5vP5nqDdipxavrYDdgH sgdmVydGlj MNuuWMmfT466BYHtgJviQc 8CRKZ7O5MhHau6AHFhoOzf EX3suLBhSNrwJz1mbMblnL jzCA6aDMGv ngsdWXAmcA9qDHLsoEKemO tnHW3tNBVswevjd354TlDd SHM6KXQfjTZiR2NbaS3xHy AjMDAwMDAw S1ZczTCyFJkeL637NIxxHr E2SAQnjpLaD3IqMVVabYhl PyS4u7G5Be2EGEvwxHM+PC 14tv77V4Yo UxleVbh9RWOaLJF0bHI3jI 2tQXTwHEktl0V4zWR2G3Kh tkWsfh5rf1zeYHNaQOrpX4 1voYJzz5U2 RQRmuTF7XEBaeJcpEbPwbZ 93Oyc+HFTesZmif8EdZycd y1azd0lorZp1FpDvJRVkmy FsaWduPSJ0 t5LtBv24L96rUZfaRVVmXZ VwHNCzYRWwuJwilc0byM0e Ii8+GEZhsKG7oPH3uY0uKi NaXpP7ZJid I379ZhDjmLItXentz9eil8 odmEz1QrVkOVZgtsOgnGhw DCF0g8VjYh43R0RglNyqb3 YkLpf3xi88 fHAlp7B5fWJ2K3IwMZSlqv mfjHBchHcuYK6rKSZwysxm RERmxG3qVVTxJ3p1IoIzRw U9WCnbA0Fo piE6NWCsuDNqDTUujKQNfS 0rvmxnv6xtdmonZiPiRLQy RFq8BOl5GIIfvLnkXaAaEC O1MoA2LSS0 yXTxeR3yrLnteinotY7rVq c+KZi5f6mnbVUcTU7laYX1 BW35BQ44dSAlp4C7pUZ9L3 BhZGRpbmct tvppoOV4ADVzMBZwxL99Ub 2vsHuhSl0yELNqQOS8OTCq uFWbQ6SvbC3qFkFwDODnCM OaC0VmuSSx XYkvO774OAfxNsH4VYYsrt BoE7OuWMEqzCkdQzB4y4K2 Vf7RLM10UZ27QY87cJAwa2 Y0kIX4H8Kw CYTgonokiiyebFW3WTSzGC VygX77Lz3zwFvkVv5oDCNq ZDF0RWQsvBMfZ0EqxX4yHs AjMDAwMDAw J6ObyFIhORgqM387FOtiNm D8WUZfjoIvQ0DoGDHqfGfe HiA8y6Q3Mx3RLk62MX79AF 99jAHbb2I2 fTQ7B3XgVEHuvjusmntbsS E0AXHbDMQehZ00Rj7ikZdp Tc8cAULqPKQ6BVJbvFSdL0 OykB9uHjPt VYHgTRUrH9MjxLAhEVneI7 11UMelAqX5GCPxflCkK4Ax HIHyoJksUpN5m8E4Ms9HNR vapff2Z9Zh PjwvdHI+RB25LOTmXW13bI TpyRRmj7jlzDn3LsZxMJZg HPT0nRwnLAgot4AwERQkK6 7slAYjc3I1 IGN (more content not included)... [facility] Coding Summaryon 01-04-2023 Coding Summary HTMLBase 64 FigzxirrCFc5aKg+PGhlYW Q+KX3KVBAiN18uiGMwwZ9V S5fWRD5DVTVXEMLQYI5ZLK 0iqUS9UMhdF1UdgrPz IebpnSXwKL66OAj7UEW3dI toAHnaqG8nlUImP3e0OaKk HW02yM54EFddQDIrXtK1Oi ZpbjsgbWFy D4jiFvJiuEYtQaj+PHRhYm xlIHdpZHRoPScxMDAlJyBz iIjgQH1eMn0aAFIwXXAkpG xhcHNlOiBj y8acOYKoRTniWI5dvYexO0 EsrNT1OXYzt9f2Ah48vSD+ JLKzEFM5sIsmLYtan566Ij Qtp3inJSR9 xKQxRCpuHFD5H22ug3R7PE GsVFAlWQG5cUG4yC6srVpp bftbC7CwbTFqKoP5XXW2jR DrqR9rkPlk hmyxgD4aDtz+M53HTS2JQB RYUO4CYof8R1DmMjrowUB+ WR12GIMrNT42eIOxeSEtp2 uatKd1YiJr NMReCVG1vPztTVwlp8AdJK TlC01qhQSvu4Q1STRkkCvt mTAuUwWovFB8oF0zEWzgcs hgj5jgbzri Zxrnt8lahc09qX31Y49eZJ rnGVIqQDS2KPEuQJOstGaz cw9txL2xTw1+HFozo1swi3 eluOw1TyBl YZJgpcRomZxhULR0c4VvSh 06Q8AzvNlww8VaVit3xd52 jFEnx1Z6yTK2PVirLYXbiV 8vXLzlXnN6 YUWrLzUwrG07sTFoDUysVc 2hoEwecIlkFE6sHMUndrsn TPWikN0fTYIshSGecLejLU 4wNTBpbjtm c718ObNpBQE8CNHfpBJrB6 XmdB6tQcIgSICsVHEoB2Cn bNLgEDkrW529VJvbPxD5LZ ResdAuR0Aa YKSouVpfTcJ2j5B2Vl4Fy5 UkzclkQPA6WBwuFFVkHpB5 UgXpLuE0W2RsMks6CXLjvQ vmES3kX4Wo OFRmsbcuueskhKY6MEUpHP FjpN45aEIbAYvbFf5wg6T8 x924ZBWoTMIuhN35Bb6heS ogMTBwdCBU xR9xhzjty7pdqecyPvEeSF MmUOw4ZXh4GGXppSdlMsLb EOF5GzG9GQW5bGVanX3caH oxudrejB6b Oyc+F73okR7jSLN8NJZ4qf hkGDLllyLwBQ97RL60R1Wj PjwvdGFibGU+PGRpdiBzdH bfBU3uSfAm z5sbq9MiWWdqB8TlFOLiFS xgLgr2ERVdLCK0sSV8sJ5g PJWjTTqyd9D3qLW1X3Ihsk Xxnw0ox7bd OHRpWJzwM86hcULkj7E8OW OlrPI7WFEnjNzjMlLgjY29 Oyc+YOKdlMqah1ApByrkf5 mpd2bnlNi2 MhMnLZKnjgSscMoeFGO6x1 BcNy02S34wQZrdQBGgXOJp AARhAXWujNinop0toO9zFe 8+PGNvbCB3 bEF8iC5oAOLlOeT0NYlbN2 91XzTeyYVpMyftm5tcv2rr vDe2MlGpBJZiatEaiUvoKI O4j0VqFl79 W45bKGwkTZIkWWPhOPBpJJ LcbGwbko5mvL1nSf8+PC9j m6igkz16aJ06xWK+PHRkIH F6hGtxFYvc VFLdgW4wTZmgMpP8IHDtQe JveD07cAMmUIqdIn7dcPcu eFsuMM3xRPZyzprlu020Nl Ffq4kwJDVb rEQxQWeaOYQ9K78jr0S4YU IrBMLcKJT3tVR0kQ3xmYzp bjogbGVmdDsgdmVydGljYW yeJYobW970 IHRvcDsnPlBhdGllbnQgTm UsPTw4C2WsAnw4NIBqmSnm QW6zrJLwNCwrIj9arMeguH vwIB5gNCWg bxnmc191VbBfq3ctEPYywW AdEFfrXNO8A06tr8Y3LLKp KQDdAWQ9uUJ9kD2aiIuujt ogbGVmdDsg jpWiwMweSEffHBloQ592PB RvcDsnPkJpcnRoIERhdGU6 ZM17IU85tDPka2K3gRD6C7 BhZGRpbmct ecboqVE9PSRtJIJexO45Ea 7ahIyuWv5jHPJvORA5HPTq kREaE7OmbS0kJoDhYYWhDK HdX9KyoNEz QEjnU748RNdkXsX9DGUths RgC4DvLELxiRboIqN6e5M8 Zh0VZ8W6LS04OE36vMHic2 O5gAD3X3Xw FTEdpmoabpggmUM5KXDgTM CasV79Im8qdBufCb7hBRQb URQ9YXSbdQAeV0SozS7nCj AjMDAwMDAw D4QbfQWtDEzhH346LUikLz T8IXEuqpJkP6HqUOCrvOgo OrD2u4E8Wn8JTTg0LT46FZ 77pAFgg6E3 hRV7X2QeCTOpkpvrsgjskL F9OWYtDSKgnI63Je9uwTxw Ke5mXFPdQQY2FDOtnUBiK1 BreG1qGrJi FREzRKJiC9ZjuIBgXGhpL5 54KOonUsW0JVZkmkIzC4Cf YDNhiLhbQdD0p7W1Xw7GXB YrFQ95VFV3 cOL8UP59XW46E6AhDiqwbW FibGU+PHRhYmxlIHdpZHRo ZGneCENtJnIqfJamWK4iZu 9yZGVyLWNv sVzfbDLmDzErz1npZQTgNX qfFR6xmQryZ2JidQA7EWIc t9s1Ve40Q47fU3IvcSK+PG HpfGK6oWE8 dP3jMiBqPyK8UPotJ058Po HyiYVqKymxr7nkj6osvIj3 NbS6FTPpgvQrfMxrGNA0x2 PcVa42H07z IHdpZHRoPSIxNSUiIHZhbG wjet9vvO2hGs8+PGNvbCB3 aYY9bZ9eWbFdMxY8JPmqY8 49InRvcCIv Rlufs4gtv0ppwTt8KbIiXD LsiuVbjOirJTO0w3ZqUx21 C3CbmKxcx1EhDjl7ib00tR Psp5Q1eYG8 N4WvAHCagxkawSQqbOvxFU 8sJRJracfzFMOblI7hKJUe L7u8KeBzBpY6HYfvN7Liyl Z0XWRcsOIe XCibFDU0Z52vt2W5NBYyDI HyHTF0iCN7xD8esCrptroh bGVmdDsgdmVydGljYWwtYW leM730IYMd sYwmSZHnmR6oGJSoxSQskU ukLF1rVYVndrdgNruULi4I FtTJOK2zJHGSX1fROeIcGF wvdGQ+PHRk SJK8gOolJRvsBPAlcO2pCQ TbV6g2WrYePgQ4SIvxF7Mj UUEpytonHh01kY3nMjPnQw P2HPpgH5Jv dvW3JZOvhYZfPGmaTUP8D0 3ek9B7OLSjDYDhBRA3gCN5 aY7fjOjsldmuxZMmlKxrqk VydGljYWwt HCjaZ309RBYuiPzbWnWjRt K3JqX8RqA4V2VkGtd7JLIh jTwqUQ5cjTWcIBqmBt6uwY ehqGvqFF2e SGKfggwiDMJkpT3hEAGfuT ObiFqxRW0tPRVmgptsn722 DtPkINB6WGOdyLMiC6VzpF 9yOiAjMDAw LYWwZ7BliPBcYDdpG923HV msUoG3WCSzdjVrM6RiWJAv bWbhPzE7a3C0Bk68GiDZCH FyczwvdGQ+ QMZrKNW4fChcRXboOXDyfV 9hEJGnS9y4OsRwKzZ3JJnw Q0OmIREtzthqXh58wQ1hHb GoBgW3DNhn W0TubyN8VCIecNDbUPgaYO D8U74qz8R7JDMwZDDlBYR9 qPK2aI6vfCvhufdlqRXgwC sgdmVydGlj CBvjTHnaO045IVAckAgaOe 9FZFY3O0LsPrc3ZJKklAdb VP6jjNEfIYhnCs3naRhaeS khDC9yHAEy tubbPLZpnW2kAPFkkISgxV dsKY3vRLZfygzuj482MaPq BYO4ODScjTSvG0MsvI5wRa AjMDAwMDAw R6CqbIMuJYuvV707ZJuaCu K7XATihlQlW7CfRMQdyHyt NgB8v7Y2Ov4CDExalGL+PC 54ua58K5Sx ClmvKsx2YKAqECV8aJF7lW 1lMVMwRGwfe7Z2zTP3Y9Jy ulFeyf6xo6alWOPtPQmqU1 4exGGrr1N0 BOPiqFT4BJCzqYjbUuIhpI 93Oyc+QBNjkAgfa2UrIwhg d4rst5qkpKj9LcZtYLAaxu FsaWduPSJ0 s7UfZl90V93uXFveYEBjCI XeUXIpOXJiyFsftm8sdZ3i Ii8+FAKiuQR3sNN1cQ0cDi TnIrJ0XNmj N737PrHveLBjNlpgq6ydx7 mtuOa9QxKhPXHhkcLowHiu BKQ4y8OuHu39Q2UdqHzyz8 EdTee5kp94 tXUwg5Q4wCC6W0QcGBXinz yltMFizXjjRE8mSIIaqdsi PVHnyZ0jRLDuA2x2GkKcAw L1QBikG1Yr zcW2ZGGshVPpMDNeeQAMnX 4hbxzbe7brpvsxKdOaKHCv GAo4IEr3WQVcdFydWfGzUK M5VnS9RSS5 qSUseL5owEbhbigymW2rUg c+JIr0h2ppuZPfYG6dvLU1 GK79WM60wLSrb0Z4qEN0M1 BhZGRpbmct tuxjjHV4FJWlZBObkS35Jm 7wcCxkIl6sNDXuDBT2VFEh sOPaW9TxhG6sDxOtKEFuPC PsR4UcjOIt NMfdP544SNkwFjW6RYWwnq RaJ0OtRRQjdVqlHkS6p7V5 Cs6RXV90PL19AQ73zQPkr3 W4mYS7U3Pt DBVjrxlqwtbseER2DTVeLW PwsZ40Xh2yrPmiAu3sQPWu ATT4BKMpcRRnQ7AjbF8vZf AjMDAwMDAw N5CtsWIjPHclY581XRtjQk I3AKWfayHyA8IkIGSccFmt WhQ4p8D7Qx6IUq84YA28GN 93cTOvt9I4 cKV7W8UwHYRchathsbrdjE D2JQTwYIIqhR40Sz3hcOxi Xg9qJOAkNPW7GPElnSMlI0 UypE4eLrWz TMTgUTUgH5XlmAMrYAsmA7 09ATjmMpD6YUGcsyQiE3Pn VCEjgPoyDsI7r6B3El9ACI fdjnw7M6Le PjwvdHI+HU46UJEdXZ73pQ DymLYpe0myeYz3QoOsUIFy CKK7kXdcITwdv0CiRHQpM3 4ozBHyr9W0 IGN (more content not included)... [facility] Coding Summary HTMLBase 64 CgqcsvggSBq0sKs+PGhlYW Q+ZP2GXOWiH04niZXvfL7Q R0iAXY4RNRPIFCFACV6VJM 7whRG8KGezO8MqtoIe QrsocYVlXT48VBm6OSA5sJ bwXDmzkB1kqFGoI0g7VqAd IN76dD14EIruBGFgEaD8My ZpbjsgbWFy V5adKiDzcMGhBet+PHRhYm xlIHdpZHRoPScxMDAlJyBz rSykJD1jBc7xEJNcHGYrlZ xhcHNlOiBj q2ogSOPtKQubFS3iqQduL8 SgoAX2PTMdg3k7Hi77qOT+ OEGkZMM4fVajXHpxp326Fj Hyw8xhFFS2 dTSdQWhvJSE6J19zj4F4OH VlNKJvSAR9xDB7eH3peHul hzuvI6GdwRLuCbU0JOU0vJ JisY7uzCbr nmomiY7wTmb+H70WKX5CGW LKZN6HAef8J9VeSqyfxDE+ KE21AFGvBQ56iFAgqPGfs1 lcjLd4MjVg DCMrYBX5tFuoOYudk5BxDE XfQ10ngSZyi6J4TMLsqAkk aHPvRzMcbKC4kZ6aNJhynm xge1yrjwhx Sdtfb3vuuy11lH95G05gST byFNLmSQQ9ATBoJNLgvZzh lm3vcB2gHv1+AUexm6yzp2 ggwEp2TcZu IPHezcEpwLifBFL0x1YeAi 82Z0HwyNsnd9QvTxj6tw14 kGCrs4F7rJD0CKejKIAhsH 9mKKduUjO1 QTAuQrZmaL09zXWrMTxhMg 3ayIoroDdyND1cWOAovroy TAFolN3sSGWvmODgbDafHU 4wNTBpbjtm i669WlRnCVL4DNVhgLHzO8 TwrV7mZsYqGDNpWARjM4Cy pCQwWGtuS862UXmmOeG6WY CqkqFoX7Hw QCHpfBdlFrY2c6L1Ao5Ct7 CqqvhyXDZ5VZqvPHYcMaD7 WeMwXvP8V9AlJfm2WCPxyL ffFD4oJ0Oz BUBbxnprhiimcWE8CSRiXH CbbA43nGSsQFqgIa9ii1R7 i779QKUcVUVluF21Vc6tjD ogMTBwdCBU cD3tnxywq4dyoifmJpZtOM IyODj9QUv9FWQuoNmrAgPg RQG1RvK8FXQ9jYLdpM3nnB iimhjbaK5o Oyc+K71ivZ6cWXK1DBB3qx jkMIDjrgHpNS47OL62G2Om PjwvdGFibGU+PGRpdiBzdH ztKA3nNsMr q6kgq6NvDXosI6DzMAMvAT ziHjx6CAIrCLE3mST1tA3d XQUyDUnrz0M9yTN6T0Pwst Hqcn2vu6jn RWYgAGgwO42wbXTgp7I6PY DrdYW1LZUjiYgeJzYxhA78 Oyc+GFHbwZkbl5MjYgwhg6 mft3bslDu4 AxPuZNKzrpIigTjeCHS6i3 NxJu68E05cWUnfAKWaERMc WJAiMRGzfEjaex8vrC2mKo 8+PGNvbCB3 rAZ2tX8bWQEeQvR1BCcyH8 63WqWflWEpCkmzx1nbb5cn wCu7PmJlIVSzwkSgoCzpZJ F0y7TzRf55 P23vMCnwBUWlNUSeYCFmCW RznUgejr5okA3nXl6+PC9j b5ptak79hQ70tFU+PHRkIH T7fQhsICda HUVwrT3pRYhfWoX6QBHhBq PwgC90oDBjWZftFp4etMhb nMipXQ7qWJHjfjnpi472Jd Jfw2doSHTi mAPgZKnaOIC5T62qx0L7UT RjXGTdAKS5oRT6zL8hnZuz bjogbGVmdDsgdmVydGljYW otBSljY103 IHRvcDsnPlBhdGllbnQgTm TsQLe6X3KyHko8JKTqeWee KP8veGIpJKvuQv5vrVkdzK uoZQ3jGHCd nwmdz638JnRpz6dzGRLzoP HsTOhqGLZ5G61jd9S7YITs CBIrOMZ9pZN2mZ8bnRzrvf ogbGVmdDsg stQiwGrlWUjbNEhsL278DZ RvcDsnPkJpcnRoIERhdGU6 IH34HP61aUBll2K6iLI4Y3 BhZGRpbmct ygsneTL4AZCtXOMdjW76Ug 6pbPswRt5zXOThINF6LJVw nUZlN1TirJ0xEoEcZKLzPM UxB1SujVDk DFauA356NLyeSsW5PETjjr UaF1JyNMXflKosYqW8j5P9 Vk7QL5B9VW41RB92qIMkd9 U5lDR9K8Ik VFPdvuglcwjtyJF6CBVkLP AmrM75Cc4gaRmeTx1zSDJw TAU6DOUqmKDwN3TyrC9bLj AjMDAwMDAw D4GglOQhRBlpN483TBgsXv G8ECWnsmQyX6PqZDNnzUsr HpC8l9D4Rj2WBMz0TK23IR 73qDBih7L0 nTF4D4WwRRQoizccgdfrfF H5GSFpKWWoqB35Ax2dnUrw No0hNHWgVTU7CEUfeSPaV0 PwgF7hHvLu ROQzUABxJ2BtpTEoBLvmK8 93UZijYlT9FOImtuZtC6En KUBlkFroXqG8i4J7Ei0QFP CgWK55DSS2 xKF9BK60DM54A8ClVjxfcS FibGU+PHRhYmxlIHdpZHRo HXttXMWyXjWfhTbcPJ3yFe 9yZGVyLWNv uTbuzVZuBgJru7dzDPNxCO ytNE8ciKouN7UxeDG3AIIu d1c1Ih48T98aU3GqvCR+PG TodYG8fNM0 kC7qKdQfYaL4AOgdC576Zr FbzSVtNsdvf0znr5vrlBd4 MhS7JTWvwcUqdJwhAXG7l9 MyHx76H10g IHdpZHRoPSIxNSUiIHZhbG zfno3vvR4sKk4+PGNvbCB3 eRX4qO6nEhElZvU1FSjeF8 49InRvcCIv Vgpnb1gyt1gehWr0UwVlRV JjoaMrgLpdTIA5j7HmRh69 T5CbyIvkz5HuPpc9ms58jF Zfd8V6yDA1 D5VuZVPpynabkFOnbOfmMU 2hVAXdirxuEDVkiD2bCDDm O7u0WrVlTaA0CWhqC4Klvw N2DNMdrZIa NEgqUEL3H52hh8C8XUYuKX YaCJO9zDN6qI2urAtcahmh bGVmdDsgdmVydGljYWwtYW ffD488FJTy jMkfMFJtcY2aLHIwhMFbiW qrWG0nYBPzfqbjCbnBWh3J OjFLWF2jUUIIB1wYFzSdST wvdGQ+PHRk RVO0wHghYLwoDRFigX6nYP TuJ1e6GyExZkD9TBqcR8Fb PGPqhnngQt78cU7yNtTbDh P7FWixC5Jk umZ0DNQkcIKtCYziROQ7M1 5nf2K7MNJpSDKuEFL4iGI9 kF6acOdircrtyRMdkCnlfb VydGljYWwt AZwoI734LZMbbCvzMrYvJt Z8SyR1KxB0E9WyAsx6CNKd mLyxQF6quTVlVFikXs7mpI fjyHlbXJ5v LOUcdbtdKNMwlX7rIJFdvP XxqGeyKB8eBQKiiqlli903 CiDjMVR5XFLedKJuD3QtyG 9yOiAjMDAw KOIbM1NqxLNjNOxfC328FA flSbG2GGUimlXqN4VaLAYk fWgyThH0w4H6Wg70HcMNCB FyczwvdGQ+ NHHrFCC7mRliVBvkPWQibA 3zXQKxJ4z3DqVlFdU1UPqn D0UqRSNjcvomOa41vW9eGj TnNoG7MYzg S6SrszW0RPSjdDBcPQbeBV Z4X81yi3I5BOJkHAFfNWL0 lAP8iJ5eqMnegqjxfHBojD sgdmVydGlj EGhdDHjtI420NGAucTggSs 3CPPD0H5TeWdw5EGLjuIxp QI2oyAEbHWytKj1haSotfD ecCJ8oBUNe xbfxEIQuaU9nQDRggWBclA jyUI4zGZLkegwzo274KvBg GAA5LMZuhSQeM2LrpP3mQd AjMDAwMDAw L9BqzTEwPNooG111KIoqBw I8SUBnlwSeI7KxBACqoSlf VyL8q3P0Ge2UQKlndLB+PC 90uw34P6Pp JhegMql8GOQuXSX8hTZ9qU 0bAKFgSZxlt2L1wBN8K8Tg usGmhr8ux2kyPDNmELrzY4 9htSKnp6I2 NAHgqWW3OEAgqMqoZnBmrZ 93Oyc+TYCtwKswq5MkRufo f7tzp3egnDe6AkAyBGAliy FsaWduPSJ0 n7PbDx83U18zUKxoMAEbXD GwYAGiDCGzjVfhpe4vxB2h Ii8+FNCqoSQ7jHK9jH8eRv HwEfH9EPgk C808WgIusIVdKktbf8cbc7 zkeVe7BtRePLTefeMfqInv KCO8s4UdDn44U5UfqTiwx9 IpUjp0bx57 aWHny1D0hEG6T9MaFASjtf fnvKPyhHieNA6pLQFxdlto PZObcP7pANZvB8r7DlTlMm G6UUfjN7Cf ftX2JWGhmHVrXWUggYXDtO 5txykws7lkjxwvLaTxXOBj JNe1KPt5SUItkKtbCcNzJC D4WzX2KDA5 hKVepA9dqVwihygqzM9eTq c+TSk4l1umpMCxHE6apGM3 IT28KV71wRLhy8J7sOW0C0 BhZGRpbmct pavnaZH0PTRlPHQfpV66Ar 2cvAgeZe3kZOZbFDT9TJPo sJIlZ5KcuL8aMhOnWUIqEU QzX5OklJKu FMwtN114HUkjYfD9BCBiet GzH7SnEQVwlAkmNuA8y0W7 Hn4ERW74QY83TN44vLFdt7 C3rTU9W5If OJBdymxxovcaeAO0GMPeMH LduO84Pj9cbFgjAu6dTRGg THA7QPOvrRRjQ1ZjnM8vPg AjMDAwMDAw T5ZhrTDnZQynO152FHgqRz H8SCNjabUbZ4LnWSYgqIpo TzA4i6G9Vb5AYw99DD24GG 35yIUld2B6 gHQ4C1RoRPJikzckxsrizY J2WHUwCGImdZ74Jh7bcKic Bz0kDRKdRHX3MOLqmTJjA3 XwaI2cXwEd GVJuUXAzF4UvsCJrEMxsT8 44YAmtMeZ5PDHwllCbF8Xh EQCfsNhpGoF7w0G0Mo6KIR abhgu2V2Ts PjwvdHI+DP78CXSfKL09hX FfmYXei9zmrQo1LqYlLTJn XRJ2gIbrCEali8YmRCYbG6 7xwRSdm9N1 IGN (more content not included)... [facility] Coding Summaryon 12-30-2022 Coding Summary HTMLBase 64 WfmutznsOCw7qDa+PGhlYW Q+TY8YSJHzC87nxMFanW8Q J0lUXB9YXPHQZBVSRX6DTF 3iqLN4YMpdR9CvewLb LuicxIFdTR16DAq9XPY4vD vfQSrakX9emXPmR2s4TrEa FQ71sP53IJyxYCUlHuQ9Ua ZpbjsgbWFy X9xhMbJktMDaZrr+PHRhYm xlIHdpZHRoPScxMDAlJyBz bLrdCW4hYb8fLWWxBCVhuZ xhcHNlOiBj y5dmJOOmVEehRT5vsMfbF8 SuvWQ5OJTpk6c3Vd16wHQ+ NAJnZGC0jXndPMtjr200Qg Thy0zxAYQ6 dDDzDWelTTF7H74hf7T8VK AaSCOqCWF8wXB9bG4htCxt urkgL2FxlQMsCeC6SRL4vZ HzeV5erTaz iwrqvK5oWhm+H23DGV6OYU DQBB6IPjj7G9HpXuiflMP+ VO20FZXmSS89cHJrbSCnp8 ahgUj2AkHv HQRgLVQ8xGegPUhdk3VsHO GeG38acFWks6Y9TMUlwXpo zOPmLzQklPG3qA9lZPnvxh wqz9npbqva Sbmry9bwfh68pE15P50mVU tsGUDyWTL8MNYrDOPkdAyu az8ljL0aWr1+CBlqr0qof5 wpoGk6PpPq NHZnehRiyVrhTPW5w1VxPq 64S4AaoPfxd1FwFzr2nv27 mVSwq0A8gLB0TCdrZHQoeE 9oIMxkHeK2 LVQyMgCwkD59wZWsZKnxPw 7wbUgmsYwcDH3xGAUwbdqw BSOslD9kGGBfjFJpxSvnRD 4wNTBpbjtm n371ZkKdWRO1LYGsaECjX1 QvaY5zSnJbZGHcSUNqR4Ui xVSkATypX197ROskWyD9GT TudqZfF3Ud KHZxwTnlYwY9s7E8Df6Qz4 MbaqedVLE9BFjsWMUoKmI5 FdTyNkB7K8TcTho2FJUkjY urFB2bZ8Jf PCSqrkptoosfbON4PXImAG GteU68fYMrQTjqKo5lz3S4 d977CWZnWYShpJ28Fx9ohD ogMTBwdCBU kR4lmodkx5dfxkikGhIoKV YiIPp3YGe6WEUvrJhiYdRa PAW1NnN7UYP0dEBwbA0pfX qsvzyokK1b Oyc+X44smX5qIPA5BJB6jl ooLLMcrfWjCA27RH89Z6Lr PjwvdGFibGU+PGRpdiBzdH viMT2aVpBy c0rku5OfFGrnL2KuWNSjLX pnZab8YNUkRXT2zED5kK3x XVWwSXbig4F5vMM4B7Scsu Hiqp5rf0to BDTrOEykG72gfFVas8Z1UO EeaXB7JMJyxUboLwXixP66 Oyc+ULTvlEnvb9UyAvtln3 sji5ftfUj2 KtFkPMLkllJgsOqcKGT0a7 VgCr85G92iZRosTFCtGNKo CUNvHDGvlGkonk2vvG7sAa 8+PGNvbCB3 bIS3mO7hBVUrRtQ4SMmvG2 11PvHvqMQeFlugr3ago8qk zAd7VyHvGQHpvkBkmOolJP C5r4DrGc02 H74oJErtDVRzULBxJBUmFB BggMwhwf5qeI2pOm2+PC9j w6ysix88hV45zLM+PHRkIH C6qAxuLByl GJQnvF9wKYirYnG4HYVuZo JudR53uSKvPIujYd8waVtt kKfiQN2iSENipixag189Kc Yeu4mzTZDu pHHwZViiHIT2I58em0Y6IT YvIISmQFK6qNE7uD3neWco bjogbGVmdDsgdmVydGljYW rgKOahY033 IHRvcDsnPlBhdGllbnQgTm WgLRe8D4YwFch2IAMvlQjz RD8vmVRdBTtcDl4oeJufdT xgKJ7nPUEz jobzq296DpDoo5wbEUUuxC DvHDniFGC1C74sm0A4OOYm XGYdCAM0dEA6fB0ygVzman ogbGVmdDsg jnAtlWriWTzlLNlyM135VZ RvcDsnPkJpcnRoIERhdGU6 ER50CM24bCZev3I9mJU7Y0 BhZGRpbmct rptggMG5GHDxITQqkF90Dr 0zrRgaUf4cRTDiMSL4HGTs cTCjF5TddJ2aGkYqRFGlLQ TjT7GkpOLx XFngH637FPksYoQ1ZMDume ZyN3NxFHGiqAinBsC7m3U7 Yh4ON2N4BC43XG82bHDnm1 F8nPT6N5Va KRWzqyowfasumLQ1WDKfKC TwuN63Vq5daTfxOo9cIZMs XND9VFSneOVuX3ZktY7rJa AjMDAwMDAw F2RjgDPnFTicS952VCswRh O0LYHbayIcS7MvOIHmeUus AvN5r5Q7So0GQNm7SE01PB 81qMXhd2Y9 jOF4D6UxVCNfjwendkgoqL V1RLPqWKXmtE34Hd1njAhc Gu6cFQXvMYG9RZFxmLFmU8 OyxM1dAdTc EMSjAEXoL2DmtMGqADhaD8 86QOkvDaT1OOMwepHuR7Hz SOUthBixFuP0n4U8Bj8YKT NcKA83XQB4 rIN6CH82OB19V9YqJlriiG FibGU+PHRhYmxlIHdpZHRo LLykANOdVjGxkPibJM0nDi 9yZGVyLWNv hXvsgVEsAzRec0pxKGQhVR qxBU9ahHneZ4DzjMU0DDEo f7v3Gs08Q85mT6WxtOL+PG RqoYT5pNM8 pM2tEbXyVcK3LMezY944Dt MbnWSzQgrwp2fds9ocbGq3 EqN9VSDbuwWmuXslLXY5x3 GhEe06Y21j IHdpZHRoPSIxNSUiIHZhbG tobw6jhQ0cEu7+PGNvbCB3 tAU1bJ8qWlSxLwY9RDrdI1 49InRvcCIv Pidko7kkt8aeqRp6OqOkRD GypvFxxUoyLLD0a9GxMn69 R8QzuAtfa3VuFki5yc65gG Zah2E5cAZ6 Y2VrXBWtjazzdGUrwEahTZ 6fNNVrolqsOCLacP5wVIHp E9j2UgSnPbL6CGpkE3Kdjx H9NTPjqLGj XOndSQK6B32mj7W1NFYeSE UtSSO2oPS4oX7syDywrfqv bGVmdDsgdmVydGljYWwtYW viA028KPLe xDleRXRutF9oMJRywHUgdK epKJ2bECZdnlaiHgyNMr8R RgSYVJ9sUHEXC3nICyWfOQ wvdGQ+PHRk QBI9gAlmTUajXQDyiG1aOD CgQ5b3NjHfOnJ4VGwxW6Cu WUOwtwpzRf50rB5bVvNaVx K8LDikX5Lu yhG3UTStmNAtESprKGL8W9 0pa3P7HEIjPKRiGKR4zDM5 pP7muJodmmrczBKqhQisnw VydGljYWwt QWyzD902BMDtcSsqQbMlJu Y4ElU1NhQ3U6TjDic1ESFe rYkxHC4mlDOoJJmoCg3joH rbfKftPU2u BEVzxuykGPJaaP6wVFDgoH WakQkrSI2nMMVqbznia865 HqKfZGL4CAWjsUXbN2ZxhV 9yOiAjMDAw JWOnE5AhrHRtKCikL119TS slBoK1EZYaxbLoE3UiMXZi yUthHvT6t5M6Cn69BqMHUV FyczwvdGQ+ PVMyEDS6gBnmDOxnIQBhyW 5tIKXwD9s5SmFhPhX9SKlt U1QtXPUapbdcNi43bS6eKx AcExF9SUmv I6UexiZ1HHXnrDTeJQjhMQ X7I27kb6Q0GBGsJCWvJRI6 jVF0xP4gnWuqqlsxdGIteI sgdmVydGlj VRpwDAgmZ226WHXqlSwmZd 6QVLK5X0FaEyn2YZXjbEvi JY7onGBsGIpfRp5ijCtzgM aeWC7nYUAz hqulYBGelB2sCINchUDmfF fiEJ3hWETfiytdk618BvDy WYU3ZXLwoNTzI0SqsK9rCx AjMDAwMDAw N9BexFBaDKnwT345CJrgXg F1WVPngrQfE3ZfJJDzlBkt UqR4t4J0Vp4WTMwefLX+PC 52kv35V5Sf DyhoFdk8DHJcSAR2cLD4bV 5aFYTcODrxv6Z4gTW6E0Bp tpGdxh0fa3jgUEPmILhmM6 2pxCPte5O5 RBNnjUN0GAFwuSgdYwTatT 93Oyc+RVQwsXjht2PqQigt z4rpr7ihoEf4LeTbJZStxk FsaWduPSJ0 m4DwUb48M26uQMmeNAPbFC GoVYWzIHVyeSbosp7glQ6i Ii8+TLHubKJ9mOS1nI3tIe PqLhE5HVuf L704NmUzpFQpLqxxz2gra9 abfAl5AzUmAWEiscLjoXbx XKU1a7WfZp17L5VmhAelt7 FkVfb8yi09 aCOtd2T5qRV6K7MbSTNbvr orwLKslGhxCY0zKISzftjh OWWucL5pYWIhW4e2QpZiEx L0LVuoV7Kh evB5CGQhbZCtKLYwyFOOuM 2eqhidy7erquezMvFxIVVq FTz9AEu8AQBqfPykXtBfBB U8GqL4QYN0 pCKfbE3siYmjlkzdhD6eLa c+BGe7o4dxvQTzIK4snQF9 GS41DU69uYOcd8S0cLE6P0 BhZGRpbmct qsiffZQ9XCHyGILqzC45Nq 4isSckFt3iQKUrSGD5ILNm bPUaS5ZhpU2yVoJeMCTzET UjJ3IteKXo EBcwT521CVuaLvF7SQYcds XaT0UyPRNfbJypGnC3s1O4 Fh6APU69NC89AC40gYDpg0 H5zNE4A8Ek SGYqouvhrzvhwFX9IUDyIF CvhP98Lg5wnWkuAf3cPUDk FFM4ZSOfaLMqV6SevZ9eVd AjMDAwMDAw Y2VfyZAoTQzyE069IHteFk U6YIOujkTdL6NnQMQshKas MaL1f0K0Uf5UOj39FQ37YN 69mRJur3M5 lIA6M6HvBIUxbnljfguxdE X5GUAlAANbkV61Yx2ttCjs Uq6nEZLaASF4BAZlnJNgX3 SpmR0tSxDd FCBkNCIaX3CdkGRjKIbkV0 68KQmpCcF8VVXfllKhT0Ki RRMvzTfiYlX3t2Z6Xu7QQC tzabh0V3Nd PjwvdHI+SS12XYNaEN62oP TrpIMim3cpuNb7MsLcDGZp AMT2cBecYEwsi8VdOPLqD0 9kdJLok7H3 IGN (more content not included)... [facility] Coding Summary HTMLBase 64 OzkbrbzmPPt2rCz+PGhlYW Q+KL4RJQRjL43oaNIxvC5J H5dRZX9LDEKDLHFPJJ4OHN 2ztAN4QXtvR4FnkhEl EapnhYSqTC88ZWt5GTA8aH xgJRftkH9vbQUwY7k5XyAf KQ43nP78MWdyTJEvUxH6Op ZpbjsgbWFy R0srZpAriUTnRem+PHRhYm xlIHdpZHRoPScxMDAlJyBz iCioDW2wTy1nIVBpOKJuzI xhcHNlOiBj w3dtIAZyKMseHU1efApyQ8 AloDS9NIQnz9c1Du86nUB+ GJVeLHX6qLddVQuoc554Ol Aua0swWIH9 kBRiZBxuWUG7V89ky5B2MB RnOVVgVRT5mWM2iN5zhDia eoolB9XjfEBlZtC4HNT5lR CecW0txEvy caeusF6aUyk+Y65BEQ8FOK LDEB9ZTaf9F6PtFyohiWF+ JB22VNDqEE95sZCaaFNtz9 holIf1HfYm NXLnMXQ3cKvrUMaej3UaJM SzV57qqDWkr2R5FEOhdBsv vPImTeKfmQX6nL5cDZzxvi ukr1qeggby Rslyh6ferg26iO56Y88cSJ odXRDzZSR1IAFxKHTarPid ze8ttD6aAw5+IPzyv0nxw4 fqcNb7JoOe WJQgjjBxvUgxYBO1y4MeYe 06Y0DqbMwxx3CgAyl7gf35 nQEgu3G9kAJ1OVedQMJgeB 5lVFxdXhR5 KUSbIqEiqZ48qYUfLXaxBe 1alEmjzBepAG4zQFUhgkey BRAbeG2nYSXbiLNywYumLI 4wNTBpbjtm p147BsDrGWC8XHYtsITwD8 QzpA0wNqPmQZVlOIVnZ4Ro zUAlPXsxI406YDruMnF1JP AogqOpZ6Gy SEGxvCncToY6n5Z2Vz7Bk9 QfyideZPL8VJfbPSGfQmB2 HvWrCqV1T3IuCim8XDCqvJ hvTC0nH6Cv QHWhpqevwscvwYG1KJJcUV AqaV71hXLsSSexEl7cq6H9 u208NVQqWWZjxR68Oz9heT ogMTBwdCBU pH8nimvqi8uakjfkMhMeRS EgKJp0AXk2OCOwwBsnGvUe TGS8LjM4IKN5nUTnbK1nuL bqgkbddX3r Oyc+D46idF4uNBA2GEH0xe tkQFGyjcPkBE36XR65S9Vp PjwvdGFibGU+PGRpdiBzdH kkYU8wCaQb n9hgo3AuUReqW9DkBXQfDM mpYvh2MTGbRYD9lUI4oI2v CTPjEVutr5I3hRE8L1Jrrl Uvfr0ie8yg WREeUOicQ08oqAAcg2B8BI LbjBO0BVKnuMoeZlUfvJ20 Oyc+OLDkfPqfw0AfUnwuk2 bnn7zttFu1 NaFwNKGxmvHscHiqIDP4i8 CtOg43E28gQCrbSSAkJKFd XDCeJBFctCoivu6gtE3vRg 8+PGNvbCB3 hRC6tC5sYRXoJqO1IQgbR5 59QeLcqIWiVxvul7jur5zu tXl1LyVlCAArzvMvbAwzYN W9i4EhOd72 T20cETqqYHPlZLGjEYZxKN SxqEaxjv4dmN3sKr4+PC9j b2aldm60wG06pVZ+PHRkIH I3iBmqDLtp LMClhW5aVMmiFlK4NANfPc XoaX57jVJvBRayCc5qlSaz kZooQK5sIDRqafpbp725Ny Qdd6guNZXz iHTfQPrbNRB4H29na9Q7WP NxDAHhJIU1lZB1tQ5cbFqa bjogbGVmdDsgdmVydGljYW cvGWqdG375 IHRvcDsnPlBhdGllbnQgTm WxGHi4U8UaBaq9SNRjhPmb QJ3heBVcKBaaPu6kiQzwuM wpNI0fTEYr qrjdc332JmDtw4gwXXTxrM NpISqdISF5K37rv9N6JKRb HSLyGWZ3pFY0iB0gaQpufm ogbGVmdDsg epDxsKylJNsjTMabZ119CS RvcDsnPkJpcnRoIERhdGU6 GQ76PG86dKXib7U4oZS2G6 BhZGRpbmct eetccIH6OUMpJUEigM52Lz 5bmTanFm5rVVNeQLE7HXTn lEWwT1KcuB4aDkRoDRWwOG JrM9MzlBTb QZlbV754JZrwKzU4YHQlpk DgT3UhJMLouVziCiW8a4O5 Cc2OI0D5IT92OC56pRBwb9 O2eZM5D2Pr RAVolvdhdqwjnKD5YLKoZR LamN12Tf7sqXebFg6jBDEc PEY1MMIkrRKuI1KufF3tBa AjMDAwMDAw T1YrhVKfGUsoV608ABszAg F3CKPfhkTeS6AvYBHzlMly LaZ6a0W3Ry8OSJu8IH60KY 34yQIdi6D3 eKA4C2NdAFUgndsruhxhgP E5AHIgAVJzxZ11Sm1adVna Ky9rCDZeBPH0ASRdcAEiZ4 RbgX4lUdOu SWRbLQUmR6HeuXPlIUalW4 75YYpaVmY3TXVzwwHcF4Pz HGLpxFnlVpX5s8Q2Jl0SCY HxOG98PBJ0 iLO1PL76BO69Y1AmErcqnO FibGU+PHRhYmxlIHdpZHRo CKsvHJAuYlBxjEwnDY1bWb 9yZGVyLWNv xOxckJTwOoJhp8blXDFfES epBL2lnIvwM2IqkIG2ETIq d1e5Qd64E41iA3BxpYT+PG KgeLY2xDQ2 yL6oGvXcBuF5OUjjQ045Ve UlyXHbZmbsv6jie3izwVp9 SlS6KIDrceIfgSguDPT8d1 EoRy40N25v IHdpZHRoPSIxNSUiIHZhbG nzed4dyR0wVh6+PGNvbCB3 cHR3vV9pPcQpAgS3QMhgF6 49InRvcCIv Lusyt5lsa5szrBg0AzRyLK NlnqDbwDypENL3l2SeAw86 L3JftFqhv0NcSdx5dc64mP Xon6I8dKE9 V9ShKUPqjdonhLHiuBscKA 8oRCLppgfhVNKkmW4vVOGc T4z0KjNsDhL9HMklM3Arxj V5NNPrsAUy DFixHVT7G69gd2J6DSUsIP BxFAO1pBA2aC2vuQbaeayb bGVmdDsgdmVydGljYWwtYW cdM907JYTy uPlgLEYksQ4yXBMwbJBroZ kxWT5eGABdegvdVnkMBe9V JpLGUX9xBNROS5wSIcQtJZ wvdGQ+PHRk YLH3tHscUTowPJZyjD5oEI KzM9z5SuDxQpZ9UPonJ8Sf EQDrhdkmMe26wD8tEpJsZk I5OIrsG5Ck brX5LKEjfSQrGMnmTII3L7 4mz0T1PYKuCOUaZBR2aUA3 wU6fmXuherbxzHAjpOlahf VydGljYWwt IEewE267FNHuyEakEzTkZz S7XqS0LvI4R3HnXml0GELr fGebSL3itZKkNZrkCz2teX lisFbtVU1g AUEvsdjiDCAqzR9aHEVhtT QaeTosTW2sPLRakrpdf718 UqHoRLV3PTVweAYxQ3EgyV 9yOiAjMDAw THVvJ1XjxLWuSOnnI222WZ fyRqC9TXQovcLpC6AlALVd dMqrPqB0p9R1Xk26ZyMZYN FyczwvdGQ+ BYPwZXQ8eElxFFoqWPXwyA 3tSTZbZ2x8RkGhTcT0DRus Z9HlCPTstsozJv94mO2cQv CiZcM9MUhx I8UubuK5BHMdmGSuPXdqQK Q9I71fo3K9CQXfOZEjOSH3 sPA5vG4uiEdezduvsTPtqW sgdmVydGlj NZafBGyvG656MOIaeZwiLa 6EZSQ0D1RiEaq6YUUavBfp KB2eiGNqFVxaDp3nrIfnoX ytKV8kSREj wgjcYIQvtC1nHEUbhAZkpN ieWR9uYIRhbjifi466RqFg XVO8IKFgnRAxJ5OnzR4yBj AjMDAwMDAw I2RfsQBjBYibN231MAplGt T7QNTaemKcX7IkEOPkhKve ZyQ3m8O8Cl0DVUnfvKM+PC 60ru74Q6Ag TdceWng4CTRpRYU7qZP6jS 4cQGGzZTllp9D5vAC3K4Ar cfYhke0uf8vrKNGjGGqgB8 1xdVJzx8J9 GYFwoQQ5EUSchEagFhElrJ 93Oyc+EDVyoNjop2VtMxci s2khk9uhwTu2KtAcSZYvri FsaWduPSJ0 w1RnTy61Q57rMJunYKGuDK CmXCZzCCJwvIpbjx5rzU0t Ii8+TTLzbKP6ySG1oW2nRp JdAcP4LYsm C579PuVnpSHcEqafh1zlx5 dapUx1PeThBIJwzjLclFvo RCK3t5SbMz16U4NdmRlzs5 SzBms3cp26 kCSns6A3hHA9L2WlOIYeep jntLAszTpnEM8xZLMjnbje JZGypO3uHMNwJ2g5BzTuVw X2WEecC6Ke ssT0GCYwiQIbXPTriUHTnZ 1qjgoaf3buxlbtOhIvCCTa QVs4ZRw5CCXenNwwWuHaLS G9WyO7NOQ5 sCZuvM6lvBftfvkeaO0gTr c+BEn7o4ztcZJcQP1uuSR3 HU71TP42dSRwf0X4kPU3A4 BhZGRpbmct kyzpwZQ9NVHvUOSgbO09Qp 6akViqJa1cUDMpXEG5WPGy ySNxO3IqoC8jUxYuSBSwCD LsY5YyhAYe UHwqU230ZTxaYhN2KAXiai WaC2UbXHBnvFjiZrY1z4F2 Fq0SIA98JY00AV44hOMgw8 K3dQQ8P1Rc NLXoovtgtuyrwVW8PIKnBO OesB11Jj6noXkiLe0zRFLf UEX7YZUzyOPgZ8KueW3yIp AjMDAwMDAw R8EnaJIuSJikI027XExaEg L7YUVokfGmM2QdMCWnxDpl NfD2x9X6Kd6FKn66EA55HS 04vWCpi4N4 rQA1V3WpNOCpvyocxcyotI W3CXEeDQYsiP76Wc6isGyo Yw8zWMWzCKI8TGUpyQKhL1 NenD7rYgSp MPRgJZFvJ3CstQXmLJhsR5 28NVabNuV7YYHsxuMwS2Fx ESGbwMjdWqN0u0N8Hp3YYG creei4G3Nf PjwvdHI+OF95PHTaJW94uF CgnILtq5truCg1OcMqEJZf TOK8sTiyBLwpl2YgURPnW7 0coIEha1U6 IGN (more content not included)... [facility] Coding Summaryon 12-27-2022 Coding Summary HTMLBase 64 KplisnslQRg4qTy+PGhlYW Q+LK2GPIXjM35amPAgpQ9C H5gHHY6JOATSCDDXEA7RDK 5nuFX7QKphH3OosjCo XaygkNObGJ23TQl4PPG3xN zjUVmwbD7tuKFoP7n2ZqZo EO39wN09RYbbOLAxKgF9Zv ZpbjsgbWFy Z7mfObPdzJCrVyo+PHRhYm xlIHdpZHRoPScxMDAlJyBz bKeiSQ9pQl0tXVLlJRDjlG xhcHNlOiBj d8djQEAyQQszLM3veAwnC2 ZgnUG2SDMcb5v8Sj40rAB+ KPEmNIA5aEfyWBqev860Oc Giq8roUAF0 kKBcLVigNGZ1P94gt4N6BY QlNBLcKSX8vEG7oI4hdMit tpbgC7VjoLQdGiG8QQW7oH AnkX3taYlu rdihbQ2hMah+F45LGN3YZR EBMH5JFkc9O3GlWjkqbHX+ QV23PFLeJX99zXIekRWoa7 brqMv6QhQs UVDuOXK5mDmwMEykp6TpDG IrF83zgEEsi5D8XCRplWrd bGZaChHorCH3sN4nHKgfgk jqy5kegxuh Hxtmv6rqqn90fU66D66kPF iwHOHuKUY9NMMuQVHxkKzl xc0sbL6iCw8+DZnur8svu4 qmyDj2OcXq IESpbiNvdDjlITH1d6HyFx 12M9IekKkns2DkSdu8ej46 yGDps4O3qKY6OSjvSRMvoR 0zMTmxKqQ7 JJUaTaYdiC44nUGfNDhfKk 4quUclgDbtXU7kBMRxrksc JRBuaJ1sTYCyqQLdsMckYB 4wNTBpbjtm d254WoAdCIG2YWRzsPOvY4 BrwT2oOzSeAUKuNVDvF6El nRLiORriG752TXqhLkW0YE LpjsEsV8Um PELekCpmLbO0p6K3Et8Ye5 EfjahgGAG9HFmgBZKuIkJ6 RgUdAgX2Y8JdUss8IQKcqJ naUD7hK6Tz FHRnulrbdyncjFJ4RCFdKQ ZbhS99mWBmBJelGn1xa6Q0 a236ROWeXZRmaF23Zd8kwC ogMTBwdCBU eO6lqnzjw1ietjmiQyZaJK RqCAw3MGf9TPTvbKmoHkQl STM7SgL4DBT6iSRrrY9uqY zhucptwL9j Oyc+B22oqY7aFKX7DOM3nh kjPQShenBlDZ67PG21Q8Vi PjwvdGFibGU+PGRpdiBzdH soJH9jFyNe p1zbc9TrSSklD4GmHROjUY tlYau6VTIyFVD6zAF8xC1s NPVkIGnvd1L5wPX0Y4Bqlf Wwoo3oz5zu XGTtGJobZ61wnLEfw9M2XX VzpJA7EHRhfGreFdZtcQ49 Oyc+SUNpjUfuz9UwDtdof4 vhk5diuNh7 EeIxEFZbljBdkFnjHMQ4x8 PkRq99H83sYGofCDYtVYFp OJYgBAGbuLmvmc4zxT3dKi 8+PGNvbCB3 rKQ1eK5eKXVdXtB5JVsvA1 29YjYwnMSgUixec7wex6nj qUx9TyHfGJExnbJhaBjuYT C5x6CwCf82 J51tUXvaOCDdQELuRCWdPM AarYaezf9koW1qMz1+PC9j z7zqsp21nL03tUL+PHRkIH S0qSecZHrl WHSvlR3oBOdaPzJ4YSUcCr RmpQ02vNCzKCjcRe5chMfr vOmsLT7iPXLfycrjn365Ld Jfl6whSENy oXRyIVadJAY0K82vf6C2UL QlTNUqHOM8oIS4hL0udTqb bjogbGVmdDsgdmVydGljYW pkYRrwD216 IHRvcDsnPlBhdGllbnQgTm HqUDl0X0KkVyo2TYWkgVwx CY7boBJhHJhgAb8mgLzpgI kmUD8jBGZv kndxt305VzKtx5ekISVqzU OyKRjoGET7O59sn7T2ILGo ENWrFXB8hFJ1jZ3lrJyhpv ogbGVmdDsg ygFxjHzjEWnbFPrkO338YD RvcDsnPkJpcnRoIERhdGU6 MJ40FY49mFBus7I1rWT9S8 BhZGRpbmct jdwmtXP8YROuFZKmgC73Yd 4pvEpdCl9kTOBvKRD1PASq kUCfE9HmfV2gPdMuIFCuRV QsH2IeaRWe MFzzK257TOvsUnN2BFCcnx RzO4EgQXFtvPtnZdD8s9I9 Ja5SF3Z1PG58IT37eIZnz6 A7dGN3L8Vt BBYrydmnsertwFX0VWQaMM YtzL57Io0pvOqeSm6mCWZg WYW2YSApaXQeT5HhtN5mTx AjMDAwMDAw R3JwtOQtISkwN027FLgbAq Q5XLGbzrZiQ5PqRPCjyLoc FkL4p9F0Mi3RTMx4EQ73ZI 93rKXgf1P0 bPW1H7HhAMDlahkopddwfI X6KSCnGRSejO16Nv2bqAyp Fy2vHMMiMNW8YENcgLPbT5 BskC3iXjIb NDAkYRJsW9MqqDQtCRtjG4 86MQcaHbA0YAOjnkJxT3Sv JNHiwBceVvF7n8I1Sc0XYM JlDE61SZZ6 xYQ3FG07YZ41X6WdOwmfqE FibGU+PHRhYmxlIHdpZHRo OGafCOEqKuGjtDknGQ8gTm 9yZGVyLWNv zQrxyAGxZoDqy2kjAJSbPJ rfNE2wjOgwX7XjbVW6KAGw v4t4Yt02Y71yH3UqiOJ+PG FcrZP9cFO9 lH1gKtYtEeH8WSmuA101Ib TyvFVzPfkdo6scd3zunZt5 WfB4EBQmtrEbuJrfXEY7l8 QcDb15J03d IHdpZHRoPSIxNSUiIHZhbG ertl7amE8hUc5+PGNvbCB3 iVZ5lO4kJuLdUmH3FNpvE8 49InRvcCIv Brddn1usn9qchRl1XkAsDU WrpeFlfTuiDHW9y5FsFj96 T1BrrYdfj3DbHtz0qp63gW Vzr2L1vOO2 P8OlJVLjmkrsrXTfuPwpID 2sGTLpylquFYGrcI5qKHLd Y7y0TjQpRjS1VSbdO9Ibfl N9JSYtdIMn YCdpHWT9N99tq6R6ZCSlXM GfJMD3hLU3gR9ibRvlxmpy bGVmdDsgdmVydGljYWwtYW uhH323DCQe rAhhUILdmT2sEMIldLGabT yfXX8lXOPasocdDexFLn7U XyDQKS6yLYMFA3gXSoJoGB wvdGQ+PHRk PAA5yKliPEieRVTucJ9sZY YoI4d0EbWxIaA5OOnqF0Dw BFQshugkSc70cT1iQwGcRl Z6ZMbwA1Li ubW7BIAspYTsUGwtOET0Z1 9pa5V5NURoTUGbTCN3hHQ8 zS7cnSuxxwaefAYgvHwxzp VydGljYWwt ZLpxO043NCWhuBqhIcQkTj A1XqR7RpA5Q2KgAav9SABk yFfkFT9rxUUtEGpkYc6qlH bklHprUS9d YXLeneutPUPyhQ6pNYRgrR AemYtoUP1bLETockdwl673 HoQeDXP6GGFlcUYdE2HilR 9yOiAjMDAw ULFlI5FyyALjMTivW950BM zlNpK8CJTromXvN7MxHMMc gVaoOkX6u0D2Mn99ZxJNFE FyczwvdGQ+ CRZzADO1tOpmOEpyUYPimZ 8mJBKhY4v3TjAcFtJ8UXzv H7NgFQKaacjwPs47vU3vUg WzYxE7VVcu W7RmsoD2GBDgyKGsHDoiIM M1S38ay9H7HYWvABDcOYN8 rXZ8fO3msNljujufmSWnvW sgdmVydGlj TUqxJAdcI518WMSjwVwpPq 3IHYZ4C6PqFpf3KSItcNib OW0zvWDbXUxaLz8jmRypdA vaEW8aXDRd yizfZDZidQ8iURCstKOwmT seOK6kYYYjhzxjw087QlDf YOI7PJUkeMGaM7GrrM8tEn AjMDAwMDAw C6HhdHLjFAjbM978SXefEo L3KJAwjdTiB0XzNQNmkLpb SpL2b8V4Wp3SYRvecMB+PC 06ll72E8Cr DjqfHas7DZMcDRI7yHG5pA 4zWDHeEZkjy1T5kEV5W2By ztKvsc3fq6akYDKjAEzwV8 1xbIWmh9N9 ZXGfrXL2BPCytZmoGzIbuB 93Oyc+EXFhvSlpi2SjMuir i6bnt6oitYn5BxAsAJCzyk FsaWduPSJ0 v5SmDg39V88oRCnhDGTaNO QdBPJjNHCyeUixjn7ajP2s Ii8+KAErxWV1sFC4gG1lLf XbJiH0FWxi G514BgEovHMvNgnxo6jwb6 qocFm9YjWwJIXtvjAtdVub ZVA2h5TrTp89Y9GcqXhzu7 IoVqx5dc17 qCFrc3R8vHE1T7HzEWJpst ntfWNayXlxAM0qVYTndvtz BJKqmA8pEYWbM7f7NoBqGj L7QTatV4Xm gvX2VXQegACmDHLtuPRReG 2ufwidr1qykuzlEpZvLNPz GLz2MMv0ASJxgWqlMdChFC L6LxT0UPT0 vIBawH4fbSqaxpivyU0lZy c+RVf1a2afhKLaPA8cjTT3 UZ86BK02dBUau6D9jXL8K1 BhZGRpbmct jchxyAB9KTTnTBZmdB89Hw 0fnAixDs1fPDQpHCW4PHIt kRQeR8OknZ8rIrEnYHEjFP BnS5MzrQGg BFgpI396FCuvSrJ5SUEsjj IxV3UzEBGquQcyFlY0k3Q4 Kp5KCP45HA78DM66pYVvb1 U7rVR3G9Ke UIMjxgxrtpidxCT0LKFaPX HmkM15Ql8dlTiiEa0nRCTt JUF7BRIltKPaI6BbuB6hRn AjMDAwMDAw G2YjtHScKDlnF185UXcaGs A4FDYqijBoG9JbNHZtdHma BeM9c3K7Wa4WOo33FN53CM 58qUZsa3C1 oNI4G2TdWNFkmriipgclrE B2TESoQDTjkM25Su4xsCyo Ll5fMVWpWYP6TVBphZThG1 QxmU4mIyKb DPSjTLArR4SvoWPjHEuuF3 67PNkbLdZ9XGCanrFgK1Fx NXNdxZbuEhN1c3R5Uu2MOJ tojdv5S8Aa PjwvdHI+GE47EJGqIZ39sO BgpEQfl1wecZp8SeOnJRIq IXH7eFpjUDkaw5MxHOPnQ7 8kqJUxx7G3 IGN (more content not included)... [facility] Coding Summary HTMLBase 64 EunqmgjgMKk7iMc+PGhlYW Q+BZ9VYEJyZ74eyVGuwZ1U I4rIGO0USXSWACJHDK2IRX 9vfMF9QOngQ1ErnzQx MwxmkXQtDM14ABa8HPF1uW naMUquxR3zoOVeS5q3PaYz ZZ70uI51EMlfMSCgOfJ9Zp ZpbjsgbWFy P8hcWpOslOYtArz+PHRhYm xlIHdpZHRoPScxMDAlJyBz cPxoYQ9nTr6uWTDtAWDedI xhcHNlOiBj e0jxZOBeOVugGG3pvPrnL8 EiaAI8FERfi2d7Oh57lMN+ BFPvFZE4iDiuETnab185Wk Lln9lnCRC5 iZJhUOqcIIQ2Q05bz1M9GO IoWGQnPBQ7kWN4nR0boKpm merbG4RmnFJmAaQ1CVP2xK LtiA5qdJjh ntntaQ2xJzf+I81OOK9NHO MMJH5TXml9L2JgCrevvOG+ KN63NJElOF08mEEdoCBvh5 ipoOm8QrDk QTGhGKN7oXigPPlvd3SgUG ChK63hnGApn2Z2ADYypOaz lPHsOlGumTM2yQ6cFXwtfv kqp0fusfgk Ldnps2hidt00aC06E74cEE ycCVToPTE7EDDoAQMoiQby os4avU7sAz5+NIewz8iai3 tenNn8LoVl PZNtwcRynZsmWTQ5r9HoXc 65F6XlcEkcf8NxHkm6wl88 yLGhb9X5tDK0WZbhVTMxzH 6oNHcgFnV1 MFQkVvWbkS66gKJsUJhrYy 3plKsnmObdSK8yLZOiwtph EOCwgR6bPULtyMLjwCslAC 4wNTBpbjtm f876MkMgIRX5LSKhpOYsI3 DfoS3mYsXuGQQaRLLrE9Lo pNNwBYpuD935MAptJyJ0PR GkjeToZ6Jx IAAojNbpJiD0h5W3Ka2Eb9 VkeomaTJQ0KKytWZGaLcH9 CbKiLlV9N4DcUlx2UWEujA exFX3rR1Xh LDRsyfiwifvrtOI9XXRpBI GelV21rERqRVbmId2uv2J8 q136THGnNXObfS60Gd9zwV ogMTBwdCBU kP9rgbmlk2fyyuxsSrQlWB BnEJn7GGu3CARenWqsKyUy BHP5HgV3VPL9mQFikO1piE rrznceaC3x Oyc+A82maV3wHPE2UTM8kv rqSYMymfJvCQ76BD76F7Yc PjwvdGFibGU+PGRpdiBzdH rfSZ4iDhDb o0bws2HmXSjfU3WdKMHjRU keLkl3JVAvDPI4iNN5pM0p EDMdSQabr4D5wKP4N4Bojc Jxto3rf0ai KSRjYMfrD75gpZWic7Y9ZO UbvRD6THSpaXmnQtIuiX06 Oyc+CBUlbDqjj9ZvTqxxm8 isk8bebXa6 RnBgCVHcvwEymMulDRO8j7 GeMm07B89jLRdcBGMhPAKb WJJyUYReyFgahk0toY7yLk 8+PGNvbCB3 qME0hU3hTCSjDaA1NXwtP6 61DxCcuJQkLtrjf9tnb6dx bDw2FlAoFWQhxjHsvZlvPS H5y9SlOo89 A40iYSojHGBqKIKmMFNlNK ZplBkpdw8yoN3kOa3+PC9j e7dbim11aT25yPN+PHRkIH B9rMqeQYfs ZGGkfP5rFCqjBiM6YJGnVy HaqI96tGJdXTjxZp0lbErz yYvyRC9kNDVxprlbp432Hg Kne0uyBFOq lYBgVQukEVW6S12st1U8QR JnEIKlTWA4uHI2kF5mmHik bjogbGVmdDsgdmVydGljYW loVObsX226 IHRvcDsnPlBhdGllbnQgTm XeZAu3A7XtAvb3RASznBnl EN0utFQwWIarPe9tgBlwxG ajQS0mKTLa nybid556FpGgt5tqSNRdmN ZbTMrzOMB4H79jv9Q1TQUo IWUxBZT3vAW0xW2xxHmdir ogbGVmdDsg qzDtpWowBXsuGRnmX657ZJ RvcDsnPkJpcnRoIERhdGU6 WS96WV07wUDlg0F6rCH0N2 BhZGRpbmct khrffJQ5FZHtOKQtbB89Xo 6xbEigKs0oYCBkMTD7RFIy rQTjX6SrvK6iAgPjSEOsKW PxA2UadPDt AGcxF842NBzlWyD3TQPzph VjQ6MdVMVlxEhdEdC1p8X1 Lz9IN1G1KB31HK04oVXip0 V9nFM3F2Nr VPSbreajqiipoXP2HZIpZP GbjS50Kr7asGbgCj2bQXOy XDE0GBIhlHFwL4TqzZ8vPl AjMDAwMDAw U5FcpQGwTCfnY144LJapYf J4UBPykeZfF2TcVECcbJhm KbD3e7V4Zv1UJFo6WX26GW 08jQJvp2N9 eXB0T9XhYHGqxdyodnvusU T6JZZlEMNtxD17Qa1nqCdi Yj9lLDQuESR2BYSxqEUpV5 GedN3pDmBv JSHrQXDoY4RlxKLrFYunZ2 48YObtZtK5WNTjfoNcM7Ee FBOiaHxpMlE2p3I6Su6HRD VaAN52YUW6 mGE3MR52RS53R5IwLsqynW FibGU+PHRhYmxlIHdpZHRo AAxxLSPmQdElaPmcPX4vVz 9yZGVyLWNv nYdroEYqKbMyb4goFIEoWY brCN3xbDapH6CxqWZ3BMIf d1i7Wx82A95uR4SpnFQ+PG ChvGL9vJQ9 mA5gTdImZwE0LOghF396Kj DthUXbHqasg8zyz7pygHr3 LoD7GMOgrtEiuMpoELC9l9 EkEl18M37k IHdpZHRoPSIxNSUiIHZhbG ihdv6baJ7yLo3+PGNvbCB3 fAQ7sY1mNrRmQxM1KQhxL0 49InRvcCIv Nnkrq0qro9hedZt2YuFjQG ZqhuHzeKeoKRZ3t8LeQm93 I3BorVgic2PdMsy4wx46bW Lwg7K0rPW8 F5HzGZPsmhpopQDimKvzBJ 3sVPAiincvDAZorZ2gSPZj V7f7RiFaUtY0DJgqM1Nssk M4LWZmxADu YBlmDSW2F88qa9G8FDHsOW HxJIX5hIO7aN5wbKeydsbu bGVmdDsgdmVydGljYWwtYW ufO133IFWt wIdjFALipE7nDFDvcWPfuR zwYN0oWYSykgcvEzlOJl3Y XgULAL2xNNLGT4nHJmQnJM wvdGQ+PHRk LRS4zOraFSzzKDWbwE0lFT QkS1e9MuUrXsF4TFetD4Ty EYFesmemUz16lE2lFfXzVw R7JOhkY9Df agJ0TXXoqNFtZHkrUSB8X8 4cg8A3EYYhTVAyFCX3mAO8 fR1ioKblprfczQMvqPqvqu VydGljYWwt IRvjU501TQHiuJooEjXuEu H4VoT1SeG4K2HlUzp9HHFc sZdkJS3xvWXuTUnuRr5juR seiCvmNP0v ZJHxmtmpZEPdqQ8rYYSxjI FkkBygXC8mCUJqvxfty479 HuVsONN1FTMplGTiI8DqnQ 9yOiAjMDAw WEZxK2RtqGOoZGqzX727VP lqHqN2WULzgsCzM4MmDVPb hPqoLsE4f6M5Lc67GxDUDW FyczwvdGQ+ UNNrNPB0fQyiOJrjFSEobN 3wITReO9b5XaRcYhI1FUdp U0HfMKJehkxvAn09pM6yQa LlDxH6FYpd J0KxoqV0FPTvcLYiXCwxSN K1Z48hx4Z5NEPyTAYyYLR2 fAR3xK8kfPepegyhdMNjdE sgdmVydGlj AGdgILewM375LOBvgPmxMh 2BUHB7H8BlSlr7LMLxuKqy GP7hdKBnUUafCs9chYtgkV qtOH9cZJLp xpdeUDCovX3cHASdfYSosH vyBD2oGWTmhcxsg526TtCe WHN6FHUszXFlJ4NegK9mSv AjMDAwMDAw S7PpxKOjWExbY211TEstJy O0SWJdwxFrL9EjJTYojBfw PvW4z0W8Nf8BLRgabRD+PC 21et09T7Vo WsnqGal2KLKsSCM3jME8iD 6hCXMuTDskm1S5kBM7Z6Ml leKawk5eq8usZKNnJZyfN6 6kkCUyj1P2 SMQtzYF2QNBrwKloOfDzuZ 93Oyc+EKWxgOyde5JkRreg p7zpv7subOf4TwGsROXnzv FsaWduPSJ0 c7SpEn01O51eOSazTZJyYU ReALMmZVWfrJfkpi5rbO3m Ii8+JCHwpQA1yQK1lF6hLx EtBcY9TGwx W807OlErlVGbYdgke3ril0 kdwSh4VkNgPLAolhQqjGjr LNT6d7OjYv61A6OkrDwke7 LfTyw7ax61 fCGvz5K7lWR4V9NlGOVnqa rksEXnoLqwCH5kVMQtycek GGVhlJ3nMDRsM5z3JcWtWd B7UMpoQ2Rb ngX6PTGchHQfOSKrpJZFnA 0fqcruk2pjpxumJvFcESUh WYv0LKe2DPAdkVwnCcZsSR N7XyW9ARA8 wGQniJ6jbMhivccjwR8sAu c+HXa7j2inmZGiNI3hnXF0 UX49RI42fQXlt9J1gRW3Q1 BhZGRpbmct pgkfxJJ1WSNcLAWppE65Ty 2xiPatRn9oLSZqSAG6CVGb pQEtO6UixL4iNeVuQCYlAX NuJ5RxpQQh DKrdO443TWaqTxH7QOCsgk ToT3JeTKYasTmlChO1l2O3 Tc8ONA05OE98YW97cXFeh6 M7nLH8S2Dn TVElihsnoixniLX1ANSuVB TakI07Rr2faPxnXv6hYGRn LNP8ZQTlfZOtS4HmdD9wGs AjMDAwMDAw G1DouZKdKXiaW000TFbsMh G2TONbepNaB3SxEVYypUdh SoH3z8W9Uu4XAm71IE86XG 96pXZhz1H1 wDR2L4UtWBTorevgflgluQ B8ZYLaQTHxmD42Zq7zmBft Zd6bHWWxYTA0TEKmtIGpR9 QcdE6kAvHk NLUnKETrX8SyiZIrCLqyN0 23VAcqHiO2VUBgrfUgX2Kt SXDtuOnwBaR0s6C4Xy4PSW ahluv3Q3Gm PjwvdHI+NM96PJAwUG79dW MyvBWpl2yxjUh1JuLfDFJq ZKY9dBbpSIncy8RcOGCvJ1 8tfEEip7B9 IGN (more content not included)... [facility] Coding Summaryon 12-13-2022 Coding Summary HTMLBase 64 CttrsjsyORc5lBp+PGhlYW Q+YT2BUYGrJ48hkYBqkG2S W5oSJY2FPPRWCTCHNM4OXQ 5ypKU3KRytT9LchvEl MkitjTRzFB12UWp7LKI5lR uvNFlmnO0vvAUeA2a3LkQi PC93yT15BZkqFAGhIcE3Mh ZpbjsgbWFy E1lfZhNpvZSgGxl+PHRhYm xlIHdpZHRoPScxMDAlJyBz uUqsCQ2yIa5gQSUfBUTqeG xhcHNlOiBj d0idPZRzBMxxFK1qjTlfP4 JywXM0KVAgd3u9Xq08mEL+ YFCoHIZ2iDazDButd590Zm Zmo5noCFC7 oLKwZVgiTEP4D69cn5L0TE MzCVUjBTH9wKC8sP8wqLxr hkqzO8NdpWGcXyB5SBH9cW NzpD7qiGgl zdcmmP5dRuo+H73UMX9QBZ HYEL5SUyz5A7PfUjkhdPX+ FY05UIMtPK73dNCvjHUgm2 qlsCd9JnOh CMYyEEA1mRffJTbbd8SqVF RsZ87biAAhn0C6IXVfpJrb nPRrSgXdcZE5wI7oHXxxra xnw6lipqva Qoilz8bjyy28pF72L78mKM ioFNMhFDM0KLLzTKIrnRbq rw7muD5pTi0+WQqzw4xfs4 tmvYx5FmLu PWNbgaAmpDupWOZ6z3KaNr 84N2PpwVunx6IeWno8ao47 xCBxr4D7kUU6ZVdkDQWviP 6jYVrnWnE5 WQPdMeHvxE98uZYiEElrOi 4yeQdawUvgID5qRJFjmbrq MBJghW7gZLMpbLDtgGhgQC 4wNTBpbjtm j283YaPcZNU2MGEcqFDhL8 UksD2hFdSwAEArCQYbL7Wm bLBzGQczN336JJcsBfA9QZ WxyiDrC9Ep QGBchJerEmL5i6Z7Wc1Ax6 VruikzZQV9QRvrHMAmQqOy LoWdYjR9L0SdRpw5QVSduR wvEG0zK5Kk HNBugisadihzhLT8ARPsPI KpnN85zVNwSBooWr2xj4Y8 p524YRAcZMKhhP97Op0gpV ogMTBwdCBU lY3csxuze2oajkfuDxJqPO AaIGt2FYf8LZDqwVzxZsGa HVV5VzQ0TCK4vIShnZ1hqA kxfpxzxA6g Oyc+U97kqF9oZLX9MJD4il nySCIvlpIwKG81QR22O9Ry PjwvdGFibGU+PGRpdiBzdH mkDW6rQyIs u5nil4PhMCazH2FoPJBgTY fiEup5SOJoVSO1uQX6cJ8q RMHkYZxut4O5eUR2O0Khwi Xrhp7tz9lj SVLkRKmiT18ljWGqk8Y8PE TbjEX4IKHjnYhmXiVcdW76 Oyc+UBCvjYkph1QxNqcys5 gdj2qbkZx3 UhVoCIEynsLwgEwwTMI1u7 XhKh99C40qBDzzRATyKXAa ZKJkOKSasQnwty2koR5dTt 8+PGNvbCB3 kCD9lG4kGWQkTeA1TEsaU6 94KcSmtMTdQsrlk5apj2ew fMm3TfUaGOIuveItqOwkME O3q2ZgVk75 F90tAKzoNQMoURBcCOVtPW SuwEbhop4xjB9rLc3+PC9j m1qhfk31mR58aRN+PHRkIH U3pIthQSiw QQFwqQ9eBYumUeT2AMYbXv QepW11rOLhOAebXh4nsLtr dFpkKD4lFVJsbkhlb355Ow Tem0pyPTWt bGTcFRhkKOS6M33xz9F9WF QhAIMhPWD2uPM4bR6ozGek bjogbGVmdDsgdmVydGljYW mzWRsbU157 IHRvcDsnPlBhdGllbnQgTm GhDOo4N7HyPrt9IWSgzYif YU7dkFKzWJvvQl6zyUcunM akCG4hVKNi zzsyg279EaBpx9ucVOZpeJ PbCWdlHEV3F24dc4N3RRLy HJMrIGS6fCO0yX3qeHlsiq ogbGVmdDsg vuQhxQqzNVawUXmvY835JV RvcDsnPkJpcnRoIERhdGU6 OS77WM18lRAnz8X3xBF2U4 BhZGRpbmct diavnGC8UNFnZFPqjG18Tt 3zqQnsLr2hOPQzAFN9SWYw uPBtI9GfkR4rWwJbUFLfTR CbB9ObqKZl DXksD361LOiyOoT1YMDmim BtE7SsUYVjjZwfFbM9d1E4 Cr0WO5N1HG30TC78fTQgy0 O7kMZ2J3Uy YAPmcgzyunptjOT2RQFhYU IzuJ23Yt4nfGdeBl0xCOJl MXF6ADOaeHMpT6VpxT0eBd AjMDAwMDAw F5GynZSxSWwuG902ASmvLt U5CWHlfuSlS3FqRWEdbClp VdV3c3H4Iw0YRDj7CD00IM 21aPQcg3W9 eQP8P6DoBRFcvlbxmowofS Y2LTZwBWGdyZ93Iq9cpDvp Ek4uXWUsWMM7YBXjdFMnW8 AowR1ePdXc GQLvSOSwY3CbuDWcQCwkQ0 74PXsxQnH5BJVdkcJeN8Ak PDLeeBxjWdU0d9G4At3BPV VvCK19NTN1 tCD9GB43FW95A8LlFbmhwK FibGU+PHRhYmxlIHdpZHRo PDoaHPYhKyBmiCqeYB0cRr 9yZGVyLWNv hTmxeQQjJlCmm8suBIAdGD tvVY2shFqiD2NxrHQ1YPTh c7m9Je53G80wJ8YdxVH+PG IdpKV8oLK5 sF6rPgKfIuC1XGfrJ609Yq XtdWXfWwsdd2yty8mlhIn7 KnX6FYElgfMnnBwbGFR3a9 TlWe10D79w IHdpZHRoPSIxNSUiIHZhbG saaj8ofR8uKv1+PGNvbCB3 gRL7dA5fRoTyMqM6CJdkU9 49InRvcCIv Tbock2swo5tmfIu4LgJxNH EvaeExzXanVGK5y0KvNo14 A4GgkEmsq2JsLxd8ce60xA Fpa5B3vBF9 X7IzQQAywakvaELhiNfrMX 6tKHWzarwhDDNqnQ1vKUOj B4c3XcHgWsB1NQdoF9Ucqb G5FDDsqGOc VCciHVI4T75jw8V4VATcIS HdQZH3qKE4aB0uiOtxxjdg bGVmdDsgdmVydGljYWwtYW qvJ586CKDm xYyxHJTznL2uFYIjuYRioU ybBC9lPYFsaxqaXirHQm6P KlFOFH5mMLZZC0cRFzLwCE wvdGQ+PHRk ELG7nAmsZQkjFRSosY7tIN PgX8x2VrJrVvK2OGoqE4Pw XETvwxuyXo29aP6fCkGpEa K1EShlC2Sz unO0RTGvmEVfLQxsVFL9K4 4ts2P3VJWyEYVoMKW8hBN8 kY9nhYjwbvoauRUgfZgjom VydGljYWwt ZOrdK996AZEklTawXwDcAg H2RpG0RfT3X2ZoQge1VQQw jPniVL1yqVPdKKmgVu2rlG xbiIruGA9a WSPbtlyyXONfeU3dXSAsbM MqtMjwIE0uVIDuuficu660 FrEgYJY6MKNigQXdC7GpqU 9yOiAjMDAw LOEkS0YhiIKuRZsdV678RW nhCqX6HRVmloUqU8BqSTJb gZstHfA4s1Z1Cd28OrVWHF FyczwvdGQ+ PEDcXTD8ePctGDotPVTwlZ 9sHKGpB7s9OwMhVqG7UMfy O0SsIRIplyxpNf95zP3uUa OuSyB1AWct S9VdtiI6MMKfxSDkLFkpEX J4V26hg3H7KUXcWJPrKVK3 dRW6hP6pwVgnajlswYCvtA sgdmVydGlj RDtyPVylE561YJJvzVxkCc 5MOXY3Q4ZqOnu4SGHpkQpx IY8pvCBrYYayGd7ipLlmwX siAH0xSJVd pafiEVPbsP7fFGThhWZvkG tkQM2iEJEgywnxr068GeYw ZTK5CKHklXDyW6UvmT7vSj AjMDAwMDAw J5TayQGoFRprG429FXfjUf Q8ILFxctJwC3XiPXEyfNhk LmS8m3T4Jb2MDMrheWO+PC 69gs86E3Ko ZzntXlt4SKYwOOR4fUX2zT 1kXQSkGDeli7P2eVP2J3Mt bkZocz0gc6kxYJLdFZayW7 2ytDXwl6K2 FAXdcIX8UTItwHjtAuPtzJ 93Oyc+NZHywAcgh2SjUybv f6nsu4rjhPp9MoPbSMXqne FsaWduPSJ0 b2KhSp64E84oJAouYKPgDG MqRAWtDWJekFhmgz4olS6s Ii8+PZMclBX3pGL1fL5zSr BbAdF0IVoc G966LhWpbYSdEepfb2foh0 jxeFm0VbLzAFRrxhRzhQng ZBC3n2MfOs13I0EgwGljj4 RuRmr2ti83 dEAqm1J7mES1N0EyXDFvxf njvUOfwShcOG4bKUTiqyxo KKPlgM7iNOWyO7b4FsPwJx C7DEetN3Dq tdI3UHMqvZMoTEHpkEXQoD 6isxntf4yryqhsDkTvFUTk XFj8WBs5CIAoyNrfJjMhIB R2ErX3VMW0 mHYpiN4phHydtxnwsY6mVb c+XAl9k2swePCpEB8paMW3 WI33EW85eXNty8F8rQU7V4 BhZGRpbmct ahizmGF6APYaRFIyrM65Pg 1qyIjeDy3pOZPdYEK2PEZd bNTgR1JgnC8oYtIfDTLoIU QzF6HqzYVz QCjjD437XOqrSlD1PTXzto AmX6GgDUXixIdwPgF5p8L8 Aj3HET70DL22GK98yRKaa0 X8jGW8Z3Sq QXWtukprcamajSC9HROkZR NslW43Ro9wbRrnRp7pYAMg SKB1TZHkmXFzV2ZziF2bCx AjMDAwMDAw I7TudZHlOMfdM114HScrWx W6FTApvoXyR3EmJYXcaPkw FuK7z7Y4Uj1SMs42ZL28WA 68fJWkb2T4 wRY5M8BwHLVbajgkaaxxyB T4LBIhLUMxcK16Yv4vyEao Dh2wAKQqNKV6LOUzeQLnJ2 HeuP3iEmSr NCLvVWTfX9NunPMiVKyrK1 73MPlfLrO3AVCvnjLdY9Ds DDLoxEwhZiU9v3R4Vo8VOS tohjq7Y2Wm PjwvdHI+MQ85JGSvSP75jY BhzNUia7fpgHa3OiAdNXOy OXV0jVliWGuma7TrCPTjV2 3buFMmz4R1 IGN (more content not included)... [facility] Coding Summary HTMLBase 64 BekrseefWQg2eLo+PGhlYW Q+FU1IUCIpC59eyGYmcE4Q J3iFIW5BLYFSBERAEA3ZPU 7hrCH5ELjfE3HskkFz PpkplCYqOD05IZl7ZXD1oX rmZWtepR4rvMXvC4d4QcCw LZ24bJ60TJeaZDRmIjU6Qq ZpbjsgbWFy Z8wdMhEerOQvVeo+PHRhYm xlIHdpZHRoPScxMDAlJyBz aTknMM0cDj2lAYTzZFOheY xhcHNlOiBj f1jhOKAkHZhdFI8tnCxdM4 MfcQP8DRSfy9n2Li97jYH+ XHBmUMT7kWvvYZbxe110Ja End2qlNKB4 kQHtKDeiFUK4S17mh3C7TU XwEEDaGGQ9gXI5wF8jhVhx yljmZ1AbgSWpFuC4THA5nP XkvM6uqQge imkbmC5bDbl+V86EVC3EVN NMTQ8KYfy4R4VsBiwdiKI+ FG28UJCzRE78jMPfjLSsg7 lkaFv8FiDy FATyOIZ5mXxvBBfcl3RxAS TyK96nwRPrt1O9YMPswRdv cKCsXbVbqCE7yO8uJWsiyi fgq8ltbuiz Yphfc9xtzc94tA01Q94fNE soWABiXEN3GIPlKYBljQrv mj4nwT8cLv9+RUlnf4oks7 vbkBp3XhXj UPTdphUagBrxMQD1k2VcMl 78T4DbwQzfj1UpMnx2rl51 yOZns5J6mRK6RHlzXQAvwP 2zMTutHgS4 BKVeWaTzkU64vBIcTMdtRb 7svCrwdXpgMN5nPVZnxmdm TRMueS5eVYDdhVIrlRhqYU 4wNTBpbjtm g557JdSiZSL1VXQtjGHwZ8 IamO6mScHbBSMyMPNtK7Fu rJKpWKgeL913CZckUlD9QP UzcsVlY5Jl XQKhvStdDaA3s4H6Tz7Jd8 DhqgzqMDM3ZUpyBFJeVlCj OtWzEaF2O7QeQwq6YHFoxH yfBQ5nQ5Kg HCOqjugdwmzjnWU9ABSkLX ZsdA40fYTqNUchRv5re8H2 a825UHKcEQDwfF56Dp6dwJ ogMTBwdCBU iF5ijrrpk9vnhdgsFnAfEW GhXKe9CWg5MVUoaDnsSvBd VYO5KpK1OUJ1lIIrxF4vbV ofwvjfeR2m Oyc+P53lmO6kXGA8IDD8rp tgFZZzdmYxRS78IB72P9Nm PjwvdGFibGU+PGRpdiBzdH pdBN3qDdCk e0tvt3DuTAauW3TmHXTbPJ kgZus5VZSkTPT6dCR7hF9h TMMbFCokq0W7vHQ8F9Febu Sgcc7fl7sf MUGuIIsdE86sgPUzb4J9AY MzsZY1EFAoxOlpBqJqtQ03 Oyc+MBUmmHyow8VtXpqfc4 nrh7sjmWq9 RfJsPUWkvkZstDjtWAC7f6 OfWy66C67xPYsvFPAtYOZm YLIePOLjvVmqho4vcX3jLj 8+PGNvbCB3 vES1iU9bEHFiCtP7TJlmH7 18ToHzeELvEybes4jip4jc fDd8BtOlKXBswnSycEhlUX T6d0XlNa75 C53hBXhlLNOgIDOfWPAbVT TllZlddu6gaB2lDl0+PC9j m1qfci64hZ81gDV+PHRkIH I0eAvhCJzu GYCceD5qOTtlJaI8GAOfRq XdgV59vVOuDAwhBw0efOru pLjjMR8kKEExhimnh061Fy Eog3kvNOSb hEQfOGvwCQN2I46oy6D0JR EnTGBjYHV6xME0wD5ieVnt bjogbGVmdDsgdmVydGljYW tfTWmfS544 IHRvcDsnPlBhdGllbnQgTm LrVSz1U2JcPll3OMMbwQph ZY3dqNGvOWroSz4fbIqylH thLT1eTZAu simxn520FjXws5biYWXjqY HzNJakAPE4E41ee4K5OGDz BXRiYOA2gIY8tC6ycHsaui ogbGVmdDsg onUklUoxHYnsXTdtY456BA RvcDsnPkJpcnRoIERhdGU6 US73OR80hCPvj9L1cZQ2P3 BhZGRpbmct zgpbnWZ5EYLvCOSnlM47Sd 4zmUhxRf8lDVOkNFO5YKHe iNWaH3OcrQ4vKhKqSKHkXK UgE0WbuNBx QOzsI741TNnaRbW1JUPaio DmQ0KtXBJeuPyoFcP8q0A4 Ca9BV5A0YA79OW29yPJpu5 E2uCF3L4Oj ZBWhueiwyjvwlNF0SCKwWF IwwI55Gy4ntYgyQs1sNITn OWA1XDHpkAEzO2StnM4eGs AjMDAwMDAw Z8PjgHRdRCfqR049BLwzQs Q4MIIhwfIxY6BgBOOqrCpg YaG5x1Y6Ns6JEPf6KK75YU 78kMJfd5M3 aSG0P5FeIAXilymhwccqxG Q2WIWtODGxtR39Sz1mvCef Uz9sGGYqARU3RGVhbYBoW2 GciR0cMvOy CGRxVVKtE4VcsVJiPEmbN6 63YDckWwK0EEFldyJwW4Or KJMglVdxZxH7b7J9Xo0RON LeNR13EVZ0 uVY7SG05XN21U0LuLunngV FibGU+PHRhYmxlIHdpZHRo SPvtIBAoTqDtkBkqDG5tSi 9yZGVyLWNv xEnbtSFfKiLnb6kzXUJfCQ egFY9juOgqS0PvdYZ0WZGk f8a6Ho17T81zP6GloID+PG HtpYY3gUF9 vZ6uKiYyEtG5PEoeK776Ho DctDNxFwzdz6exk0yshKz3 PuS9TAHrwyWwhHvqEYG7b7 OaOd29I36d IHdpZHRoPSIxNSUiIHZhbG xxcl1cqC4nEi8+PGNvbCB3 oVH2rE2oTaCwFgI3JVfdT2 49InRvcCIv Nvvur7cpr3cmgCf1XkGmOW YehnKheHopEMH0x2TuEi01 X3RkkJjuq8NmAlk1gt44kL Dhu0D5oIW3 A9QyESMayhwdsOTftPkfOR 9bQREhlpkjIXLalZ3kKDUd Y7j1RaLpLxB1YXngG3Wdlu R9XIErlWZh TEsnKTG3B80yc9R1DPApUE RfHBC9tNZ0wB5bmKtrqacl bGVmdDsgdmVydGljYWwtYW zgO537FHOn lWwoSFZzeQ3qGRJdqWBqfW ycYW1cLXMxgcmvAbnGYj1F AkBVJN7hGLWGP5yKCaOcBL wvdGQ+PHRk HAE0fQncZMfkZLSuhI3sMQ SaI2x4NtVyFkH7IElvO6Ri PMSzkeokBe40nA6vHoKkAm J2JMtcI0Dj xoY0RBOzcQYmIMqsUQD9Y0 7ac6I3PUMjVNUuSXQ0mWZ2 lQ0pgBjbilwgfUFbwVowug VydGljYWwt CJuxM664JNFpuMsbElWfHp W3RyJ7BlD3E8DpVpl7XORw oIgyOC3zxHGdJWyxWs2vvJ xqhWrhWR6m JXLatozzHXOrcP3pDLNfsQ LhgUviXB0vMMHhzqprv781 ZvYzLSN5FXYjjREuL9KikP 9yOiAjMDAw XEBwX0UcgXEkLAxaQ520DE qyDuP4VIMdidXdP1YvLXXj cAoqAuE9q8K6Vw42JrYKKQ FyczwvdGQ+ ENScLHP9bPleOJwqKHQliW 4yBCUtM7x1AhXbEqN1NWrd B0MrEOKhlanaEu63jG9pJt SxQjD9TPbu Q4BcfyV1SVMnxYVdEFqvTW O7S48ci7D6PNJhULVySAA0 qWQ1zS0sbCnvxzpagSDtpW sgdmVydGlj JBemFAmlK148ZIDmdWtxTs 5WUOW8S8VxPjt2ZMUjsCcl JY1kyCTdDNkcSh9woLmosS szVE7pWSQf yxyeXBYwjM9tVKYshARqwV luIG0hCQCknspni730UjUw IUD3AAPrpEMoA5HatS8cIa AjMDAwMDAw W2BceRYjJJacG870ALofGv X8HBSynwSlR0NxTUMolFmu OeL7o1X3Su7OBKrthRG+PC 66jd12G3Im SqbxMqz1IDYyDSD5zMB0vR 0iNZOyWUpwp5U2nBJ1V4Qg ynWbcm3ci2yuYPTtZGjfS5 1zgPSyt8I9 CMFfxCK8PACkzLyrEfIvmC 93Oyc+VMMhzIgiu0DgIqru t3jxn9puvWl8SyUyCVXsiv FsaWduPSJ0 r5DgPq29Y05uKNllFXPzOX VaYUFaSGTdxRitjk5rfN0x Ii8+FPAbySJ8nZL4aD9dKg VxOtC6WYdb J751SgShyXPpOvtbn6omh6 xmaNb4EaUmYUNwwgThhEcc VCB4c3HoEi49M8FalXxvx4 KcHhi2gn30 sMBuo1W4bXY3O9YcRGOdqr terYPkbHzfRR0nBHXcysei RVJolC9mSWTaY4f1TiCeWq L8MJmyS8Bc xyC5YYKmlXZtFFGskBKJfP 4jtmqdr8wzngvnWnObFKOg CTk6ECz2HLTdkDidGcViFS X0PtB1GUL1 dFJumP7muWwbmgafaQ7gRp c+SNx6b0nznAOlAN8nqKC8 ZP66XJ55cANrq0V3gFO0W9 BhZGRpbmct nfpjpTO5MOLhZAOhhY22Kc 5puPseLt0nLRHsJHT4NJKk yWXbX7RckZ0lPrOlJKVzFY SwA5VukSKu DJfjC147KMlmPmD0GMWucd SiP1VrHKSdbYmjCaA0g6J7 Ft8MWS64IO99YD17oYZcn8 U7pZF9R5Ek ULJzqrqbrcdfvNW7DEMmUR RejQ70Vs4ejRglIg3kZLMp IIE5KIWcvALxK2MdjE4oVa AjMDAwMDAw F2RrdNDqOEobD171ZSacHu R4JRHlwhWfB4NhCGXigNmc ZdD5l5Q9Md9PBh48WM64XT 66sALmd5P4 tLM0M1FdUPZedslfphrcsS A6GWVlIHDczQ34Lm2jzWae Cg4uHAEkSKQ5KXVbrPDrF0 WuhM0lZzWt QEHfINOdG1NleXYkWTerE1 90ZZnkYbC5LKQktyWiU1Sh ZMBflDseLtJ7y8A4Dy0XVO cyevl4P1Kd PjwvdHI+GX64PVCqHK00hO GpsKJft6wuqSq0ReQrHJBl EQI4mQctSVxeh1TfXUCfU6 2bsAHzy8H0 IGN (more content not included)... [facility] Coding Summary HTMLBase 64 RcyavmiyTPw7iVe+PGhlYW Q+AK5LTLHgA85ntGWuoI4N F9uWSA1KXSLSNKDUQZ1XSX 4mqVX2WRqmK4LngiPm ChjrfJAzNC85JXx5IXV9gO uqRPrnzU8nxYIwL7h9LtUg ND40nQ76MPrbPNJlXfT0Dm ZpbjsgbWFy M9ivQcNrzALnCex+PHRhYm xlIHdpZHRoPScxMDAlJyBz jJusGE1cBx2wWYOjOSRjsH xhcHNlOiBj z8yrTZIsKFuzTN9ncMnbX8 PxwPD0FSWbp2d5Pu55oNH+ AAVqIOP6iZvoSHyuf040Si Tif4yaQWI4 eRTiUBxzZYI7S52ag2N6KV XlBYKvSIK8xCL9gX0ayAoq oijmD0EzlDMtOzL3NVQ8rL JxjV0geWqq zdhcvO3rUcg+H90LBG8JIJ FFBO7YMjf2D9MnYypseKK+ IP48KGPeLY88nVWijUEwd9 aueAl1PoNr YRXvNOI5xVoaGCodw3DlXO VfZ56qzLTjo7R6PXOywEnv fJVmEmZysYK1kG0jNFipdp vdb8tjblip Vrfck3uuwe60iQ92F63vXY btNXUcCTB9KNFnPTXngRwe ob8hmY0aWe3+VLwkx3sef7 mifEu7IjBw AQTjfrQmxMwsOAF9w5MvSo 25I5DerZfxv5KcVsi2uc43 nNItk4L6xJJ8GWbmLRVdyJ 7bTVvqXtJ0 EEEiFoXxrH99tDIzSJysPg 0fqGvpmYguHB3rZCNjcddf AFUvjL2oGQXxnGYwtVqrZP 4wNTBpbjtm o156XmVbGBT3YDZbuTNgA5 PjfR3sPuAaPURrOMVzH3Cu qCScCBpxN409PEdeIyB1VL EeokWiA6Ae VTIbuZgtFtY3y3E7Jn5Ix0 InrxraBVF4BBzdMHNgJpAo EqEuWbF3P1DsOxx1QJMwjG fzRX5mX1Gf RGUfsxdcinodwJF7NBXuNM QlhO35cGWxSPmuLa8jf9L3 g349WYOeTHMxnI79Qh8tfF ogMTBwdCBU tZ3gqlpih4zrpuqcJwVwOU NhLDg5XUe8EMNtaFxqAsSl SCO1SdE9RWK8qQNgnL6huK wrtpxirD4h Oyc+S81gcL7sVJP1BHP1vb esCKBxlkHaPN56ZY31Y1Cj PjwvdGFibGU+PGRpdiBzdH jwBH9wMeYl k7bcr0CgYYicA7RqAUUbCO bdEbu7SZJlHQB7qDE0eB5k FTPwSKtxf9G6iST4Z4Hsvp Koqz9by1xb LPErJHmsF95kfFSez9C5WX DmoUU0OFXrlAzdZmYvtG73 Oyc+ZBMvjZdqd7JgKjucz3 ubn1oseBr9 LsYxQVQjguKwrLtgXZL0c8 GvCn27V88cTHdxUKKmENPb CHWxQGBxjZobyh6xdH2yPw 8+PGNvbCB3 oLF9nH2iXXYjSwC3GSmyT7 14AyRknXWnPayyv3dgj3bv pCy9NvWvCYLjwqCoiHqsIQ E1m2YzXh07 R46wMTfaPHPzSTJxOTJrKG ZxkWoykb4fpC3yIt4+PC9j e6ejtf79bX62tTJ+PHRkIH V5oMmtMApc LKCalG5jNLgnRdE0AHQpKr EpdL03lONjKHwgYw1nzVzg yNclWR8iEBKgqiskx544Cu Yoy1vgHPHx pHQcOWwxUWT5T31zv8K5CO YuTMGsLLJ9sHC8wM5ggNqk bjogbGVmdDsgdmVydGljYW zrCXhrZ204 IHRvcDsnPlBhdGllbnQgTm MsQPg3X3OrTik3GMUbtYct KQ7wfBEfHVjdLn8vbRgekX gkBK7bANWa hgurk612MyVnt1mfYTYheD KbDEkjFGC6M11qk4G3WLBz WZCoWNO6vFV5bD6juBxpiw ogbGVmdDsg ihMhtWnjKDvrYUyfU214VH RvcDsnPkJpcnRoIERhdGU6 PV23LF73rZHxh1L1dLP2T2 BhZGRpbmct qychzYP8MZZcGKDltA78Po 7slHwpUl6aTZGnQVF2DTFd tUFvQ7QbgJ5lPgIgDIMtVI XvU2GqzAUc GDgbL850DXxxKnG3MMNhfo IjN1HfUAGbpWttPqF8q4Y2 Jc1ZF1K8QD52TG78tBExe3 Q6jAN5K2Qk DDGapcoaywknaST1UZEjGN CymR39Yv1xjMphYe4lRZVy LDU6EADzcXCaS0GrqT3tNr AjMDAwMDAw X2EdtRTfBDtqH317KVqtFm H3GRAuazQcL2KpLSWzaGkn PeL9a2B6Ju3YVNy1BS81EA 05bYFpj1T8 gXL3D3WmERIkictctbaovS Z4CGUqLHQwfG39Ii3lpJpu Jq2rFZQuFHC2JXKgjEObW2 TijB3kAhBc NITmMXXsH3QyuCIyEWpuQ6 87DCewIhR2QEAutfDnZ2Rf CLUltKvfHoX0d9V6Kz8AEC BxJM09DPK7 hDS7JD17SZ88S3BkQlvwzW FibGU+PHRhYmxlIHdpZHRo ZPqtKBHbOaXwqAzxSU7fCz 9yZGVyLWNv qSmzjLSkXdDav5izMBMfMP neDR6emDpaS2FmiTJ1RMUb x8m6Qm81R24gP7CwrBG+PG DicAF4iNT3 vM9cKfEoTxT6DCxlV472Ck IngFMxVxxnp9axa4xqqKx3 SoY3SBIxriPpzXhyCAS4f7 DlKz47T94m IHdpZHRoPSIxNSUiIHZhbG qkdw1leV2yDc0+PGNvbCB3 nWC2oZ8jTqLlAlE9NHuiM3 49InRvcCIv Hhghb7itj8wrxTr7DwXsNG HyuhRroXumVAT8m5EfQa26 U7HaxCthw1IoIip3cr18wX Acz1O1hQQ1 A8FfZAQbeudptNNobRniJK 7fDCRutttqEFCsiR9nMJXc R0f1RbHmXfN8SZnvW8Zlhq R9TGPhzLKb ERhcSWE1G82kt9H1KKXpZE GsVXP2yRO8gO9ljRbbhiyt bGVmdDsgdmVydGljYWwtYW glT723YKUr iRjwKGGdpF7aDUAznVQkcW yxQN6sITFvtiznIoiINg5P PsYXBG7nXKQPP3xDDrYaMM wvdGQ+PHRk CGR3sLlcUUaoSUOkbB9aUO GaH1g2KkMcYmC7RSexN4Bg PSUvfkzyUj27wZ2tZdVfTr Z7BTogW5Eg qhM4ZKPzbSEbPIdaWEG9Y9 5pn7Z1YYMnXGKuQBR4gSR2 fP4xtRfncyhwqREmgXjogc VydGljYWwt TDjaL728SPVtwCklDiFfHs Y8IoU4RzN0N1OnEiq7HJEw kPdbTM0nzTKcMQpmPm1ahS nsuNsiDZ4a SINgolrqXBXiwF9vZNSkoZ ZbmMrpZL8oMQWlkuwmi728 KwBoMDH0VBUuiWIgE6SgsI 9yOiAjMDAw RCPxQ2LyjJUeTWsvW210LP ikYqZ3GETljzRjE9DtRNWy gBgsYuL8z2L4Tn82AwJQLT FyczwvdGQ+ BYMwQVP5dXoeDVwaEHUtoV 8bOUSkG4e8BsVeVgU6DOre W3ExNELgytznSs84sK7vFg FgPpO6NYwc F4LvuwU0MFRowDNyHJfdDQ G1G50sa7C0VGRdARFoHTI3 rZW0eV5gtBmjtksyaJAidI sgdmVydGlj LZgmIYctV474UJVfkCkyUt 8MMPZ6J8MbDpf0MTBhjPin YM6vrFDdODtwPe0tvKqdjU ihKO2eRWSk mkidVPWysV7xINWwkPPczO asTN4mZSMikbwja837HoSi EAX7LFBpgLUdR7OjkH9vYe AjMDAwMDAw C6EbiURvITjsG867GGskCz D9VKIcpjYfL2McRXErlLjg CvR1f4N6No1IZDtwwHR+PC 13qe56E8Ht ZwqaGtf9KQQgYWB9eMV0kF 6dTQMzGJwvz8P8aXE1A6Yd ucHtzc4ae5vjAXTyACblJ3 6zwCXwz5M7 DJKdgYJ0GYVbdFqgSpKroO 93Oyc+IFZntRlgg8XtSxjn d1kbl0vhwCm7EwObQFVcwu FsaWduPSJ0 b9IbBt88Q35vXMeqADLlGM JiFOXhWEFxjWerln1txS9a Ii8+FSDpgUK5eTT9eC4iFu EpNlB0KMum B721BoVgoTSiUggyg7ybv6 hwrWj6NqZjZOVlukFxvUvb VLE2x3FzVq04W2ZnoDbwe4 FjNph2qo42 nKUje2T5zKA0V5YlVOXfuv hflVUhnLlmBE8aAUDtszgq NPMlmD5rSUEiN9u3TdLzKu N2GMmhG7Cn hoT4KMZvoHOoGVCfyHVBvK 0gbtmmk2kqmfnjKyLmWFQx EQe3VBe9TDDslKymLfNtTC U1UlS8IRG1 qTFyrN3nqYwmmhgtkX4kTw c+PYz7l6yfdUEgFE0udPX0 UL73TA59wQSma6Z3hYK0Y8 BhZGRpbmct ddfcyYV8LGGdCIVdqY17Tw 4qaNldWp1gPNWeMCJ4FCWj eDNcI0MyvE8wFuDbNWFbAF MyU3TgaTCx ABdlU026AKbrEmB6ARXkgf YhD3ChDWYbzUqrYtW1q1I7 Is3LXL94FN92AM08rAPdb3 P8qTG5J1Vq LHPspnawlszvsNL1SRBsCZ OigZ96Oe4ptVdrKz0aOEFh YKH8NUAhrJJzZ7RmfL0nWr AjMDAwMDAw I9BgfWGzPVvoD023FWexTl I0FUMxxeXiA4PpJAXlnJiv KhM6s3T6Ph4UGn38RK42IQ 38oLIyv1F5 kSZ0H3JrLKTrlwhpufbzxO J3MTIdAHFbvA91Uu5htZeo Zi7jLQHeAYY7GIOneQCqU5 BdzS7yMvTi NCSkUJPiU0KrnCClDXblR7 43JXltZqX2CUQketXwV4Iu RGThyXeaFeE6u1B8An1NZX sfjjk4D6Xo PjwvdHI+EO76QYFzHI14pM OwfSZsg3dcrRo6KiXyTXDg CAF9jKkqWIiog0UuEBQpQ3 6sjINia8D0 IGN (more content not included)... [facility] 12-06-2022 [facility] Office Visit (BRIANNACC ) SHERRY GUARDADO ([id number]) 1965 M Date Time Provider Department 12/06/22 9:45 AM GISELE SMITH During your visit today, we recorded the following information about you: Gisele Smith PA-C 12/06/2022 9:54 AM Signed DEPARTMENT OF ORTHOPAEDICS SUBJECTIVE Pt presents today for left knee OA, requesting CSI. Denies any complication from previous injections. OBJECTIVE Large Joint Arthro/Inj: L knee joint Informed Consent Consent Obtained: Verbal [place] Protocol A moment to CARE was completed. SIGN IN Personnel directly involved with the procedure wore the appropriate PPE. Special Equipment: N/A Patient/Surrogate Stated/Verified: Patient name, Date of , Relevant allergies and Intended procedure TIME OUT Intended patient and procedure match the source document(s). Consent documented and matches the intended procedure. Relevant labs, photos, and/or imaging studies have been reviewed. Correct side/site marked and visible. Medications required for procedure verified. No fire risk assessment and interventions applicable. No implant(s) inserted. 12/06/2022 9:54 AM The procedure site was prepped in the usual sterile fashion. Site: L knee joint Medications: 80 mg triamcinolone acetonide 40 mg/mL Anesthetics: 8 mL lidocaine (PF) 10 mg/mL (1 %) Outcome: Tolerated well, no immediate complications Post-injection instructions were reviewed with the patient and the patient voiced understanding of these instructions. SIGN OUT No specimen collected. No instruments, equipment or retained foreign bodies applicable. Post-procedure follow-up management communicated and Plan of Care Visit completed when applicable ASSESSMENT Primary osteoarthritis of left knee (primary encounter diagnosis) PLAN Follow up as needed Gisele Smith PA-C Referring Provider: SELF [[id number]] Allergies As of Date: 12/06/2022 Noted Allergy Reaction Hay Fever (SEASONAL ALLERGIES) 3 - Cough MOLD 3 - Cough REGLAN (METOCLOPRAMIDE HCL) 03/07/2017 5 - Intolerance Comments: Panic attack symptoms Date Reviewed: 12/06/2022 Reviewed by: Gisele Smith PA-C - Fully Assessed Reason for Visit: Injections [[id number]] Primary Visit Diagnosis:Primary osteoarthritis of left knee [M17.12] Order(s):Large Joint Arthro/Inj: L knee joint [ECJ357] Order #: [id number] [] lidocaine (PF) 10 mg/mL (1 %) 8 mL injection (XYLOCAINE)Disp: Rfl: [] triamcinolone acetonide 80 mg injection (KeNALog 40)Disp: Rfl: Prescriptions as of 12/06/2022 - PROAIR HFA 90 mcg/actuation inhaler - cyclobenzaprine (FLEXERIL) 10 mg tablet Take 10 mg by mouth three times daily. - eszopiclone (LUNESTA) 3 mg tab - gabapentin (NEURONTIN) 300 mg capsule - SUMATRIPTAN SUCC/NAPROXEN SOD (TREXIMET ORAL) Take by mouth. - GABAPENTIN (NEURONTIN ORAL) Take by mouth. - fluticasone-salmeterol (ADVAIR DISKUS) 250-50 mcg/dose DsDv Inhale 1 Puff as instructed twice daily. - ALBUTEROL INHALATION Inhale as instructed. - rizatriptan (MAXALT) 10 mg tablet Take 10 mg by mouth as needed. 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 restart botox today for CD and CM. Diagnoses/Problems Assessed Chronic migraine without aura, with intractable migraine, so stated, with status migrainosus (346.73) (G43.711) Insomnia (780.52) (G47.00) ESTHER on CPAP (327.23,V46.8) (G47.33,Z99.89) Cervicalgia of nvbohivf-dmvhfcs-gulkm region (723.1) (M54.2) Cervical dystonia (333.83) (G24.3) Asthma, unspecified asthma severity, unspecified whether complicated, unspecified whether persistent (493.90) (J45.909) Orders Asthma, unspecified asthma severity, unspecified whether complicated, unspecified whether persistent PAIN MANAGEMENT: AT-HOME OPIOIDS, CHRONIC PAIN; Status:Active; Requested for:20Oct2022; Chief Complaint Neurologic Evaluation. Follow up migraine management and 90 day med renewals. History of Present Illness Recent severe injury to left calf requiring 21 stitches. Poor wound healing. Currently weekly debriding of wound. Having to grow skin Emgality discontinued as felt that off of Botox, Emgality alone was not preventing migraine frequency or severity. Resume Botox today. Did wake with headache today, not migraine. Took vicodin early this morning and went back to sleep. No headache currently. Daily headache back of head and neck , occasionally frontal. Not 24/7 but off and on through the day. Light and sound sensitivity occur later in the day. Daily headache pain range 0-6/10. Frequently wakes with headache. Does take Flexeril every HS Better on weekends when doesn't have to wake early. Can sleep later in the summer as well. 2 headache free days most months. . Vicodin daily to control from escalating into migraine. Treating 8-9 migraines past month with Treximet. Works in 30 min. 1-2 debilitating and more severe per month. Has to stay in bed. . Winter is usually better without heat and humidity. Sprix has been helpful to treat. Treximet helpful as well. Will take Treximet if more severe. Has sumatriptan injection. Doesn't use as much as painful to inject Started Testosterone shots again due to low testosterone as well as estrogen taylor. Does not like injections. Also started Myrbetrique for bladder and has been helpful to decrease nigh time waking to use bathroom . Resuming Botox today with insurance re approval. Hopeful to decrease below listed symptoms Patients cervical dystonia is acting up without the BOTOX which was denied by [employer]. Subocciptal muscles a re the most affected with a prominent retrocollis that causes headaches. Patient was able to limit opioid therapy with Botox and now is increasing use of Vicodin, now that insurance has denied this FDA approved therapy. Individual has history of recurrent clonic or tonic involuntary contractions of one or more of the following muscles: sternocleidomastoid, splenius, trapezius, and/or posterior cervical muscles. Condition persisted for greater than 6 months. Botox is providing 50% reduction in symptoms of pain Emgality has reduced frequency of severe migraines that require Treximet. Has not used DHE in past 90 days. Taking Treximet to treat and effective to relieve adds Vicodin to treat completely Treximet Takes awhile to work Migraine seems to occur in back of head and can radiate to top of head, throbbing nausea more severe. Sometimes behind eyes. If gets in lower neck and shoulder and seems to longer. Migraine Associated light sensitivity, neck pain and tension Triggers may be cashews and nuts, possible milk/lactose, lack of sleep. Patient had 15 headache days a month or more, 8 meeting migraine criteria. They had tried and failed 3 preventative and 3 abortives. Presently their headaches are well controlled because of Botox Therapy. It has reduced the headaches by 50%. Vicodin helpful to completely treat migraine if Treximet doesn't work Will take Excedrin migraine 2-3 times per week to manage daily headache, or if Vicodin does not work completely Lunesta helpful for sleep Using CPAP for sleep, just started in December. Can't tolerate all night long. If could wear all night, feels he wouldn't wake with a headache. Can tolerate 5.5-6 hours Indocin for gout has not needed for a few months OARRS Report Last Screening Date: 10/20/2022 I have personally reviewed the OARRS report for SHERRY GUARDADO. I have considered the risks of abuse, dependence, addiction and diversion. I believe that it is clinically appropriate for this patient to be prescribed this medication based on documented diagnosis. OARRS report is initialed/dated and scanned into the electronic medical record. I have the following concerns: none. Last urine drug screening date/ordered today: 04/20/2022 Controlled Substance Agreement: I have printed this form and reviewed each line item with the patient and the patient has verbalized understanding. Date of the last Controlled Substance Agreement: 04/20/2022 OPIOID Opioid Risk Screening: Opioid Risk To (more content not included)... [facility] Procedure (Neurology)on 09-23 Procedure (Neurology) Diagnoses/Problems Assessed Chronic migraine without aura, with intractable migraine, so stated, with status migrainosus (346.73) (G43.711) Insomnia (780.52) (G47.00) ESTHER on CPAP (327.23,V46.8) (G47.33,Z99.89) Cervicalgia of iirpiedg-aqrtted-gmsjz region (723.1) (M54.2) Cervical dystonia (333.83) (G24.3) Asthma, unspecified asthma severity, unspecified whether complicated, unspecified whether persistent (493.90) (J45.909) Orders Asthma, unspecified asthma severity, unspecified whether complicated, unspecified whether persistent PAIN MANAGEMENT: AT-HOME OPIOIDS, CHRONIC PAIN; Status:In Progress; Done: 20Oct2022 Chronic migraine without aura, with intractable migraine, so stated, with status migrainosus Administered: Ketorolac Tromethamine 60 MG/2ML Intramuscular Solution Reason For Visit SHERRY GUARDADO is being seen for Botulinum Toxin (Botox) Injection. Chief Complaint Every 90 day Botox injections onobotulinumtoxinA toxin A ([facility]- [id number] ) History of Present IllnessToradol IM after Botox to prevent injection triggered Migraines Vitals Vital Signs Recorded: 20Oct2022 10:53AMRecorded: 20Oct2022 10:01AM Height6 ft Jwagoo210 lb BMI Fupghzjfln03.26 kg/m2 BSA Calculated2.38 Hgyveiocdzn78.8 F, Temporal Heart Rate84, R Radial Pulse QualityRegular, R Radial Oateadzzeow21 Respiration QualityNormal Rukipena695, RUE, Sitting Xbtyxmrmc15, RUE, Sitting Blood Pressure Cuff SizeAdult Tobacco Useb) No PHQ-2 #1. Over the last 2 weeks have you felt down, depressed or hopeless? (If yes, answer PHQ-9 below)No PHQ-2 #2. Over the last 2 weeks have you felt little interest or pleasure in doing things? (If yes, answer PHQ-9 below)No Falls Screening (Age 18+)a) No falls within the last year Procedure Botox Injection - Neck Pain, Headaches Procedure: Botox injection. Indication: chronic migraine headaches and torticollis. Risk, benefits and alternatives were discussed with the patient. Verbal consent was obtained prior to the procedure. Prior to the start of the procedure a time out was taken and the identity of the patient was confirmed via name and date of with the patient. The correct site and the procedure to be performed were confirmed and the site marked as appropriate. The correct side was confirmed if applicable. The positioning of the patient was verified. The availability of the correct equipment was verified. The patient was premedicated with sumatriptan 6 mg sq. Alcohol and Betadine was used to prep the area. Anesthesia: no anesthesia was needed. Procedure Note: The patient was placed in the upright and supine position. 200 units of Botulinum Toxin were injected bilaterally into the. Post-Procedure: the patient tolerated the procedure well. Complications: None. The patient was instructed to. Please do not rub areas for 24 hours. No pressure above eyebrows for 24 hours. Watch out for helmets, headlamps, headbands, goggles, or massage for 24 hours. If there is discomfort, ice for the first 24 hour,s heat after that. Headaches may worsen, or you may experience neck stiffness. If this occurs use your usual headache medication or a mild anti inflammatory such as advil or aleve. Please call if you have difficulty swallowing. You received Toradol today for your severe headache. We are going to continue with 5 day of pills starting tomorrow to break your headache cycle. Take 1 pill with breakfast lunch dinner and bedtime for 5 days. Take with food. Try not to take your triptan or antiinflammatory during this time. If you have any nausea or diarrhea with the medicine stop and call on the next business day. Follow-up in the office in 12 weeks for repeat injection(s). Signatures Electronically signed by : Winifred Bernal MD; Oct 21 2022 4:46PM EST (Author) Normal [facility] 10-20-2022 Adult depression screening assessment No [facility] DO Work Phone: Fall risk assessment a) No falls within the last year [facility] DO Work Phone: Heart Rate Regular [facility] DO Work Phone: Tobacco use status [facility] b) No [facility] DO Work Phone: Respiration Normal [facility] [facility] DO Work Phone: Respiration Adult [facility] DO Work Phone: Office Visit (Neuro-General) on 07-21-2022 Follow-up visit Patient Discussion/Summary lunesta half pill during the itraconazole. I time a day on advair during itraconazole Increase flexeril due to cervical dystonia returning due to insurance denial of botox call in 3 weeks to report how things are going Diagnoses/Problems Assessed Chronic migraine without aura, with intractable migraine, so stated, with status migrainosus (346.73) (G43.711) Cervical dystonia (333.83) (G24.3) Cervicalgia of moymgtag-yzodboy-lrkaa region (723.1) (M54.2) Orders Cervicalgia of hsvyskmf-ojhcwou-zicra region Renew: Cyclobenzaprine HCl - 10 MG Oral Tablet; TAKE 1- 2 TABLET AT BEDTIME NEEDED Chronic migraine without aura, with intractable migraine, so stated, with status migrainosus Start: Itraconazole 100 MG Oral Capsule; 1 po qd Renew: Sprix 15.75 MG/SPRAY Nasal Solution; USE ONE SPRAY IN EACH NOSTRIL EVERY 6-8 HOURS. MAX DOSE IS 8 SPRAYS IN A 24 HOUR PERIOD Formulary Override Reason: Drug has been unsuccessful in the past Administered: SUMAtriptan Succinate 6 MG/0.5ML Subcutaneous Solution Chief Complaint Neurologic Evaluation. Follow up migraine management and 90 day med renewals. History of Present Illness Covid infection in May for second time. Has had difficult allergies since that time. Feels has sinus infection. PCP does not treat until symptoms for 2 weeks so no prescribed antibiotics did take 5 days of qd azithromycin he had around which is helpful as yet. Currently at 2 week point of symptoms. Congestion. Poor sleep due to congestion and cant wear CPAP. ENT usually prescribes itraconazole and is out of town currently until . Did wake with migraine today. Took Treximet and a vicodin early this morning and went back to sleep. Still lingering now. Pain level 6/10. Would like sumatriptan injection in office today. Insurance will not cover both Botox and Emgality any longer. Will try Emgality alone and report back migraine experience this next month as Botox is not worn off. Daily headache back of head and neck , occasionally frontal. Not 24/7 but off and on through the day. Light and sound sensitivity occur later in the day. Daily headache pain range 0-6/10. Frequently wakes with headache. Does take Flexeril every HS Better on weekends when doesn't have to wake early. Can sleep later in the summer as well. 2 headache free days most months. This past month has had no headache free days. . Vicodin daily to control from escalating into migraine. Increased migraines past month. Treating 8-9 migraines past month with Treximet. Works in 30 min. 1-2 debilitating and more severe per month. Has to stay in bed. . Winter is usually better without heat and humidity. Has not used Sprix lately- Refilled and reinstructed on use. . Treximet or sumatriptan injection. Has not been using sumatriptan injection as forgets about it. Plans to restart Patients cervical dystonia is acting up without the BOTOX which was denied by [employer]. Subocciptal muscles a re the most affected with a prominent retrocollis that causes headaches. Patient was able to limit opiod therapy with Botox and now is increasing use of vicoden, now that insurance has denied this FDA approved therapy. Individual has history of recurrent clonic or tonic involuntary contractions of one or more of the following muscles: sternocleidomastoid, splenius, trapezius, and/or posterior cervical muscles. Condition persisted for greater than 6 months. Botox is providing 50% reduction in symptoms of pain Emgality has reduced frequency of severe migraines that require Treximet. Has not used DHE in past 90 days. Taking Treximet to treat and effective to relieve adds Vicodin to treat completely Treximet Takes awhile to work Migraine seems to occur in back of head and can radiate to top of head, throbbing nausea more severe. Sometimes behind eyes. If gets in lower neck and shoulder and seems to longer. Migraine Associated light sensitivity, neck pain and tension Triggers may be cashews and nuts, possible milk/lactose, lack of sleep. Patient had 15 headache days a month or more, 8 meeting migraine criteria. They had tried and failed 3 preventative and 3 abortives. Presently their headaches are well controlled because of Botox Therapy. It has reduced the headaches by 50%. Vicodin helpful to completely treat migraine if Treximet doesn't work Will take Excedrin migraine 2-3 times per week to manage daily headache, or if Vicodin does not work completely Lunesta helpful for sleep Using CPAP for sleep, just started in December. Can't tolerate all night long. If could wear all night, feels he wouldn't wake with a headache. Can tolerate 5.5-6 hours OARRS Report Last Screening Date: 04/20/2022 I have personally reviewed the OARRS report for SHERRY KWADWO. I have considered the risks of abuse, dependence, addiction and diversion. I believe that it is clinically appropriate for this patient to be prescribed this medication based on docume (more content not included)... Normal [employer] Respirationon 07-21-2022 Adult depression screening assessment No [facility]-Neurolog y -[place] [address] DO Work Phone: Fall risk assessment a) No falls within the last year [facility] -[place] [facility] DO Work Phone: Heart Rate Regular [facility] -[place] [facility] DO Work Phone: Tobacco use status CPHS b) No [facility] -[place] [facility] DO Work Phone: Respiration Normal [facility] -[place] [facility] DO Work Phone: Laboratory - Chemistry and C hemistry - challengeon 04-20-2022 Creatinine (Body fld) [Mass/Vol] 82.1 mg/dL [facility]-Ne[facility]rology -[place] [facility] Work Phone: Comment on above: A urine creatinine r esult >= 20 mg/dL is considered valid without suspicion of dilution. Samples with results below this range will automatically reflex to specific gravity testing to verify specimen integrity. Laboratory - Drug toxicology on 04-20-2022 1-Hydroxymidazolam Confirm (U) [Mass/Vol] <25 Cutoff <25 -Neurology -[place] [facility] DO Work Phone: 1-Uofhdyrhed-5,5-Dim ethyl-3,3-Diphenylpy rrolidine (EDDP) Confirm (U) [Mass/Vol] <25 Cutoff <25 [facility] -[place] [facility] DO Work Phone: Comment on above: The performance donovan acteristics of the Methadone Confirmation, Urine has been validated by the individual laboratory site where testing is performed. It has not been cleared or approved by the FDA. However the FDA has determined that such clearance or approval is not necessary. Our Laboratory is certified under the Clinical Laboratory Improvement Amendments of 1988 (CLIA) as qualified to perform high complexity clinical laboratory testing. 6-Monoacetylmorphine (6-CESAR) Confirm (U) [Mass/Vol] <25 Cutoff <25 [facility] -[place] [facility] DO Work Phone: 7-Aminoclonazepam Confirm (U) [Mass/Vol] <25 Cutoff <25 [facility] -[place] [facility] DO Work Phone: Alpha hydroxyalprazolam Confirm (U) [Mass/Vol] <25 Cutoff <25 [facility] -[place] 170 DO Work Phone: ALPRAZolam Confirm (U) [Mass/Vol] <25 Cutoff <25 [facility] -[place] [facility] DO Work Phone: Amphetamines Screen Ql (U) Negative NEGATIVE [facility] [address] Work Phone: Comment on above: CUTOFF LEVEL: 500 NG /ML Cross-reactivity has been reported with high concentrations of the following drugs: buproprion, chloroquine, chlorpromazine, ephedrine, mephentermine, fenfluramine, phentermine, phenylpropanolamine, pseudoephedrine, and propranolol. Barbiturates Screen Ql (U) Negative NEGATIVE -[facility] Work Phone: Comment on above: CUTOFF LEVEL: 200 NG /ML Benzoylecgonine Screen Ql (U) Negative NEGATIVE [facility] Work Phone: Comment on above: CUTOFF LEVEL: 150 NG /ML Cannabinoids Screen Ql (U) Negative NEGATIVE [facility] Work Phone: Comment on above: CUTOFF LEVEL: 50 NG/ ML chlordiazePOXIDE Confirm (U) [Mass/Vol] <25 Cutoff <25 -Neurology -[place] [facility] DO Work Phone: clonazePAM Confirm (U) [Mass/Vol] <25 Cutoff <25 -Neurology -[place] [facility] DO Work Phone: Codeine Confirm (U) [Mass/Vol] <50 Cutoff <50 [facility] -[place] 170 DO Work Phone: diazePAM Confirm (U) [Mass/Vol] <25 Cutoff <25 [facility] -[place] 170 DO Work Phone: fentaNYL Confirm (U) [Mass/Vol] <2.5 Cutoff<2.5 [facility] -[place] 170 DO Work Phone: HYDROcodone Confirm (U) [Mass/Vol] 943 ng/mL Abnormal Cutoff <25 [facility] -[place] 170 DO Work Phone: Comment on above: Consistent with meta bolism of codeine. May also reflect independent use of a drug containing hydrocodone. Low concentrations may reflect impurity of a drug containing oxycodone or hydromorphone. HYDROmorphone Confirm (U) [Mass/Vol] 182 ng/mL Abnormal Cutoff <25 [facility] -[place] 170 DO Work Phone: Comment on above: Consistent with meta bolism of codeine, morphine, and hydrocodone. May also reflect independent use of a drug containing hydromorphone. Low concentrations may reflect impurity of another drug such as oxymorphone. LORazepam Confirm (U) [Mass/Vol] <25 Cutoff <25 [facility] -[place] 170 DO Work Phone: Methadone Confirm (U) [Mass/Vol] <25 Cutoff <25 [facility] -[place] [facility] DO Work Phone: Midazolam Confirm (U) [Mass/Vol] <25 Cutoff <25 [facility] -[place] [facility] DO Work Phone: Morphine Confirm (U) [Mass/Vol] <50 Cutoff <50 [facility] -[place] 170 DO Work Phone: Nordiazepam Confirm (U) [Mass/Vol] <25 Cutoff <25 [facility] -[place] 170 DO Work Phone: Norfentanyl Confirm (U) [Mass/Vol] <2.5 Cutoff<2.5 [facility] -[place] 170 DO Work Phone: Comment on above: The performance donovan acteristics of the Fentanyl Confirmation, Urine has been validated by the individual laboratory site where testing is performed. It has not been cleared or approved by the FDA. However the FDA has determined that such clearance or approval is not necessary. Our Laboratory is certified under the Clinical Laboratory Improvement Amendments of 1988 (CLIA) as qualified to perform high complexity clinical laboratory testing. Norhydrocodone Confirm (U) [Mass/Vol] 508 ng/mL Abnormal Cutoff <25 [facility] -[place] [facility] DO Work Phone: Comment on above: Norhydrocodone is a metabolite of hydrocodone; consistent with use of a drug containing hydrocodone. Hydrocodone may also be a metabolite of codeine or an impurity of oxycodone. Noroxycodone Confirm (U) [Mass/Vol] <25 Cutoff <25 [facility] -[place] [facility] DO Work Phone: Nortramadol (U) [Mass/Vol] <50 Cutoff <50 [facility] -[place] [facility] DO Work Phone: Comment on above: The performance donovan acteristics of the Tramadol Confirmation, Urine has been validated by the individual laboratory site where testing is performed. It has not been cleared or approved by the FDA. However the FDA has determined that such clearance or approval is not necessary. Our Laboratory is certified under the Clinical Laboratory Improvement Amendments of 1988 (CLIA) as qualified to perform high complexity clinical laboratory testing. Oxazepam Confirm (U) [Mass/Vol] <25 Cutoff <25 [facility] -[place] 170 DO Work Phone: oxyCODONE Confirm (U) [Mass/Vol] <25 Cutoff <25 [facility] -[place] 170 DO Work Phone: oxyMORphone Confirm (U) [Mass/Vol] <25 Cutoff <25 [facility] -[place] [facility] DO Work Phone: Comment on above: The performance donovan acteristics of the Opiate Confirmation, Urine has been validated by the individual laboratory site where testing is performed. It has not been cleared or approved by the FDA. However the FDA has determined that such clearance or approval is not necessary. Our Laboratory is certified under the Clinical Laboratory Improvement Amendments of 1988 (CLIA) as qualified to perform high complexity clinical laboratory testing. Phencyclidine Ql (U) Negative NEGATIVE [facility] Work Phone: Comment on above: CUTOFF LEVEL: 25 NG/ ML Cross-reactivity has been reported with dextromethorphan. Temazepam Confirm (U) [Mass/Vol] <25 Cutoff <25 [facility]Neu[facility] -[place] 170 DO Work Phone: Comment on above: The performance donovan acteristics of the Benzodiazepine Confirmation, Urine has been validated by the individual laboratory site where testing is performed. It has not been cleared or approved by the FDA. However the FDA has determined that such clearance or approval is not necessary. Our Laboratory is certified under the Clinical Laboratory Improvement Amendments of 1988 (CLIA) as qualified to perform high complexity clinical laboratory testing. traMADol Confirm (U) [Mass/Vol] <50 Cutoff <50 [facility] -[place] [address] DO Work Phone: Zolpidem (U) [Mass/Vol] <25 Cutoff <25 [facility] -[place] [facility] DO Work Phone: No Panel Informationon 04-20 SEE BELOW -[facility] Work Phone: Comment on above: Drug screen results are presumptive and should not be used to assess compliance with prescribed medication. Definitive confirmatory drug testing has been added to this sample for any positive screen result and will be reported separately. .Toxicology screening results are reported qualitatively. The concentration must be greater than or equal to the cutoff to be reported as positive. The concentration at which the screening test can detect an individual drug or metabolite varies. The absence of expected drug(s) and/or drug metabolite(s) may indicate non-compliance, inappropriate timing of specimen collection relative to drug administration, poor drug absorption, diluted/adulterated urine, or limitations of testing. For medical purposes only; not valid for forensic use. .Interpretive questions should be directed to the laboratory medical directors. <25 Cutoff <25 [facility]Neu[facility] -[place] [address] DO Work Phone: Comment on above: The performance donovan acteristics of the Zolpidem Confirmation, Urine has been validated by the individual laboratory site where testing is performed. It has not been cleared or approved by the FDA. However the FDA has determined that such clearance or approval is not necessary. Our Laboratory is certified under the Clinical Laboratory Improvement Amendments of 1988 (CLIA) as qualified to perform high complexity clinical laboratory testing. Respirationon 04-20-2022 Heart Rate Regular -[facility] Work Phone: Respiration Normal [facility] Work Phone: Respirationon 01-20-2022 Heart Rate Regular -Neurology -[place] [address] DO Work Phone: Respiration Normal MP-Neurology -[place] [facility] DO Work Phone: Respirationon 10-22-2021 Heart Rate Regular -Neurology -[place] [address] DO Work Phone: Respiration Normal -Neurology -[place] [facility] DO Work Phone: Respirationon 07-23-2021 Heart Rate Regular -Neurology -[place] [address] DO Work Phone: Respiration Normal -Neurology -[place] [address] DO Work Phone: Laboratory - Chemistry and C hemistry - challengeon 04-22-2021 Creatinine (Body fld) [Mass/Vol] 35.8 mg/dL -Neurology -[place] [facility] DO Work Phone: Comment on above: A urine creatinine r esult >= 20 mg/dL is considered valid without suspicion of dilution. Samples with results below this range will automatically reflex to specific gravity testing to verify specimen integrity. Laboratory - Drug toxicology on 04-22-2021 1-Hydroxymidazolam Confirm (U) [Mass/Vol] <25 Cutoff <25 [facility] 170 DO Work Phone: 6-Pauhzaylmt-2,5-Dim ethyl-3,3-Diphenylpy rrolidine (EDDP) Confirm (U) [Mass/Vol] <25 Cutoff <25 -Neurology -[place] [address] DO Work Phone: Comment on above: The performance donovan acteristics of the Methadone Confirmation, Urine has been validated by the individual laboratory site where testing is performed. It has not been cleared or approved by the FDA. However the FDA has determined that such clearance or approval is not necessary. Our Laboratory is certified under the Clinical Laboratory Improvement Amendments of 1988 (CLIA) as qualified to perform high complexity clinical laboratory testing. 6-Monoacetylmorphine (6-CESAR) Confirm (U) [Mass/Vol] <25 Cutoff <25 [facility]-Neu[facility] -[place] [address] DO Work Phone: 7-Aminoclonazepam Confirm (U) [Mass/Vol] <25 Cutoff <25 [facility] -[place] [facility] DO Work Phone: Alpha hydroxyalprazolam Confirm (U) [Mass/Vol] <25 Cutoff <25 [facility] -[place] [address] DO Work Phone: ALPRAZolam Confirm (U) [Mass/Vol] <25 Cutoff <25 [facility] -[place] 170 DO Work Phone: Amphetamines Screen Ql (U) Negative NEGATIVE MP-Neurology -[place] 170 DO Work Phone: Comment on above: CUTOFF LEVEL: 500 NG /ML Cross-reactivity has been reported with high concentrations of the following drugs: buproprion, chloroquine, chlorpromazine, ephedrine, mephentermine, fenfluramine, phentermine, phenylpropanolamine, pseudoephedrine, and propranolol. Barbiturates Screen Ql (U) Negative NEGATIVE MP-Neurology -[place] [address] DO Work Phone: Comment on above: CUTOFF LEVEL: 200 NG /ML Benzoylecgonine Screen Ql (U) Negative NEGATIVE [facility] -[place] 170 DO Work Phone: Comment on above: CUTOFF LEVEL: 150 NG /ML Cannabinoids Screen Ql (U) Negative NEGATIVE [facility] -[place] 170 DO Work Phone: Comment on above: CUTOFF LEVEL: 50 NG/ ML chlordiazePOXIDE Confirm (U) [Mass/Vol] <25 Cutoff <25 [facility] -[place] [address] DO Work Phone: clonazePAM Confirm (U) [Mass/Vol] <25 Cutoff <25 [facility] -[place] [address] DO Work Phone: Codeine Confirm (U) [Mass/Vol] <50 Cutoff <50 [facility] -[place] 170 DO Work Phone: diazePAM Confirm (U) [Mass/Vol] <25 Cutoff <25 [facility] -[place] 170 DO Work Phone: fentaNYL Confirm (U) [Mass/Vol] <2.5 Cutoff<2.5 [facility] -[place] 170 DO Work Phone: HYDROcodone Confirm (U) [Mass/Vol] 378 ng/mL Abnormal Cutoff <25 [facility] -[place] 170 DO Work Phone: Comment on above: Consistent with meta bolism of codeine. May also reflect independent use of a drug containing hydrocodone. Low concentrations may reflect impurity of a drug containing oxycodone or hydromorphone. HYDROmorphone Confirm (U) [Mass/Vol] 97 ng/mL Abnormal Cutoff <25 [facility] -[place] [address] DO Work Phone: Comment on above: Consistent with meta bolism of codeine, morphine, and hydrocodone. May also reflect independent use of a drug containing hydromorphone. Low concentrations may reflect impurity of another drug such as oxymorphone. LORazepam Confirm (U) [Mass/Vol] <25 Cutoff <25 [facility] -[place] [address] DO Work Phone: Methadone Confirm (U) [Mass/Vol] <25 Cutoff <25 [facility] -[place] [address] DO Work Phone: Midazolam Confirm (U) [Mass/Vol] <25 Cutoff <25 [facility] -[place] 170 DO Work Phone: Morphine Confirm (U) [Mass/Vol] <50 Cutoff <50 [facility] -[place] 170 DO Work Phone: Nordiazepam Confirm (U) [Mass/Vol] <25 Cutoff <25 [facility] -[place] 170 DO Work Phone: Norfentanyl Confirm (U) [Mass/Vol] <2.5 Cutoff<2.5 [facility]rology -[place] [address] DO Work Phone: Comment on above: The performance donovan acteristics of the Fentanyl Confirmation, Urine has been validated by the individual laboratory site where testing is performed. It has not been cleared or approved by the FDA. However the FDA has determined that such clearance or approval is not necessary. Our Laboratory is certified under the Clinical Laboratory Improvement Amendments of 1988 (CLIA) as qualified to perform high complexity clinical laboratory testing. Norhydrocodone Confirm (U) [Mass/Vol] 299 ng/mL Abnormal Cutoff <25 [facility] -[place] [address] DO Work Phone: Comment on above: Norhydrocodone is a metabolite of hydrocodone; consistent with use of a drug containing hydrocodone. Hydrocodone may also be a metabolite of codeine or an impurity of oxycodone. Noroxycodone Confirm (U) [Mass/Vol] <25 Cutoff <25 [facility] -[place] [address] DO Work Phone: Nortramadol (U) [Mass/Vol] <50 Cutoff <50 [facility] -[place] [address] DO Work Phone: Comment on above: The performance donovan acteristics of the Tramadol Confirmation, Urine has been validated by the individual laboratory site where testing is performed. It has not been cleared or approved by the FDA. However the FDA has determined that such clearance or approval is not necessary. Our Laboratory is certified under the Clinical Laboratory Improvement Amendments of 1988 (CLIA) as qualified to perform high complexity clinical laboratory testing. Oxazepam Confirm (U) [Mass/Vol] <25 Cutoff <25 [facility]-Neurology -[place] [address] DO Work Phone: oxyCODONE Confirm (U) [Mass/Vol] <25 Cutoff <25 [facility] -[place] 170 DO Work Phone: oxyMORphone Confirm (U) [Mass/Vol] <25 Cutoff <25 [facility] -[place] [address] DO Work Phone: Comment on above: The performance donovan acteristics of the Opiate Confirmation, Urine has been validated by the individual laboratory site where testing is performed. It has not been cleared or approved by the FDA. However the FDA has determined that such clearance or approval is not necessary. Our Laboratory is certified under the Clinical Laboratory Improvement Amendments of 1988 (CLIA) as qualified to perform high complexity clinical laboratory testing. Phencyclidine Ql (U) Negative NEGATIVE MP-N eurology -[place] 170 DO Work Phone: Comment on above: CUTOFF LEVEL: 25 NG/ ML Cross-reactivity has been reported with dextromethorphan. Temazepam Confirm (U) [Mass/Vol] <25 Cutoff <25 [facility]-Neurology -[place] [address] DO Work Phone: Comment on above: The performance donovan acteristics of the Benzodiazepine Confirmation, Urine has been validated by the individual laboratory site where testing is performed. It has not been cleared or approved by the FDA. However the FDA has determined that such clearance or approval is not necessary. Our Laboratory is certified under the Clinical Laboratory Improvement Amendments of 1988 (CLIA) as qualified to perform high complexity clinical laboratory testing. traMADol Confirm (U) [Mass/Vol] <50 Cutoff <50 [facility]-Neurology -[place] [address] DO Work Phone: Zolpidem (U) [Mass/Vol] <25 Cutoff <25 MP-Ne[facility]rology -[place] [address] DO Work Phone: No Panel Informationon 04-22 SEE BELOW MP-Neurology -[place] [address] DO Work Phone: Comment on above: Drug screen results are presumptive and should not be used to assess compliance with prescribed medication. Definitive confirmatory drug testing has been added to this sample for any positive screen result and will be reported separately. .Toxicology screening results are reported qualitatively. The concentration must be greater than or equal to the cutoff to be reported as positive. The concentration at which the screening test can detect an individual drug or metabolite varies. The absence of expected drug(s) and/or drug metabolite(s) may indicate non-compliance, inappropriate timing of specimen collection relative to drug administration, poor drug absorption, diluted/adulterated urine, or limitations of testing. For medical purposes only; not valid for forensic use. .Interpretive questions should be directed to the laboratory medical directors. <25 Cutoff <25 [facility]Neurology -[place] [address] DO Work Phone: Comment on above: The performance donovan acteristics of the Zolpidem Confirmation, Urine has been validated by the individual laboratory site where testing is performed. It has not been cleared or approved by the FDA. However the FDA has determined that such clearance or approval is not necessary. Our Laboratory is certified under the Clinical Laboratory Improvement Amendments of 1988 (CLIA) as qualified to perform high complexity clinical laboratory testing. Respirationon 04-22-2021 Heart Rate Regular MP-Neurology -[place] [address] DO Work Phone: Respiration Normal [facility]-Neurology -[place] [address] DO Work Phone: No Panel Information [facility] Vital Signs Date Time Vital Sign Value Performing Clinician Facility 12-14-2023 10:16-0500 Diastolic blood pressure 68 mm[Hg] Winifred Bernal MD Work Phone: [facility] 12-14-2023 10:16-0500 Respiratory rate 20 /min Winiferd Bernal MD Work Phone: [facility] 12-14-2023 10:16-0500 Systolic blood pressure 104 mm[Hg] Winifred Bernal MD Work Phone: [facility] 12-05-2023 11:19-0500 Diastolic blood pressure 90 mm[Hg] Winifred Bernal MD Work Phone: [facility] 12-05-2023 11:19-0500 Heart rate 76 /min Winifred Bernal MD Work Phone: [facility] 12-05-2023 11:19-0500 Respiratory rate 20 /min Winifred Bernal MD Work Phone: [facility] 12-05-2023 11:19-0500 Systolic blood pressure 144 mm[Hg] Winifred Bernal MD Work Phone: [facility] 11-22-2023 15:15-0500 Body height 182.88 cm Dina Chandra Other [facility] Other 11-22-2023 15:15-0500 Body mass index (BMI) [Ratio] 35.12 kg/m2 Dina Chandra Other [facility] Other 11-22-2023 15:15-0500 Body weight 117.48 kg Dina Chandra Other [facility] Other 11-22-2023 15:15-0500 Diastolic blood pressure 77 mm[Hg] Dina Chandra Other [facility] Other 11-22-2023 15:15-0500 SaO2% (BldA) [Mass fraction] 99 % Dina Chandra Other [facility] Other 11-22-2023 15:15-0500 Systolic blood pressure 114 mm[Hg] Dina Prateek Other [facility] Other 08-24-2023 09:36-0400 Diastolic blood pressure 70 mm[Hg] Winifred Bernal MD Work Phone: [facility] 08-24-2023 09:36-0400 Heart rate 72 /min Winifred Bernal MD Work Phone: [facility] 08-24-2023 09:36-0400 Respiratory rate 16 /min Winifred Bernal MD Work Phone: [facility] 08-24-2023 09:36-0400 Systolic blood pressure 100 mm[Hg] Winifred Bernal MD Work Phone: [facility] 05-25-2023 16:26-0400 Diastolic blood pressure 64 mm[Hg] Pancho Scott Work Phone: WE-Syfaxdyei-Bvbwkt 170 DO Work Phone: 05-25-2023 16:26-0400 Heart rate 80 /min Pancho Stewart Scott Work Phone: ZB-Lezpsubhl-Uiarbi 170 DO Work Phone: 05-25-2023 16:26-0400 Respiratory rate 16 /min Pancho Stewart Scott Work Phone: KZ-Lbenrcajb-Rpjyoa 170 DO Work Phone: 05-25-2023 16:26-0400 Systolic blood pressure 94 mm[Hg] Pancho Stewart Scott Work Phone: NO-Qwcjzoosc-Jeljly 170 DO Work Phone: 05-09-2023 14:42-0400 Diastolic blood pressure 86 mm[Hg] Pancho Stewart Scott Work Phone: GS-Omzbvmzak-Ccoehz 170 DO Work Phone: 05-09-2023 14:42-0400 Heart rate 84 /min Pancho Stewart Scott Work Phone: YI-Dkzmtyoxw-Tpslsp 170 DO Work Phone: 05-09-2023 14:42-0400 Respiratory rate 16 /min Pancho Stewart Scott Work Phone: YF-Dtfvvavda-Oacdqq 170 DO Work Phone: 05-09-2023 14:42-0400 Systolic blood pressure 116 mm[Hg] Pancho Stewart Scott Work Phone: II-Ieskaxhsp-Reexnh 170 DO Work Phone: 02-14-2023 10:55-0400 Body temperature 97.3 [degF] Pancho Stewart Scott Work Phone: HV-Pscdyzxuj-Ncluna 170 DO Work Phone: 02-14-2023 10:55-0400 Diastolic blood pressure 80 mm[Hg] Pancho Stewart Scott Work Phone: VE-Incaealqr-Ohacrj 170 DO Work Phone: 02-14-2023 10:55-0400 Heart rate 80 /min Pancho Stewart Scott Work Phone: NU-Rclfcudym-Aeqkrz 170 DO Work Phone: 02-14-2023 10:55-0400 Respiratory rate 16 /min Pancho Stewart Scott Work Phone: ZS-Dijsmftsd-Tidvon 170 DO Work Phone: 02-14-2023 10:55-0400 Systolic blood pressure 124 mm[Hg] Pancho Stewart Scott Work Phone: OT-Tjclxwpwr-Fvevjs 170 DO Work Phone: 10-20-2022 10:53-0500 Body height 182.88 cm Pancho Stewart Scott Work Phone: NP-Hneajjnsy-Cwxuqz 170 DO Work Phone: 10-20-2022 10:53-0500 Body mass index (BMI) [Ratio] 35.26 kg/m2 Pancho Stewart [employer] Work Phone: OH-Ehddqofqu-Jzjfnc 170 DO Work Phone: 10-20-2022 10:53-0500 Body surface area Derived from formula 2.38 m2 Pancho Stewart [employer] Work Phone: UV-Efzylzxkr-Bngxba 170 DO Work Phone: 10-20-2022 10:53-0500 Body weight 117.94 kg Pancho Stewart Scott Work Phone: HZ-Jglxetgya-Dsctzy 170 DO Work Phone: 10-20-2022 10:01-0500 Body temperature 97.8 [degF] Pancho Stewart Scott Work Phone: JO-Fhdtvclgx-Ukxrgy 170 DO Work Phone: 10-20-2022 10:01-0500 Diastolic blood pressure 86 mm[Hg] Pancho Stewart Scott Work Phone: KX-Kmwpffljl-Ufjhqu 170 DO Work Phone: 10-20-2022 10:01-0500 Heart rate 84 /min Pancho Stewart [employer] Work Phone: DL-Nlhgqieco-Dwkefe 170 DO Work Phone: 10-20-2022 10:01-0500 Respiratory rate 16 /min Pancho Stewart [employer] Work Phone: QU-Xhvzwqyhq-Pdjgrb 170 DO Work Phone: 10-20-2022 10:01-0500 Systolic blood pressure 140 mm[Hg] Pancho Pat Scott Work Phone: KE-Bzljdddfe-Odemsv 170 DO Work Phone: 09-26-2022 18:01-0500 Diastolic blood pressure 111 mm[Hg] DO Pancho Selfe Work Phone: [facility] 09-26-2022 18:01-0500 Heart rate 90 /min DO Pancho Selfe Work Phone: [facility] 09-26-2022 18:01-0500 Respiratory rate 18 /min DO Pancho Selfe Work Phone: [facility] 09-26-2022 18:01-0500 SaO2% (BldA) [Mass fraction] 98 % DO Pancho Selfe Work Phone: [facility] 09-26-2022 18:01-0500 Systolic blood pressure 152 mm[Hg] DO Pancho Selfe Work Phone: [facility] 09-26-2022 15:51-0500 Body height 182.88 cm DO Pancho Selfe Work Phone: [facility] 09-26-2022 15:51-0500 Body temperature 98.1 [degF] DO Pancho Selfe Work Phone: [facility] 09-26-2022 15:51-0500 Body weight 117.93 kg DO Pancho Scott Work Phone: [facility] 09-08-2022 17:00-0400 Body height 182.88 cm Dina Chandra Other Bouf Other 09-08-2022 17:00-0400 Body mass index (BMI) [Ratio] 35.12 kg/m2 Dina Chandra Other Bouf Other 09-08-2022 17:00-0400 Body weight 117.48 kg Dina Chandra Other Bouf Other 09-08-2022 17:00-0400 Diastolic blood pressure 101 mm[Hg] Dina Chandra Other Bouf Other 09-08-2022 17:00-0400 SaO2% (BldA) [Mass fraction] 97 % Dina Chandra Other Bouf Other 09-08-2022 17:00-0400 Systolic blood pressure 167 mm[Hg] Dina Chandra Other Bouf Other 07-21-2022 08:28-0400 Body temperature 98.1 [degF] Pancho Stewart Scott Work Phone: OO-Zmhsrjrsq-Czponi 170 DO Work Phone: 07-21-2022 08:28-0400 Diastolic blood pressure 94 mm[Hg] Pancho Stewart Scott Work Phone: VG-Ivzflikmt-Fkbmer 170 DO Work Phone: 07-21-2022 08:28-0400 Heart rate 88 /min Pancho Stewart Scott Work Phone: QJ-Sgduhgqdo-Gluabh 170 DO Work Phone: 07-21-2022 08:28-0400 Respiratory rate 16 /min Pancho Stewart Scott Work Phone: AL-Uciocuaoy-Oariui 170 DO Work Phone: 07-21-2022 08:28-0400 Systolic blood pressure 136 mm[Hg] Pancho Stewart Scott Work Phone: YF-Zzgikeuut-Uohpwh 170 DO Work Phone: 04-20-2022 08:35-0400 Body temperature 97.5 [degF] Pancho Stewart Scott Work Phone: TQ-Wynglwxwy-Dpeoouk 5th Work Phone: 04-20-2022 08:35-0400 Diastolic blood pressure 100 mm[Hg] Pancho Stewart Scott Work Phone: QX-Cbnuwszno-Rwjmbct 5th Work Phone: 04-20-2022 08:35-0400 Heart rate 100 /min Pancho Stewart Scott Work Phone: ZB-Uqpygvqus-Lzjgabd 5th Work Phone: 04-20-2022 08:35-0400 Respiratory rate 16 /min Pancho Stewart Scott Work Phone: JO-Hlfmnlioq-Crdiyja 5th Work Phone: 04-20-2022 08:35-0400 Systolic blood pressure 150 mm[Hg] Pancho Stewart Scott Work Phone: IP-Pmylauebf-Jididqw 5th Work Phone: 01-20-2022 10:33-0500 Body temperature 96.6 [degF] Pancho Stewart Scott Work Phone: RD-Llbqomuut-Yktqyr 170 DO Work Phone: 01-20-2022 10:33-0500 Diastolic blood pressure 80 mm[Hg] Pancho Stewart Scott Work Phone: GP-Gaqpsozkk-Nzawdw 170 DO Work Phone: 01-20-2022 10:33-0500 Heart rate 92 /min Pancho Stewart Scott Work Phone: SR-Wknwxeeio-Hdgbgo 170 DO Work Phone: 01-20-2022 10:33-0500 Respiratory rate 16 /min Pancho Stewart Scott Work Phone: VM-Zioneflys-Oxhtet 170 DO Work Phone: 01-20-2022 10:33-0500 Systolic blood pressure 110 mm[Hg] Pancho Stewart Scott Work Phone: PO-Casgoebkz-Zevhlf 170 DO Work Phone: 10-22-2021 11:04-0500 Body temperature 96.2 [degF] Pancho Scott Work Phone: YM-Zpahnxiul-Spslah 170 DO Work Phone: 10-22-2021 11:04-0500 Diastolic blood pressure 90 mm[Hg] Pancho Scott Work Phone: EZ-Yqyraagya-Aseonm 170 DO Work Phone: 10-22-2021 11:04-0500 Heart rate 84 /min Pancho Stewart Scott Work Phone: CD-Fqxfhhhbs-Mfifwg 170 DO Work Phone: 10-22-2021 11:04-0500 Respiratory rate 16 /min Pancho Stewart Scott Work Phone: QZ-Aljxnprwf-Rnpnkx 170 DO Work Phone: 10-22-2021 11:04-0500 Systolic blood pressure 130 mm[Hg] Pancho Scott Work Phone: BC-Dqfkswbdi-Iveefr 170 DO Work Phone: 10-14-2021 09:45-0500 Body height 182.88 cm Dina Chandra Other Bouf Other 10-14-2021 09:45-0500 Body mass index (BMI) [Ratio] 34.44 kg/m2 Dina Chandra Other Bouf Other 10-14-2021 09:45-0500 Body weight 115.21 kg Dina Chandra Other Bouf Other 10-14-2021 09:45-0500 Diastolic blood pressure 80 mm[Hg] Dina Chandra Other Bouf Other 10-14-2021 09:45-0500 SaO2% (BldA) [Mass fraction] 95 % Dina Chandra Other Bouf Other 10-14-2021 09:45-0500 Systolic blood pressure 119 mm[Hg] Dina Chandra Other Bouf Other 07-23-2021 11:41-0400 Body temperature 96.6 [degF] Pancho Selfe Work Phone: WF-Tgedfmzrg-Fhllyd 170 DO Work Phone: 07-23-2021 11:41-0400 Diastolic blood pressure 90 mm[Hg] Pancho Stewart Scott Work Phone: NV-Ofsflvlsw-Jqqfid 170 DO Work Phone: 07-23-2021 11:41-0400 Heart rate 92 /min Pancho Stewart Scott Work Phone: MV-Onuzprsoj-Nzcdik 170 DO Work Phone: 07-23-2021 11:41-0400 Respiratory rate 16 /min Pancho Stewart Scott Work Phone: MY-Xtbxjcuyf-Gvulhh 170 DO Work Phone: 07-23-2021 11:41-0400 Systolic blood pressure 130 mm[Hg] Pancho Stewart Scott Work Phone: CQ-Esoinxxvl-Nfqqhe 170 DO Work Phone: 04-22-2021 09:14-0400 Body temperature 96.8 [degF] Pancho Stewart Scott Work Phone: KU-Ggmxchdqs-Nystzr 170 DO Work Phone: 04-22-2021 09:14-0400 Diastolic blood pressure 90 mm[Hg] Pancho Stewart Scott Work Phone: SJ-Nxekiquvs-Guzvgi 170 DO Work Phone: 04-22-2021 09:14-0400 Heart rate 100 /min Pancho Stewart Scott Work Phone: XW-Ssyjbyigo-Gpivfv 170 DO Work Phone: 04-22-2021 09:14-0400 Respiratory rate 16 /min Pancho Scott Work Phone: DL-Ukafzxbry-Iepzfw 170 DO Work Phone: 04-22-2021 09:14-0400 Systolic blood pressure 140 mm[Hg] Pancho Scott Work Phone: WW-Iuhmbcloi-Lhvulv 170 DO Work Phone: 10-20-2020 13:20-0500 Body Temperature 97.1 [degF] Winifred Bernal AF-Wlasayfth-Fh rian 170 DO Work Phone: Comment on above: Method: Temporal 10-20-2020 13:20-0500 BP Diastolic 90 mm[Hg] Winifred Bernal VH-Zoognpuzr-Xse kamar 170 DO Work Phone: Comment on above: Location: LUE; Position: Sitting 10-20-2020 13:20-0500 BP Systolic 130 mm[Hg] Winifred Bernal LK-Wfjyygxsg-Mlz kamar 170 DO Work Phone: Comment on above: Location: LUE; Position: Sitting 10-20-2020 13:20-0500 Pulse (Heart Rate) 88 /min Winifred Bernal MP-Neurology- [address] 170 DO Work Phone: Comment on above: Location: L Radial; Quality: Regular 10-20-2020 13:20-0500 Respiratory Rate 16 /min Winifredbar Bernal QF-Jrlfcfjxm-Yi rian 170 DO Work Phone: Comment on above: Quality: Normal Encounters Encounter Date Encounter Type Care Provider Facility Start: 12-14-2023 End: 12-15-2023 ambulatory [facility] Start: 12-14-2023 End: 12-14-2023 ambulatory WINIFRED BERNAL [facility] Ambulatory Start: 12-14-2023 End: 12-14-2023 Patient encounter procedure Winifred Bernal MD Work Phone: [facility] Comment on above: Chronic migraine wit hout aura, with intractable migraine, so stated, with status migrainosus Start: 12-06-2023 End: 12-07-2023 ambulatory Estrella Mena Facility:[facility] Start: 12-05-2023 End: 12-05-2023 ambulatory [facility] Ambulatory Start: 12-05-2023 End: 12-05-2023 Office outpatient visit 25 minutes Winifred Bernal MD Work Phone: [facility] Comment on above: Long-term use of hig h-risk medication; Chronic migraine without aura, with intractable migraine, so stated, with status migrainosus Start: 11-22-2023 End: 11-22-2023 ambulatory Pancho Tyler Facility:[facility] Start: 11-22-2023 End: 11-22-2023 Patient encounter procedure DO Pancho Scott Work Phone: [facility] Work Phone: Start: 11-22-2023 End: 11-22-2023 ambulatory DO Pancho Tyler Work Phone: [facility] Work Phone: Start: 11-22-2023 Office outpatient vi sit 25 minutes Dina Chandra [facility] Start: 10-20-2023 End: 10-20-2023 ambulatory PANCHO RIOAIME SCOTT Facility:[facility] Start: 09-23-2023 End: 09-26-2023 ambulatory [facility] Start: 08-24-2023 End: 08-24-2023 ambulatory [facility] Start: 08-24-2023 End: 08-24-2023 Office outpatient visit 15 minutes Winifred Bernal MD Work Phone: [facility] Comment on above: Primary hypertension (Primary Dx); Cervical dystonia; Chronic migraine without aura, with intractable migraine, so stated, with status migrainosus; ESTHER on CPAP Start: 08-24-2023 End: 08-24-2023 Patient encounter procedure Winifred Bernal MD Work Phone: [facility] Comment on above: Intractable chronic migraine without aura and with status migrainosus Start: 08-03-2023 AUDIT Pancho Scott Work Phone: WP-Zidjmwsbm-Qaoeyr 170 DO Work Phone: Start: 07-28-2023 AUDIT Pancho Scott Work Phone: MF-Nzshurlbq-Taiims 170 DO Work Phone: Start: 07-20-2023 ambulatory MD WINIFRED BERNAL Facility:[facility] Start: 07-20-2023 Telephone encounter Pancho Dallas Work Phone: [facility] [address] [place] Work Phone: Start: 07-05-2023 AUDIT Pancho Scott Work Phone: TK-Nwpdvccjh-Yjqizr 170 DO Work Phone: Start: 06-27-2023 End: 07-02-2023 ambulatory [facility] Facility:[facility] Start: 06-18-2023 End: 06-19-2023 ambulatory [facility] Facility:[facility] Start: 06-03-2023 AUDIT Pancho Scott Work Phone: [facility] 170 DO Work Phone: Start: 05-26-2023 End: 05-26-2023 ambulatory PANCHO SCOTT Facility:[facility] Start: 05-26-2023 End: 05-26-2023 Patient encounter procedure Woody Knox PA-C Work Phone: Orthopaedics Comment on above: Primary osteoarthrit is of right knee (Primary Dx); Loose, body, joint, knee, right; Hemarthrosis, right knee Start: 05-25-2023 Patient encounter procedure Pancho Scott Work Phone: YE-Yiufjqzpd-Pwzggg 170 DO Work Phone: Start: 05-25-2023 ambulatory MD WINIFRED BERNAL Facility:[facility] Start: 05-18-2023 ambulatory PANCHO SCOTT [facility] it:[facility] Start: 05-18-2023 End: 05-18-2023 Subsequent hospital visit by physician [facility] (1.5t) Radiology Comment on above: Encounter for observ ation for other suspected diseases and conditions ruled out [Z03.89] Start: 05-09-2023 Office outpatient vi sit 25 minutes Pancho Scott Work Phone: [facility] 170 DO Work Phone: Start: 05-09-2023 ambulatory MD WINIFRED BERNAL Facility:[id number] Start: 04-19-2023 End: 04-19-2023 ambulatory PANCHO SCOTT Facility:[facility] Start: 04-19-2023 AUDIT Pancho Scott Work Phone: [facility] 170 DO Work Phone: Start: 04-06-2023 End: 04-06-2023 ambulatory PORSHA PAIGE Facility:[facility] Start: 04-06-2023 End: 04-06-2023 Patient encounter procedure Porsha Paieg MD Work Phone: Dermatology Comment on above: Venous stasis (Prima ry Dx); Seborrheic keratosis; Multiple benign nevi; Lentigines; Landers angioma Start: 03-08-2023 End: 03-09-2023 ambulatory ANNELISE Peterson Facility:[facility] Start: 03-07-2023 AUDIT Pancho Scott Work Phone: [facility] 170 DO Work Phone: Start: 03-01-2023 Chart Update Pancho Scott Work Phone: [facility] 170 DO Work Phone: Start: 03-01-2023 End: 03-02-2023 ambulatory Pancho Scott Facility:[facility] Start: 02-24-2023 End: 02-25-2023 ambulatory Staci Owen PA-C Facility:[facility] Start: 02-17-2023 End: 02-18-2023 ambulatory Jayy Clemente Facility:[facility] Start: 02-14-2023 End: 02-15-2023 ambulatory Jose R Dolce Facility:[facility] Start: 02-14-2023 ambulatory MD WINIFRED BERNAL Facility:[id number] Start: 02-02-2023 Office outpatient vi sit 25 minutes Pancho Scott Work Phone: OU-Zxmkjxlwm-Itvffgig B 101 Work Phone: Start: 02-02-2023 ambulatory MD WINIFRED BERNAL Facility:[id number] Start: 01-31-2023 End: 02-01-2023 ambulatory Jose R Dolce Facility:[facility] Start: 01-31-2023 End: 02-01-2023 ambulatory JOSE DOLCE Facility: Start: 01-25-2023 Rx Renewal Pancho Scott Work Phone: JY-Uoqvnoyme-Hnmxpi 170 DO Work Phone: Start: 01-24-2023 End: 01-25-2023 ambulatory Jose R Dolce Facility:[facility] Start: 01-17-2023 End: 01-18-2023 ambulatory Jose R Dolce Facility:[facility] Start: 01-11-2023 End: 01-12-2023 ambulatory Pancho Scott Facility:[facility] Start: 01-04-2023 End: 01-05-2023 ambulatory Pancho Scott Facility:[facility] Start: 12-28-2022 End: 12-29-2022 ambulatory ANNELISE Peterson Facility:[facility] Start: 12-21-2022 End: 12-22-2022 ambulatory Staci Owen PA-C Facility:[facility] Start: 12-16-2022 End: 12-17-2022 ambulatory Juan Sotomayor Facility:[facility] Start: 12-06-2022 AUDIT Pancho Scott Work Phone: LQ-Yohopbact-Hvfmpy 170 DO Work Phone: Start: 12-06-2022 End: 12-06-2022 ambulatory PANCHO SCOTT Facility:[facility] Start: 11-08-2022 AUDIT Pancho Scott Work Phone: EY-Qqoxwjrwr-Gjmfpa 170 DO Work Phone: Start: 10-29-2022 AUDIT Pancho Scott Work Phone: XZ-Wiscdmcrz-Wlubpni 5th Work Phone: Start: 10-20-2022 Office outpatient vi sit 40 minutes Pancho Scott Work Phone: XL-Dwejeqszw-Udsefi 170 DO Work Phone: Start: 10-20-2022 ambulatory MD WINIFRED DASILVA CONGERS Facility:[facility] Start: 10-07-2022 AUDIT Pancho Scott Work Phone: PL-Opguvnelk-Jjvcho 170 DO Work Phone: Start: 09-26-2022 End: 09-26-2022 Emergency department patient visit DO Pancho Scott Work Phone: [facility] Start: 09-09-2022 AUDIT Pancho Scott Work Phone: AG-Xllqifdrr-Pxeiqx 170 DO Work Phone: Start: 09-08-2022 End: 09-08-2022 ambulatory Dina Chandra Other Bouf Other Start: 09-08-2022 Office outpatient vi sit 25 minutes Dina Chandra [facility] Start: 08-11-2022 AUDIT Pancho Scott Work Phone: KJ-Uuluwizks-Xndcyv 170 DO Work Phone: Start: 08-03-2022 AUDIT Pancho Scott Work Phone: LM-Wslatlyhc-Nxqvpo 170 DO Work Phone: Start: 07-21-2022 Office outpatient vi sit 25 minutes Pancho Scott Work Phone: WJ-Xvsacogbh-Pthiou 170 DO Work Phone: Start: 07-07-2022 AUDIT Pancho Scott Work Phone: GC-Qfdrrvijy-Kvzvib 170 DO Work Phone: Start: 06-16-2022 AUDIT Pancho Scott Work Phone: EZ-Nfnylnfxv-Mzxwlh 170 DO Work Phone: Start: 06-09-2022 AUDIT Pancho Scott Work Phone: BR-Qlfrjsydz-Bxtvng 170 DO Work Phone: Start: 06-01-2022 AUDIT Pancho Scott Work Phone: RC-Ngolkwaxk-Gtzxpt 170 DO Work Phone: Start: 05-31-2022 AUDIT Pancho Scott Work Phone: OV-Tiziydskt-Krvlcl 170 DO Work Phone: Start: 05-11-2022 AUDIT Pancho Scott Work Phone: VD-Fvkwzbfnt-Qybwof 170 DO Work Phone: Start: 04-28-2022 AUDIT Pancho Scott Work Phone: QZ-Hixmctmmj-Ffbcwt 170 DO Work Phone: Start: 04-26-2022 Chart Update Pancho Scott Work Phone: EC-Kudggbazu-Npfpnz 170 DO Work Phone: Start: 04-20-2022 End: 04-20-2022 Patient encounter procedure Gisele Smith PA-C Work Phone: Orthopaedics Comment on above: Primary osteoarthrit is of left knee (Primary Dx) Start: 04-20-2022 Office outpatient vi sit 15 minutes Pancho Selfe Work Phone: AL-Xffmtlwbw-Ecdlrpe 5th Work Phone: Start: 04-12-2022 AUDIT Pancho Scott Work Phone: QF-Ektxaxorh-Grnopl 170 DO Work Phone: Start: 03-26-2022 ambulatory Gisele Smith PA-C Work Phone: Orthopaedics Start: 03-12-2022 AUDIT Pancho Scott Work Phone: SI-Eemvozdif-Xphvlbm 5th Work Phone: Start: 03-10-2022 ambulatory Danisha L Glascock RT(R) Rad iology Comment on above: Radiology XR Start: 03-10-2022 End: 03-10-2022 Patient encounter procedure Danisha Gina Glascock RT(R) [facility] Comment on above: Primary osteoarthrit is of right knee (Primary Dx) Start: 02-08-2022 AUDIT Pancho Scott Work Phone: PG-Aofijjovz-Efbefe 170 DO Work Phone: Start: 01-20-2022 Office outpatient vi sit 15 minutes Pancho Scott Work Phone: AZ-Wewdtxtjz-Emffnc 170 DO Work Phone: Start: 01-20-2022 Patient encounter procedure Pancho Scott Work Phone: JS-Gchzarunh-Upyxig 170 DO Work Phone: Start: 01-12-2022 AUDIT Pancho Scott Work Phone: ND-Dxbmonwhp-Ltxlbn 170 DO Work Phone: Start: 12-11-2021 AUDIT Pancho Scott Work Phone: ZO-Uifdhpmaf-Rqcllic 5th Work Phone: Start: 12-07-2021 AUDIT Pancho Scott Work Phone: KR-Rtohnxayc-Ejgewp 170 DO Work Phone: Start: 11-09-2021 AUDIT Pancho Scott Work Phone: AO-Ttnwrvhhz-Catonm 170 DO Work Phone: Start: 11-02-2021 AUDIT Pancho Scott Work Phone: PF-Otbdjjovj-Vnwkqo 170 DO Work Phone: Start: 10-22-2021 Office outpatient vi sit 15 minutes Pancho Scott Work Phone: BH-Dlrwdqzmp-Htptfk 170 DO Work Phone: Start: 10-14-2021 End: 10-14-2021 ambulatory Dina Prateek Other [facility] [employer] Other Start: 10-14-2021 Office outpatient ne w 45 minutes Dina Chandra [facility] Start: 10-12-2021 AUDIT Pancho Scott Work Phone: MA-Fvlyzacdb-Dfdfec 170 DO Work Phone: Start: 09-23-2021 Rx Renewal Pancho Scott Work Phone: AT-Ewazsvtsl-Mcooqf 170 DO Work Phone: Start: 08-14-2021 AUDIT Pancho Scott Work Phone: NU-Okwivoxex-Iuyqqez 5th Work Phone: Start: 07-23-2021 Office outpatient vi sit 15 minutes Pancho Scott Work Phone: IY-Onvrsbmaf-Qzogkw 170 DO Work Phone: Start: 07-17-2021 AUDIT Pancho Scott Work Phone: ZE-Nfwmnkdzq-Yamwqj 170 DO Work Phone: Start: 06-17-2021 AUDIT Pancho Scott Work Phone: HW-Qnxowsxry-Bxhcjp 170 DO Work Phone: Start: 05-18-2021 AUDIT Pancho Scott Work Phone: SJ-Fatuejasi-Nhvqto 170 DO Work Phone: Start: 05-13-2021 AUDIT Pancho Scott Work Phone: DF-Wwvjgiwff-Hcvmsk 170 DO Work Phone: Start: 04-22-2021 AUDIT Pancho Scott Work Phone: XZ-Leoqxtmtw-Rufpsq 170 DO Work Phone: Start: 04-22-2021 Office outpatient vi sit 15 minutes Pancho Scott Work Phone: GW-Jlihfjewn-Ndlilx 170 DO Work Phone: Start: 04-16-2021 AUDIT Pancho Scott Work Phone: ME-Hbkrquqph-Oaskgom 5th DO Work Phone: Start: 10-20-2020 Patient encounter procedure Winifred Bernal VB-Gndtvznwj-Yenyyz 170 DO Work Phone: Start: 07-21-2020 Patient encounter procedure Winifred Bernal DE-Zmeuigzgf-Ttzdho 170 DO Work Phone: Start: 04-25-2020 Patient encounter procedure Winifred Bernal KE-Byfzmjygh-Umshvq 170 DO Work Phone: Start: 01-24-2020 Patient encounter procedure Winifred Bernal EV-Hiyenblok-Gjzare 170 DO Work Phone: Start: 10-25-2019 Patient encounter procedure Winifred Bernal OZ-Jlohahwgs-Viqcsv 170 DO Work Phone: Start: 07-19-2019 Patient encounter procedure Winifred Bernal OZ-Dwdrfcocg-Qixkyb 170 DO Work Phone: Start: 05-28-2019 Patient encounter procedure Winifred Bernal YG-Sdssbwmdk-Kcabii 170 DO Work Phone: Start: 04-18-2019 Patient encounter procedure Winifred Bernal XE-Yogmrvwiy-Flovec 170 DO Work Phone: Start: 03-01-2019 Patient encounter procedure Winifred Bernal FC-Hmriykntw-Oewbgp 170 DO Work Phone: Start: 01-18-2019 Patient encounter procedure Winifred Bernal ER-Tadpxptft-Aabdmb 170 DO Work Phone: Start: 12-11-2018 Patient encounter procedure Winifred Bernal UY-Rxfeblkyy-Mpiugi 170 DO Work Phone: Start: 10-19-2018 Patient encounter procedure Winifred Bernal MPHM-Sbehtsxgr-Opukcg 170 DO Work Phone: Start: 09-14-2018 Patient encounter procedure Winifred Bernal MPTP-Gbjlzliph-Sgmjja 170 DO Work Phone: Start: 07-13-2018 Patient encounter procedure Winifred Bernal MPPD-Atwenfnkh-Qessce 170 DO Work Phone: Start: 04-18-2018 Patient encounter procedure Winifred Bernal MPDU-Jucurwsbk-Kulwgu 170 DO Work Phone: Start: 02-21-2018 Patient encounter procedure Winifred Brenal MPDM-Jxfwkhjbq-Cizbpk 170 DO Work Phone: Start: 01-09-2018 Patient encounter procedure Winifred Bernal MPEL-Upvqixzee-Sltjqy 170 DO Work Phone: Start: 12-07-2017 Patient encounter procedure Winifred Bernal MPEX-Cznxuhzvm-Wrekku 170 DO Work Phone: Procedures Date Procedure Procedure Detail Performing Clinician Start: 12-21-2023 Injection of botulin um toxin Winifred Bernal MD Work Phone: Start: 12-14-2023 OOB INTERNAL TRACKING C KAVITAL TYLER Start: 12-14-2023 OPIATE/OPIOID/BENZO PRESCRIPTION COMPLIANCE PANCHO SCOTT Start: 12-14-2023 SCREEN OPIATE/OPIOID /BENZO PRESCRIPTION COMPLIANCE PANCHO SCOTT Start: 08-24-2023 HEAD/FACE/JAW BOTULI NUM INJECTION WINIFRED BERNAL Start: 05-18-2023 Mri any jt lower ext rem w/o & w/contrast matrl Woody Knox PA-C Work Phone: Start: 04-20-2022 Arthrocentesis aspir &/inj major jt/bursa w/o us Gisele Smith PA-C Work Phone: Start: 03-10-2022 Arthrocentesis aspir &/inj major jt/bursa w/o us Gisele Smith PA-C Work Phone: Hernia repair Winifred Bernal Comment on above: 2012; Plan of Treatment Date Care Activity Detail Author Start: 09-26-2032 DTaP/Tdap/Td Vaccine s (2 - Td or Tdap) DTaP/Tdap/Td Vaccines (2 - Td or Tdap) [facility] Start: 03-07-2024 End: 03-07-2024 Patient encounter procedure 03/07/2024 9:00 AM EDT Procedure Visit [facility] [address] [place] [phone] Winifred Bernal MD [address] [place], [place] [id number] [facility] Start: 02-28-2024 End: 02-28-2024 Patient encounter procedure 02/28/2024 9:30 AM EDT Office Visit [facility] [address] [place] [phone] Flaca Krishnamurthy, MACHINE WORKER-NOODLE CATALYST MAKER [address] [facility], [address], [address] [place] [address] [facility] Start: 12-14-2023 End: 12-14-2023 Patient encounter procedure 12/14/2023 10:20 AM EST Procedure Visit [facility] [address] [place] [phone] Winifred Bernal MD [address] [place] [address] [facility] Start: 12-05-2023 End: 12-05-2024 Opiate/Opioid/Benzo Prescription Compliance Opiate/Opioid/Benzo Prescription Compliance Lab Routine Long-term use of high-risk medication Expected: 12/05/2023 (Approximate), Expires: 12/05/2024 [facility] Service Area Work Phone: Comment on above: Expected: 12/05/2023 (Approximate), Expires: 12/05/2024 Start: 11-30-2023 End: 11-30-2023 Patient encounter procedure 11/30/2023 9:00 AM EST Procedure Visit [facility] [address] [facility] [address] [place] [phone] Winifred Bernal MD [address] [facility] [address] [place] [address] [facility] Start: 11-24-2023 End: 11-24-2023 Telemedicine consultation with patient 11/24/2023 3:30 PM EST Telemedicine [facility] [address] [phone] Flaca Krishnamurthy, MACHINE WORKER-NOODLE CATALYST MAKER [address] [facility], [address], [address] [address] [facility] Start: 08-17-2023 BOTOX, Provider: Winifred Bernal, Status: Pen, Time: 10:30 AM BOTOX, Provider: Winifred Bernal, Status: Pen, Time: 10:30 AM HF-Adixbdtsh-Rrupjg 170 DO Work Phone: Start: 07-22-2023 Influenza vaccination [facility] Start: 05-25-2023 BOTOX, Provider: Winifred Bernal, Status: Pen, Time: 4:30 PM BOTOX, Provider: Winifred Bernal, Status: Pen, Time: 4:30 PM RA-Unmpmmcya-Ynkjoq 170 DO Work Phone: Start: 05-23-2023 BOTOX, Provider: Winifred Bernal, Status: Pen, Time: 4:30 PM BOTOX, Provider: Winifred Bernal, Status: Pen, Time: 4:30 PM PS-Kkcpwgtst-Ybfaue 170 DO Work Phone: Start: 05-18-2023 BOTOX, Provider: Winifred Bernal, Status: Pen, Time: 10:30 AM BOTOX, Provider: Winifred Bernal, Status: Pen, Time: 10:30 AM UC-Bzckhlwpx-Jdjiep 170 DO Work Phone: Start: 05-09-2023 FUVGENERAL, Provider : Winifred Bernal, Status: Pen, Time: 2:30 PM FUVGENERAL, Provider: Winifred Bernal, Status: Pen, Time: 2:30 PM DI-Qjkqqbzas-Ycjtpm 170 DO Work Phone: Start: 02-14-2023 BOTOX, Provider: Winifred Bernal, Status: Pen, Time: 11:30 AM BOTOX, Provider: Winifred Bernal, Status: Pen, Time: 11:30 AM SK-Jvdjyexcd-Npfhjmy e [address] Work Phone: Start: 01-19-2023 BOTOX, Provider: Winifred Bernal, Status: Pen, Time: 11:00 AM BOTOX, Provider: Winifred Bernal, Status: Pen, Time: 11:00 AM KU-Lvhpmtaih-Lcdwnt 170 DO Work Phone: Start: 11-21-2022 DEPRESSION ASSESSMENT DEPRESSION ASS ESSMENT [facility] Start: 10-20-2022 BOTOX, Provider: Winifred Bernal, Status: Pen, Time: 10:00 AM BOTOX, Provider: Winifred Bernal, Status: Pen, Time: 10:00 AM HB-Qkslqwyyx-Zjqnku 170 DO Work Phone: Start: 10-20-2022 FUVGENERAL, Provider : Winifred Bernal, Status: Pen, Time: 10:00 AM FUVGENERAL, Provider: Winifred Bernal, Status: Pen, Time: 10:00 AM HJ-Tlnsztwyq-Jpcdnt 170 DO Work Phone: Start: 07-22-2022 Influenza vaccination INFLUENZ A (Season Ended) [facility] Start: 07-21-2022 BOTOX, Provider: Winifred Bernal, Status: Pen, Time: 8:30 AM BOTOX, Provider: Winifred Bernal, Status: Pen, Time: 8:30 AM YY-Rypkfqrmf-Khckgva 5th Work Phone: Start: 04-26-2022 BOTOX, Provider: Winifred Bernal, Status: Pen, Time: 10:30 AM BOTOX, Provider: Winifred Bernal, Status: Pen, Time: 10:30 AM BU-[id number] 170 DO Work Phone: Start: 04-20-2022 BOTOX, Provider: Winifred Bernal, Status: Pen, Time: 8:30 AM BOTOX, Provider: Winifred Bernal, Status: Pen, Time: 8:30 AM [id number] 170 DO Work Phone: Start: 01-20-2022 BOTOX, Provider: Winifred Bernal, Status: Pen, Time: 10:30 AM BOTOX, Provider: Winifred Bernal, Status: Pen, Time: 10:30 AM [id number] 170 DO Work Phone: Start: 10-22-2021 BOTOX, Provider: Winifred Bernal, Status: Pen, Time: 11:00 AM BOTOX, Provider: Winifred Bernal, Status: Pen, Time: 11:00 AM KF-Lvfhuhgjc-Bzsvym 170 DO Work Phone: Start: 07-23-2021 BOTOX, Provider: Winifred Bernal, Status: Pen, Time: 11:30 AM BOTOX, Provider: Winifred Bernal, Status: Pen, Time: 11:30 AM ZH-Xsifxnotw-Wftxpq 170 DO Work Phone: Start: 07-21-2021 BOTOX, Provider: Winifred Bernal, Status: Pen, Time: 9:30 AM BOTOX, Provider: Winifred Bernal, Status: Pen, Time: 9:30 AM PQ-Fuyeensuh-Kzjztt 170 DO Work Phone: Start: 04-22-2021 BOTOX, Provider: Winifred Bernal, Status: Pen, Time: 9:00 AM BOTOX, Provider: Winifred Bernal, Status: Pen, Time: 9:00 AM UE-Knnbrhlbi-Tuqpzna 5th DO Work Phone: Start: 02-06-2020 PROSTATE CANCER SCREENING DISCUSSION PROSTATE CANCER SCREENING DISCUSSION [facility] Start: 2015 SHINGRIX VACCINE (1 of 2) SHINGRIX VACCINE (1 of 2) [facility] Start: 2010 COLOGUARD (FIT-DNA) COLOGUARD (FIT-D NA) [facility] Start: 2010 Colonoscopy COLONOSCOPY [facility] Start: 2010 COLORECTAL CANCER SCREENING COLORECTAL CANCER SCREENING [facility] Start: [address] COLONOGRAPHY [facility] Start: 2010 DIABETES SCREEN DIABETES SCREEN [facility] Start: 2010 FECAL OCCULT BLOOD FECAL OCCULT BLOO D [facility] Start: 2010 SIGMOIDOSCOPY SIGMOIDOSCOPY [facility] Start: 02-06-2000 LIPID SCREEN LIPID SCREEN [facility] Start: 02-06-1984 Urine microalbumin profile DTAP,TDAP,TD (1 - Tdap) [facility] Start: 1983 Diabetes mellitus screening Diabetes Screening [facility] Start: 1983 HEPATITIS C SCREENING HEPATITIS C [facility] Start: 1983 Hepatitis C screening Hepatitis C [facility] Start: 1983 HIV SCREENING HIV SCREENING [facility] Start: 1977 Adult depression screening assessment DEPRESSION SCREENING [facility] Start: 1970 COVID-19 VACCINE (#1) COVID-19 VACCI NE (#1) [facility] Start: 1970 COVID-19 VACCINE (1) COVID-19 VACCIN E (1) [facility] Start: 1966 MMR Vaccines (1 of 1 - Standard series) MMR Vaccines (1 of 1 - Standard series) [facility] Start: 1965 COVID-19 VACCINE (#1) COVID-19 VACCI NE (#1) [facility] Start: 1965 HEPATITIS B (1 of 3 - 3-dose series) HEPATITIS B (1 of 3 - 3-dose series) [facility] Start: 1965 Hepatitis B Vaccines (1 of 3 - 3-dose series) Hepatitis B Vaccines (1 of 3 - 3-dose series) [facility] Start: 1965 HIV screening HIV Screening [facility] Start: 1965 Lipid panel Lipid Panel [facility] Start: 1965 Screening for malign ant neoplasm of colon [facility] Start: 1965 Yearly Adult Physical Yearly Adult P hysical [facility] Patient Education 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 ED Wound Care ED [facility] Work Phone: Patient referral [facility] Work Phone: [facility] Immunizations Immunization Date Immunization Notes Care Provider Fa cili 08-24-2023 botulinum antitoxin; Translations: [HEAD/FACE/JAW BOTULINUM INJECTION] Winifred Bernal MD Work Phone: [facility] Service Area Work Phone: 09-26-2022 tetanus toxoid, redu brisa diphtheria toxoid, and acellular pertussis vaccine, adsorbed DO Pancho Scott Work Phone: [facility] 07-12-2022 zoster vaccine recombinant Winifred Bernal MD Work Phone: [facility] Work Phone: 04-30-2021 zoster vaccine recombinant Winifred Bernal MD Work Phone: [facility] Work Phone: 12-16-2020 influenza, injectabl e, quadrivalent, contains preservative Winifred Bernal MD Work Phone: [facility] Work Phone: 12-16-2020 influenza virus vaccine, unspecified formulation Winifred Bernal MD Work Phone: [facility] Work Phone: Payers Date Payer Category Payer Unknown 2018 Unknown MMO MMO [employer] [id number] 2018-Present [phone] [address] [place] [address] PPO [id number] 1965 Unknown [id number] 2.16.840.1.745200.3.579.2.593 1965 Unknown [id number] 2.16.840.1.905200.3.579.2.356 1965 Unknown [id number] 2.16.840.1.675452.3.579.2.356 1965 Unknown [id number] 2.16.840.1.780924.3.579.2.356 1965 Unknown [id number] 2.16.840.1.585344.3.579.2.356 1965 Unknown [id number] 2.16.840.1.526353.3.579.2.356 1965 Unknown [id number] 2.16.840.1.877797.3.579.2.356 1965 Unknown [id number] 2.16.840.1.507102.3.579.2.177 1965 Unknown [id number] 2.16.840.1.202025.3.579.2.177 1965 Unknown [id number] 2.16.840.1.673428.3.579.2.177 1965 Unknown [id number] 2.16.840.1.264421.3.579.2.177 1965 Unknown [id number] 2.16.840.1.142494.3.579.2.718 1965 Unknown [id number] 2.16.840.1.827166.3.579.2.718 1965 Unknown [id number] 2.16.840.1.332089.3.579.2.718 1965 Unknown [id number] 2.16.840.1.384470.3.579.2.718 1965 Unknown [id number] 2.16.840.1.644478.3.579.2.8 1965 Unknown [id number] 2.16840.1.870382.3.579.2 1965 Unknown [id number] 2.16.840.1.165703.3.579.2. 1965 Unknown [id number] 2.16.840.1.403696.3.579.2 1965 Unknown [id number] 2.16.840.1.823843.3.579.2 1965 Unknown [id number] 2.840.1.641364.3.579.2 1965 Unknown [id number] 2.840.1.328380.3.579.2 1965 Unknown [id number] 2.840.1.648051.3.579.2 1965 Unknown [id number] 2.840.1.844648.3.579.2 1965 Unknown [id number] 2.840.1.810785.3.579.2 1965 Unknown [id number] 2.840.1.680762.3.579.2 1965 Unknown [id number] 2840.1.163209.3.579.2 1965 Unknown [id number] 2.16840.1.419325.3.579.2 1965 Unknown [id number] 2.16840.1.885439.3.579.2 1965 Unknown [id number] 2.16.840.1.774009.3.579.2 1965 Unknown [id number] 2.16.840.1.296145.3.579.2 1965 Unknown [id number] 2.16.840.1.959019.3.579.2.718 1965 Unknown [id number] 2.16.840.1.550014.3.579.2.718 1965 Unknown [id number] 2.16.840.1.174923.3.579.2.718 1965 Unknown [id number] 2.16.840.1.670550.3.579.2.718 1965 Unknown [id number] 2.16.840.1.591380.3.579.2.1244 1965 Unknown [id number] 2.16.840.1.316961.3.579.2.4 1965 Unknown [id number] 2.16.840.1.977636.3.579.2.4 1965 Unknown [id number] 2.16.840.1.030572.3.579.2.4 1965 Unknown [id number] 2.16.840.1.665569.3.579.2.1245 1959 Unknown [id number] 2.16.840.1.065592.19 Self-pay Self Pay [id number] Social History Date Type Detail Facility Assertion Unknown if ever smoked SX-Cwwmdhioy-Lyjkle 170 DO Work Phone: Start: 08-24-2023 End: 12-05-2023 No alcohol use No alcohol use UB-Wwacwuslk-Zolrdgd 5th DO Work Phone: Tobacco smoking status RIIS Tobacco smoking consumption unknown [facility] Start: 1965 Sex Assigned At Not on file [facility] Start: 02-14-2022 End: 12-14-2023 Exposure to SARS-CoV-2 (event) Not sure [facility] Start: 08-24-2023 End: 12-05-2023 Sex Assigned At Bou[facility] Other Start: 09-26-2022 End: 08-24-2023 Tobacco smoking status NHIS Never smoked tobacco (finding) [facility] Start: 1965 Sex Assigned At Male [facility] Start: 08-24-2023 Tobacco use and exposure Smokeless tobacco non-user [facility] Work Phone: How often to you have a drink containing alcohol? Monthly or less [facility] Work Phone: How many standard drinks containing alcohol do you have on a typical day? 1 or 2 [facility] Work Phone: How often do you have 6 or more drinks on 1 occasion? Never [facility] Work Phone: NEGATED: Highlighted rowStart: NINF History of tobacco use Passive smoker [facility] Work Phone: Functional Status Date Assessment Result Facility NEGATED: Highlighted row Functional performance Functional status health issues are not documented Disease RX-Txrsdegsv-Hxcdby 170 DO Work Phone: Mental Status Date Assessment Result Facility NEGATED: Highlighted row Cognitive function [Interpretation] Cognitive status health issues are not documented Disease RQ-Vpyoimjpw-Nntamq 170 DO Work Phone: Clinical Notes 06-22-2021 to 12-14-2023 Winifred Bernal MD - 12/14/2023 10:20 AM ESTPatient InstructionsWinifred Bernal MD - 12/05/2023 11:30 AM EST Note Date & Type Note Facility 12-14-2023 History of Present illness Narrative Associated Order(s): Head/Face/Jaw Botulinum Injection Post-Procedure Diagnose(s): Chronic migraine without aura, with intractable migraine, so stated, with status migrainosus Patient ID: Sherry Guardado is a 58 y.o. male. Head/Face/Jaw Botulinum Injection Date/Time: 12/21/2023 4:29 PM Performed by: Winifred Bernal MD Authorized by: Winifred Bernal MD Consent: Consent obtained: Verbal Consent given by: Patient Procedure details: EMG used? No Electrical stimulation used? No Diluted by: Preservative free saline Toxin (Brand): OnaBoNT-A (Botox) Total units available: 200 Ad hoc region injected: Head see diagram with 200 units Total units injected: 200 Total units wasted: 0 Post-procedure details: Patient tolerance of procedure: Tolerated well, no immediate complications Comments: Please do not rub areas for 24 hours. No pressure above eyebrows for 24 hours. Watch out for helmets, headlamps, headbands, goggles, or massage for 24 hours. If there is discomfort, ice for the first 24 hour,s heat after that. Headaches may worsen, or you may experience neck stiffness. If this occurs use your usual headache medication or a mild anti inflammatory such as advil or aleve. Please call if you have difficulty swallowing. You received Toradol today for your severe headache. We are going to continue with 5 day of pills starting tomorrow to break your headache cycle. Take 1 pill with breakfast lunch dinner and bedtime for 5 days. Take with food. Try not to take your triptan or antiinflammatory during this time. If you have any nausea or diarrhea with the medicine stop and call on the next business day. documented in this encounter [facility] Work Phone: 12-14-2023 Instructions Mattie Torres RN - 12/14/2023 10:20 AM EST Please do not rub areas for 24 hours. No pressure above eyebrows for 24 hours. Watch out for helmets, headlamps, headbands, goggles, or massage for 24 hours. If there is discomfort, ice for the first 24 hour,s heat after that. Headaches may worsen, or you may experience neck stiffness. If this occurs use your usual headache medication or a mild anti inflammatory such as advil or aleve. Please call if you have difficulty swallowing. documented in this encounter [facility] Work Phone: 12-05-2023 History of Present illness Narrative Experiencing nearly daily migraine. Severe 2-3 times per month. 2 days headache free/month. occasionally waking in middle of night with migraines . Improved with CPAP. Wakes with cat some nights and does have a migraine at 3am, feels if would sleep through, would not notice it. Sometimes will take Tylenol Treat daily with vicodin (mid morning at school) to keep migraine low level. If he sleeps more he feels better, Treats with Treximet twice weekly for escalating migraine. 1 days per month when most severe need to stop activity and lay down. Migraine occurs back of neck and radiates or starts in forehead takes 1 flexeril has not yet tried to increase to 2 but may try Associated light and noise sensitivity, rare nausea Triggers are lack of sleep and dehydration, maybe neck pain, stress. The indocin was helpful for this.He was on for gout Rarely drinking caffeine. So, if has a poudnign migraine, adding caffeine nsometimes helps. He stopped drinking caffeine due to irregular heart beat. Lunesta is helpful for sleep Continues with indocin for gout PRN. Indocin also helps joint pain and neck pain. Only taking twice weekly for other joint pain. Had a holter monitor Augustwhich showed SVT to 150 symptomatic and asymptomatic. , Lathe Puller put him on propranolol. Was to have another in October but never ordered. dopamine stress test revealed nothing significant per pt from MD report. Lathe Puller knows he is on Sumatriptan. TTE Left Ventricle: Normal left ventricular systolic function with a visually estimated EF of 55 - 60%. Left ventricle size is normal. Mildly increased wall thickness. Normal wall motion. Left Ventricle Normal left ventricular systolic function with a visually estimated EF of 55 - 60%. Left ventricle size is normal. Mildly increased wall thickness. Normal wall motion. Right Ventricle Right ventricle size is normal. Normal systolic function. Left Atrium Left atrium size is normal. Right Atrium Right atrium size is normal. IVC/SVC IVC diameter is less than or equal to 21 mm and decreases greater than 50% during inspiration; therefore the estimated right atrial pressure is normal (~3 mmHg). IVC size is normal. Mitral Valve Valve structure is normal. Trace regurgitation. No stenosis noted. Tricuspid Valve Valve structure is normal. Trace regurgitation. No stenosis noted. Aortic Valve Valve structure is normal. No regurgitation. No stenosis. Pulmonic Valve Valve structure is normal. No regurgitation. No stenosis noted. Ascending Aorta Normal sized aortic root and ascending aorta. Pericardium No pericardial effusion. Study Details Image quality: adequate. Heart rate was 81 bpm. The underlying ECG rhythm was sinus rhythm. Color flow Doppler was performed and pulse wave and/or continuous wave Doppler was performed. No contrast was given. Perfusion scan FINDINGS: [There is no evidence for a significant reversible or fixed perfusion defect.] [The gated images show no wall motion abnormalities. Normal myocardial thickening.] Perfusion scores are visually adjusted to account for artifact. Summed stress score: [0] Summed rest score: [0] Summed difference score: [0] Function: End diastolic volume: [123]mL Left ventricular ejection fraction: [63]% TID score: [1.09] (scores greater than 1.39 are considered elevated for Lexiscan stress with Tc99m OARRS: No data recorded I have personally reviewed the OARRS report for Sherry Kwadwo. I have considered the risks of abuse, dependence, addiction and diversion Is the patient prescribed a combination of a benzodiazepine and opioid? No Last Urine Drug Screen / ordered today: Yes Recent Results (from the past 8760 hour(s)) OPIATE/OPIOID/BENZO PRESCRIPTION COMPLIANCE Collection Time: 02/14/23 11:50 AM Result Value Ref Range DRUG SCREEN COMMENT URINE SEE BELOW Creatine, Urine 48.5 mg/dL Amphetamine Screen, Urine PRESUMPTIVE NEGATIVE NEGATIVE Barbiturate Screen, Urine PRESUMPTIVE NEGATIVE NEGATIVE Cannabinoid Screen, Urine PRESUMPTIVE NEGATIVE NEGATIVE Cocaine Screen, Urine PRESUMPTIVE NEGATIVE NEGATIVE PCP Screen, Urine PRESUMPTIVE NEGATIVE NEGATIVE 7-Aminoclonazepam <25 Cutoff <25 ng/mL Alpha-Hydroxyalprazolam <25 Cutoff <25 ng/mL Alpha-Hydroxymidazolam <25 Cutoff <25 ng/mL Alprazolam <25 Cutoff <25 ng/mL Chlordiazepoxide <25 Cutoff <25 ng/mL Clonazepam <25 Cutoff <25 ng/mL Diazepam <25 Cutoff <25 ng/mL Lorazepam <25 Cutoff <25 ng/mL Midazolam <25 Cutoff <25 ng/mL Nordiazepam <25 Cutoff <25 ng/mL Oxazepam <25 Cutoff <25 ng/mL Temazepam <25 Cutoff <25 ng/mL Zolpidem <25 Cutoff <25 ng/mL Zolpidem Metabolite (ZCA) <25 Cutoff <25 ng/mL 6-Acetylmorphine <25 Cutoff <25 ng/mL Codeine <50 Cutoff <50 ng/mL Hydrocodone 459 (A) Cutoff <25 ng/mL Hydromorphone 107 (A) Cutoff <25 ng/mL Morphine Urine <50 Cutoff <50 ng/mL Norhydrocodone 472 (A) Cutoff <25 ng/mL Noroxycodone <25 Cutoff <25 ng/mL Oxycodone <25 Cutoff <25 ng/mL Oxymorphone <25 Cutoff <25 ng/mL Tramadol <50 Cutoff <50 ng/mL O-Desmethyltramadol <50 Cutoff <50 ng/mL Fentanyl <2.5 Cutoff<2.5 ng/mL Norfentanyl <2.5 Cutoff<2.5 ng/mL METHADONE CONFIRMATION,URINE <25 Cutoff <25 ng/mL EDDP <25 Cutoff <25 ng/mL N/A Controlled Substance Agreement: Date of the Last Agreement: 12-05-2023 Reviewed Controlled Substance Agreement including but not limited to the benefits, risks, and alternatives to treatment with a Controlled Substance medication(s). Opioids: What is the patient's goal of therapy? Head pain control Is this being achieved with current treatment? yes I have calculated the patient's Morphine Dose Equivalent (MED): I have considered referral to Pain Management and/or a specialist, and do not feel it is necessary at this time. I feel that it is clinically indicated to continue this current medication regimen after consideration of alternative therapies, and other non-opioid treatment. Opioid Risk Screening: No data recorded Pain Assessment: No data recorded and Sleep Aids: What is the patient's goal of therapy? sleep Is this being achieved with current treatment? yes Activities of Daily Living: Is your overall impression that this patient is benefiting (symptom reduction outweighs side effects) from sleep aid therapy? Yes 1. Physical Functioning: Same 2. Family Relationship: Same 3. Social Relationship: Same 4. Mood: Same 5. Sleep Patterns: Same 6. Overall Function: Same documented in this encounter [facility] Work Phone: 11-22-2023 Evaluation note Encounter Date Diagnosis Assessment Notes Nov, Migraine with aura and without status migrainosus, not intractable (ICD-10 - G43.109) He has seen some improvement in headaches when using machine; it's quite possible that there would be even more improvement with increased usage hours and total sleep time. In general, headaches of all types, but particularly migraine headaches, are sensitive to sleep quality and quantity. Many patients with headache find improvements in severity and frequency after sleep problems are resolved. 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 I encouraged him to use the machine as much as possible. Nov, Intolerance of continuous positive airway pressure (CPAP) ventilation (ICD-10 - Z78.9) Encouraged to wear all night. Inspire could be an option for him if he wants Nov, Obstructive sleep apnea (ICD-10 - G47.33) He does benefit from treatment, and he is using the machine. I encouraged him to leave the mask on every night, all night. I encouraged him to continue efforts at weight reduction. I reviewed medical and headache complications of insufficient sleep and insufficient control of sleep apnea. I also discussed alternatives, and encouraged him to continue working on weight reduction. He is not interested in inspire Nov, Other Call if any questions or problems. Patient is advised to work on healthy diet choices and appropriate servings, weight control, regular exercise as directed, and reduce fat intake. Use machine regularly, and keep up with mask changes as needed. Call if problems with mask toleration, increased sleepiness, or poor response to treatment. . [facility] Other 11-30-2023 NoteHNO ID: [id number] Author: Gisele Smith PA-C Service: ? Author Type: Physician Co Founder & Ceo Type: Progress Notes Filed: 10/20/2023 1:46 PM Note Text: DEPARTMENT OF ORTHOPAEDICS SUBJECTIVE Pt presents today for left knee OA, requesting CSI. Denies any complication from previous injections. OBJECTIVE Large Joint Arthro/Inj: L knee joint Informed Consent Consent Obtained: Verbal [place] Protocol A moment to CARE was completed. SIGN IN Personnel directly involved with the procedure wore the appropriate PPE. Special Equipment: N/A Patient/Surrogate Stated/Verified: Date of , Patient name, Relevant allergies and Intended procedure TIME OUT Intended patient and procedure match the source document(s). Consent documented and matches the intended procedure. Relevant labs, photos, and/or imaging studies have been reviewed. Correct side/site marked and visible. Medications required for procedure verified. No fire risk assessment and interventions applicable. No implant(s) inserted. 10/20/2023 1:46 PM The procedure site was prepped in the usual sterile fashion. Site: L knee joint Medications: 80 mg triamcinolone acetonide 40 mg/mL Anesthetics: 8 mL lidocaine (PF) 10 mg/mL (1 %) Outcome: Tolerated well, no immediate complications Post-injection instructions were reviewed with the patient and the patient voiced understanding of these instructions. SIGN OUT No instruments, equipment or retained foreign bodies applicable. ASSESSMENT Primary osteoarthritis of left knee (primary encounter diagnosis) PLAN Follow up as needed ANNELISE [facility]10-04-2023 History of Present illness Narrative* Winifred Bernal MD - 08/24/2023 9:20 AM EDTAssociated Order(s): Head/Face/Jaw Botulinum Injection Post-Procedure Diagnose(s): Intractable chronic migraine without aura and with status migrainosus Patient ID: Sherry Guardado is a 58 y.o. male. Head/Face/Jaw Botulinum Injection Date/Time: 08/24/2023 9:00 AM Performed by: Winifred Bernal MD Authorized by: Winifred Bernal MD Consent: Consent obtained: Verbal Consent given by: Patient Procedure details: EMG used? No Electrical stimulation used? No Diluted by: Preservative free saline Toxin (Brand): OnaBoNT-A (Botox) Total units available: 200 Ad hoc region injected: Head with 200 units Total units injected: 200 Total units wasted: 0 Post-procedure details: Patient tolerance of procedure: Tolerated well, no immediate complications Comments: Please do not rub areas for 24 hours. No pressure above eyebrows for 24 hours. Watch out for helmets, headlamps, headbands, goggles, or massage for 24 hours. If there is discomfort, ice forthe first 24 hour,s heat after that. Headaches may worsen, or you may experience neck stiffness. Ifthis occurs use your usual headache medication or a mild anti inflammatory such as advil or aleve. Please call if you have difficulty swallowing. You received Toradol today for your severe headache. We are going to continue with 5 day of pills starting tomorrow to break your headache cycle. Take 1 pill with breakfast lunch dinner and bedtime for 5 days. Take with food. Try not to take your triptan or antiinflammatory during this time. If you have any nausea or diarrhea with the medicinestop and call on the next business day. * Mattie Torres RN - 08/24/2023 9:20 AM EDTAssociated Order(s): Head/Face/Jaw Botulinum Injection Patient ID: Sherry Guardado is a 58 y.o. male. Head/Face/Jaw Botulinum Injection Date/Time: 08/24/2023 9:11 AM Performed by: Winifred Bernal MD Authorized by: Winifred Bernal MD Procedure details: Total units injected: 0 Total units wasted: 0 Please do not rub areas for 24 hours. No pressure above eyebrows for 24 hours. Watch out for helmets, headlamps, headbands, goggles, or massage for 24 hours. If there is discomfort, ice for the first24 hour,s heat after that. Headaches may worsen, or you may experience neck stiffness. If this occurs use your usual headache medication or a mild anti inflammatory such as advil or aleve. Please call if you have difficulty swallowing. Toradol IM after Botox to prevent injection triggered Migraines documented in this [facility] Work Phone: [phone]) 946-879207-06-2023 NoteHNO ID: [id number] Author: Woody Knox PA-C Service: ? Author Type: Physician Co Founder & Ceo Type: Progress Notes Filed: 05/26/2023 4:50 PM Note Text: This document has been created with the use of voice recognition technology. It may contain inaccuracies: misspellings, inaccurate syntax or word sense that escaped review. CHIEF COMPLAINT: Sherry Guardado is a 58 year old male who presents today for follow up of right knee. HISTORY OF PRESENT ILLNESS: PAIN EVALUATION 05/26/2023 1604 Pain Level: 4 Pain Location: Knee-Right Description: Sore Duration Units: Months Frequency: Intermittent Intervention/Comfort measure: Cold HISTORY: Sherry Guardado is here for follow up of complaints of MRI results of right knee after spontaneous hemarthrosis was discovered during previous visit. He states after the arthrocentesis his pain has significantly improved. Lab results from synovial fluid analysis and culture indicate no infection and large amount of red blood cells. 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 No other musculoskeletal complaints ROS: REVIEW OF SYMPTOMS: Constitutional: patient denies any recent fever or significant change in weight Gastrointestinal: patient denies any current abdominal discomfort Musculoskeletal: as noted in the HPI Neurologic: patient denies any peripheral numbness or radiation of pain SOCIAL HISTORY: Tobacco Use: Not on file ALLERGIES: ALLERGIES Allergen Reactions Hay Fever [Seasona* Cough Mold Cough Reglan [Metoclopram* Intolerance Panic attack symptoms PAST MEDICAL HISTORY: No past medical history on file. SOCIAL HISTORY: Tobacco Use: Not on file EXAMINATION: GENERAL: Appears healthy, well-nourished, no deformities. ORIENTATION: Alert and oriented to person place and time HABITUS: Normal GAIT: Normal, the patient did not have trouble getting onto the exam table. right knee exam no effusion Neutral Alignment Palpable large supra-lateral patellar loose calcific body Active 0 extension, flexion 120. central patellar tracking/ no patellofemoral crepitation No Pain with patellar compression, no Pain with palpating medial compartment, no Pain with palpating lateral compartment. stable to varus and valgus stresses. Calf soft and nontender. NV intact L3-S1 with 2+ DP pulse. 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 IMPRESSION: Encounter Diagnosis ICD-10-CM 1. Primary osteoarthritis of right knee M17.11 2. Loose, body, joint, knee, right M23.41 3. Hemarthrosis, right knee M25.061 Procedures Plan: Follow-up of right knee hemarthrosis and large osteochondral loose body. The symptoms have significantly improved and there is no laboratory finding suggesting infection. Pseudogout crystals were realized under microscope. The patient does have a large mobile joint body in suprapatellar pouch which does seem to cause him some mechanical symptoms historically. Discussed a potential option for arthroscopic or open removal of loose body. He will meet with me again in the future if he wants to consider that as an option. ANNELISE [facility]07-06-2023 History of Present illness Narrative* Woody Knox PA-C - 05/26/2023 4:35 PM EDT This document has been created with the use of voice recognition technology. It may contain inaccuracies: misspellings, inaccurate syntax or word sense that escaped review. CHIEF COMPLAINT: Sherry Guardado is a 58 year old male who presents today for follow up of right knee. 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 He states after the arthrocentesis his pain has significantly improved. Lab results from synovial fluid analysis and culture indicate no infection and large amount of red blood cells. 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 No other musculoskeletal complaints ROS: REVIEW OF SYMPTOMS: Constitutional: patient denies any recent fever or significant change in weight Gastrointestinal: patient denies any current abdominal discomfort Musculoskeletal: as noted in the HPI Neurologic: patient denies any peripheral numbness or radiation of pain SOCIAL HISTORY: Tobacco Use: Not on file ALLERGIES: ALLERGIES Allergen Reactions Hay Fever [Seasona* Cough Mold Cough Reglan [Metoclopram* Intolerance Panic attack symptoms PAST MEDICAL HISTORY: No past medical history on file. SOCIAL HISTORY: Tobacco Use: Not on file EXAMINATION: GENERAL: Appears healthy, well-nourished, no deformities. ORIENTATION: Alert and oriented to person place and time HABITUS: Normal GAIT: Normal, the patient did not have trouble getting onto the exam table. right knee exam no effusion Neutral Alignment Palpable large supra-lateral patellar loose calcific body Active 0 extension, flexion 120. central patellar tracking/ no patellofemoral crepitation No Pain with patellar compression, no Pain with palpating medial compartment, no Pain with palpating lateral compartment. stable to varus and valgus stresses. Calf soft and nontender. NV intact L3-S1 with 2+ DP pulse. 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 IMPRESSION: Encounter Diagnosis ICD-10-CM 1. Primary osteoarthritis of right knee M17.11 2. Loose, body, joint, knee, right M23.41 3. Hemarthrosis, right knee M25.061 Procedures Plan: Follow-up of right knee hemarthrosis and large osteochondral loose body. The symptoms have significantly improved and there is no laboratory finding suggesting infection. Pseudogout crystals were realized under microscope. The patient does have a large mobile joint body in suprapatellar pouch which does seem to cause himsome mechanical symptoms historically. Discussed a potential option for arthroscopic or open removal of loose body. He will meet with me again in the future if he wants to consider that as an option. Woody Knox PA-C documented [facility] NoteHNO ID: [id number] Author: JORGE LUIS Cevallos Service: Radiology Author Type: Certified Alcohol And Drug Counselor Type: Progress Notes Filed: 05/18/2023 8:18 AM Note Text: Radiology Service Progress Note DATE OF SERVICE: May 18, 2023 TIME: 8:11 AM PATIENT IDENTITY VERIFICATION COMPLETED USING TWO (2) STANDARD IDENTIFIERS: Name and Date of confirmed by patient verbally. FALL SCREENING: Has the patient had 2 falls in the last year or 1 fall with injury or currently using an Ambulatory Assistive Device (Walker, Cane, Wheelchair, Crutches, etc.)? No PATIENT GENDER DATA: Male PATIENT RELEVANT IMPLANT DATA REVIEWED: Yes ALLERGIES: Reviewed and unchanged CONTRAST ALLERGY: NO. EXAM: MRI - CONTRAST TYPE: GROUP II PERIPHERAL IV DATA: Ambulatory: A peripheral IV was started in the Left antecubital site with a Angio cath: 22 gauge. RADIOLOGY DEPARTMENT: MR; Exam(s) Completed: Lower MSK: Knee, right SIGNATURE: JORGE LUIS Cevallos PATIENT NAME: Sherry Guardado DATE: May 18, 2023 TIME: 8:11 AMWhite [id number] History of Present illness Narrative* JORGE LUIS Cevallos - 05/18/2023 8:40 AM EDT Radiology Service Progress Note DATE OF SERVICE: May 18, 2023 TIME: 8:11 AM PATIENT IDENTITY VERIFICATION COMPLETED USING TWO (2) STANDARD IDENTIFIERS: Name and Date of confirmed by patient verbally. FALL SCREENING: Has the patient had 2 falls in the last year or 1 fall with injury or currently using an Ambulatory Assistive Device (Walker, Cane, Wheelchair, Crutches, etc.)? No PATIENT GENDER DATA: Male PATIENT RELEVANT IMPLANT DATA REVIEWED: Yes ALLERGIES: Reviewed and unchanged CONTRAST ALLERGY: NO. EXAM: MRI - CONTRAST TYPE: GROUP II PERIPHERAL IV DATA: Ambulatory: A peripheral IV was started in the Left antecubital site with a Angio cath: 22 gauge. RADIOLOGY DEPARTMENT: MR; Exam(s) Completed: Lower MSK: Knee, right SIGNATURE: JORGE LUIS Cevallos PATIENT NAME: Sherry Guardado DATE: May 18, 2023 TIME: 8:11 AM documented in this encounterPar[facility]05-30-2023 NoteHNO ID: [id number] Author: RT Beth(R) Service: ? Author Type: Technologist Type: Progress Notes Filed: 04/19/2023 2:44 PM Note Text: Radiology Service Progress Note PATIENT NAME: Sherry Guardado DATE OF SERVICE: April 19, 2023 TIME: 2:44 PM PATIENT IDENTITY VERIFICATION COMPLETED USING TWO (2) IDENTIFIERS: Name and Date of confirmed by patient verbally. FALL SCREENING: Has the patient had 2 falls in the last year or 1 fall with injury or currently using an Ambulatory Assistive Device (Walker, Cane, Wheelchair, Crutches, etc.)? No PATIENT GENDER DATA: Male PATIENT RELEVANT IMPLANT DATA REVIEWED: Not Applicable RADIOLOGY DEPARTMENT: General X-ray: Exam(s) Completed: Lower Extremity X-Ray(s): Knee, AP / Lat / Tunne / Merchant Right and Wt. Bearing PERIPHERAL IV DATA: Not applicable SIGNED BY: RT Beth(R) April 19, 2023 2:44 [facility]05-30-2023 NoteHNO ID: [id number] Author: Woody Knox PA-C Service: ? Author Type: Physician Co Founder & Ceo Type: Progress Notes Filed: 04/19/2023 3:45 PM Note Text: This document has been created with the use of voice recognition technology. It may contain inaccuracies: misspellings, inaccurate syntax or word sense that escaped review. CHIEF COMPLAINT: Sherry Guardado is a 58 year old male who presents today for new evaluation of right knee. HISTORY OF PRESENT ILLNESS: PAIN EVALUATION 04/19/2023 1451 Pain Level: 5 Pain Location: Knee-Right Description: Stiffness Duration Amount of Time: 5 Duration Units: Days Frequency: Continuous Intervention/Comfort measure: Medication;Reposition;Relaxation;Cold;Positioning HISTORY: Sherry Guardado is here for follow up of complaints of right knee pain for about one week. He states there was no particular injury where he twisted it or fell onto it. Reports swelling and sensation of loose body. He does has a history of an intra-articular loose body noted on previous left knee dedicated radiographs. No cancer history. No unintentional weight loss. He has been seeing Marvin Smith for a long time regarding his left knee. Reports previous negative reaction to cortisone injections- tachycardia/palpitations. No cardiac history otherwise. Hx/o gout. No other musculoskeletal complaints ROS: REVIEW OF SYSTEMS: Constitutional: patient denies any recent fever or significant change in weight Cardiovascular: patient denies any chest pain at rest Respiratory: patient denies any shortness of breath or cough Gastrointestinal: patient denies any current abdominal discomfort Integumentary: patient denies any recent skin changes Musculoskeletal: as noted in the HPI Neurologic: as noted in the HPI Endocrine: patient denies a current diagnosis of diabetes Hematologic/Lymphatic: patient denies any easily bleeding, any recent infection and denies any recent observable lymph node enlargement Psychologic: negative for any recent depression or anxiety issues SOCIAL HISTORY: Tobacco Use: Not on file FAMILY HISTORY: No family history on file. ALLERGIES: ALLERGIES Allergen Reactions Hay Fever [Seasona* Cough Mold Cough Reglan [Metoclopram* Intolerance Panic attack symptoms PAST MEDICAL HISTORY: No past medical history on file. SOCIAL HISTORY: Tobacco Use: Not on file EXAMINATION: GENERAL: Appears healthy, well-nourished, no deformities. ORIENTATION: Alert and oriented to person place and time HABITUS: Normal GAIT: Normal, the patient did not have trouble getting onto the exam table. right knee exam large effusion, no bakers cyst neutral Alignment Active 10-15 extension, flexion 95. Good patellar tracking/ severe patella femoral crepitation no Pain with palpating medial compartment, no Pain with palpating lateral compartment. stable to varus and valgus stresses. Katherin is negative stable Anterior/posterior drawer. negative McMurrays No pain with palpation of pes anserine bursa palpable Dorsalis pedis pulse Calf soft and nontender. Hip exam is negative Intact sensation to light touch distally. RADIOGRAPHS: XR Obtained today and personally reviewed by myself demonstrating mobile intra-articular loose body in suprapatellar pouch. Severe patellofemoral degenerative changes IMPRESSION: Encounter Diagnosis ICD-10-CM 1. Hemarthrosis, right knee M25.061 BODY FLUID CULTURE AND GRAM STAIN SYNOVIAL FLUID, ROUTINE Large Joint Arthro/Inj: R knee joint 2. Primary osteoarthritis of right knee M17.11 XR KNEE GENERAL 4V AP BOTH/PA BOTH/LAT/MERC RIGHT 3. Encounter for observation for other suspected diseases and conditions ruled out Z03.89 MRI KNEE WO/W IVCON RIGHT Large Joint Arthro/Inj: R knee joint Informed Consent Consent Obtained: Written [place] Protocol A moment to CARE was completed. SIGN IN Personnel directly involved with the procedure wore the appropriate PPE. Special Equipment: Yes Patient/Surrogate Stated/Verified: Patient name, Date of , Relevant allergies and Intended procedure TIME OUT Intended patient and procedure match the source document(s). Consent documented and matches the intended procedure. Relevant labs, photos, and/or imaging studies have been reviewed. Correct side/site marked and visible. Medications required for procedure verified. No fire risk assessment and interventions applicable. No implant(s) inserted. 04/19/2023 3:41 PM The procedure site was prepped in the usual sterile fashion. Site: R knee joint Aspirate: 14 mL bloody; sent for lab analysis Outcome: Tolerated well, no immediate complications Post-injection instructions were reviewed with the patient and the patient voiced understanding of these instructions. SIGN OUT All instruments, equipment, possible retained foreign bodies accounted for. Plan: Pt presents with atraumatic he (more content not included)...[facility]05-17-2023 NoteHNO ID: [id number] Author: Porsha Paige MD Service: ? Author Type: Physician Type: Progress Notes Filed: 04/20/2023 1:45 AM Note Text: New patient CHIEF COMPLAINT: Full Body Skin Check (Limited. ) HISTORY OF PRESENT ILLNESS: Sherry Guardado is a 58 year old male who presents for limited skin exam. Main lesion of concern Location: left lower leg Lesion is non-itchy, not painful. Present for: 6 months Modifying factors: injury with car door, had stitches and wound care x 6 months. Past treatments: wound care at wound clinic. Pertinent Past Medical History: History of skin cancer: No -Personal History of Atypical Moles: Yes - at 19 year old. -Personal History of Extensive Sun Exposure/Blistering Sunburns:No -History of tanning bed usage: No Patient notes a very red patch of his left lower leg. He denies itchiness or pain but notes it gets redder without spreading. Patient denies tenderness as well. Family History Family history of melanoma: +MM in mother Past Medical History No past medical history on file. No past surgical history on file. Medications Current Outpatient Medications Medication Sig PROAIR HFA 90 mcg/actuation inhaler cyclobenzaprine (FLEXERIL) 10 mg tablet Take 10 mg by mouth three times daily. eszopiclone (LUNESTA) 3 mg tab gabapentin (NEURONTIN) 300 mg capsule SUMATRIPTAN SUCC/NAPROXEN SOD (TREXIMET ORAL) Take by mouth. GABAPENTIN (NEURONTIN ORAL) Take by mouth. fluticasone-salmeterol (ADVAIR DISKUS) 250-50 mcg/dose DsDv Inhale 1 Puff as instructed twice daily. ALBUTEROL INHALATION Inhale as instructed. rizatriptan (MAXALT) 10 mg tablet Take 10 mg by mouth as needed. May repeat in 2 hours if needed No current facility-administered medications for this visit. Allergies ALLERGIES Allergen Reactions Hay Fever [Seasona* Cough Mold Cough Reglan [Metoclopram* Intolerance Panic attack symptoms REVIEW OF SYSTEMS: Constitutional: No fever, chills, night sweats, unintentional weight loss Skin per HPI. Denies any other new/concerning skin growth. PHYSICAL EXAMINATION: Well appearing, pleasant, in NAD Alert and oriented x3 Mood and affect: normal Skin exam performed including face, ears, neck, chest, abdomen, bilateral upper extremities, and bilateral lower extremities. Underwear was kept on during exam per patient's preference. Pertinent findings include: - erythematous patch of the left lower leg - sun exposed areas with evenly pigmented light brown macules and patches with smooth borders - scattered brown macules and papules with regular borders and uniform color - brown waxy stuck-on papules throughout - bright red to violaceous dome-shaped vascular papules throughout - 5 mm light brown papule symmetric with uniform pigmentation, regular borders with terminal hair of the left ear - 1 cm brown plaque symmetric with uniform pigmentation, regular borders of the left cheek - 6 mm macule symmetric with uniform pigmentation, regular borders of the occipital scalp - brown, waxy papule of the left lower abdomen - open comedone of the lower lower chest - 6 mm right brown macule symmetric with uniform pigmentation, regular borders of the right upper chest - 1 cm brown macule symmetric with uniform pigmentation, regular borders of the left posterior shoulder - skin-colored, pedunculated papules of the right axillary fold ASSESSMENT/PLAN: Venous Stasis Venous stasis of the left lower leg. Recommended compression socks. Multiple benign nevi Provided reassurance regarding the benign nature of lesion(s). ABCD's of melanoma discussed. Recommended follow up as needed for any changing or new moles. The nature of sun-induced skin cancers was discussed. Sun avoidance, protective clothing, sunglasses and the use of broad spectrum 30-SPF sunscreens was advised. Lentigines Provided reassurance regarding the benign nature of lesion(s). Landers angiomas Provided reassurance regarding the benign nature of lesion(s). Seborrheic keratosis Provided reassurance regarding the benign nature of lesion(s). Acrochordon Provided reassurance regarding the benign nature of lesion(s) Return to Dermatology clinic in 1 year or sooner, if something concerning arises. Porsha Paige MD The documentation for this note was completed by Chi Todd LPN/ Sergey Tamayo acting as scribe for Porsha Paige MD. The HPI, PMH, and ROS that were documented by my preschool teacher's assistant, who was scribing during the encounter, were confirmed by me and I agree with the content of these sections. I have made any required additions or deletions to the HPI/PFSH/ROS as needed. The physical exam and any procedures were performed by me, unless otherwise noted. Porsha Piage, [facility]05-17-2023 Instructions* Patient Instructions* Sergey Tamayo - 04/06/2023 1:02 PM EDT Images from the original note were not included. Compression Socks - CompressionPRO socks. Sun protection You need to protect your skin from the sun every day, even when it's cloudy. That's because the sun's damaging ultraviolet A (UVA) and ultraviolet B (UVB) rays go right through clouds. Too much sun can make your skin wrinkly and might even give you skin cancer. To protect yourself: Use sunscreen with a sun protection factor (SPF) 30 or above and reapply every 2 hours Sunscreens are not an alternative to clothing and shade, rather they offer additional protection. No sunscreen will provide 100% protection. Look for a sunscreen that protects you from both UVA and UVB rays. When a sunscreen protects against both, the bottle should say the sunscreen offers broad-spectrum sun protection (if you want to make sure, ingredients should include zinc oxide or avobenzone). If you have eczema or sensitive skin a mineral sunscreen would be ideal for your skin type (should include zinc oxide and titanium dioxide) Always make sure the bottle hasn t , as sunscreens loose efficacy when Additional sun protection can be achieved by wearing a rash guards, hat, sunglasses, and clothes that cover your arms and legs. You can make your own clothes sun protective with Sun Guard Laundry Treatment UV Protectant (for sale on [employer]), just with one laundry cycle with Sun Guard gives clothing sun protection for 20 future washes and does not change the way your clothes look or feel. Seek shade when the sun's rays are strongest, between 10 a.m. and 2 p.m. Do not use tanning beds Keep babies and young children out of direct sunlight. Children should use rash guards during outdoor activities. . Check out: www.[employer] - sun protective clothing and hats with built in UV protection documented in this encounterPar[facility] History of Present illness Narrative* Porsha Paige MD - 04/06/2023 12:20 PM EDT New patient CHIEF COMPLAINT: Full Body Skin Check (Limited. ) HISTORY OF PRESENT ILLNESS: Sherry Guardado is a 58 year old male who presents for limited skin exam. Main lesion of concern Location: left lower leg Lesion is non-itchy, not painful. Present for: 6 months Modifying factors: injury with car door, had stitches and wound care x 6 months. Past treatments: wound care at wound clinic. Pertinent Past Medical History: History of skin cancer: No -Personal History of Atypical Moles: Yes - at 19 year old. -Personal History of Extensive Sun Exposure/Blistering Sunburns:No -History of tanning bed usage: No Patient notes a very red patch of his left lower leg. He denies itchiness or pain but notes it getsredder without spreading. Patient denies tenderness as well. Family History Family history of melanoma: +MM in mother Past Medical History No past medical history on file. No past surgical history on file. Medications Current Outpatient Medications Medication Sig PROAIR HFA 90 mcg/actuation inhaler cyclobenzaprine (FLEXERIL) 10 mg tablet Take 10 mg by mouth three times daily. eszopiclone (LUNESTA) 3 mg tab gabapentin (NEURONTIN) 300 mg capsule SUMATRIPTAN SUCC/NAPROXEN SOD (TREXIMET ORAL) Take by mouth. GABAPENTIN (NEURONTIN ORAL) Take by mouth. fluticasone-salmeterol (ADVAIR DISKUS) 250-50 mcg/dose DsDv Inhale 1 Puff as instructed twice daily. ALBUTEROL INHALATION Inhale as instructed. rizatriptan (MAXALT) 10 mg tablet Take 10 mg by mouth as needed. May repeat in 2 hours if needed No current facility-administered medications for this visit. Allergies ALLERGIES Allergen Reactions Hay Fever [Seasona* Cough Mold Cough Reglan [Metoclopram* Intolerance Panic attack symptoms REVIEW OF SYSTEMS: Constitutional: No fever, chills, night sweats, unintentional weight loss Skin per HPI. Denies any other new/concerning skin growth. PHYSICAL EXAMINATION: Well appearing, pleasant, in NAD Alert and oriented x3 Mood and affect: normal Skin exam performed including face, ears, neck, chest, abdomen, bilateral upper extremities, and bilateral lower extremities. Underwear was kept on during exam per patient's preference. Pertinent findings include: - erythematous patch of the left lower leg - sun exposed areas with evenly pigmented light brown macules and patches with smooth borders - scattered brown macules and papules with regular borders and uniform color - brown waxy stuck-on papules throughout - bright red to violaceous dome-shaped vascular papules throughout - 5 mm light brown papule symmetric with uniform pigmentation, regular borders with terminal hair of the left ear - 1 cm brown plaque symmetric with uniform pigmentation, regular borders of the left cheek - 6 mm macule symmetric with uniform pigmentation, regular borders of the occipital scalp - brown, waxy papule of the left lower abdomen - open comedone of the lower lower chest - 6 mm right brown macule symmetric with uniform pigmentation, regular borders of the right upper chest - 1 cm brown macule symmetric with uniform pigmentation, regular borders of the left posterior shoulder - skin-colored, pedunculated papules of the right axillary fold ASSESSMENT/PLAN: Venous Stasis Venous stasis of the left lower leg. Recommended compression socks. Multiple benign nevi Provided reassurance regarding the benign nature of lesion(s). ABCD's of melanoma discussed. Recommended follow up as needed for any changing or new moles. The nature of sun-induced skin cancers was discussed. Sun avoidance, protective clothing, sunglasses and the use of broad spectrum 30-SPF sunscreens was advised. Lentigines Provided reassurance regarding the benign nature of lesion(s). Landers angiomas Provided reassurance regarding the benign nature of lesion(s). Seborrheic keratosis Provided reassurance regarding the benign nature of lesion(s). Acrochordon Provided reassurance regarding the benign nature of lesion(s) Return to Dermatology clinic in 1 year or sooner, if something concerning arises. Porsha Paige MD The documentation for this note was completed by Chi Todd LPN/ Sergey Tamayo acting as scribe for Porsha Paige MD. The HPI, PMH, and ROS that were documented by my preschool teacher's assistant, who was scribing during the encounter, were confirmed by me and I agree with the content of these sections. I have made any required additions or deletions to the HPI/PFSH/ROS as needed. The physical exam and any procedures were performed by me, unless otherwise noted. Porsha Paige MD documented [facility] History of Present illness Narrative* Resumed Botox end of January. Feels it has been helpful to decreased migraine severity and frequency.Had a 2month gap on Botox due to insurance denial. * Continues Emgality monthly and helpful to further reduce frequency and severity of migraine. Takes this on the 2nd week of the month . * Experiencing 3-4 migraines per month. Down from 8 without Botox on board * treats with Treximet.Works in 30 min. Has sumatriptan injection but has not needed, has DHE nasal but has not needed. * Daily headache back of head and neck , occasionally frontal. Not 24/7 but off and on through the day. Light and sound sensitivity occur later in the day. * Daily headache pain range 0-6/10. Frequently wakes with headache. Does take Flexeril every HS * Better on weekends when doesn't have to wake early. Can sleep later in the summer as well. * 2 headache free days most months. . Vicodin daily to control from escalating into migraine. * Has been using Sprix midday to keep headache from escalating to migraine * Treating migraines with Treximet. Works in 30 min. 1-2 debilitating and more severe per month. Has to modify activities. * Patient had 15 headache days a month or more, 8 meeting migraine criteria. They had tried and failed 3 preventative and 3 abortives. Presently their headaches are well controlled because of Botox Therapy. It has reduced the headaches by 50%. * Individual has history of recurrent clonic or tonic involuntary contractions of one or more of the following muscles: sternocleidomastoid, splenius, trapezius, and/or posterior cervical muscles. Condition persisted for greater than 6 months. Botox is providing 50% reduction in symptoms of pain * Migraine seems to occur in back of head and can radiate to top of head, throbbing nausea more severe. Sometimes behind eyes. If gets in lower neck and shoulder and seems to longer. * Migraine Associated light sensitivity, neck pain and tension * Triggers may be cashews and nuts, possible milk/lactose, lack of sleep. * Lunesta helpful for sleep * Using CPAP for sleep, just started in December. Can wear it all night long now. Does wake with lessheadaches in the morning. If forgets to put it on for the night is more likely to wake with headache. * OARRS Report Last Screening Date: 05/09/2023 * I have personally reviewed the OARRS report for SHERRY GUARDADO. I have considered the risks of abuse, dependence, addiction and diversion. I believe that it is clinically appropriate for this patient to be prescribed this medication based on documented diagnosis. * OARRS report is initialed/dated and scanned into the electronic medical record. * I have the following concerns: none. * Last urine drug screening date/ordered today: 05/09/2023 * Controlled Substance Agreement: * I have printed this form and reviewed each line item with the patient and the patient has verbalized understanding. * Date of the last Controlled Substance Agreement: 05/09/2023 * OPIOID * Opioid Risk Screening: * Opioid Risk Tool * Last opioid risk screening date/ordered today: 07/21/2022 * Patient's total score is 0, within range of Low Risk (0-3). * Pain Scale Screening: * Pain Assessment and Documentation Tool (PADT) * Date of Assessment: 05/09/2023 * Analgesia: * Patient reports his pain level on average during the past week is 3 on a 0 - 10 scale. * Patient reports that his pain level at its worst during the past week was 7 on a 0 -10 scale. * 100% % of pain has been relieved during the past week per patient * Patient states that the amount of pain relief he is now obtaining from his current pain reliever(s)is enough to make a real difference in his life. * Query to clinician: Is the patient's pain relief clinically significant? Yes * Activities of Daily Living: * Physical functioning: Same * Family relationships: Same * Social relationships: Same * Mood: Same * Sleep patterns: Same * Overall functioning: Same * Adverse Events: * No, SHERRY GUARDADO is experiencing following side effects from current pain reliever. * Patients overall severity of side effect: None * Is your overall impression that this patient is benefiting (e.g., benefits, such as pain relief, outweigh side effects) from opioid therapy? Yes * Specific Analgesic Plan: Continue present regimen. * Comments:. Vicodin to manage daily headaches and migraine along with Treximet when pain escalate tomigraine. Adjunct Emgality. rEstart Botox, [place] Emgality for insurance. * SLEEP AIDS * Activities of Daily Living: * Yes, it is my opinion that this patient is benefitting from sleep aid therapy . * Physical functioning: Same * Family relationships: Same * Social relationships: Same * Mood: Same * Overall functioning: Same * Sleep patterns: Same * Referrals or Alternatives: None, Pain Management: Tried ablation/nerve block- ineffective 2012, Physical Therapy: 2013 last, Acupuncture: 2011, Massage: . * Current or Past Use of Non-Controlled Medication: NSAID, Muscle Relaxant, Melatonin, Antihistamines, Gabapentin. [id number] 170 DO Work Phone: [phone] NoteHNO ID: [id number] Author: Gisele Smith PA-C Service: ? Author Type: Physician Co Founder & Ceo Type: Progress Notes Filed: 12/06/2022 9:54 AM Note Text: DEPARTMENT OF ORTHOPAEDICS SUBJECTIVE Pt presents today for left knee OA, requesting CSI. Denies any complication from previous injections. OBJECTIVE Large Joint Arthro/Inj: L knee joint Informed Consent Consent Obtained: Verbal [place] Protocol A moment to CARE was completed. SIGN IN Personnel directly involved with the procedure wore the appropriate PPE. Special Equipment: N/A Patient/Surrogate Stated/Verified: Patient name, Date of , Relevant allergies and Intended procedure TIME OUT Intended patient and procedure match the source document(s). Consent documented and matches the intended procedure. Relevant labs, photos, and/or imaging studies have been reviewed. Correct side/site marked and visible. Medications required for procedure verified. No fire risk assessment and interventions applicable. No implant(s) inserted. 12/06/2022 9:54 AM The procedure site was prepped in the usual sterile fashion. Site: L knee joint Medications: 80 mg triamcinolone acetonide 40 mg/mL Anesthetics: 8 mL lidocaine (PF) 10 mg/mL (1 %) Outcome: Tolerated well, no immediate complications Post-injection instructions were reviewed with the patient and the patient voiced understanding of these instructions. SIGN OUT No specimen collected. No instruments, equipment or retained foreign bodies applicable. Post-procedure follow-up management communicated and Plan of Care Visit completed when applicable ASSESSMENT Primary osteoarthritis of left knee (primary encounter diagnosis) PLAN Follow up as needed [facility]* Encounter Date Diagnosis Assessment Notes Treatment Notes Treatment Clinical Notes Aug, Migraine with aura and without status migrainosus, not intractable (ICD-10 - G43.109) He has seen some improvement in headaches when using machine; it's quite possible that there would be even more improvement with increased usage hours and total sleep time. In general, headaches of all types, but particularly migraine headaches, are sensitive to sleep quality and quantity. Many patients with headache find improvements in severity and frequency after sleep problems are resolved. 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 I encouraged him to use the machine as much as possible. Aug, Intolerance of continuous positive airway pressure (CPAP) ventilation (ICD-10 - Z78.9) Encouraged to wear all night. Inspire could be an option for him if he wants Aug, Obstructive sleep apnea (ICD-10 - G47.33) Fortunately the patient is using and benefiting from treatment. Encouraged him to wear every night, all night, for entire sleep time. Encouraged him to leave on after bathroom trip and to use entire night. (Sometimes he'll take off when the 4 hour target is reached). We discussed inspire as an option should he want to go that way. At times pressure can feel low to him and he would like to try increasing minimum, so new settings will be auto CPAP peak 14 min 6 Aug, Other Call if any questions or problems. Patient is advised to work on healthy diet choices and appropriate servings, weight control, regular exercise as directed, and reduce fat intake. Use machine regularly, and keep up with mask changes as needed. Call if problems with mask toleration, increased sleepiness, or poor response to treatment. . Bouf Other 07-01-2022 History of Present illness Narrative* Covid infection in May for second time. Has had difficult allergies since that time. Feels has sinus infection. PCP does not treat until symptoms for 2 weeks so no prescribed antibiotics did take 5 days of qd azithromycin he had around which is helpful as yet. Currently at 2 week point of symptoms. Congestion. Poor sleep due to congestion and cant wear CPAP. ENT usually prescribes itraconazole and is out of town currently until day. * Did wake with migraine today. Took Treximet and a vicodin early this morning and went back to sleep. Still lingering now. Pain level 6/10. Would like sumatriptan injection in office today. * Insurance will not cover both Botox and Emgality any longer. Will try Emgality alone and report back migraine experience this next month as Botox is not worn off. * Daily headache back of head and neck , occasionally frontal. Not 24/7 but off and on through the day. Light and sound sensitivity occur later in the day. * Daily headache pain range 0-6/10. Frequently wakes with headache. Does take Flexeril every HS * Better on weekends when doesn't have to wake early. Can sleep later in the summer as well. * 2 headache free days most months. This past month has had no headache free days. . Vicodin daily tocontrol from escalating into migraine. * Increased migraines past month. Treating 8-9 migraines past month with Treximet. Works in 30 min. 1-2 debilitating and more severe per month. Has to stay in bed. . Winter is usually better without heat and humidity. * Has not used Sprix lately- Refilled and reinstructed on use. . Treximet or sumatriptan injection. Has not been using sumatriptan injection as forgets about it. Plans to restart * Patients cervical dystonia is acting up without the BOTOX which was denied by [employer]. Subocciptal muscles a re the most affected with a prominent retrocollis that causes headaches. Patient was able to limit opiod therapy with Botox and now is increasing use of vicoden, now that insurance has denied this FDA approved therapy. * Individual has history of recurrent clonic or tonic involuntary contractions of one or more of the following muscles: sternocleidomastoid, splenius, trapezius, and/or posterior cervical muscles. Condition persisted for greater than 6 months. Botox is providing 50% reduction in symptoms of pain * Emgality has reduced frequency of severe migraines that require Treximet. Has not used DHE in past 90 days. * Taking Treximet to treat and effective to relieve adds Vicodin to treat completely Treximet Takes awhile to work * Migraine seems to occur in back of head and can radiate to top of head, throbbing nausea more severe. Sometimes behind eyes. If gets in lower neck and shoulder and seems to longer. * Migraine Associated light sensitivity, neck pain and tension * Triggers may be cashews and nuts, possible milk/lactose, lack of sleep. * Patient had 15 headache days a month or more, 8 meeting migraine criteria. They had tried and failed 3 preventative and 3 abortives. Presently their headaches are well controlled because of Botox Therapy. It has reduced the headaches by 50%. * Vicodin helpful to completely treat migraine if Treximet doesn't work * Will take Excedrin migraine 2-3 times per week to manage daily headache, or if Vicodin does not work completely * Lunesta helpful for sleep * Using CPAP for sleep, just started in December. Can't tolerate all night long. If could wear all night, feels he wouldn't wake with a headache. Can tolerate 5.5-6 hours * OARRS Report Last Screening Date: 04/20/2022 * I have personally reviewed the OARRS report for SHERRY GUARDADO. I have considered the risks of abuse, dependence, addiction and diversion. I believe that it is clinically appropriate for this patient to be prescribed this medication based on documented diagnosis. * OARRS report is initialed/dated and scanned into the electronic medical record. * I have the following concerns: none. * Last urine drug screening date/ordered today: 04/20/2022 * Controlled Substance Agreement: * I have printed this form and reviewed each line item with the patient and the patient has verbalized understanding. * Date of the last Controlled Substance Agreement: 04/20/2022 * OPIOID * Opioid Risk Screening: * Opioid Risk Tool * Last opioid risk screening date/ordered today: 07/21/2022 * Patient's total score is 0, within range of Low Risk (0-3). * Pain Scale Screening: * Pain Assessment and Documentation Tool (PADT) * Date of Assessment: 07/21/2022 * Analgesia: * Patient reports his pain level on average during the past week is 3 on a 0 - 10 scale. * Patient reports that his pain level at its worst during the past week was 7 on a 0 -10 scale. * 100% % of pain has been relieved during the past week per patient * Patient states that the amount of pain relief he is now obtaining from his current pain reliever(s)is enough to make a real difference in his life. * Query to clinician: Is the patient's pain relief clinically significant? Yes * Activities of Daily Living: * Physical functioning: Same * Family relationships: Same * Social relationships: Same * Mood: Same * Sleep patterns: Same * Overall functioning: Same * Adverse Events: * No, SHERRY GUARDADO is experiencing following side effects from current pain reliever. * Patients overall severity of side effect: None * Is your overall impression that this patient is benefiting (e.g., benefits, such as pain relief, outweigh side effects) from opioid therapy? Yes * Specific Analgesic Plan: Continue present regimen. * Comments:. Vicodin to manage daily headaches and migraine along with Treximet when pain escalate tomigraine. Adjunct Emgality. * SLEEP AIDS * Activities of Daily Living: * Yes, it is my opinion that this patient is benefitting from sleep aid therapy . * Physical functioning: Same * Family relationships: Same * Social relationships: Same * Mood: Same * Overall functioning: Same * Sleep patterns: Same * Referrals or Alternatives: None, Pain Management: Tried ablation/nerve block- ineffective 2012, Physical Therapy: 2013 last, Acupuncture: 2011, Massage: . * Current or Past Use of Non-Controlled Medication: NSAID, Muscle Relaxant, Melatonin, Antihistamines, Gabapentin. YR-[id number] 170 DO Work Phone: [phone] History of Present illness Narrative* Gisele Smith PA-C - 04/20/2022 10:42 AM EDT Associated Order(s): Large Joint Arthro/Inj: L knee joint Post-Procedure Diagnose(s): Primary osteoarthritis of left knee Images from the original note were not included. DEPARTMENT OF ORTHOPAEDICS SUBJECTIVE Pt presents today for left knee OA, requesting cortisone injection. Denies any complication from previous injections. OBJECTIVE Large Joint Arthro/Inj: L knee joint Informed Consent Consent Obtained: Verbal [place] Protocol A moment to CARE was completed. SIGN IN Personnel directly involved with the procedure wore the appropriate PPE. Special Equipment: N/A Patient/Surrogate Stated/Verified: Patient name, Date of , Relevant allergies and Intended procedure TIME OUT Intended patient and procedure match the source document(s). Consent documented and matches the intended procedure. Relevant labs, photos, and/or imaging studies have been reviewed. Correct side/site marked and visible. Medications required for procedure verified. No fire risk assessment and interventions applicable. No implant(s) inserted. 04/20/2022 10:43 AM The procedure site was prepped in the usual sterile fashion. Site: L knee joint Medications: 80 mg triamcinolone acetonide 40 mg/mL Anesthetics: 8 mL lidocaine (PF) 10 mg/mL (1 %) Outcome: Tolerated well, no immediate complications Post-injection instructions were reviewed with the patient and the patient voiced understanding of these instructions. SIGN OUT No specimen collected. No instruments, equipment or retained foreign bodies applicable. Post-procedure follow-up management communicated and Plan of Care Visit completed when applicable ASSESSMENT Primary osteoarthritis of left knee (primary encounter diagnosis) PLAN Follow up as needed Gisele Smith PA-C [facility] History of Present illness Narrative* Gisele Smith PA-C - 03/26/2022 9:13 AM EDT SUBJECTIVE Mr. Guardado presents for left knee follow-up. Established patient of Dr. Anton Pt reports: Patient presents today for evaluation of left knee pain/osteoarthritis. Ppatient has undergone conservative treatment including: Rest, ice, oral NSAIDs, oral analgesics, steroid injections x 3 , structured physical therapy program 6 weeks and previous Euflexxa injection series. Patient received 6 months relief of his left knee pain after gel injection however is noticing a slow return of left knee pain at this time. He would like to consider repeating gel injection currently as he had significant relief of pain from this over the past 6 months Review of Systems: Negative for chest pain, shortness of breath, fever, chills, malaise. Constitutional signs: no Review of all other systems is noncontributory Past medical history; ACTIVE PROBLEM LIST Arthritis of Knee Hydrarthrosis Past surgical history: No past surgical history on file. Medications: Current Outpatient Prescriptions on File Prior to Visit: NAPROXEN/ESOMEPRAZOLE MAG (VIMOVO ORAL) Take by mouth. SUMATRIPTAN SUCC/NAPROXEN SOD (TREXIMET ORAL) Take by mouth. GABAPENTIN (NEURONTIN ORAL) Take by mouth. FEXOFENADINE/PSEUDOEPHEDRINE (SUSAN-D 24 HOUR ORAL) Take by mouth. fluticasone-salmeterol (ADVAIR DISKUS) 250-50 mcg/dose DsDv Inhale 1 Puff as instructed twice daily. ALBUTEROL INHALATION Inhale as instructed. rizatriptan (MAXALT) 10 mg tablet Take 10 mg by mouth as needed. May repeat in 2 hours if needed baclofen 10 mg tablet Take 1 tablet by mouth three times daily. Allergies: Review of patient's allergies indicates: No Known Allergies OBJECTIVE There is no height or weight on file to calculate BMI. GENERAL: no acute distress, alert, oriented x 3, appropriate mood and affect Left Knee: ALIGNMENT: Varus GAIT: Antalgic SKIN: normal EFFUSION: Mild WARMTH: Negative TENDERNESS: Medial joint line ROM: Full range of motion STRENGTH: 5/5 B hip flexors, quadriceps, hamstrings, anterior tibialis, gastroc- soleus, & EHL STABILITY: Katherin negative Pain with varus or valgus stress: Negative CLARICE'S TEST: Negative CREPITUS: Mild PATELLO-FEMORAL TESTS: J-sign: Negative Tenderness at plica: Negative Patellar apprehension: Negative Patello-femoral grind: Negative NEUROLOGICAL EXAM: sensation intact to light touch SPN, DPN, sural, saphenous, & plantar distributions VASCULAR EXAM: popliteal & pedal pulses palpable HIP: tenderness: None, ROM: full & pain free LUMBAR SPINE: straight leg raising sign: Negative LYMPH NODES: no adenopathy palpable Mar 01 2017 8:53AM CHX [id number] - XR KNEE 2V/WT BEAR/MERCHANT - LEFT / PROCEDURE REASON: multiple diagnoses * * * * Physician Interpretation * * * * RESULT: HISTORY: no injury pain for a few years. Pain in left knee Unilateral primary osteoarthritis, left knee . TECHNIQUE: XR KNEE 2V/WT BEAR/MERCHANT Laterality: LEFT Number of different views (projections): 3 COMPARISON: 01/14/2015 RESULT: There is no evidence of suprapatellar effusion or fracture. Again seen is degenerative arthritis with tricompartmental osteophytes, moderate medial compartment joint space loss, and severe lateral patellofemoral joint space loss. Lateral patellar subluxation again seen. Comparison views of the right knee also show degenerative arthritis. - Impression IMPRESSION: Osteoarthritis as described. ASSESSMENT Primary osteoarthritis of left knee (primary encounter diagnosis) PLAN The following plan was agreed upon: At this time, due to failure of conservative treatment including: ice, rest, elevation, home exercise program, bracing, NSAIDS (motrin and naprosyn), structured physical therapy program, cortisone injection x 2 we recommend patient undergo Euflexxa injection x 3 left knee injection series.This willhelp to reduce pain, increase mobilty, improve patients ability to perform ADLs and thus improve the patients quality of life. Gisele Smith PA-C This note is created with the assistance of a speech-recognition program. It may contain inaccuracies such as misspellings,inaccuarate syntax or word sense that escaped review. While intending to generate a document that accurately reflects the content of the visit, no guarantee can be provided that every mistake has been identified and corrected by editing. Rationale for Viscosupplementation: Renewal Request As a part of a multimodal treatment plan, we are requesting authorization of hyaluronic acid viscosupplementation injections for the improvement of symptoms related to osteoarthritis. Authorization is being requested for treatment of the Left knee. Rationale for authorization of these injections is based on the following elements: Signs and Symptoms Length of symptoms > 3 months Pain interferes with ADLs? Yes Radiographic evidence of OA? Yes Previous Treatments Bracing attempted? Yes Formal Physical Therapy (PT)/ Home Exercise Program (HEP) attempted? Patient completed a comprehensive PT program with compliance to HEP NSAID medication attempted? Yes Corticosteroid injection attempted? Patient has had a previous CSI with intermittent relief Weight management attempted? Yes Prior Viscosupplementation Prior viscosupplementation? Yes Prior viscosupplementation improved symptoms? Yes Prior viscosupplementation improved symptoms at least 6 months? Yes Patient continues to be symptomatic despite above treatment attempts. Requested Viscosupplementation Preferred product: Euflexxa Alternative product: Euflexxa or payor preferred [facility] History of Present illness Narrative* Gisele Smith PA-C - 03/10/2022 9:29 AM EDT Associated Order(s): Large Joint Arthro/Inj: R knee joint Post-Procedure Diagnose(s): Primary osteoarthritis of right knee Images from the original note were not included. DEPARTMENT OF ORTHOPAEDICS SUBJECTIVE Pt presents today for right knee osteoarthritis, requesting cortisone injection. Denies any complication from previous injections. OBJECTIVE Large Joint Arthro/Inj: R knee joint Informed Consent Consent Obtained: Verbal [place] Protocol A moment to CARE was completed. SIGN IN Personnel directly involved with the procedure wore the appropriate PPE. Special Equipment: N/A Patient/Surrogate Stated/Verified: Patient name, Date of , Relevant allergies and Intended procedure TIME OUT Intended patient and procedure match the source document(s). Consent documented and matches the intended procedure. Relevant labs, photos, and/or imaging studies have been reviewed. Correct side/site marked and visible. Medications required for procedure verified. No fire risk assessment and interventions applicable. No implant(s) inserted. 03/10/2022 9:30 AM The procedure site was prepped in the usual sterile fashion. Site: R knee joint Medications: 80 mg triamcinolone acetonide 40 mg/mL Anesthetics: 8 mL lidocaine (PF) 10 mg/mL (1 %) Outcome: Tolerated well, no immediate complications Post-injection instructions were reviewed with the patient and the patient voiced understanding of these instructions. SIGN OUT No specimen collected. No instruments, equipment or retained foreign bodies applicable. Post-procedure follow-up management communicated and Plan of Care Visit completed when applicable ASSESSMENT Primary osteoarthritis of right knee (primary encounter diagnosis) PLAN Follow up as needed Gisele Smith PA-C [facility] History of Present illness Narrative* Danisha Kwon, RT(R) - 03/10/2022 9:04 AM EDT Radiology Service Progress Note PATIENT NAME: Sherry Guardado DATE OF SERVICE: March 10, 2022 TIME: 9:04 AM PATIENT IDENTITY VERIFICATION COMPLETED USING TWO (2) IDENTIFIERS: Name and Date of confirmedby patient verbally. FALL SCREENING: Has the patient had 2 falls in the last year or 1 fall with injury or currently using an Ambulatory Assistive Device (Walker, Cane, Wheelchair, Crutches, etc.)? No PATIENT GENDER DATA: Male PATIENT RELEVANT IMPLANT DATA REVIEWED: Not Applicable RADIOLOGY DEPARTMENT: General X-ray: Exam(s) Completed: Lower Extremity X- Ray(s): Knee, AP / Lat / Tunne / Merchant Right and Wt. Bearing PERIPHERAL IV DATA: Not applicable SIGNED BY: RT Silas(R) March 10, 2022 9:04 AM [facility] Evaluation note* Encounter Date Diagnosis Assessment Notes Treatment Notes Treatment Clinical Notes Sep, Obstructive sleep apnea (adult) (pediatric) (ICD-10 - G47.33) His history and physical are suggestive of sleep apnea, and so it is not surprising that his HST showed significant apnea, with an AHI of almost 17. We reviewed his home sleep test in detail and he expresses understanding. We also discussed treatment options. I encouraged him to work on weight reduction as a long-term intervention for sleep apnea, and discussed strategies for achieving this goal. We also discussed positive airway pressure treatment in detail. He is comfortable with starting auto CPAP maximum 15 minimum 5 and we anticipate return for 31 to 90-day visit Sep, Migraine with aura and without status migrainosus, not intractable (ICD-10 - G43.109) headaches of all types, but particularly migraine headaches, are sensitive to sleep quality and quantity. Many patients with headache find improvements in severity and frequency after sleep problems are resolved. Sep, BMI 34.0-34.9,adult (ICD-10 - Z68.34) Weight control strategies emphasizing portion control, good food choices, low calorie snacking, avoiding calorie-containing liquids, and calorie tracking were reviewed in detail. Emphasis was placed budgeting calories so there can be room for appropriate quantities of favorite foods, and on making gradual progress rather than seeking short term loss. 24 Sep, 2021 Essential (primary) hypertension (ICD-10 - I10) Control of sleep apnea will frequently have a positive effect on blood pressure control, and may additionally reduce blood pressure lability. Sep, Other The diagnosis o f Sleep Apnea was reviewed in detail, and handout materials were provided. The patient expresses good understanding, We also reviewed the medical and accident risks associated with sleep apnea and excessive fatigue. The patient is advised to adhere to a proper sleep hygiene schedule and to assure adequate total sleep time; The patient was advised to continue efforts at progressive weight loss, including decreased overall caloric intake quantity and better food choices.The patient was advised to call or return any difficulties arise, including changes in symptoms and/or problems with treatment Bouf Other 08-02-2021 History of Present illness Narrative* PCP suspects sleep apnea. He will schedule later in august. If sleep on back, wakes with headache. * Migraines increased with heat and humidity. Last month had 7-8 migraines treating with Treximet. Only one really severe. Last couple day have been better. Usually monthly only 2-3 migraines with Botox on board. * Individual has history of recurrent clonic or tonic involuntary contractions of one or more of the following muscles: sternocleidomastoid, splenius, trapezius, and/or posterior cervical muscles. Condition persisted for greater than 6 months. Botox is providing 50% reduction in symptoms of pain * Daily headache back of head and neck , occasionally frontal. Not 24/7 but off and on through the day. Light and sound sensitivity occur later in the day. * Daily headache pain range 0-6/10. Frequently wakes with headache. Does take Flexeril every HS * Better on weekends when doesn't have to wake early. * Worsens with heat * 3 headache free days past month. Vicodin to control from escalating into migraine. * Emgality has reduced frequency of severe migraines that require Treximet. Has DHE but is not using frequently * Taking Treximet to treat and effective to relieve adds Vicodin to treat completely Treximet Takes awhile to work * Migraine seems to occur in back of head and can radiate to top of head, throbbing nausea more severe. Sometimes behind eyes. * Migraine Associated light sensitivity, neck pain and tension * Triggers may be cashews and nuts, possible milk/lactose * Patient had 15 headache days a month or more, 8 meeting migraine criteria. They had tried and failed 3 preventative and 3 abortives. Presently their headaches are well controlled because of Botox Therapy. It has reduced the headaches by 50%. * Lunesta for sleep is helpful. Insurance not covering one daily. Office will pursue PA * Vicodin helpful to completely treat migraine * OARRS Report Last Screening Date: 07/23/2021 * I have personally reviewed the OARRS report for SHERRY GUARDADO. I have considered the risks of abuse, dependence, addiction and diversion. I believe that it is clinically appropriate for this patient to be prescribed this medication based on documented diagnosis. * OARRS report is initialed/dated and scanned into the electronic medical record. * I have the following concerns: none. * Last urine drug screening date/ordered today: 04/22/2021 * Controlled Substance Agreement: * I have printed this form and reviewed each line item with the patient and the patient has verbalized understanding. * Date of the last Controlled Substance Agreement: 04/22/2021 * OPIOID * Opioid Risk Screening: * Opioid Risk Tool * Last opioid risk screening date/ordered today: 07/21/2020 * Patient's total score is 0, within range of Low Risk (0-3). * Pain Scale Screening: * Pain Assessment and Documentation Tool (PADT) * Date of Assessment: 07/23/2021 * Analgesia: * Patient reports his pain level on average during the past week is 3 on a 0 - 10 scale. * Patient reports that his pain level at its worst during the past week was 7 on a 0 -10 scale. * 90% % of pain has been relieved during the past week per patient * Patient states that the amount of pain relief he is now obtaining from his current pain reliever(s)is enough to make a real difference in his life. * Query to clinician: Is the patient's pain relief clinically significant? Yes * Activities of Daily Living: * Physical functioning: Same * Family relationships: Same * Social relationships: Same * Mood: Same * Sleep patterns: Same * Overall functioning: Same * Adverse Events: * No, SHERRY GUARDADO is experiencing following side effects from current pain reliever. * Patients overall severity of side effect: None * Is your overall impression that this patient is benefiting (e.g., benefits, such as pain relief, outweigh side effects) from opioid therapy? Yes * Specific Analgesic Plan: Continue present regimen. * Comments:. Vicodin to manage daily headaches and migraine along with Treximet when pain escalate tomigraine. Adjunct Emgality. * SLEEP AIDS * Activities of Daily Living: * Yes, it is my opinion that this patient is benefitting from sleep aid therapy . * Physical functioning: Same * Family relationships: Same * Social relationships: Same * Mood: Same * Overall functioning: Same * Sleep patterns: Same * Referrals or Alternatives: None, Pain Management: Tried ablation/nerve block- ineffective 2012, Physical Therapy: 2013 last, Acupuncture: 2011, Massage: . * Current or Past Use of Non-Controlled Medication: NSAID, Muscle Relaxant, Melatonin, Antihistamines, Gabapentin. [facility] 170 DO Work Phone: chief complaint Narrative - Reported* Neurologic Evaluation. * Follow up migraine and headache management. 90 day med renewals. [facility] 170 DO Work Phone: chief complaint Narrative - Reported* Neurologic Evaluation. * Follow up migraine management and 90 day med renewals. [facility] Work Phone: chief complaint Narrative - Reported* Neurologic Evaluation. * Follow up migraine management and 90 day med renewals. [facility] 170 DO Work Phone: chief complaint Narrative - Reported* Neurologic Evaluation. * Follow up migraine management and 90 day med renewals. [facility] Work Phone: Cdfzb complaint Narrative - Reported* Neurologic Evaluation. * Follow up migraine management and 90 day med renewals. [facility] 170 DO Work Phone: Ybfaf complaint Narrative - Reported* Neurologic Evaluation. * Follow up migraine management and 90 day med renewals. [facility] 170 DO Work Phone: chief complaint Narrative - Reported* Neurologic Evaluation. * Follow up migraine management and 90 day med renewals. [facility] 170 DO Work Phone: Chief complaint Narrative - Reported* Migraine * Neurologic Evaluation. * An interactive audio and video telecommunication system which permits real time communications between the patient (at the originating site) and provider (at the distant site) was utilized to providethis telehealth service. * Verbal consent was requested and obtained from SHERRY GUARDADO on this date, 02/02/2023 02:30 PM, for a telehealth visit. * Follow up migraine management and 90 day med renewals- opioids and sleep meds. [facility] Work Phone: chidq complaint Narrative - Reported* Neurologic Evaluation. * Follow up migraine management and 90 day med renewals. [facility] 170 DO Work Phone: Evaluation note* Diagnosis Primary osteoarthritis of right knee- Primary Primary localized osteoarthrosis, lower leg [facility] [place] [facility]* Diagnosis Primary osteoarthritis of left knee- Primary Primary localized osteoarthrosis, lower leg [facility] [place] [facility]* Diagnosis Primary osteoarthritis of left knee- Primary Primary localized osteoarthrosis, lower leg [facility] [place] noteNo assessment information availableUc [facility] Work Phone: Evaluation note* Diagnosis Venous stasis- Primary Unspecified venous (peripheral) insufficiency Seborrheic keratosis Other seborrheic keratosis Multiple benign nevi Benign neoplasm of skin, site unspecified Lentigines Other dyschromia Landers angioma Nevus, non-neoplastic [facility] [place] [facility]* Diagnosis Encounter for observation for other suspected diseases and conditions ruled out [facility]* Diagnosis Primary osteoarthritis of right knee- Primary Primary localized osteoarthrosis, lower leg Loose, body, joint, knee, right Hemarthrosis, right knee [facility] [place] [facility]* Diagnosis Primary hypertension- Primary Unspecified essential hypertension Cervical dystonia Spasmodic torticollis Chronic migraine without aura, with intractable migraine, so stated, with status migrainosus ESTHER on CPAP documented in this encounter [facility] Work Phone: Evaluation note* Diagnosis Intractable chronic migraine without aura and with status migrainosus documented in this encounter [facility] Work Phone: Evaluation note* Diagnosis Long-term use of high-risk medication Chronic migraine without aura, with intractable migraine, so stated, with status migrainosus documented in this encounter [facility] Work Phone: Evaluation note* Diagnosis Chronic migraine without aura, with intractable migraine, so stated, with status migrainosus documented in this encounter [facility] Work Phone: History general Narrative - Reported* Type Description Date Medical History HTN Medical History EDS Medical History Asthma Medical History Migraine headaches Bouf Other History of Present illness NarrativeToradol IM and PO after Botox to prevent injection triggered [facility] 170 DO Work Phone: History of Present illness NarrativeToradol IM and PO after Botox to prevent injection triggered [facility]Qt[facility]Ymox[facility] 170 DO Work Phone: History of Present illness NarrativeToradol IM and PO after Botox to prevent injection triggered [facility] 170 DO Work Phone: History of Present illness Narrative* Daily headache back of head and neck , occasionally frontal. Not 24/7 but off and on through the day. Light and sound sensitivity occur later in the day. * Daily headache pain range 0-6/10. Frequently wakes with headache. Does take Flexeril every HS * Better on weekends when doesn't have to wake early. * 2 headache free days past month. Vicodin to control from escalating into migraine. * Treating 8 migraines per month with Treximet. 2 per month more severe. Winter is usually better without heat and humidity. * Has tried Sprix which works quickly to take the edge off but doesn't work for long and migraine is back. Treximet relieves completely. * Individual has history of recurrent clonic or tonic involuntary contractions of one or more of the following muscles: sternocleidomastoid, splenius, trapezius, and/or posterior cervical muscles. Condition persisted for greater than 6 months. Botox is providing 50% reduction in symptoms of pain * Emgality has reduced frequency of severe migraines that require Trexime. Has DHE but is not using frequently * Taking Treximet to treat and effective to relieve adds Vicodin to treat completely Treximet Takes awhile to work * Migraine seems to occur in back of head and can radiate to top of head, throbbing nausea more severe. Sometimes behind eyes. * Migraine Associated light sensitivity, neck pain and tension * Triggers may be cashews and nuts, possible milk/lactose, lack of sleep. * Patient had 15 headache days a month or more, 8 meeting migraine criteria. They had tried and failed 3 preventative and 3 abortives. Presently their headaches are well controlled because of Botox Therapy. It has reduced the headaches by 50%. * Vicodin helpful to completely treat migraine if Treximet doesn't work * Will take Excedrin migraine 1-3 times per week to manage daily headache, or if Vicodin does not work completely * Lunesta helpful for sleep * Using CPAP for sleep * OARRS Report Last Screening Date: 01/20/2022 * I have personally reviewed the OARRS report for SHERRY GAURDADO. I have considered the risks of abuse, dependence, addiction and diversion. I believe that it is clinically appropriate for this patient to be prescribed this medication based on documented diagnosis. * OARRS report is initialed/dated and scanned into the electronic medical record. * I have the following concerns: none. * Last urine drug screening date/ordered today: 04/22/2021 * Controlled Substance Agreement: * I have printed this form and reviewed each line item with the patient and the patient has verbalized understanding. * Date of the last Controlled Substance Agreement: 04/22/2021 * OPIOID * Opioid Risk Screening: * Opioid Risk Tool * Last opioid risk screening date/ordered today: 07/21/2020 * Patient's total score is 0, within range of Low Risk (0-3). * Pain Scale Screening: * Pain Assessment and Documentation Tool (PADT) * Date of Assessment: 01/20/2022 * Analgesia: * Patient reports his pain level on average during the past week is 4 on a 0 - 10 scale. * Patient reports that his pain level at its worst during the past week was 8 on a 0 -10 scale. * 90% % of pain has been relieved during the past week per patient * Patient states that the amount of pain relief he is now obtaining from his current pain reliever(s)is enough to make a real difference in his life. * Query to clinician: Is the patient's pain relief clinically significant? Yes * Activities of Daily Living: * Physical functioning: Same * Family relationships: Same * Social relationships: Same * Mood: Same * Sleep patterns: Same * Overall functioning: Same * Adverse Events: * No, SHERRY GUARDADO is experiencing following side effects from current pain reliever. * Patients overall severity of side effect: None * Is your overall impression that this patient is benefiting (e.g., benefits, such as pain relief, outweigh side effects) from opioid therapy? Yes * Specific Analgesic Plan: Continue present regimen. * Comments:. Vicodin to manage daily headaches and migraine along with Treximet when pain escalate tomigraine. Adjunct Emgality. * SLEEP AIDS * Activities of Daily Living: * Yes, it is my opinion that this patient is benefitting from sleep aid therapy . * Physical functioning: Same * Family relationships: Same * Social relationships: Same * Mood: Same * Overall functioning: Same * Sleep patterns: Same * Referrals or Alternatives: None, Pain Management: Tried ablation/nerve block- ineffective 2012, Physical Therapy: 2013 last, Acupuncture: 2011, Massage: . * Current or Past Use of Non-Controlled Medication: NSAID, Muscle Relaxant, Melatonin, Antihistamines, Gabapentin. [facility] Work Phone: History of Present illness Narrative* Daily headache back of head and neck , occasionally frontal. Not 24/7 but off and on through the day. Light and sound sensitivity occur later in the day. * Daily headache pain range 0-6/10. Frequently wakes with headache. Does take Flexeril every HS * Better on weekends when doesn't have to wake early. * 2 headache free days past month. Vicodin to control from escalating into migraine. * Treating 8 migraines per month with Treximet. 2 per month more severe. Winter is usually better without heat and humidity. * Has tried Sprix which works quickly to take the edge off but doesn't work for long and migraine is back. Treximet relieves completely. * Individual has history of recurrent clonic or tonic involuntary contractions of one or more of the following muscles: sternocleidomastoid, splenius, trapezius, and/or posterior cervical muscles. Condition persisted for greater than 6 months. Botox is providing 50% reduction in symptoms of pain * Emgality has reduced frequency of severe migraines that require Trexime. Has DHE but is not using frequently * Taking Treximet to treat and effective to relieve adds Vicodin to treat completely Treximet Takes awhile to work * Migraine seems to occur in back of head and can radiate to top of head, throbbing nausea more severe. Sometimes behind eyes. * Migraine Associated light sensitivity, neck pain and tension * Triggers may be cashews and nuts, possible milk/lactose, lack of sleep. * Patient had 15 headache days a month or more, 8 meeting migraine criteria. They had tried and failed 3 preventative and 3 abortives. Presently their headaches are well controlled because of Botox Therapy. It has reduced the headaches by 50%. * Vicodin helpful to completely treat migraine if Treximet doesn't work * Will take Excedrin migraine 1-3 times per week to manage daily headache, or if Vicodin does not work completely * Lunesta helpful for sleep * Using CPAP for sleep * OARRS Report Last Screening Date: 01/20/2022 * I have personally reviewed the OARRS report for SHERRY GUARDADO. I have considered the risks of abuse, dependence, addiction and diversion. I believe that it is clinically appropriate for this patient to be prescribed this medication based on documented diagnosis. * OARRS report is initialed/dated and scanned into the electronic medical record. * I have the following concerns: none. * Last urine drug screening date/ordered today: 04/22/2021 * Controlled Substance Agreement: * I have printed this form and reviewed each line item with the patient and the patient has verbalized understanding. * Date of the last Controlled Substance Agreement: 04/22/2021 * OPIOID * Opioid Risk Screening: * Opioid Risk Tool * Last opioid risk screening date/ordered today: 07/21/2020 * Patient's total score is 0, within range of Low Risk (0-3). * Pain Scale Screening: * Pain Assessment and Documentation Tool (PADT) * Date of Assessment: 01/20/2022 * Analgesia: * Patient reports his pain level on average during the past week is 4 on a 0 - 10 scale. * Patient reports that his pain level at its worst during the past week was 8 on a 0 -10 scale. * 90% % of pain has been relieved during the past week per patient * Patient states that the amount of pain relief he is now obtaining from his current pain reliever(s)is enough to make a real difference in his life. * Query to clinician: Is the patient's pain relief clinically significant? Yes * Activities of Daily Living: * Physical functioning: Same * Family relationships: Same * Social relationships: Same * Mood: Same * Sleep patterns: Same * Overall functioning: Same * Adverse Events: * No, SHERRY GUARDADO is experiencing following side effects from current pain reliever. * Patients overall severity of side effect: None * Is your overall impression that this patient is benefiting (e.g., benefits, such as pain relief, outweigh side effects) from opioid therapy? Yes * Specific Analgesic Plan: Continue present regimen. * Comments:. Vicodin to manage daily headaches and migraine along with Treximet when pain escalate tomigraine. Adjunct Emgality. * SLEEP AIDS * Activities of Daily Living: * Yes, it is my opinion that this patient is benefitting from sleep aid therapy . * Physical functioning: Same * Family relationships: Same * Social relationships: Same * Mood: Same * Overall functioning: Same * Sleep patterns: Same * Referrals or Alternatives: None, Pain Management: Tried ablation/nerve block- ineffective 2012, Physical Therapy: 2013 last, Acupuncture: 2011, Massage: . * Current or Past Use of Non-Controlled Medication: NSAID, Muscle Relaxant, Melatonin, Antihistamines, Gabapentin. [id number] [address] DO Work Phone: History of Present illness Narrative* Daily headache back of head and neck , occasionally frontal. Not 24/7 but off and on through the day. Light and sound sensitivity occur later in the day. * Daily headache pain range 0-6/10. Frequently wakes with headache. Does take Flexeril every HS * Better on weekends when doesn't have to wake early. Can sleep later in the summer as well. * 2 headache free days past month. Vicodin daily to control from escalating into migraine. * Treating 6-7 migraines per month with Treximet. Works in 3- min. 1-2 per month more severe. Winter is usually better without heat and humidity. * Has not used Sprix lately. Treximet or sumatriptan injection. Tried sumatriptan injection for firsttime past month and did work faster. * Individual has history of recurrent clonic or tonic involuntary contractions of one or more of the following muscles: sternocleidomastoid, splenius, trapezius, and/or posterior cervical muscles. Condition persisted for greater than 6 months. Botox is providing 50% reduction in symptoms of pain * Emgality has reduced frequency of severe migraines that require Treximet. Has not used DHE in past 90 days. * Taking Treximet to treat and effective to relieve adds Vicodin to treat completely Treximet Takes awhile to work * Migraine seems to occur in back of head and can radiate to top of head, throbbing nausea more severe. Sometimes behind eyes. If gets in lower neck and shoulder and seems to longer. * Migraine Associated light sensitivity, neck pain and tension * Triggers may be cashews and nuts, possible milk/lactose, lack of sleep. * Patient had 15 headache days a month or more, 8 meeting migraine criteria. They had tried and failed 3 preventative and 3 abortives. Presently their headaches are well controlled because of Botox Therapy. It has reduced the headaches by 50%. * Vicodin helpful to completely treat migraine if Treximet doesn't work * Will take Excedrin migraine 2-3 times per week to manage daily headache, or if Vicodin does not work completely * Lunesta helpful for sleep * Using CPAP for sleep, just started in December. Can't tolerate all night long. If could wear all night, feels he wouldn't wake with a headache. * OARRS Report Last Screening Date: 04/20/2022 * I have personally reviewed the OARRS report for SHERRY GURADADO. I have considered the risks of abuse, dependence, addiction and diversion. I believe that it is clinically appropriate for this patient to be prescribed this medication based on documented diagnosis. * OARRS report is initialed/dated and scanned into the electronic medical record. * I have the following concerns: none. * Last urine drug screening date/ordered today: 04/20/2022 * Controlled Substance Agreement: * I have printed this form and reviewed each line item with the patient and the patient has verbalized understanding. * Date of the last Controlled Substance Agreement: 04/20/2022 * OPIOID * Opioid Risk Screening: * Opioid Risk Tool * Last opioid risk screening date/ordered today: 04/20/2022 * Patient's total score is 0, within range of Low Risk (0-3). * Pain Scale Screening: * Pain Assessment and Documentation Tool (PADT) * Date of Assessment: 04/20/2022 * Analgesia: * Patient reports his pain level on average during the past week is 3 on a 0 - 10 scale. * Patient reports that his pain level at its worst during the past week was 7 on a 0 -10 scale. * 100% % of pain has been relieved during the past week per patient * Patient states that the amount of pain relief he is now obtaining from his current pain reliever(s)is enough to make a real difference in his life. * Query to clinician: Is the patient's pain relief clinically significant? Yes * Activities of Daily Living: * Physical functioning: Same * Family relationships: Same * Social relationships: Same * Mood: Same * Sleep patterns: Same * Overall functioning: Same * Adverse Events: * No, SHERRY GUARDADO is experiencing following side effects from current pain reliever. * Patients overall severity of side effect: None * Is your overall impression that this patient is benefiting (e.g., benefits, such as pain relief, outweigh side effects) from opioid therapy? Yes * Specific Analgesic Plan: Continue present regimen. * Comments:. Vicodin to manage daily headaches and migraine along with Treximet when pain escalate tomigraine. Adjunct Emgality. * SLEEP AIDS * Activities of Daily Living: * Yes, it is my opinion that this patient is benefitting from sleep aid therapy . * Physical functioning: Same * Family relationships: Same * Social relationships: Same * Mood: Same * Overall functioning: Same * Sleep patterns: Same * Referrals or Alternatives: None, Pain Management: Tried ablation/nerve block- ineffective 2012, Physical Therapy: 2013 last, Acupuncture: 2011, Massage: -2018. * Current or Past Use of Non-Controlled Medication: NSAID, Muscle Relaxant, Melatonin, Antihistamines, Gabapentin. [id number] 5th Work Phone: History of Present illness Narrative* Daily headache back of head and neck , occasionally frontal. Not 24/7 but off and on through the day. Light and sound sensitivity occur later in the day. * Daily headache pain range 0-6/10. Frequently wakes with headache. Does take Flexeril every HS * Better on weekends when doesn't have to wake early. Can sleep later in the summer as well. * 2 headache free days past month. Vicodin daily to control from escalating into migraine. * Treating 6-7 migraines per month with Treximet. Works in 3- min. 1-2 per month more severe. Winter is usually better without heat and humidity. * Has not used Sprix lately. Treximet or sumatriptan injection. Tried sumatriptan injection for firsttime past month and did work faster. * Individual has history of recurrent clonic or tonic involuntary contractions of one or more of the following muscles: sternocleidomastoid, splenius, trapezius, and/or posterior cervical muscles. Condition persisted for greater than 6 months. Botox is providing 50% reduction in symptoms of pain * Emgality has reduced frequency of severe migraines that require Treximet. Has not used DHE in past 90 days. * Taking Treximet to treat and effective to relieve adds Vicodin to treat completely Treximet Takes awhile to work * Migraine seems to occur in back of head and can radiate to top of head, throbbing nausea more severe. Sometimes behind eyes. If gets in lower neck and shoulder and seems to longer. * Migraine Associated light sensitivity, neck pain and tension * Triggers may be cashews and nuts, possible milk/lactose, lack of sleep. * Patient had 15 headache days a month or more, 8 meeting migraine criteria. They had tried and failed 3 preventative and 3 abortives. Presently their headaches are well controlled because of Botox Therapy. It has reduced the headaches by 50%. * Vicodin helpful to completely treat migraine if Treximet doesn't work * Will take Excedrin migraine 2-3 times per week to manage daily headache, or if Vicodin does not work completely * Lunesta helpful for sleep * Using CPAP for sleep, just started in December. Can't tolerate all night long. If could wear all night, feels he wouldn't wake with a headache. * OARRS Report Last Screening Date: 04/20/2022 * I have personally reviewed the OARRS report for SHERRY LEWISELVIA. I have considered the risks of abuse, dependence, addiction and diversion. I believe that it is clinically appropriate for this patient to be prescribed this medication based on documented diagnosis. * OARRS report is initialed/dated and scanned into the electronic medical record. * I have the following concerns: none. * Last urine drug screening date/ordered today: 04/20/2022 * Controlled Substance Agreement: * I have printed this form and reviewed each line item with the patient and the patient has verbalized understanding. * Date of the last Controlled Substance Agreement: 04/20/2022 * OPIOID * Opioid Risk Screening: * Opioid Risk Tool * Last opioid risk screening date/ordered today: 04/20/2022 * Patient's total score is 0, within range of Low Risk (0-3). * Pain Scale Screening: * Pain Assessment and Documentation Tool (PADT) * Date of Assessment: 04/20/2022 * Analgesia: * Patient reports his pain level on average during the past week is 3 on a 0 - 10 scale. * Patient reports that his pain level at its worst during the past week was 7 on a 0 -10 scale. * 100% % of pain has been relieved during the past week per patient * Patient states that the amount of pain relief he is now obtaining from his current pain reliever(s)is enough to make a real difference in his life. * Query to clinician: Is the patient's pain relief clinically significant? Yes * Activities of Daily Living: * Physical functioning: Same * Family relationships: Same * Social relationships: Same * Mood: Same * Sleep patterns: Same * Overall functioning: Same * Adverse Events: * No, SHERRY GUARDADO is experiencing following side effects from current pain reliever. * Patients overall severity of side effect: None * Is your overall impression that this patient is benefiting (e.g., benefits, such as pain relief, outweigh side effects) from opioid therapy? Yes * Specific Analgesic Plan: Continue present regimen. * Comments:. Vicodin to manage daily headaches and migraine along with Treximet when pain escalate tomigraine. Adjunct Emgality. * SLEEP AIDS * Activities of Daily Living: * Yes, it is my opinion that this patient is benefitting from sleep aid therapy . * Physical functioning: Same * Family relationships: Same * Social relationships: Same * Mood: Same * Overall functioning: Same * Sleep patterns: Same * Referrals or Alternatives: None, Pain Management: Tried ablation/nerve block- ineffective 2012, Physical Therapy: 2013 last, Acupuncture: 2011, Massage: . * Current or Past Use of Non-Controlled Medication: NSAID, Muscle Relaxant, Melatonin, Antihistamines, Gabapentin. [id number] 170 DO Work Phone: History of Present illness Narrative* Recent severe injury to left calf requiring 21 stitches. Poor wound healing. Currently weekly debriding of wound. Having to grow skin * Emgality discontinued as felt that off of Botox, Emgality alone was not preventing migraine frequency or severity. * Resume Botox today. * Did wake with headache today, not migraine. Took vicodin early this morning and went back to sleep.No headache currently. * Daily headache back of head and neck , occasionally frontal. Not 24/7 but off and on through the day. Light and sound sensitivity occur later in the day. * Daily headache pain range 0-6/10. Frequently wakes with headache. Does take Flexeril every HS * Better on weekends when doesn't have to wake early. Can sleep later in the summer as well. * 2 headache free days most months. . Vicodin daily to control from escalating into migraine. * Treating 8-9 migraines past month with Treximet. Works in 30 min. 1-2 debilitating and more severe per month. Has to stay in bed. . Winter is usually better without heat and humidity. * Sprix has been helpful to treat. Treximet helpful as well. Will take Treximet if more severe. * Has sumatriptan injection. Doesn't use as much as painful to inject * Started Testosterone shots again due to low testosterone as well as estrogen taylor. Does not likeinjections. * Also started Myrbetrique for bladder and has been helpful to decrease nigh time waking to use bathroom . * Resuming Botox today with insurance re approval. 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 Subocciptal muscles a re the most affected with a prominent retrocollis that causes headaches. Patient was able to limit opioid therapy with Botox and now is increasing use of Vicodin, now that insurance has denied this FDA approved therapy. * Individual has history of recurrent clonic or tonic involuntary contractions of one or more of the following muscles: sternocleidomastoid, splenius, trapezius, and/or posterior cervical muscles. Condition persisted for greater than 6 months. Botox is providing 50% reduction in symptoms of pain * Emgality has reduced frequency of severe migraines that require Treximet. Has not used DHE in past 90 days. * Taking Treximet to treat and effective to relieve adds Vicodin to treat completely Treximet Takes awhile to work * Migraine seems to occur in back of head and can radiate to top of head, throbbing nausea more severe. Sometimes behind eyes. If gets in lower neck and shoulder and seems to longer. * Migraine Associated light sensitivity, neck pain and tension * Triggers may be cashews and nuts, possible milk/lactose, lack of sleep. * Patient had 15 headache days a month or more, 8 meeting migraine criteria. They had tried and failed 3 preventative and 3 abortives. Presently their headaches are well controlled because of Botox Therapy. It has reduced the headaches by 50%. * Vicodin helpful to completely treat migraine if Treximet doesn't work * Will take Excedrin migraine 2-3 times per week to manage daily headache, or if Vicodin does not work completely * Lunesta helpful for sleep * Using CPAP for sleep, just started in December. Can't tolerate all night long. If could wear all night, feels he wouldn't wake with a headache. Can tolerate 5.5-6 hours * Indocin for gout has not needed for a few months * OARRS Report Last Screening Date: 10/20/2022 * I have personally reviewed the OARRS report for SHERRY GUARDADO. I have considered the risks of abuse, dependence, addiction and diversion. I believe that it is clinically appropriate for this patient to be prescribed this medication based on documented diagnosis. * OARRS report is initialed/dated and scanned into the electronic medical record. * I have the following concerns: none. * Last urine drug screening date/ordered today: 04/20/2022 * Controlled Substance Agreement: * I have printed this form and reviewed each line item with the patient and the patient has verbalized understanding. * Date of the last Controlled Substance Agreement: 04/20/2022 * OPIOID * Opioid Risk Screening: * Opioid Risk Tool * Last opioid risk screening date/ordered today: 07/21/2022 * Patient's total score is 0, within range of Low Risk (0-3). * Pain Scale Screening: * Pain Assessment and Documentation Tool (PADT) * Date of Assessment: 10/20/2022 * Analgesia: * Patient reports his pain level on average during the past week is 3 on a 0 - 10 scale. * Patient reports that his pain level at its worst during the past week was 7 on a 0 -10 scale. * 100% % of pain has been relieved during the past week per patient * Patient states that the amount of pain relief he is now obtaining from his current pain reliever(s)is enough to make a real difference in his life. * Query to clinician: Is the patient's pain relief clinically significant? Yes * Activities of Daily Living: * Physical functioning: Same * Family relationships: Same * Social relationships: Same * Mood: Same * Sleep patterns: Same * Overall functioning: Same * Adverse Events: * No, SHERRY GUARDADO is experiencing following side effects from current pain reliever. * Patients overall severity of side effect: None * Is your overall impression that this patient is benefiting (e.g., benefits, such as pain relief, outweigh side effects) from opioid therapy? Yes * Specific Analgesic Plan: Continue present regimen. * Comments:. Vicodin to manage daily headaches and migraine along with Treximet when pain escalate tomigraine. Adjunct Emgality. rEstart Botox, [place] Emgality for insurance. * SLEEP AIDS * Activities of Daily Living: * Yes, it is my opinion that this patient is benefitting from sleep aid therapy . * Physical functioning: Same * Family relationships: Same * Social relationships: Same * Mood: Same * Overall functioning: Same * Sleep patterns: Same * Referrals or Alternatives: None, Pain Management: Tried ablation/nerve block- ineffective 2012, Physical Therapy: 2013 last, Acupuncture: 2011, Massage: . * Current or Past Use of Non-Controlled Medication: NSAID, Muscle Relaxant, Melatonin, Antihistamines, Gabapentin. [id number] 170 DO Work Phone: History of Present illness Narrative* UDS ordered. Can obtain at Lab when comes to office for Botox 02-14-2023. Does not until March 2023 * Controlled substance agreement due March 2023. Will have him fill out at Botox 02-14-2023 visit * Patient being assessed today for follow-up of migraine, cervicalgia, insomnia. Patient reports he has been doing well on his current regimen and does not report any changes since his last visit. He reports that he utilizes abortive medication once or twice per week and it is effective. Would like to continue the Emgality, Lunesta, hydrocodone as he has been taking them. OARRS report reviewed. Drug tox ordered. OARRS report reviewed. Discussed role of medicine, controlled substance policy, abusepotential, importance of taking medications, potential risks, benefits, and precautions to be taken. Reviewed sleep hygiene and dietary modifications. Follow-up with Dr. Bernal. * This note was created with voice recognition software and was not corrected for typographical orgrammatical errors * OARRS Report Last Screening Date: 02/02/2023 * I have personally reviewed the OARRS report for SHERRY GUARDADO. I have considered the risks of abuse, dependence, addiction and diversion. I believe that it is clinically appropriate for this patient to be prescribed this medication based on documented diagnosis. * OARRS report is initialed/dated and scanned into the electronic medical record. * I have the following concerns: none. * Last urine drug screening date/ordered today: 02/02/2023 * Controlled Substance Agreement: * I have printed this form and reviewed each line item with the patient and the patient has verbalized understanding. * Date of the last Controlled Substance Agreement: 02/02/2023 emailed * OPIOID * Opioid Risk Screening: * Opioid Risk Tool * Last opioid risk screening date/ordered today: 07/21/2022 * Patient's total score is 0, within range of Low Risk (0-3). * Pain Scale Screening: * Pain Assessment and Documentation Tool (PADT) * Date of Assessment: 02/02/2023 * Analgesia: * Patient reports his pain level on average during the past week is 3 on a 0 - 10 scale. * Patient reports that his pain level at its worst during the past week was 7 on a 0 -10 scale. * 100% % of pain has been relieved during the past week per patient * Patient states that the amount of pain relief he is now obtaining from his current pain reliever(s)is enough to make a real difference in his life. * Query to clinician: Is the patient's pain relief clinically significant? Yes * Activities of Daily Living: * Physical functioning: Same * Family relationships: Same * Social relationships: Same * Mood: Same * Sleep patterns: Same * Overall functioning: Same * Adverse Events: * No, SHERRY GUARDADO is experiencing following side effects from current pain reliever. * Patients overall severity of side effect: None * Is your overall impression that this patient is benefiting (e.g., benefits, such as pain relief, outweigh side effects) from opioid therapy? Yes * Specific Analgesic Plan: Continue present regimen. * Comments:. Vicodin to manage daily headaches and migraine along with Treximet when pain escalate tomigraine. Adjunct Emgality. rEstart Botox, [place] Emgality for insurance. * SLEEP AIDS * Activities of Daily Living: * Yes, it is my opinion that this patient is benefitting from sleep aid therapy . * Physical functioning: Same * Family relationships: Same * Social relationships: Same * Mood: Same * Overall functioning: Same * Sleep patterns: Same * Referrals or Alternatives: None, Pain Management: Tried ablation/nerve block- ineffective 2012, Physical Therapy: 2013 last, Acupuncture: 2011, Massage: . * Current or Past Use of Non-Controlled Medication: NSAID, Muscle Relaxant, Melatonin, Antihistamines, Gabapentin. [id number] B 101 Work Phone: History of Present illness NarrativeToradol IM after Botox to prevent injection triggered [id number]-Tohpho 170 DO Work Phone: History of Present illness NarrativeToradol IM after Botox to prevent injection triggered [id number] 170 DO Work Phone: History of Present illness Narrative* Winifred Bernal MD - 08/24/2023 10:40 AM EDT Every 90 day botox. Last in May 2023OARRS: No data recorded I have personally reviewed the OARRS report for Sherry Guardado. I have considered the risks of abuse, dependence, addiction and diversion Is the patient prescribed a combination of a benzodiazepine and opioid? No Last Urine Drug Screen / ordered today: No Recent Results (from the past 8760 hour(s)) OPIATE/OPIOID/BENZO PRESCRIPTION COMPLIANCE Collection Time: 02/14/23 11:50 AM Result Value Ref Range DRUG SCREEN COMMENT URINE SEE BELOW Creatine, Urine 48.5 mg/dL Amphetamine Screen, Urine PRESUMPTIVE NEGATIVE NEGATIVE Barbiturate Screen, Urine PRESUMPTIVE NEGATIVE NEGATIVE Cannabinoid Screen, Urine PRESUMPTIVE NEGATIVE NEGATIVE Cocaine Screen, Urine PRESUMPTIVE NEGATIVE NEGATIVE PCP Screen, Urine PRESUMPTIVE NEGATIVE NEGATIVE 7-Aminoclonazepam <25 Cutoff <25 ng/mL Alpha-Hydroxyalprazolam <25 Cutoff <25 ng/mL Alpha-Hydroxymidazolam <25 Cutoff <25 ng/mL Alprazolam <25 Cutoff <25 ng/mL Chlordiazepoxide <25 Cutoff <25 ng/mL Clonazepam <25 Cutoff <25 ng/mL Diazepam <25 Cutoff <25 ng/mL Lorazepam <25 Cutoff <25 ng/mL Midazolam <25 Cutoff <25 ng/mL Nordiazepam <25 Cutoff <25 ng/mL Oxazepam <25 Cutoff <25 ng/mL Temazepam <25 Cutoff <25 ng/mL Zolpidem <25 Cutoff <25 ng/mL Zolpidem Metabolite (ZCA) <25 Cutoff <25 ng/mL 6-Acetylmorphine <25 Cutoff <25 ng/mL Codeine <50 Cutoff <50 ng/mL Hydrocodone 459 (A) Cutoff <25 ng/mL Hydromorphone 107 (A) Cutoff <25 ng/mL Morphine Urine <50 Cutoff <50 ng/mL Norhydrocodone 472 (A) Cutoff <25 ng/mL Noroxycodone <25 Cutoff <25 ng/mL Oxycodone <25 Cutoff <25 ng/mL Oxymorphone <25 Cutoff <25 ng/mL Tramadol <50 Cutoff <50 ng/mL O-Desmethyltramadol <50 Cutoff <50 ng/mL Fentanyl <2.5 Cutoff<2.5 ng/mL Norfentanyl <2.5 Cutoff<2.5 ng/mL METHADONE CONFIRMATION,URINE <25 Cutoff <25 ng/mL EDDP <25 Cutoff <25 ng/mL Results are as expected. Controlled Substance Agreement: Date of the Last Agreement: 01/2023 Reviewed Controlled Substance Agreement including but not limited to the benefits, risks, and alternatives to treatment with a Controlled Substance medication(s). Opioids: What is the patient's goal of therapy? Pain relief Is this being achieved with current treatment? yes I have calculated the patient's Morphine Dose Equivalent (MED): I have considered referral to Pain Management and/or a specialist, and do not feel it is necessary at this time. I feel that it is clinically indicated to continue this current medication regimen after consideration of alternative therapies, and other non-opioid treatment. Opioid Risk Screening: No data recorded Pain Assessment: No data recorded and Sleep Aids: What is the patient's goal of therapy? sleep Is this being achieved with current treatment? yes Activities of Daily Living: Is your overall impression that this patient is benefiting (symptom reduction outweighs side effects) from sleep aid therapy? Yes 1. Physical Functioning: Same 2. Family Relationship: Same 3. Social Relationship: Same 4. Mood: Same 5. Sleep Patterns: Same 6. Overall Function: Same Experiencing nearly daily migraine. Severe 2-3 times per month. 2 days headache free. Recently waking in middle of night with migraines again. Had subsided occurrence of this when started CPAP. Wondering if neck pain is triggering. Treat with vicodin to keep migraine low level. Treats with Treximet twice weekly for escalating migraine. 1 days per month when most severe need to stop activity and lay down. Migraine occurs back of neck and radiates or starts in forehead takes flexeril has not yet tried toincrease to 2. Associated light and noise sensitivity, rare nausea Triggers are lack of sleep and dehydration, maybe neck pain, stress Recently stopped caffeine intake as heart rate was variable. Sleep interrupted recently with head pain. Lunesta is helpful Continues with indocin for gout. Had a holter monitor which showed SVT, Lathe Puller put him on propranolol. Starts this today follow in 1 week to see if asthma is worse, also to review dopamine stress test which will be done the same day. Lathe Puller knows he is on Sumatriptan. * Mattie Torres RN - 08/24/2023 10:40 AM EDT Please do not rub areas for 24 hours. No pressure above eyebrows for 24 hours. Watch out for helmets, headlamps, headbands, goggles, or massage for 24 hours. If there is discomfort, ice for the first24 hour,s heat after that. Headaches may worsen, or you may experience neck stiffness. If this occurs use your usual headache medication or a mild anti inflammatory such as advil or aleve. Please call if you have difficulty swallowing. documented in this encounterUnAd[facility] Work Phone: Hospital Discharge instructions Additional Instructions Sutures can be removed 7 to 10 days A wash daily with soap and water do not use peroxide or alcohol Apply antibiotic 2-3 times a day and clean dressing Take the antibiotic cephalexin 1000 mg twice a day for 7 days May take Tylenol or ibuprofen for discomfort Follow-up with your family doctor for recheck Return to the ER for uncontrolled bleeding significant redness swelling fever chills drainage or any other concernsU[facility] Work Phone: Reason for referral (narrative)* Procedure (Routine) - Pending Review Specialty Diagnoses / Procedures Referred By Contac t Referred To Contact Diagnoses Intractable chronic migraine without aura and with status migrainosus Procedures Head/Face/Jaw Botulinum Injection Winifred Bernal MD [facility] Sukhwinder Gardiner [address] [place] [address] Referral ID Status Reason Start Date Expiration Date Visits Requested Visits Authorized [id number] Pending Review Perform Procedure 08/24/2023 02/20/2024 1 1 * Procedure (Routine) - Pending Review Specialty Diagnoses / Procedures Referred By Contac t Referred To Contact Diagnoses Intractable chronic migraine without aura and with status migrainosus Procedures Head/Face/Jaw Botulinum Injection Winifred Bernal MD [address] [place] [address] Referral ID Status Reason Start Date Expiration Date Visits Requested Visits Authorized [id number] Pending Review Perform Procedure 08/24/2023 02/20/2024 1 1 [facility] Work Phone: Retnmu for referral (narrative)* Procedure (Routine) - Pending Review Specialty Diagnoses / Procedures Referred By Contac t Referred To Contact Diagnoses Chronic migraine without aura, with intractable migraine, so stated, with status migrainosus Procedures Head/Face/Jaw Botulinum Injection Winifred Bernal MD [address] [place] [address] Referral ID Status Reason Start Date Expiration Date Visits Requested Visits Authorized [id number] Pending Review Perform Procedure 12/21/2023 12/20/2024 1 1 * Clinic-Administered Medication (Routine) - Pending Review Specialty Diagnoses / Procedures Referred By Contac t Referred To Contact Diagnoses Chronic migraine without aura, with intractable migraine, so stated, with status migrainosus Winifred Bernal MD [address] [place] [id number] Referral ID Status Reason Start Date Expiration Date V isits Requested Visits Authorized [id number] Pending Review 12/21/2023 12/20/2024 1 1 * Clinic-Administered Medication (Routine) - Pending Review Specialty Diagnoses / Procedures Referred By Contac t Referred To Contact Diagnoses Chronic migraine without aura, with intractable migraine, so stated, with status tonaosus Winifred Bernal MD [address] [place] [address] Referral ID Status Reason Start Date Expiration Date V isits Requested Visits Authorized [id number] Pending Review 12/14/2023 12/13/2024 1 1 [facility] Work Phone: Family History Father Name Dates Details Family history of cardiac di sorder(V17.49, Z82.49) Status:Active Father Name Dates Details Family history of cardiac di sorder(V17.49, Z82.49) Status:Active Father Name Dates Details Family history of cardiac di sorder(V17.49, Z82.49) Status:Active Unknown Family Member Name Dates Details Family history of cardiac di sorder: Father(V17.49, Z82.49) Status:Active Unknown Family Member Name Dates Details Family history of cardiac di sorder: Father(V17.49, Z82.49) Status:Active Unknown Family Member Name Dates Details Family history of cardiac di sorder: Father(V17.49, Z82.49) Status:Active Unknown Family Member Name Dates Details Family history of cardiac di sorder: Father(V17.49, Z82.49) Status:Active Unknown Family Member Name Dates Details Family history of cardiac di sorder: Father(V17.49, Z82.49) Status:Active Unknown Family Member Name Dates Details Family history of cardiac di sorder: Father(V17.49, Z82.49) Status:Active Unknown Family Member Name Dates Details Family history of cardiac di sorder: Father(V17.49, Z82.49) Status:Active Unknown Family Member Name Dates Details Family history of cardiac di sorder: Father(V17.49, Z82.49) Status:Active Unknown Family Member Name Dates Details Family history of cardiac di sorder: Father(V17.49, Z82.49) Status:Active Unknown Family Member Name Dates Details Family history of cardiac di sorder: Father(V17.49, Z82.49) Status:Active Unknown Family Member Name Dates Details Family history of cardiac di sorder: Father(V17.49, Z82.49) Status:Active Unknown Family Member Name Dates Details Family history of cardiac di sorder: Father(V17.49, Z82.49) Status:Active Unknown Family Member Name Dates Details Family history of cardiac di sorder: Father(V17.49, Z82.49) Status:Active Unknown Family Member Name Dates Details Family history of cardiac di sorder: Father(V17.49, Z82.49) Status:Active Unknown Family Member Name Dates Details Family history of cardiac di sorder: Father(V17.49, Z82.49) Status:Active Unknown Family Member Name Dates Details Family history of cardiac di sorder: Father(V17.49, Z82.49) Status:Active Unknown Family Member Name Dates Details Family history of cardiac di sorder: Father(V17.49, Z82.49) Status:Active Unknown Family Member Name Dates Details Family history of cardiac di sorder: Father(V17.49, Z82.49) Status:Active Unknown Family Member Name Dates Details Family history of cardiac di sorder: Father(V17.49, Z82.49) Status:Active Unknown Family Member Name Dates Details Family history of cardiac di sorder: Father(V17.49, Z82.49) Status:Active Unknown Family Member Name Dates Details Family history of cardiac di sorder: Father(V17.49, Z82.49) Status:Active Unknown Family Member Name Dates Details Family history of cardiac di sorder: Father(V17.49, Z82.49) Status:Active Unknown Family Member Name Dates Details Family history of cardiac di sorder: Father(V17.49, Z82.49) Status:Active Unknown Family Member Name Dates Details Family history of cardiac di sorder: Father(V17.49, Z82.49) Status:Active Unknown Family Member Name Dates Details Family history of cardiac di sorder: Father(V17.49, Z82.49) Status:Active Unknown Family Member Name Dates Details Family history of cardiac di sorder: Father(V17.49, Z82.49) Status:Active Unknown Family Member Name Dates Details Family history of cardiac di sorder: Father(V17.49, Z82.49) Status:Active Unknown Family Member Name Dates Details Family history of cardiac di sorder: Father(V17.49, Z82.49) Status:Active Unknown Family Member Name Dates Details Family history of cardiac di sorder: Father(V17.49, Z82.49) Status:Active Unknown Family Member Name Dates Details Family history of cardiac di sorder: Father(V17.49, Z82.49) Status:Active Unknown Family Member Name Dates Details Family history of cardiac di sorder: Father(V17.49, Z82.49) Status:Active Unknown Family Member Name Dates Details Family history of cardiac di sorder: Father(V17.49, Z82.49) Status:Active Unknown Family Member Name Dates Details Family history of cardiac di sorder: Father(V17.49, Z82.49) Status:Active Relationship Condition Age at Onset Recorded Date/T tracey Not Specified Hypertension Unknown father Heart disease Unknown Unknown Family Member Name Dates Details Family history of cardiac di sorder: Father(V17.49, Z82.49) Status:Active Unknown Family Member Name Dates Details Family history of cardiac di sorder: Father(V17.49, Z82.49) Status:Active Unknown Family Member Name Dates Details Family history of cardiac di sorder: Father(V17.49, Z82.49) Status:Active Unknown Family Member Name Dates Details Family history of cardiac di sorder: Father(V17.49, Z82.49) Status:Active Unknown Family Member Name Dates Details Family history of cardiac di sorder: Father(V17.49, Z82.49) Status:Active Unknown Family Member Name Dates Details Family history of cardiac di sorder: Father(V17.49, Z82.49) Status:Active Unknown Family Member Name Dates Details Family history of cardiac di sorder: Father(V17.49, Z82.49) Status:Active Unknown Family Member Name Dates Details Family history of cardiac di sorder: Father(V17.49, Z82.49) Status:Active Unknown Family Member Name Dates Details Family history of cardiac di sorder: Father(V17.49, Z82.49) Status:Active Unknown Family Member Name Dates Details Family history of cardiac di sorder: Father(V17.49, Z82.49) Status:Active Unknown Family Member Name Dates Details Family history of cardiac di sorder: Father(V17.49, Z82.49) Status:Active Unknown Family Member Name Dates Details Family history of cardiac di sorder: Father(V17.49, Z82.49) Status:Active Unknown Family Member Name Dates Details Family history of cardiac di sorder: Father(V17.49, Z82.49) Status:Active Unknown Family Member Name Dates Details Family history of cardiac di sorder: Father(V17.49, Z82.49) Status:Active Unknown Family Member Name Dates Details Family history of cardiac di sorder: Father(V17.49, Z82.49) Status:Active Unknown Family Member Name Dates Details Family history of cardiac di sorder: Father(V17.49, Z82.49) Status:Active Unknown Family Member Name Dates Details Family history of cardiac di sorder: Father(V17.49, Z82.49) Status:Active Unknown Family Member Name Dates Details Family history of cardiac di sorder: Father(V17.49, Z82.49) Status:Active Unknown Family Member Name Dates Details Family history of cardiac di sorder: Father(V17.49, Z82.49) Status:Active Unknown Family Member Name Dates Details Family history of cardiac di sorder: Father(V17.49, Z82.49) Status:Active Chief Complaint Every 90 day Botox injectionsEvery 90 day Botox injections* Every 90 day Botox injections * onobotulinumtoxinA toxin A ([facility]- 5384-8798 ) * Every 90 day Botox injections * onobotulinumtoxinA toxin A ([facility]- 5599-5451 ) * Every 90 day Botox injections * onobotulinumtoxinA toxin A ([facility]- 9959-4323 ) Medications Administered Section Inactive Administered Medications - up to 3 most recent administrations Medication Order MAR Action Action Date Dose Rate Site lidocaine (PF) 10 mg/mL (1 %) 8 mL injection (XYLOCAINE) 8 mL, Injection - FOR ORTHO USE ONLY, ONE TIME INJECTION, 1 dose, Starting on Tue03/10/22 at 0930, Until Tue03/10/22 at 0930 Given 03/10/2022 9:30 AM EDT 8 mL triamcinolone acetonide 80 mg injection (KeNALog 40) 80 mg, Injection - FOR ORTHO USE ONLY, ONE TIME INJECTION, 1 dose, Starting on Tue03/10/22 at 0930, Until Tue03/10/22 at 0930 Given 03/10/2022 9:30 AM EDT 80 mg Inactive Administered Medications - up to 3 most recent administrations Medication Order MAR Action Action Date Dose Rate Site lidocaine (PF) 10 mg/mL (1 %) 8 mL injection (XYLOCAINE) 8 mL, Injection - FOR ORTHO USE ONLY, ONE TIME INJECTION, 1 dose, Starting on Tue04/20/22 at 1043, Until Tue04/20/22 at 1043 Given 04/20/2022 10:43 AM EDT 8 mL triamcinolone acetonide 80 mg injection (KeNALog 40) 80 mg, Injection - FOR ORTHO USE ONLY, ONE TIME INJECTION, 1 dose, Starting on Tue04/20/22 at 1043, Until Tue04/20/22 at 1043 Given 04/20/2022 10:43 AM EDT 80 mg Chief Complaint and Reason for Visit Chief Complaint left calf lac Chief Complaint ESTHER 1 YEAR MAG EZ NT Advance Directives Advance Directive Response Recorded Date/ Time Advance Directives No April 24 12:26pm Summary Purpose Reason for Referral Specialty Diagnoses / Procedures Referred By Contac t Referred To Contact MR IMAGING Diagnoses Encounter for observation for other suspected diseases and conditions ruled out Procedures MRI KNEE WO/W IVCON RIGHT MRI ANY JT LOWER EXTREM W/O & W/CONTRAST Woody Iverson PA-C [address] [place] [address] Mr Imaging Referral ID Status Reason Start Date Expiration Date V isits Requested Visits Authorized [id number] Closed Auto-Generate d Referral 04/28/2023 06/12/2023 1 1 Additional Source Comments Reason for Visit (unrecogniz ed section and content) Reason Comments Radiology XR Reason Comments New Reason Comments Full Body Skin Check Limited. Specialty Diagnoses / Procedures Referred By Contac t Referred To Contact MR IMAGING Diagnoses Encounter for observation for other suspected diseases and conditions ruled out Procedures MRI KNEE WO/W IVCON RIGHT MRI ANY JT LOWER EXTREM W/O & W/CONTRAST Woody Iverson PA-C [address] [place] [address] Mr Imaging Referral ID Status Reason Start Date Expiration Date V isits Requested Visits Authorized [id number] Closed Auto-Generate d Referral 04/28/2023 06/12/2023 1 1 Reason Comments Established Patient Reason Comments Migraine Follow up migraine m anagement and 90 day med renewals. Reason Comments Migraine 90 day med visit Reason Comments Migraine Every 90 day Botox i njectionsonobotulinumtoxinA toxin A ([facility]- 4851-9577 ) Specialty Diagnoses / Procedures Referred By Contac t Referred To Contact Diagnoses Chronic migraine without aura, with intractable migraine, so stated, with status migrainosus Winifred Bernal MD [address] [address] Referral ID Status Reason Start Date Expiration Date V isits Requested Visits Authorized [id number] Pending Review 12/14/2023 12/13/2024 1 1 Source Comments (unrecognize d section and content) In the event this informatio n is protected by the Federal Confidentiality of Alcohol and Drug Abuse Patient Records regulations: The Federal rules restrict any use of the information to criminally investigate or prosecute any alcohol or drug abuse patient.[facility] the event this information is protected by the Federal Confidentiality of Alcohol and Drug Abuse Patient Records regulations: The Federal rules restrict any use of the information to criminally investigate or prosecute any alcohol or drug abuse patient.[facility] the event this information is protected by the Federal Confidentiality of Alcohol and Drug Abuse Patient Records regulations: The Federal rules restrict any use of the information to criminally investigate or prosecute any alcohol or drug abuse patient.[facility] the event this information is protected by the Federal Confidentiality of Alcohol and Drug Abuse Patient Records regulations: The Federal rules restrict any use of the information to criminally investigate or prosecute any alcohol or drug abuse patient.[facility] the event this information is protected by the Federal Confidentiality of Alcohol and Drug Abuse Patient Records regulations: The Federal rules restrict any use of the information to criminally investigate or prosecute any alcohol or drug abuse patient.[facility] the event this information is protected by the Federal Confidentiality of Alcohol and Drug Abuse Patient Records regulations: The Federal rules restrict any use of the information to criminally investigate or prosecute any alcohol or drug abuse patient.[facility] the event this information is protected by the Federal Confidentiality of Alcohol and Drug Abuse Patient Records regulations: The Federal rules restrict any use of the information to criminally investigate or prosecute any alcohol or drug abuse patient.[facility] Care Teams (unrecognized sec tion and content) Team Status: Active Member Role Status Dates Pancho Scott DO Primary Care Provider Active Team Status: Inactive Member Role Status Dates Pancho Scott DO Primary Care Provider Active Dina Chandra MD Attending Provider Active Registered Radiographer Relationship Specialty Start Date End Date Pancho Scott DO [address] [place] [address] PCP - General Family Practice 01/16/13 Registered Radiographer Relationship Specialty Start Date End Date Pancho Scott, DO [address] [place] [phone] PCP - General Family Practice 01/16/13 Registered Radiographer Relationship Specialty Start Date End Date Pancho Scott, DO [address] [place] [phone] PCP - General Family Practice 01/16/13 Team Status: Inactive Member Role Status Dates Pancho Scott DO Primary Care Provider Active Tiffany Benjamin , SPECIAL EDUCATION SCIENCE TEACHER- Emergency Provider Active Registered Radiographer Relationship Specialty Start Date End Date ScottPancho bauer Rio, DO [address] [place] [address] PCP - General Family Medicine 01/16/13 Registered Radiographer Relationship Specialty Start Date End Date Pancho Scott, DO [address] [place] [id number] PCP - General Family Medicine 01/16/13 Registered Radiographer Relationship Specialty Start Date End Date Pancho Scott, DO [address] [place] [address] PCP - General Family Medicine 01/16/13 Registered Radiographer Relationship Specialty Start Date End Date Pancho Scott DO [address] [place] [address] PCP - General 11/21/99 Registered Radiographer Relationship Specialty Start Date End Date Pancho Scott DO [address] [place] [address] PCP - General 11/21/99 Registered Radiographer Relationship Specialty Start Date End Date Pancho Scott DO [address] [place] [address] PCP - General 11/21/99 Registered Radiographer Relationship Specialty Start Date End Date Pancho Scott DO [address] [place] [address] PCP - General 11/21/99 Goals (unrecognized section and content) Goals may be documented in a n alternate section (unrecognized sect ion and content) No Status Records FoundNo Status Records FoundNo Status Records FoundNo Status Records FoundNo Status Records FoundNo Status Records FoundNo Status Records FoundNo Status Records FoundNo Status Records FoundNo Status Records Found INFORMATION SOURCE (unrecogn ized section and content) DATE CREATED AUTHOR 02/08/2023 [facility] DATE CREATED AUTHOR AUTHOR'S ORGANIZ ATION 05/10/2023 [facility] DATE CREATED AUTHOR AUTHOR'S ORGANIZ ATION 05/19/2023 [facility] DATE CREATED AUTHOR AUTHOR'S ORGANIZ ATION 07/21/2023 [facility] DATE CREATED AUTHOR AUTHOR'S ORGANIZ ATION 09/26/2023 [facility] DATE CREATED AUTHOR AUTHOR'S ORGANIZ ATION 10/23/2023 [facility] DATE CREATED AUTHOR AUTHOR'S ORGANIZ ATION 11/23/2023 [facility] DATE CREATED AUTHOR AUTHOR'S ORGANIZ ATION 12/09/2023 [facility] DATE CREATED AUTHOR AUTHOR'S ORGANIZ ATION 12/17/2023 [facility] DATE CREATED AUTHOR AUTHOR'S ORGANIZ ATION 12/18/2023 [facility] FOR RECORDS PERTAINING TO PATIENTS WHO ARE OR HAVE BEEN ENROLLED IN A CHEMICAL DEPENDENCY/SUBSTANCEABUSE PROGRAM, SOME INFORMATION MAY BE OMITTED. This clinical summary was aggregated from multiple sources. Caution should be exercised in using it in the provision of clinical care. This summary normalizes information from multiple sources, and as a consequence, information in this document may materially change the coding, format and clinical context of patient data. In addition, data may be omitted in some cases. CLINICAL DECISIONS SHOULD BE BASED ON THE PRIMARY CLINICAL RECORDS. [facility]. provides no warranty or guarantee of the accuracy or completeness of information in this document.
== END 2024-01-09 10:36 | disposition home or self-care (01) ==
PROVIDERS: PCP Radiology Diagnostic Radiology; Visit Provider Radiology Diagnostic Radiology
DX: I80.02 Phlebitis and thrombophlebitis of superficial vessels of left lower extremity (principal)
CPT/HCPCS: 93971; G0463